=== PATIENT | male | born 1945 | race Caucasian/White ===

== ENCOUNTER 2017-10-19 23:03 | Emergency (ER) | payer OTHER ==
[2017-10-19] MEDS: HYDROmorphone 2 MG/ML VIAL IM (23:30)
[2017-10-20] MEDS: HYDROcodone/APAP 10/325 1 TAB TABLET PO (00:30)
== END 2017-10-20 01:48 | disposition home or self-care (01) ==
LOC: ER 10-20 01:48
DX: S83.92XA Sprain of unspecified site of left knee, initial encounter (principal); E78.00 Pure hypercholesterolemia, unspecified; E10.9 Type 1 diabetes mellitus without complications; I10 Essential (primary) hypertension; Z88.6 Allergy status to analgesic agent; X50.9XXA Other and unspecified overexertion or strenuous movements or postures, initial encounter; Y93.89 Activity, other specified; Y99.8 Other external cause status; Y92.89 Other specified places as the place of occurrence of the external cause
CPT/HCPCS: 29505; 73562; 96372; 99284-25; J1170

== ENCOUNTER 2018-07-24 23:28 | Inpatient (IN) | payer OTHER ==
[~2018-07-24] VITALS: Ht 188 cm; Wt 199.6 kg
[~2018-07-24 23:28] MED LIST: ASPI81TA59 PO; ATORVASTATIN CA80 MG PO; BENZ-8 PO; BUPR150T6 PO; CEPH250C PO; CHOL10003 PO; DIPH25CA58 PO; DULO60CA6 PO; ENOX60DI3 SQ; FINA5TAB4 PO; FURO20TA3 PO; HYDR410O TP; INSU100I17 SQ; INSU100V8 SQ; IPRA3AMP29 NEB; LOSA50TA7 PO; MAGN400T3 PO; MELA3TAB2 PO; METO25TA4 PO; MICO130A9 TP; MULT1TAB52 PO; NALT50TA PO; NYST15PO9 TP; OMEG1CAP6 PO; PREG50CA PO; TAMS0.4C2 PO; TRAZ-85 PO
[2018-07-25] MEDS ORDERED: oxyCODONE/APAP 5/325 1 TAB TABLET ONE (00:41)
[2018-07-25] MEDS ORDERED: oxyCODONE/APAP 5/325 1 TAB TABLET PO ONE (00:45)
[2018-07-25 00:53] LABS: BASO # 0.1 x10^3/uL (0.0-0.2); BASO % 0 % (0-3); EOS # 0.2 x10^3/uL (0.0-0.7); EOS % 1 % (0-3); HEMATOCRIT 39.3 % (39.0-53.0); HEMOGLOBIN 13.3 g/dL (13.0-17.5); LYMPH # 1.4 x10^3/uL (1.0-4.8); LYMPH % 8 % (24-48); MEAN CORPUSCULAR HEMOGLOBIN 29 pg (25-35); MEAN CORPUSCULAR HGB CONC 34 g/dL (31-37); MEAN CORPUSCULAR VOLUME 85 fL (79-100); MONO % 6 % (0-9); NEUT # 15.1 x10^3uL (1.8-7.7); NEUT % 85 % (31-73); PLATELET COUNT 229 x10^3/uL (140-400); RED BLOOD COUNT 4.62 x10^6/uL (4.30-5.70); RED CELL DISTRIBUTION WIDTH 14.7 % (11.5-14.5); WHITE BLOOD COUNT 17.9 x10^3/uL (4.0-11.0)
[2018-07-25 01:01] LABS: CALCIUM 9.1 mg/dL (8.5-10.1); CREATININE 1.2 mg/dL (0.7-1.3); GFR 59.7; POTASSIUM 4.7 mmol/L (3.5-5.1)
[2018-07-25 01:18] LABS: % BANDS 1 % (0-9); % EOS 1 % (0-5); % LYMPHS 13 % (24-48); % MONOS 1 % (0-10); % SEGS 84 % (35-66); PLT ESTIMATE ADEQUATE (ADEQUATE); TOXIC GRANULATION SLIGHT
[2018-07-25] MEDS ORDERED: ACETAMINOPHEN 325 MG TABLET. PO PRN (01:45)
[2018-07-25] MEDS ORDERED: ONDANSETRON PF 4 MG/2 ML VIAL. IV PRN ×2 (01:45→09:00)
--- NOTE | 2018-07-25 02:15 | PHYS DOC ---
Past Medical History Past Medical History: COPD, Diabetes-Type I, High Cholesterol, Hypertension, Other Additional Past Medical Histor: born with one kidney, EMPHYSEMA, MORBIDLY OBESE Past Surgical History: No Surgical History, Other Additional Past Surgical Histo: hernia Alcohol Use: None Drug Use: None Adult General Chief Complaint Chief Complaint: GROIN PAIN [facility] HPI Patient is a 73 year old male who presents with left leg pain. Patient states he is having severe pain in the left leg. The pain is over the entire leg and thigh and radiates to the foot. The patient is currently in an acute rehabilitation facility. He was discharged from this hospital a couple days earlier when he was admitted for respiratory failure and bacteremia and cellulitis in the lower extremity. The patient was not sent home on antibiotics. He was treated in the hospital. Patient has multiple complaints. He states he normally takes medications to help him sleep at night but he is not receiving the appropriate dose of these medications at the [facility]. He also states feeling medication he has for pain is Tylenol. Review of electronic medical record does reveal he is on gabapentin as well. He denies a fever. The patient is at times difficult to obtain a history and mildly belligerent with staff and does not always answer questions appropriately. He is unable to say if the leg pain is new or he has been having it chronically. Review of Systems Review of Systems Constitutional: Denies fever or chills Eyes: Denies change in visual acuity HENT: Denies Respiratory: Denies cough or shortness of breath Cardiovascular: No additional information not addressed in HPI GI: Denies abdominal pain : had dysuria after recent ybarra catheter but no resolved Musculoskeletal: Denies back pain Integument: Denies rash or skin lesions Neurologic: Denies headache All other systems were reviewed and found to be within normal limits, except as documented in this note. Current Medications Current Medications Current Medications Medications (Trade) Dose Ordered Sig/Merry Start Time Stop Time Status Last Admin Dose Admin Acetaminophen (Tylenol) 650 mg PRN Q4HRS PRN 07/25/18 01:45 07/26/18 01:44 Morphine Sulfate (Morphine Sulfate) 4 mg PRN Q2HR PRN 07/25/18 01:45 07/26/18 01:44 Ondansetron HCl (Zofran) 4 mg PRN Q8HRS PRN 07/25/18 01:45 07/26/18 01:44 Oxycodone/ Acetaminophen (Percocet 5/325) 1 tab STK-MED ONCE 07/25/18 00:41 07/25/18 00:42 DC Allergies Allergies Allergies Coded Allergies Type Severity Reaction Last Updated Verified ibuprofen Allergy Severe RespDistress, Swelling 07/13/18 Yes I S O L A T I O N *CONTACT* Allergy Unknown 07/15/18 Yes Physical Exam Physical Exam Constitutional: morbidly obese, no acute distress HENT: Normocephalic, atraumatic Eyes: PERRLA, EOMI Neck: Normal range of motion Cardiovascular:Heart rate regular rhythm, no murmur Lungs & Thorax: Bilateral breath sounds clear to auscultation Abdomen: Bowel sounds normal, soft Extremities: erythema over left leg Neurologic: Alert and oriented X 3 Psych: anxious at times Current Patient Data Vital Signs Vital Signs Date Time Temp Pulse Resp B/P (MAP) Pulse Ox O2 Delivery O2 Flow Rate FiO2 07/24/18 23:46 98.4 62 24 198/129 (152) 96 Nasal Cannula 2.0 98.4 Lab Values Laboratory Tests Test 07/25/18 00:45 White Blood Count 17.9 x10^3/uL (4.0-11.0) H Red Blood Count 4.62 x10^6/uL (4.30-5.70) Hemoglobin 13.3 g/dL (13.0-17.5) Hematocrit 39.3 % (39.0-53.0) Mean Corpuscular Volume 85 fL (79-100) Mean Corpuscular Hemoglobin 29 pg (25-35) Mean Corpuscular Hemoglobin Concent 34 g/dL (31-37) Red Cell Distribution Width 14.7 % (11.5-14.5) H Platelet Count 229 x10^3/uL (140-400) Neutrophils (%) (Auto) 85 % (31-73) H Lymphocytes (%) (Auto) 8 % (24-48) L Monocytes (%) (Auto) 6 % (0-9) Eosinophils (%) (Auto) 1 % (0-3) Basophils (%) (Auto) 0 % (0-3) Neutrophils # (Auto) 15.1 x10^3uL (1.8-7.7) H Lymphocytes # (Auto) 1.4 x10^3/uL (1.0-4.8) Monocytes # (Auto) 1.0 x10^3/uL (0.0-1.1) Eosinophils # (Auto) 0.2 x10^3/uL (0.0-0.7) Basophils # (Auto) 0.1 x10^3/uL (0.0-0.2) Segmented Neutrophils % 84 % (35-66) H Band Neutrophils % 1 % (0-9) Lymphocytes % 13 % (24-48) L Monocytes % 1 % (0-10) Eosinophils % 1 % (0-5) Toxic Granulation Slight Platelet Estimate Adequate (ADEQUATE) Sodium Level 131 mmol/L (136-145) L Potassium Level 4.7 mmol/L (3.5-5.1) Chloride Level 95 mmol/L (98-107) L Carbon Dioxide Level 29 mmol/L (21-32) Anion Gap 7 (6-14) Blood Urea Nitrogen 24 mg/dL (8-26) Creatinine 1.2 mg/dL (0.7-1.3) Estimated GFR (Cockcroft-Gault) 59.7 Glucose Level 243 mg/dL (70-99) H Calcium Level 9.1 mg/dL (8.5-10.1) Laboratory Tests 07/25/18 00:45 Laboratory Tests 07/25/18 00:45 EKG EKG [] Radiology/Procedures Radiology/Procedures [] Course & Med Decision Making Course & Med Decision Making Pertinent Labs and Imaging studies reviewed. (See chart for details) Patient is seen and examined in the emergency department. He was recently admitted for cellulitis on the left lower extremity. He does not currently appear to be on antibiotics after reviewing medication administration record from the [facility]. He did have a ultrasound of that a bilateral lower extremities within the last week so no repeat ultrasound was completed in the ER. According to discharge summary, he was discharged. His white blood cell count been trending downward. Tonight, his CBC was elevated again to 17,000. He does not have a fever. It is unclear if this represents waxing and waning leukocytosis or a spike. The exact cause for the pain is likely is unclear but he does appear to have ongoing cellulitis in that extremity. Given the patient' s comorbid conditions and the fact that he is difficult to manage due to his weight, he is readmitted this evening to the hospital. He is given a dose of clindamycin this evening. He was given a dose of Percocet for pain. Dragon Disclaimer Dragon Disclaimer This electronic medical record was generated, in whole or in part, using a voice recognition dictation system. Departure Departure Referrals: UNKNOWN PCP NAME (PCP) EFE RAM DO Jul 25, 2018 02:15
[2018-07-25] MEDS ORDERED: CLINDAMYCIN 600MG PREMIX 50 ML IV ONE (02:30)
[2018-07-25] MEDS ORDERED: MORPHINE SULFATE 10 MG/ML VIAL. IV ONE (02:30)
[2018-07-25] MEDS ORDERED: INSU100I17 SQ (03:55)
[2018-07-25] MEDS ORDERED: NYST15PO9 TP (03:55)
[2018-07-25] MEDS ORDERED: CHOL10003 PO (03:55)
[2018-07-25] MEDS ORDERED: CEPH500T PO (03:55)
[2018-07-25] MEDS ORDERED: BENZ-8 PO (03:55)
[2018-07-25] MEDS: MORPHINE SULFATE 4 MG/ML VIAL. IV PRN ×2 (06:33→11:27)
[2018-07-25] MEDS ORDERED: DEXTROSE 50% 25 GM / 50ML DISP.SYRIN. IV PRN (07:45)
[2018-07-25 08:00] VITALS: BP 139/92
[2018-07-25] MEDS: IPRATRPIUM/ALBUTEROL 0.5/2.5MG 3 ML NEBU. NEB SCH ×4 (08:04→19:19)
[2018-07-25] MEDS: MULTIVITAMIN with MINERAL TABLET. PO SCH (08:35)
[2018-07-25] MEDS: FINASTERIDE 5 MG TABLET. PO SCH (08:35)
[2018-07-25] MEDS: CHOLECALCIFEROL (VITAMIN D3) 1,000 UNIT TABLET PO SCH (08:35)
[2018-07-25] MEDS: TAMSULOSIN 0.4 MG CAP.ER.24H. PO SCH (08:35)
[2018-07-25] MEDS: METOPROLOL TART IMMED RELEASE 25 MG TABLET. PO SCH ×2 (08:36→21:17)
[2018-07-25] MEDS: MAGNESIUM OXIDE 400 MG TABLET PO SCH (08:36)
[2018-07-25] MEDS: ASPIRIN CHEWABLE 81 MG TABLET. PO SCH (08:37)
[2018-07-25] MEDS: DULoxetine HCL 30 MG CAPSULE.DR PO SCH (08:37)
[2018-07-25] MEDS: LOSARTAN POTASSIUM 50 MG TABLET. PO SCH ×2 (08:37→21:17)
[2018-07-25] MEDS: buPROPion XL 150 MG TAB.ER.24H. PO SCH (08:37)
[2018-07-25] MEDS: PREGABALIN 50 MG CAPSULE PO SCH ×3 (08:39→21:17)
[2018-07-25] MEDS: INSULIN LISPRO 300 UNITS/3 ML INSULN.PEN. SQ SCH ×6 (08:53→18:00)
[2018-07-25] MEDS: NYSTATIN TOPICAL POWDER 15GM BOTTLE. TP SCH ×2 (08:59→21:18)
[2018-07-25] MEDS: cefTRIAXone IV Push 1 GM VIAL. IVP SCH (08:59)
[2018-07-25] MEDS ORDERED: NYSTATIN TOPICAL POWDER 15GM BOTTLE. TP SCH (09:00)
[2018-07-25] MEDS ORDERED: NON FORMULARY ITEM (Naltrexone Hcl 1 TAB) PO SCH (09:00)
[2018-07-25] MEDS ORDERED: ACETAMINOPHEN 500 MG TABLET PO PRN (09:00)
[2018-07-25] MEDS ORDERED: HYDROcodone/APAP 5/325MG 1 TAB TABLET PO PRN (09:00)
[2018-07-25] MEDS ORDERED: ONDANSETRON ODT 4 MG TAB.RAPDIS. PO PRN (09:00)
[2018-07-25] MEDS ORDERED: MICONAZOLE NITRATE TP SCH (09:00)
--- NOTE | 2018-07-25 09:09 | PDOC1 ---
History and Physical Date of Admission Date of Admission DATE: 07/25/18 TIME: 09:02 Identification/Chief Complaint Chief Complaint Left greater than right leg pain Source Source: Caregiver, Chart review, Patient History of Present Illness History of Present Illness Patient known to me 73-year-old obese male who was just just recently discharged here 4 days ago, he was admitted July 13 for the following diagnosis Acute hypoxic/hypercapnic respiratory failure Super morbidly obese, BMI 57 Bilateral leg wounds Strep bacteremia Sepsis POA, WBC 18, positive blood cultures Elevated lactate POA-now normal on hospital day #1 Hypomagnesemia-magnesium 1.7 COPD flare Generalized weakness-being screened for [facility] patient SOLITARY KIDNEY Dcd to [facility]. Then claims he is noncompliant with his BiPAP or CPAP because it causes his mouth to be dry and he cannot breathe, after heavy education counseling today he still refuses to wear the BiPAP, unknown settings. Complains mostly of left leg pain greater than right. Last ultrasound done was negative for DVT which was last admission. He claims he cannot feel my fingers touching his toes, there is some decreased bursitis pedis palpable. But then patient again is morbidly obese on a bariatric bed. We'll check for arterial studies. Some pain medicines. Reconcile home meds. Diabetic, hemoglobin A1c 7.6 recently. No real overt gross wounds, but multiple wounds on bilateral legs which have reviewed on chart the pictures. He has dressing. Wound care consulted. ESR is pending. WBC 17 with no fevers Past Medical History Cardiovascular: HTN, Hyperlipidemia, Other Renal/: Chronic renal insuff, Benign prostatic enlarg. Endocrine: Diabetes Past Surgical History Past Surgical History: Other (pls refer to previous chart) Family History Family History: Diabetes, Hypertension Social History Smoke: No ALCOHOL: none Drugs: None Current Problem List Problem List Problems Medical Problems: (1) Cellulitis of leg Status: Acute (2) Morbid obesity Status: Acute Current Medications Current Medications Current Medications Oxycodone/ Acetaminophen (Percocet 5/325) 2 tab 1X ONCE PO Last administered on 07/25/18at 00:45; Start 07/25/18 at 00:45; Stop 07/25/18 at 00:46; Status DC Oxycodone/ Acetaminophen (Percocet 5/325) 1 tab STK-MED ONCE .ROUTE ; Start at 00:41; Stop 07/25/18 at 00:42; Status DC Ondansetron HCl (Zofran) 4 mg PRN Q8HRS PRN IV NAUSEA/VOMITING; Start at 01:45; Stop 07/26/18 at 01:44 Morphine Sulfate (Morphine Sulfate) 4 mg PRN Q2HR PRN IV PAIN Last administered on 07/25/18at 06:33; Start 07/25/18 at 01:45; Stop 07/26/18 at 01 :44 Acetaminophen (Tylenol) 650 mg PRN Q4HRS PRN PO FEVER; Start 07/25/18 at 01:45 ; Stop 07/26/18 at 01:44 Clindamycin Phosphate 50 ml @ 100 mls/hr 1X ONCE IV Last administered on at 03:29; Start 07/25/18 at 02:30; Stop 07/25/18 at 02:59; Status DC Morphine Sulfate (Morphine Sulfate) 6 mg 1X ONCE IV Last administered on 07/25at 03:29; Start 07/25/18 at 02:30; Stop 07/25/18 at 02:31; Status DC Aspirin (Children'S Aspirin) 81 mg DAILY PO ; Start 07/25/18 at 09:00 Bupropion HCl (Wellbutrin Xl) 150 mg DAILYWBKFT PO ; Start 07/25/18 at 08:00 Vitamin D (Vitamin D3) 1,000 unit DAILY PO ; Start 07/25/18 at 09:00 Diphenhydramine HCl (Benadryl) 50 mg PRN QHS PRN PO INSOMNIA; Start 07/25/18 at 07:45 Enoxaparin Sodium (Lovenox 60mg Syringe) 60 mg Q12HR SQ ; Start 07/25/18 at 09: 00 Finasteride (Proscar) 5 mg DAILY PO ; Start 07/25/18 at 09:00 Albuterol/ Ipratropium (Duoneb) 3 ml RTQID NEB Last administered on 07/25/18at 08:04; Start 07/25/18 at 08:30 Losartan Potassium (Cozaar) 50 mg BID PO ; Start 07/25/18 at 09:00 Metoprolol Tartrate (Lopressor) 25 mg BID PO ; Start 07/25/18 at 09:00 Nystatin (Nystop) 1 narendra BID TP ; Start 07/25/18 at 09:00 Nystatin (Nystop) 1 narendra BID TP ; Start 07/25/18 at 09:00; Stop 07/25/18 at 09: 00; Status DC Fish Oil (Fish Oil) 1,000 mg HS PO ; Start 07/25/18 at 21:00 Pregabalin (Lyrica) 50 mg TID PO ; Start 07/25/18 at 09:00 Tamsulosin HCl (Flomax) 0.4 mg DAILY PO ; Start 07/25/18 at 09:00 Trazodone HCl (Desyrel) 50 mg QHS PO ; Start 07/25/18 at 21:00 Atorvastatin Calcium (Lipitor) 80 mg QHS PO ; Start 07/25/18 at 21:00 Benzonatate (Tessalon Perle) 100 mg PRN Q8HRS PRN PO COUGH; Start 07/25/18 at 09:00 Duloxetine HCl (Cymbalta) 60 mg DAILY PO ; Start 07/25/18 at 09:00 Insulin Human Lispro (HumaLOG) 20 units TIDWMEALS SQ ; Start 07/25/18 at 08:30 Insulin Glargine (Lantus) 55 units QHS SQ ; Start 07/25/18 at 21:00 Magnesium Oxide (Magnesium Oxide) 400 mg DAILY PO ; Start 07/25/18 at 09:00 Non-Formulary Medication (Melatonin ) 3 mg HS PO ; Start 07/25/18 at 21:00; Status UNV Non-Formulary Medication (Miconazole Nitrate ) 130 gm TID TP ; Start 07/25/18 at 09:00; Status UNV Multivitamins (Thera M Plus) 1 tab DAILY PO ; Start 07/25/18 at 09:00 Non-Formulary Medication (Naltrexone Hcl ) 1 tab DAILY PO ; Start 07/25/18 at 09:00; Status UNV Insulin Human Lispro (HumaLOG) 0-9 UNITS TIDWMEALS SQ ; Start 07/25/18 at 08:00 Dextrose (Dextrose 50%-Water Syringe) 12.5 gm PRN Q15MIN PRN IV SEE COMMENTS; Start 07/25/18 at 07:45 Furosemide (Lasix) 40 mg DAILY IVP ; Start 07/25/18 at 09:00 Ceftriaxone Sodium 1 gm/ Dextrose 50 ml @ 100 mls/hr Q24H IV ; Start 07/25/18 at 07:45; Status UNV Ceftriaxone Sodium (Rocephin) 1 gm Q24H IVP ; Start 07/25/18 at 09:00 Active Scripts Active Enoxaparin Sodium 60 Mg/0.6 Ml Disp.syrin 60 Mg SQ Q12HR 30 Days Furosemide 20 Mg Tablet 20 Mg PO DAILY 30 Days Benadryl (Diphenhydramine Hcl) 25 Mg Capsule 50 Mg PO PRN QHS PRN 30 Days Duoneb 0.5-3(2.5) Mg/3 Ml (Albuterol/Ipratropium) 3 Ml Ampul.neb 3 Ml NEB RTQID 30 Days Lantus (Insulin Glargine,Hum.rec.anlog) 100 Unit/1 Ml Vial 55 Unit SQ HS 30 Days Reported Vitamin D3 (Cholecalciferol (Vitamin D3)) 1,000 Unit Tablet 1 Tab PO DAILY Nystatin 15 Gm Powder 1 Narendra TP BID Novolog Flexpen (Insulin Aspart) 100 Unit/1 Ml Insuln.pen 20 Unit SQ TIDAC Cephalexin 500 Mg Tablet 1 Tab PO QID Benzonatate 100 Mg Capsule 1 Cap PO Q8HRS PRN Multivitamins (Multivitamin) 1 Each Tablet 1 Tab PO DAILY Fish Oil 1,000 Mg Capsule ([place]-3 Fatty Acids/Fish Oil) 1 Each Capsule 3 Each PO HS Children's Aspirin (Aspirin) 81 Mg Tab.chew 81 Mg PO DAILY Finasteride 5 Mg Tablet 1 Tab PO DAILY Trazodone Hcl 50 Mg Tablet 1 Tab PO QHS Tamsulosin Hcl 0.4 Mg Cap.er.24h 1 Cap PO DAILY Lyrica (Pregabalin) 50 Mg Capsule 1 Cap PO TID Nystatin 15 Gm Powder 1 Narendra TP BID Naltrexone Hcl 50 Mg Tablet 1 Tab PO DAILY Miconazole Nitrate 130 Gm Aero.powd 130 Gm TP TID Metoprolol Tartrate 25 Mg Tablet 1 Tab PO BID Melatonin 3 Mg Tablet 3 Mg PO HS Magnesium Oxide 400 Mg Tablet 1 Tab PO DAILY Losartan Potassium 50 Mg Tablet 50 Mg PO BID Hydrophilic Ointment 410 Gm Oint...g. 410 Gm TP PRN Cymbalta (Duloxetine Hcl) 60 Mg Capsule.dr 1 Cap PO DAILY Bupropion Xl (Bupropion Hcl) 150 Mg Tab.er.24h 1 Tab PO DAILYWBKFT Atorvastatin Calcium 80 Mg Tablet 80 Mg PO HS Allergies Allergies: Coded Allergies: ibuprofen (Verified Allergy, Severe, RespDistress, Swelling, 07/13/18) TAKES A BABY ASA AT HOME I S O L A T I O N *CONTACT* (Verified Allergy, Unknown, 07/15/18) +MRSA nares 07/13/18 ROS Review of System pos for So A, weak, no chest pain, no down pain, leg pains Physical Exam General: Alert, Oriented X3, Cooperative, No acute distress, Other (in pain, disappointed because of left leg pain greater than the right) HEENT: Atraumatic, PERRLA Lungs: Clear to auscultation, Normal air movement Heart: S1S2, RRR, no thrills, no rubs, no gallops, no murmurs Cardiovascular: S1, S2 Abdomen: Normal bowel sounds, Soft, No tenderness, No hepatosplenomegaly, No masses Male Genitals Exam: normal genitalia, normal prostate Rectal Exam: not examined PELVIC: Nml ext genitalia Extremities: Other (acute on chronic lower extremity edema) Skin: Other (multiple superficial skin tears wounds but nothing open or discharge or gross smelling wound) Neuro: Normal gait, Normal speech, Strength at 5/5 X4 ext, Normal tone, Sensation intact, Cranial nerves 3-12 NL, Reflexes 2+ Psych/Mental Status: Mental status NL, Mood NL Vitals Vitals Vital Signs Date Time Temp Pulse Resp B/P (MAP) Pulse Ox O2 Delivery O2 Flow Rate FiO2 07/25/18 08:05 96 Nasal Cannula 2.0 07/25/18 08:00 98.1 78 17 139/92 (108) 98.1 Labs Labs Laboratory Tests Test 07/25/18 00:45 07/25/18 07:59 White Blood Count 17.9 x10^3/uL (4.0-11.0) Red Blood Count 4.62 x10^6/uL (4.30-5.70) Hemoglobin 13.3 g/dL (13.0-17.5) Hematocrit 39.3 % (39.0-53.0) Mean Corpuscular Volume 85 fL (79-100) Mean Corpuscular Hemoglobin 29 pg (25-35) Mean Corpuscular Hemoglobin Concent 34 g/dL (31-37) Red Cell Distribution Width 14.7 % (11.5-14.5) Platelet Count 229 x10^3/uL (140-400) Neutrophils (%) (Auto) 85 % (31-73) Lymphocytes (%) (Auto) 8 % (24-48) Monocytes (%) (Auto) 6 % (0-9) Eosinophils (%) (Auto) 1 % (0-3) Basophils (%) (Auto) 0 % (0-3) Neutrophils # (Auto) 15.1 x10^3uL (1.8-7.7) Lymphocytes # (Auto) 1.4 x10^3/uL (1.0-4.8) Monocytes # (Auto) 1.0 x10^3/uL (0.0-1.1) Eosinophils # (Auto) 0.2 x10^3/uL (0.0-0.7) Basophils # (Auto) 0.1 x10^3/uL (0.0-0.2) Segmented Neutrophils % 84 % (35-66) Band Neutrophils % 1 % (0-9) Lymphocytes % 13 % (24-48) Monocytes % 1 % (0-10) Eosinophils % 1 % (0-5) Toxic Granulation Slight Platelet Estimate Adequate (ADEQUATE) Sodium Level 131 mmol/L (136-145) Potassium Level 4.7 mmol/L (3.5-5.1) Chloride Level 95 mmol/L (98-107) Carbon Dioxide Level 29 mmol/L (21-32) Anion Gap 7 (6-14) Blood Urea Nitrogen 24 mg/dL (8-26) Creatinine 1.2 mg/dL (0.7-1.3) Estimated GFR (Cockcroft-Gault) 59.7 Glucose Level 243 mg/dL (70-99) Calcium Level 9.1 mg/dL (8.5-10.1) Glucose (Fingerstick) 214 mg/dL (70-99) Laboratory Tests Test 07/25/18 00:45 07/25/18 07:59 White Blood Count 17.9 x10^3/uL (4.0-11.0) Red Blood Count 4.62 x10^6/uL (4.30-5.70) Hemoglobin 13.3 g/dL (13.0-17.5) Hematocrit 39.3 % (39.0-53.0) Mean Corpuscular Volume 85 fL (79-100) Mean Corpuscular Hemoglobin 29 pg (25-35) Mean Corpuscular Hemoglobin Concent 34 g/dL (31-37) Red Cell Distribution Width 14.7 % (11.5-14.5) Platelet Count 229 x10^3/uL (140-400) Neutrophils (%) (Auto) 85 % (31-73) Lymphocytes (%) (Auto) 8 % (24-48) Monocytes (%) (Auto) 6 % (0-9) Eosinophils (%) (Auto) 1 % (0-3) Basophils (%) (Auto) 0 % (0-3) Neutrophils # (Auto) 15.1 x10^3uL (1.8-7.7) Lymphocytes # (Auto) 1.4 x10^3/uL (1.0-4.8) Monocytes # (Auto) 1.0 x10^3/uL (0.0-1.1) Eosinophils # (Auto) 0.2 x10^3/uL (0.0-0.7) Basophils # (Auto) 0.1 x10^3/uL (0.0-0.2) Segmented Neutrophils % 84 % (35-66) Band Neutrophils % 1 % (0-9) Lymphocytes % 13 % (24-48) Monocytes % 1 % (0-10) Eosinophils % 1 % (0-5) Toxic Granulation Slight Platelet Estimate Adequate (ADEQUATE) Sodium Level 131 mmol/L (136-145) Potassium Level 4.7 mmol/L (3.5-5.1) Chloride Level 95 mmol/L (98-107) Carbon Dioxide Level 29 mmol/L (21-32) Anion Gap 7 (6-14) Blood Urea Nitrogen 24 mg/dL (8-26) Creatinine 1.2 mg/dL (0.7-1.3) Estimated GFR (Cockcroft-Gault) 59.7 Glucose Level 243 mg/dL (70-99) Calcium Level 9.1 mg/dL (8.5-10.1) Glucose (Fingerstick) 214 mg/dL (70-99) VTE Prophylaxis Ordered VTE Prophylaxis Devices: Yes VTE Pharmacological Prophylaxi: Yes Assessment/Plan Assessment/Plan Acute hypoxic/hypercapnic respiratory failure, refusig bIPAP/CPAP Super morbidly obese, BMI 57 Bilateral leg wounds, superficial Strep bacteremia, hx - dcd on PCN last recent dc Sepsis POA, WBC 17, on re admission Generalized weakness-recently dcd [facility] prev PLAN: IV diurese cautiously given solitary kidney Lites during diuresis I did restart Rocephin given leukocytosis and recent strep bacteremia-he was discharged on by mouth Keflex to [facility] Back [place] [facility] hopefully at discharge Emphasis on BiPAP or CPAP compliance today but he refuses PT OT Add OT for lymphedema ADA diet and sliding scale insulin Monitor the leukocytosis and mild hyponatremia of 131 Check for arterial studies on that leg pain left greater than the right PO pain meds ESTER Acevedo RN, MD Jul 25, 2018 09:08
[2018-07-25] MEDS: FUROSEMIDE 40 MG/4 ML VIAL. IVP SCH (09:42)
[2018-07-25] MEDS: HYDROcodone/APAP 10/325 1 TAB TABLET PO PRN ×3 (09:42→21:59)
[2018-07-25 11:00] VITALS: BP 131/66
[2018-07-25] MEDS: ALPRAZolam 0.5 MG TABLET PO PRN (14:16)
[2018-07-25] MEDS: fentaNYL PF VIAL 100 MCG/2 ML VIAL IV PRN ×2 (14:18→21:18)
[2018-07-25 15:00] VITALS: BP 111/52
[2018-07-25 19:00] VITALS: BP 145/78
[2018-07-25] MEDS ORDERED: NON FORMULARY ITEM (Melatonin 3 MG) PO SCH (21:00)
[2018-07-25] MEDS: OMEGA-3 FATTY ACIDS/FISH OIL 1,000 MG CAPSULE. PO SCH (21:16)
[2018-07-25] MEDS: traZODone 50 MG TABLET. PO SCH (21:17)
[2018-07-25] MEDS: ATORVASTATIN CALCIUM 40 MG TABLET. PO SCH (21:18)
[2018-07-25] MEDS: INSULIN GLARGINE 300 UNITS/3 ML INSULN.PEN. SQ SCH (21:19)
[2018-07-25 23:00] VITALS: BP 115/62
[2018-07-26 03:10] VITALS: BP 105/62
[2018-07-26 04:40] LABS: BASO # 0.1 x10^3/uL (0.0-0.2); BASO % 1 % (0-3); EOS # 0.2 x10^3/uL (0.0-0.7); EOS % 1 % (0-3); HEMATOCRIT 33.3 % (39.0-53.0); HEMOGLOBIN 11.4 g/dL (13.0-17.5); LYMPH # 2.3 x10^3/uL (1.0-4.8); LYMPH % 12 % (24-48); MEAN CORPUSCULAR HEMOGLOBIN 29 pg (25-35); MEAN CORPUSCULAR HGB CONC 34 g/dL (31-37); MEAN CORPUSCULAR VOLUME 85 fL (79-100); MONO # 1.3 x10^3/uL (0.0-1.1); MONO % 7 % (0-9); NEUT # 15.2 x10^3uL (1.8-7.7); NEUT % 80 % (31-73); PLATELET COUNT 232 x10^3/uL (140-400); RED BLOOD COUNT 3.92 x10^6/uL (4.30-5.70); RED CELL DISTRIBUTION WIDTH 15.3 % (11.5-14.5); WHITE BLOOD COUNT 19.1 x10^3/uL (4.0-11.0)
[2018-07-26] MEDS: fentaNYL PF VIAL 100 MCG/2 ML VIAL IV PRN ×5 (05:09→20:06)
[2018-07-26] MEDS: HYDROcodone/APAP 10/325 1 TAB TABLET PO PRN ×2 (05:09→13:05)
[2018-07-26 05:10] LABS: ALBUMIN/GLOBULIN RATIO 0.8 (1.0-1.7); CREATININE 1.5 mg/dL (0.7-1.3); GFR 46.1; POTASSIUM 4.7 mmol/L (3.5-5.1); TOTAL BILIRUBIN 1.2 mg/dL (0.2-1.0); TOTAL PROTEIN 6.7 g/dL (6.4-8.2)
[2018-07-26 07:00] VITALS: BP 106/59
[2018-07-26] MEDS: IPRATRPIUM/ALBUTEROL 0.5/2.5MG 3 ML NEBU. NEB SCH ×4 (07:45→20:52)
[2018-07-26] MEDS: PREGABALIN 50 MG CAPSULE PO SCH ×3 (08:32→20:16)
[2018-07-26] MEDS: DULoxetine HCL 30 MG CAPSULE.DR PO SCH (08:32)
[2018-07-26] MEDS: ALPRAZolam 0.5 MG TABLET PO PRN ×2 (08:32→17:30)
[2018-07-26] MEDS: MAGNESIUM OXIDE 400 MG TABLET PO SCH (08:33)
[2018-07-26] MEDS: MULTIVITAMIN with MINERAL TABLET. PO SCH (08:33)
[2018-07-26] MEDS: buPROPion XL 150 MG TAB.ER.24H. PO SCH (08:33)
[2018-07-26] MEDS: TAMSULOSIN 0.4 MG CAP.ER.24H. PO SCH (08:33)
[2018-07-26] MEDS: METOPROLOL TART IMMED RELEASE 25 MG TABLET. PO SCH ×3 (08:34→20:16)
[2018-07-26] MEDS: ASPIRIN CHEWABLE 81 MG TABLET. PO SCH (08:34)
[2018-07-26] MEDS: LOSARTAN POTASSIUM 50 MG TABLET. PO SCH ×3 (08:35→20:15)
[2018-07-26] MEDS: FINASTERIDE 5 MG TABLET. PO SCH (08:35)
[2018-07-26] MEDS: CHOLECALCIFEROL (VITAMIN D3) 1,000 UNIT TABLET PO SCH (08:35)
[2018-07-26] MEDS: FUROSEMIDE 40 MG/4 ML VIAL. IVP SCH (08:36)
[2018-07-26] MEDS: cefTRIAXone IV Push 1 GM VIAL. IVP SCH (08:38)
[2018-07-26] MEDS: INSULIN LISPRO 300 UNITS/3 ML INSULN.PEN. SQ SCH ×6 (08:59→17:38)
[2018-07-26] MEDS: NYSTATIN TOPICAL POWDER 15GM BOTTLE. TP SCH ×2 (09:10→20:16)
[2018-07-26 11:00] VITALS: BP 96/55
--- NOTE | 2018-07-26 12:04 | PDOC ---
PROGRESS NOTES Vitals Vitals Vital Signs Date Time Temp Pulse Resp B/P (MAP) Pulse Ox O2 Delivery O2 Flow Rate FiO2 07/26/18 11:28 99 Nasal Cannula 1.5 07/26/18 07:00 97.7 70 20 106/59 (75) 97.7 Physical Exam General: Alert, Oriented X3, Cooperative, No acute distress, Other Lungs: Clear Abdomen: Normal bowel sounds, Soft, No tenderness, No hepatosplenomegaly, No masses Extremities: Other Skin: Other Labs LABS Laboratory Tests Test 07/25/18 16:20 07/25/18 20:34 07/26/18 03:40 07/26/18 07:43 Glucose (Fingerstick) 167 mg/dL (70-99) 257 mg/dL (70-99) 178 mg/dL (70-99) White Blood Count 19.1 x10^3/uL (4.0-11.0) Red Blood Count 3.92 x10^6/uL (4.30-5.70) Hemoglobin 11.4 g/dL (13.0-17.5) Hematocrit 33.3 % (39.0-53.0) Mean Corpuscular Volume 85 fL (79-100) Mean Corpuscular Hemoglobin 29 pg (25-35) Mean Corpuscular Hemoglobin Concent 34 g/dL (31-37) Red Cell Distribution Width 15.3 % (11.5-14.5) Platelet Count 232 x10^3/uL (140-400) Neutrophils (%) (Auto) 80 % (31-73) Lymphocytes (%) (Auto) 12 % (24-48) Monocytes (%) (Auto) 7 % (0-9) Eosinophils (%) (Auto) 1 % (0-3) Basophils (%) (Auto) 1 % (0-3) Neutrophils # (Auto) 15.2 x10^3uL (1.8-7.7) Lymphocytes # (Auto) 2.3 x10^3/uL (1.0-4.8) Monocytes # (Auto) 1.3 x10^3/uL (0.0-1.1) Eosinophils # (Auto) 0.2 x10^3/uL (0.0-0.7) Basophils # (Auto) 0.1 x10^3/uL (0.0-0.2) Sodium Level 130 mmol/L (136-145) Potassium Level 4.7 mmol/L (3.5-5.1) Chloride Level 94 mmol/L (98-107) Carbon Dioxide Level 28 mmol/L (21-32) Anion Gap 8 (6-14) Blood Urea Nitrogen 29 mg/dL (8-26) Creatinine 1.5 mg/dL (0.7-1.3) Estimated GFR (Cockcroft-Gault) 46.1 BUN/Creatinine Ratio 19 (6-20) Glucose Level 201 mg/dL (70-99) Calcium Level 9.0 mg/dL (8.5-10.1) Total Bilirubin 1.2 mg/dL (0.2-1.0) Aspartate Amino Transf (AST/SGOT) 44 U/L (15-37) Alanine Aminotransferase (ALT/SGPT) 55 U/L (16-63) Alkaline Phosphatase 60 U/L (46-116) Total Protein 6.7 g/dL (6.4-8.2) Albumin 3.0 g/dL (3.4-5.0) Albumin/Globulin Ratio 0.8 (1.0-1.7) Test 07/26/18 11:45 Glucose (Fingerstick) 233 mg/dL (70-99) Assessment and Plan Assessmemt and Plan Problems Medical Problems: (1) Cellulitis of leg Status: Acute (2) Morbid obesity Status: Acute Comment Review of Relevant I have reviewed the following items verena (where applicable) has been applied. Labs Laboratory Tests Test 07/25/18 00:45 07/25/18 06:00 07/25/18 07:59 07/25/18 08:30 White Blood Count 17.9 x10^3/uL (4.0-11.0) Red Blood Count 4.62 x10^6/uL (4.30-5.70) Hemoglobin 13.3 g/dL (13.0-17.5) Hematocrit 39.3 % (39.0-53.0) Mean Corpuscular Volume 85 fL (79-100) Mean Corpuscular Hemoglobin 29 pg (25-35) Mean Corpuscular Hemoglobin Concent 34 g/dL (31-37) Red Cell Distribution Width 14.7 % (11.5-14.5) Platelet Count 229 x10^3/uL (140-400) Neutrophils (%) (Auto) 85 % (31-73) Lymphocytes (%) (Auto) 8 % (24-48) Monocytes (%) (Auto) 6 % (0-9) Eosinophils (%) (Auto) 1 % (0-3) Basophils (%) (Auto) 0 % (0-3) Neutrophils # (Auto) 15.1 x10^3uL (1.8-7.7) Lymphocytes # (Auto) 1.4 x10^3/uL (1.0-4.8) Monocytes # (Auto) 1.0 x10^3/uL (0.0-1.1) Eosinophils # (Auto) 0.2 x10^3/uL (0.0-0.7) Basophils # (Auto) 0.1 x10^3/uL (0.0-0.2) Segmented Neutrophils % 84 % (35-66) Band Neutrophils % 1 % (0-9) Lymphocytes % 13 % (24-48) Monocytes % 1 % (0-10) Eosinophils % 1 % (0-5) Toxic Granulation Slight Platelet Estimate Adequate (ADEQUATE) Sodium Level 131 mmol/L (136-145) Potassium Level 4.7 mmol/L (3.5-5.1) Chloride Level 95 mmol/L (98-107) Carbon Dioxide Level 29 mmol/L (21-32) Anion Gap 7 (6-14) Blood Urea Nitrogen 24 mg/dL (8-26) Creatinine 1.2 mg/dL (0.7-1.3) Estimated GFR (Cockcroft-Gault) 59.7 Glucose Level 243 mg/dL (70-99) Calcium Level 9.1 mg/dL (8.5-10.1) Nasal Screen MRSA (PCR) Negative (Negative) Glucose (Fingerstick) 214 mg/dL (70-99) Erythrocyte Sedimentation Rate 28 (0-15) Test 07/25/18 11:44 07/25/18 16:20 07/25/18 20:34 07/26/18 03:40 Glucose (Fingerstick) 185 mg/dL (70-99) 167 mg/dL (70-99) 257 mg/dL (70-99) White Blood Count 19.1 x10^3/uL (4.0-11.0) Red Blood Count 3.92 x10^6/uL (4.30-5.70) Hemoglobin 11.4 g/dL (13.0-17.5) Hematocrit 33.3 % (39.0-53.0) Mean Corpuscular Volume 85 fL (79-100) Mean Corpuscular Hemoglobin 29 pg (25-35) Mean Corpuscular Hemoglobin Concent 34 g/dL (31-37) Red Cell Distribution Width 15.3 % (11.5-14.5) Platelet Count 232 x10^3/uL (140-400) Neutrophils (%) (Auto) 80 % (31-73) Lymphocytes (%) (Auto) 12 % (24-48) Monocytes (%) (Auto) 7 % (0-9) Eosinophils (%) (Auto) 1 % (0-3) Basophils (%) (Auto) 1 % (0-3) Neutrophils # (Auto) 15.2 x10^3uL (1.8-7.7) Lymphocytes # (Auto) 2.3 x10^3/uL (1.0-4.8) Monocytes # (Auto) 1.3 x10^3/uL (0.0-1.1) Eosinophils # (Auto) 0.2 x10^3/uL (0.0-0.7) Basophils # (Auto) 0.1 x10^3/uL (0.0-0.2) Sodium Level 130 mmol/L (136-145) Potassium Level 4.7 mmol/L (3.5-5.1) Chloride Level 94 mmol/L (98-107) Carbon Dioxide Level 28 mmol/L (21-32) Anion Gap 8 (6-14) Blood Urea Nitrogen 29 mg/dL (8-26) Creatinine 1.5 mg/dL (0.7-1.3) Estimated GFR (Cockcroft-Gault) 46.1 BUN/Creatinine Ratio 19 (6-20) Glucose Level 201 mg/dL (70-99) Calcium Level 9.0 mg/dL (8.5-10.1) Total Bilirubin 1.2 mg/dL (0.2-1.0) Aspartate Amino Transf (AST/SGOT) 44 U/L (15-37) Alanine Aminotransferase (ALT/SGPT) 55 U/L (16-63) Alkaline Phosphatase 60 U/L (46-116) Total Protein 6.7 g/dL (6.4-8.2) Albumin 3.0 g/dL (3.4-5.0) Albumin/Globulin Ratio 0.8 (1.0-1.7) Test 07/26/18 07:43 07/26/18 11:45 Glucose (Fingerstick) 178 mg/dL (70-99) 233 mg/dL (70-99) Laboratory Tests Test 07/25/18 16:20 07/25/18 20:34 07/26/18 03:40 07/26/18 07:43 Glucose (Fingerstick) 167 mg/dL (70-99) 257 mg/dL (70-99) 178 mg/dL (70-99) White Blood Count 19.1 x10^3/uL (4.0-11.0) Red Blood Count 3.92 x10^6/uL (4.30-5.70) Hemoglobin 11.4 g/dL (13.0-17.5) Hematocrit 33.3 % (39.0-53.0) Mean Corpuscular Volume 85 fL (79-100) Mean Corpuscular Hemoglobin 29 pg (25-35) Mean Corpuscular Hemoglobin Concent 34 g/dL (31-37) Red Cell Distribution Width 15.3 % (11.5-14.5) Platelet Count 232 x10^3/uL (140-400) Neutrophils (%) (Auto) 80 % (31-73) Lymphocytes (%) (Auto) 12 % (24-48) Monocytes (%) (Auto) 7 % (0-9) Eosinophils (%) (Auto) 1 % (0-3) Basophils (%) (Auto) 1 % (0-3) Neutrophils # (Auto) 15.2 x10^3uL (1.8-7.7) Lymphocytes # (Auto) 2.3 x10^3/uL (1.0-4.8) Monocytes # (Auto) 1.3 x10^3/uL (0.0-1.1) Eosinophils # (Auto) 0.2 x10^3/uL (0.0-0.7) Basophils # (Auto) 0.1 x10^3/uL (0.0-0.2) Sodium Level 130 mmol/L (136-145) Potassium Level 4.7 mmol/L (3.5-5.1) Chloride Level 94 mmol/L (98-107) Carbon Dioxide Level 28 mmol/L (21-32) Anion Gap 8 (6-14) Blood Urea Nitrogen 29 mg/dL (8-26) Creatinine 1.5 mg/dL (0.7-1.3) Estimated GFR (Cockcroft-Gault) 46.1 BUN/Creatinine Ratio 19 (6-20) Glucose Level 201 mg/dL (70-99) Calcium Level 9.0 mg/dL (8.5-10.1) Total Bilirubin 1.2 mg/dL (0.2-1.0) Aspartate Amino Transf (AST/SGOT) 44 U/L (15-37) Alanine Aminotransferase (ALT/SGPT) 55 U/L (16-63) Alkaline Phosphatase 60 U/L (46-116) Total Protein 6.7 g/dL (6.4-8.2) Albumin 3.0 g/dL (3.4-5.0) Albumin/Globulin Ratio 0.8 (1.0-1.7) Test 07/26/18 11:45 Glucose (Fingerstick) 233 mg/dL (70-99) Medications Current Medications Oxycodone/ Acetaminophen (Percocet 5/325) 2 tab 1X ONCE PO Last administered on 07/25/18at 00:45; Start 07/25/18 at 00:45; Stop 07/25/18 at 00:46; Status DC Oxycodone/ Acetaminophen (Percocet 5/325) 1 tab STK-MED ONCE .ROUTE ; Start at 00:41; Stop 07/25/18 at 00:42; Status DC Ondansetron HCl (Zofran) 4 mg PRN Q8HRS PRN IV NAUSEA/VOMITING; Start at 01:45; Stop 07/26/18 at 01:44; Status DC Morphine Sulfate (Morphine Sulfate) 4 mg PRN Q2HR PRN IV PAIN Last administered on 07/25/18at 11:27; Start 07/25/18 at 01:45; Stop 07/26/18 at 01 :44; Status DC Acetaminophen (Tylenol) 650 mg PRN Q4HRS PRN PO FEVER Last administered on 08:38; Start 07/25/18 at 01:45; Stop 07/25/18 at 15:48; Status DC Clindamycin Phosphate 50 ml @ 100 mls/hr 1X ONCE IV Last administered on at 03:29; Start 07/25/18 at 02:30; Stop 07/25/18 at 02:59; Status DC Morphine Sulfate (Morphine Sulfate) 6 mg 1X ONCE IV Last administered on 07/25at 03:29; Start 07/25/18 at 02:30; Stop 07/25/18 at 02:31; Status DC Aspirin (Children'S Aspirin) 81 mg DAILY PO Last administered on 07/26/18 08: 34; Start 07/25/18 at 09:00 Bupropion HCl (Wellbutrin Xl) 150 mg DAILYWBKFT PO Last administered on 08:33; Start 07/25/18 at 08:00 Vitamin D (Vitamin D3) 1,000 unit DAILY PO Last administered on 07/26/18 08: 35; Start 07/25/18 at 09:00 Diphenhydramine HCl (Benadryl) 50 mg PRN QHS PRN PO INSOMNIA; Start 07/25/18 at 07:45 Enoxaparin Sodium (Lovenox 60mg Syringe) 60 mg Q12HR SQ Last administered on at 08:37; Start 07/25/18 at 09:00 Finasteride (Proscar) 5 mg DAILY PO Last administered on 07/26/18at 08:35; Start 07/25/18 at 09:00 Albuterol/ Ipratropium (Duoneb) 3 ml RTQID NEB Last administered on 07/26/18 11:28; Start 07/25/18 at 08:30 Losartan Potassium (Cozaar) 50 mg BID PO Last administered on 07/25/18 21:17 ; Start 07/25/18 at 09:00 Metoprolol Tartrate (Lopressor) 25 mg BID PO Last administered on 07/25/18at 21 :17; Start 07/25/18 at 09:00 Nystatin (Nystop) 1 naerndra BID TP Last administered on 07/26/18at 09:10; Start at 09:00 Nystatin (Nystop) 1 narendra BID TP ; Start 07/25/18 at 09:00; Stop 07/25/18 at 09: 00; Status DC Fish Oil (Fish Oil) 1,000 mg HS PO Last administered on 07/25/18 21:16; Start 07/25/18 at 21:00 Pregabalin (Lyrica) 50 mg TID PO Last administered on 07/26/18 08:32; Start 07/25/18 at 09:00 Tamsulosin HCl (Flomax) 0.4 mg DAILY PO Last administered on 07/26/18 08:33; Start 07/25/18 at 09:00 Trazodone HCl (Desyrel) 50 mg QHS PO Last administered on 07/25/18 21:17; Start 07/25/18 at 21:00 Atorvastatin Calcium (Lipitor) 80 mg QHS PO Last administered on 07/25/18 21: 18; Start 07/25/18 at 21:00 Benzonatate (Tessalon Perle) 100 mg PRN Q8HRS PRN PO COUGH; Start 07/25/18 at 09:00 Duloxetine HCl (Cymbalta) 60 mg DAILY PO Last administered on 07/26/18 08:32 ; Start 07/25/18 at 09:00 Insulin Human Lispro (HumaLOG) 20 units TIDWMEALS SQ Last administered on 07/26 09:00; Start 07/25/18 at 08:30 Insulin Glargine (Lantus) 55 units QHS SQ Last administered on 07/25/18 21:19 ; Start 07/25/18 at 21:00 Magnesium Oxide (Magnesium Oxide) 400 mg DAILY PO Last administered on 08:33; Start 07/25/18 at 09:00 Non-Formulary Medication (Melatonin ) 3 mg HS PO ; Start 07/25/18 at 21:00; Status UNV Non-Formulary Medication (Miconazole Nitrate ) 130 gm TID TP ; Start 07/25/18 at 09:00; Status UNV Multivitamins (Thera M Plus) 1 tab DAILY PO Last administered on 07/26/18 08: 33; Start 07/25/18 at 09:00 Non-Formulary Medication (Naltrexone Hcl ) 1 tab DAILY PO ; Start 07/25/18 at 09:00; Status UNV Insulin Human Lispro (HumaLOG) 0-9 UNITS TIDWMEALS SQ Last administered on at 08:59; Start 07/25/18 at 08:00 Dextrose (Dextrose 50%-Water Syringe) 12.5 gm PRN Q15MIN PRN IV SEE COMMENTS; Start 07/25/18 at 07:45 Furosemide (Lasix) 40 mg DAILY IVP Last administered on 07/26/18at 08:36; Start 07/25/18 at 09:00 Ceftriaxone Sodium 1 gm/ Dextrose 50 ml @ 100 mls/hr Q24H IV ; Start 07/25/18 at 07:45; Status UNV Ceftriaxone Sodium (Rocephin) 1 gm Q24H IVP Last administered on 07/26/18at 08: 38; Start 07/25/18 at 09:00 Acetaminophen/ Hydrocodone Bitart (Lortab 5/325) 1 tab PRN Q4HRS PRN PO MODERATE PAIN; Start 07/25/18 at 09:00 Acetaminophen/ Hydrocodone Bitart (Lortab 10/325) 1 tab PRN Q6HRS PRN PO SEVERE PAIN Last administered on 07/26/18at 05:09; Start 07/25/18 at 09:00 Acetaminophen (Tylenol) 500 mg PRN Q6HRS PRN PO MILD PAIN / TEMP; Start at 09:00 Ondansetron HCl (Zofran) 4 mg PRN Q6HRS PRN IV NAUSEA/VOMITING; Start at 09:00 Ondansetron HCl (Zofran Odt) 4 mg PRN Q6HRS PRN PO NAUSEA/VOMITING; Start at 09:00 Fentanyl Citrate (Fentanyl 2ml Vial) 50 mcg PRN Q2HR PRN IV MODERATE-SEVERE PAIN Last administered on 07/26/18at 08:37; Start 07/25/18 at 12:15 Alprazolam (Xanax) 0.5 mg PRN Q8HRS PRN PO ANXIETY / AGITATION Last administered on 07/26/18at 08:32; Start 07/25/18 at 12:15 Ascorbic Acid (Vitamin C) 500 mg DAILY PO ; Start 10/23/18 at 13:00 Active Scripts Active Enoxaparin Sodium 60 Mg/0.6 Ml Disp.syrin 60 Mg SQ Q12HR 30 Days Furosemide 20 Mg Tablet 20 Mg PO DAILY 30 Days Benadryl (Diphenhydramine Hcl) 25 Mg Capsule 50 Mg PO PRN QHS PRN 30 Days Duoneb 0.5-3(2.5) Mg/3 Ml (Albuterol/Ipratropium) 3 Ml Ampul.neb 3 Ml NEB RTQID 30 Days Lantus (Insulin Glargine,Hum.rec.anlog) 100 Unit/1 Ml Vial 55 Unit SQ HS 30 Days Reported Vitamin D3 (Cholecalciferol (Vitamin D3)) 1,000 Unit Tablet 1 Tab PO DAILY Nystatin 15 Gm Powder 1 Narendra TP BID Novolog Flexpen (Insulin Aspart) 100 Unit/1 Ml Insuln.pen 20 Unit SQ TIDAC Cephalexin 500 Mg Tablet 1 Tab PO QID Benzonatate 100 Mg Capsule 1 Cap PO Q8HRS PRN Multivitamins (Multivitamin) 1 Each Tablet 1 Tab PO DAILY Fish Oil 1,000 Mg Capsule ([place]-3 Fatty Acids/Fish Oil) 1 Each Capsule 3 Each PO HS Children's Aspirin (Aspirin) 81 Mg Tab.chew 81 Mg PO DAILY Finasteride 5 Mg Tablet 1 Tab PO DAILY Trazodone Hcl 50 Mg Tablet 1 Tab PO QHS Tamsulosin Hcl 0.4 Mg Cap.er.24h 1 Cap PO DAILY Lyrica (Pregabalin) 50 Mg Capsule 1 Cap PO TID Nystatin 15 Gm Powder 1 Narendra TP BID Naltrexone Hcl 50 Mg Tablet 1 Tab PO DAILY Miconazole Nitrate 130 Gm Aero.powd 130 Gm TP TID Metoprolol Tartrate 25 Mg Tablet 1 Tab PO BID Melatonin 3 Mg Tablet 3 Mg PO HS Magnesium Oxide 400 Mg Tablet 1 Tab PO DAILY Losartan Potassium 50 Mg Tablet 50 Mg PO BID Hydrophilic Ointment 410 Gm Oint...g. 410 Gm TP PRN Cymbalta (Duloxetine Hcl) 60 Mg Capsule.dr 1 Cap PO DAILY Bupropion Xl (Bupropion Hcl) 150 Mg Tab.er.24h 1 Tab PO DAILYWBKFT Atorvastatin Calcium 80 Mg Tablet 80 Mg PO HS Vitals/I & O Vital Sign - Last 24 Hours 07/25/18 07/25/18 07/25/18 07/25/18 14:18 15:00 15:42 15:55 Temp 96.6 96.6 Pulse 72 Resp 20 B/P (MAP) 111/52 (71) Pulse Ox 98 98 O2 Delivery Nasal Cannula Nasal Cannula Nasal Cannula O2 Flow Rate 1.5 2.0 2.0 07/25/18 07/25/18 07/25/18 07/25/18 19:00 19:19 20:00 20:11 Temp 98.0 98.0 Pulse 83 Resp 20 B/P (MAP) 145/78 (100) Pulse Ox 95 96 O2 Delivery Nasal Cannula Nasal Cannula Nasal Cannula O2 Flow Rate 1.0 1.5 07/25/18 07/25/18 07/25/18 07/25/18 21:17 21:17 21:18 21:59 Pulse 83 83 B/P (MAP) 145/78 145/78 O2 Delivery Nasal Cannula Room Air 07/25/18 07/26/18 07/26/18 07/26/18 23:00 03:10 05:09 05:09 Temp 99.1 99.1 Pulse 67 63 Resp 20 20 B/P (MAP) 115/62 (79) 105/62 (76) Pulse Ox 95 96 O2 Delivery Nasal Cannula Nasal Cannula Nasal Cannula Nasal Cannula O2 Flow Rate 2.0 2.0 07/26/18 07/26/18 07/26/18 07/26/18 05:39 06:09 07:00 07:45 Temp 97.7 97.7 Pulse 70 Resp 20 B/P (MAP) 106/59 (75) Pulse Ox 96 96 97 97 O2 Delivery Nasal Cannula Nasal Cannula Nasal Cannula O2 Flow Rate 2.0 1.0 07/26/18 07/26/18 07/26/18 07/26/18 08:30 08:37 09:05 11:28 Pulse Ox 99 O2 Delivery Nasal Cannula Nasal Cannula Nasal Cannula Nasal Cannula O2 Flow Rate 1.0 1.0 1.0 1.5 Intake and Output 07/25/18 07/25/18 07/26/18 15:00 23:00 07:00 Intake Total 2200 ml 240 ml Balance 2200 ml 240 ml CHRISTIN CURRAN MD Jul 26, 2018 12:04
[2018-07-26] MEDS: ASCORBIC ACID 500 MG TABLET PO SCH (13:04)
[2018-07-26 15:00] VITALS: BP 105/54
[2018-07-26 19:00] VITALS: BP 163/55
[2018-07-26] MEDS: LACTOBACILLUS RHAMNOSUS GG 1 CAPSULE. PO SCH (20:15)
[2018-07-26] MEDS: ATORVASTATIN CALCIUM 40 MG TABLET. PO SCH (20:15)
[2018-07-26] MEDS: traZODone 50 MG TABLET. PO SCH (20:16)
[2018-07-26] MEDS: OMEGA-3 FATTY ACIDS/FISH OIL 1,000 MG CAPSULE. PO SCH (20:16)
[2018-07-26] MEDS: INSULIN GLARGINE 300 UNITS/3 ML INSULN.PEN. SQ SCH (20:32)
[2018-07-26 23:00] VITALS: BP 113/68
[2018-07-26] MEDS: diphenhydrAMINE HCL 25 MG CAPSULE PO PRN (23:39)
[2018-07-27] MEDS: ALPRAZolam 0.5 MG TABLET PO PRN ×2 (02:20→11:20)
[2018-07-27] MEDS: HYDROcodone/APAP 10/325 1 TAB TABLET PO PRN ×3 (02:20→20:41)
[2018-07-27 03:00] VITALS: BP 121/70
[2018-07-27] MEDS: fentaNYL PF VIAL 100 MCG/2 ML VIAL IV PRN ×2 (06:44→09:43)
[2018-07-27 07:00] VITALS: BP 125/57
[2018-07-27] MEDS: IPRATRPIUM/ALBUTEROL 0.5/2.5MG 3 ML NEBU. NEB SCH ×4 (07:43→19:20)
[2018-07-27] MEDS: INSULIN LISPRO 300 UNITS/3 ML INSULN.PEN. SQ SCH ×6 (09:01→17:31)
[2018-07-27] MEDS: CHOLECALCIFEROL (VITAMIN D3) 1,000 UNIT TABLET PO SCH (09:09)
[2018-07-27] MEDS: TAMSULOSIN 0.4 MG CAP.ER.24H. PO SCH (09:09)
[2018-07-27] MEDS: MULTIVITAMIN with MINERAL TABLET. PO SCH (09:09)
[2018-07-27] MEDS: ASCORBIC ACID 500 MG TABLET PO SCH (09:09)
[2018-07-27] MEDS: METOPROLOL TART IMMED RELEASE 25 MG TABLET. PO SCH ×2 (09:10→20:42)
[2018-07-27] MEDS: PREGABALIN 50 MG CAPSULE PO SCH ×3 (09:10→20:41)
[2018-07-27] MEDS: buPROPion XL 150 MG TAB.ER.24H. PO SCH (09:10)
[2018-07-27] MEDS: DULoxetine HCL 30 MG CAPSULE.DR PO SCH (09:10)
[2018-07-27] MEDS: LACTOBACILLUS RHAMNOSUS GG 1 CAPSULE. PO SCH ×2 (09:11→20:41)
[2018-07-27] MEDS: FINASTERIDE 5 MG TABLET. PO SCH (09:11)
[2018-07-27] MEDS: ASPIRIN CHEWABLE 81 MG TABLET. PO SCH (09:11)
[2018-07-27] MEDS: MAGNESIUM OXIDE 400 MG TABLET PO SCH (09:11)
[2018-07-27] MEDS: FUROSEMIDE 40 MG/4 ML VIAL. IVP SCH (09:11)
[2018-07-27] MEDS: cefTRIAXone IV Push 1 GM VIAL. IVP SCH (09:12)
[2018-07-27] MEDS: NYSTATIN TOPICAL POWDER 15GM BOTTLE. TP SCH ×2 (09:12→21:00)
[2018-07-27] MEDS: LOSARTAN POTASSIUM 50 MG TABLET. PO SCH ×2 (09:42→21:00)
[2018-07-27] MEDS ORDERED: fentaNYL PF VIAL 100 MCG/2 ML VIAL IV ONE (10:00)
--- NOTE | 2018-07-27 10:32 | PDOC ---
PROGRESS NOTES History of Present Illness History of Present Illness Assessment/Plan Assessment/Plan Acute hypoxic/hypercapnic respiratory failure, refusig bIPAP/CPAP EXTREME morbid obese, BMI 57 Bilateral leg wounds, superficial Strep bacteremia, hx - dcd on PCN last recent dc Sepsis POA, WBC 17, on re admission Generalized weakness- SOLITARY KIDNEY VA pt prev PLAN: IV diurese cautiously given solitary kidney LYTES during diuresis Rocephin given leukocytosis and recent strep bacteremia Emphasis on BiPAP or CPAP compliance today but he refuses PT OT Add OT for lymphedema ADA diet and sliding scale insulin Monitor the leukocytosis and mild hyponatremia of 131 Check for arterial studies on that leg pain left greater than the right PO pain meds dw RN XRAY TIB/ FIBULA Vitals Vitals Vital Signs Date Time Temp Pulse Resp B/P (MAP) Pulse Ox O2 Delivery O2 Flow Rate FiO2 07/27/18 09:43 Nasal Cannula 1.5 07/27/18 09:42 77 125/57 07/27/18 07:43 98 07/27/18 07:00 97.9 20 97.9 Physical Exam General: Alert, Oriented X3, Cooperative, No acute distress, Other Heart: Regular rate Lungs: Clear Abdomen: Normal bowel sounds, Soft, No tenderness, No hepatosplenomegaly, No masses Extremities: No cyanosis, Other (DRESSINGS DRY) Skin: Other Labs LABS Laboratory Tests Test 07/26/18 11:45 07/26/18 16:24 07/26/18 20:29 07/27/18 07:44 Glucose (Fingerstick) 233 mg/dL (70-99) 186 mg/dL (70-99) 272 mg/dL (70-99) 179 mg/dL (70-99) Assessment and Plan Assessmemt and Plan Problems Medical Problems: (1) Cellulitis of leg Status: Acute (2) Morbid obesity Status: Acute Comment Review of Relevant I have reviewed the following items verena (where applicable) has been applied. Labs Laboratory Tests Test 07/25/18 11:44 07/25/18 16:20 07/25/18 20:34 07/26/18 03:40 Glucose (Fingerstick) 185 mg/dL (70-99) 167 mg/dL (70-99) 257 mg/dL (70-99) White Blood Count 19.1 x10^3/uL (4.0-11.0) Red Blood Count 3.92 x10^6/uL (4.30-5.70) Hemoglobin 11.4 g/dL (13.0-17.5) Hematocrit 33.3 % (39.0-53.0) Mean Corpuscular Volume 85 fL (79-100) Mean Corpuscular Hemoglobin 29 pg (25-35) Mean Corpuscular Hemoglobin Concent 34 g/dL (31-37) Red Cell Distribution Width 15.3 % (11.5-14.5) Platelet Count 232 x10^3/uL (140-400) Neutrophils (%) (Auto) 80 % (31-73) Lymphocytes (%) (Auto) 12 % (24-48) Monocytes (%) (Auto) 7 % (0-9) Eosinophils (%) (Auto) 1 % (0-3) Basophils (%) (Auto) 1 % (0-3) Neutrophils # (Auto) 15.2 x10^3uL (1.8-7.7) Lymphocytes # (Auto) 2.3 x10^3/uL (1.0-4.8) Monocytes # (Auto) 1.3 x10^3/uL (0.0-1.1) Eosinophils # (Auto) 0.2 x10^3/uL (0.0-0.7) Basophils # (Auto) 0.1 x10^3/uL (0.0-0.2) Sodium Level 130 mmol/L (136-145) Potassium Level 4.7 mmol/L (3.5-5.1) Chloride Level 94 mmol/L (98-107) Carbon Dioxide Level 28 mmol/L (21-32) Anion Gap 8 (6-14) Blood Urea Nitrogen 29 mg/dL (8-26) Creatinine 1.5 mg/dL (0.7-1.3) Estimated GFR (Cockcroft-Gault) 46.1 BUN/Creatinine Ratio 19 (6-20) Glucose Level 201 mg/dL (70-99) Calcium Level 9.0 mg/dL (8.5-10.1) Total Bilirubin 1.2 mg/dL (0.2-1.0) Aspartate Amino Transf (AST/SGOT) 44 U/L (15-37) Alanine Aminotransferase (ALT/SGPT) 55 U/L (16-63) Alkaline Phosphatase 60 U/L (46-116) Total Protein 6.7 g/dL (6.4-8.2) Albumin 3.0 g/dL (3.4-5.0) Albumin/Globulin Ratio 0.8 (1.0-1.7) Test 07/26/18 07:43 07/26/18 11:45 07/26/18 16:24 07/26/18 20:29 Glucose (Fingerstick) 178 mg/dL (70-99) 233 mg/dL (70-99) 186 mg/dL (70-99) 272 mg/dL (70-99) Test 07/27/18 07:44 Glucose (Fingerstick) 179 mg/dL (70-99) Laboratory Tests Test 07/26/18 11:45 07/26/18 16:24 07/26/18 20:29 07/27/18 07:44 Glucose (Fingerstick) 233 mg/dL (70-99) 186 mg/dL (70-99) 272 mg/dL (70-99) 179 mg/dL (70-99) Medications Current Medications Oxycodone/ Acetaminophen (Percocet 5/325) 2 tab 1X ONCE PO Last administered on 07/25/18at 00:45; Start 07/25/18 at 00:45; Stop 07/25/18 at 00:46; Status DC Oxycodone/ Acetaminophen (Percocet 5/325) 1 tab STK-MED ONCE .ROUTE ; Start at 00:41; Stop 07/25/18 at 00:42; Status DC Ondansetron HCl (Zofran) 4 mg PRN Q8HRS PRN IV NAUSEA/VOMITING; Start at 01:45; Stop 07/26/18 at 01:44; Status DC Morphine Sulfate (Morphine Sulfate) 4 mg PRN Q2HR PRN IV PAIN Last administered on 07/25/18at 11:27; Start 07/25/18 at 01:45; Stop 07/26/18 at 01 :44; Status DC Acetaminophen (Tylenol) 650 mg PRN Q4HRS PRN PO FEVER Last administered on at 08:38; Start 07/25/18 at 01:45; Stop 07/25/18 at 15:48; Status DC Clindamycin Phosphate 50 ml @ 100 mls/hr 1X ONCE IV Last administered on 03:29; Start 07/25/18 at 02:30; Stop 07/25/18 at 02:59; Status DC Morphine Sulfate (Morphine Sulfate) 6 mg 1X ONCE IV Last administered on 07/25at 03:29; Start 07/25/18 at 02:30; Stop 07/25/18 at 02:31; Status DC Aspirin (Children'S Aspirin) 81 mg DAILY PO Last administered on 07/27/18 09: 11; Start 07/25/18 at 09:00 Bupropion HCl (Wellbutrin Xl) 150 mg DAILYWBKFT PO Last administered on 09:10; Start 07/25/18 at 08:00 Vitamin D (Vitamin D3) 1,000 unit DAILY PO Last administered on 07/27/18 09: 09; Start 07/25/18 at 09:00 Diphenhydramine HCl (Benadryl) 50 mg PRN QHS PRN PO INSOMNIA Last administered on 07/26/18at 23:39; Start 07/25/18 at 07:45 Enoxaparin Sodium (Lovenox 60mg Syringe) 60 mg Q12HR SQ Last administered on 09:11; Start 07/25/18 at 09:00 Finasteride (Proscar) 5 mg DAILY PO Last administered on 07/27/18 09:11; Start 07/25/18 at 09:00 Albuterol/ Ipratropium (Duoneb) 3 ml RTQID NEB Last administered on 07/27/18 07:43; Start 07/25/18 at 08:30 Losartan Potassium (Cozaar) 50 mg BID PO Last administered on 07/27/18 09:42 ; Start 07/25/18 at 09:00 Metoprolol Tartrate (Lopressor) 25 mg BID PO Last administered on 07/27/18 09 :10; Start 07/25/18 at 09:00 Nystatin (Nystop) 1 narendra BID TP Last administered on 07/27/18 09:12; Start at 09:00 Nystatin (Nystop) 1 narendra BID TP ; Start 07/25/18 at 09:00; Stop 07/25/18 at 09: 00; Status DC Fish Oil (Fish Oil) 1,000 mg HS PO Last administered on 07/26/18 20:16; Start 07/25/18 at 21:00 Pregabalin (Lyrica) 50 mg TID PO Last administered on 07/27/18 09:10; Start 07/25/18 at 09:00 Tamsulosin HCl (Flomax) 0.4 mg DAILY PO Last administered on 07/27/18at 09:09; Start 07/25/18 at 09:00 Trazodone HCl (Desyrel) 50 mg QHS PO Last administered on 07/26/18 20:16; Start 07/25/18 at 21:00 Atorvastatin Calcium (Lipitor) 80 mg QHS PO Last administered on 07/26/18 20: 15; Start 07/25/18 at 21:00 Benzonatate (Tessalon Perle) 100 mg PRN Q8HRS PRN PO COUGH; Start 07/25/18 at 09:00 Duloxetine HCl (Cymbalta) 60 mg DAILY PO Last administered on 07/27/18 09:10 ; Start 07/25/18 at 09:00 Insulin Human Lispro (HumaLOG) 20 units TIDWMEALS SQ Last administered on 07/27 09:02; Start 07/25/18 at 08:30 Insulin Glargine (Lantus) 55 units QHS SQ Last administered on 07/26/18at 20:32 ; Start 07/25/18 at 21:00 Magnesium Oxide (Magnesium Oxide) 400 mg DAILY PO Last administered on at 09:11; Start 07/25/18 at 09:00 Non-Formulary Medication (Melatonin ) 3 mg HS PO ; Start 07/25/18 at 21:00; Status UNV Non-Formulary Medication (Miconazole Nitrate ) 130 gm TID TP ; Start 07/25/18 at 09:00; Status UNV Multivitamins (Thera M Plus) 1 tab DAILY PO Last administered on 07/27/18 09: 09; Start 07/25/18 at 09:00 Non-Formulary Medication (Naltrexone Hcl ) 1 tab DAILY PO ; Start 07/25/18 at 09:00; Status UNV Insulin Human Lispro (HumaLOG) 0-9 UNITS TIDWMEALS SQ Last administered on at 09:01; Start 07/25/18 at 08:00 Dextrose (Dextrose 50%-Water Syringe) 12.5 gm PRN Q15MIN PRN IV SEE COMMENTS; Start 07/25/18 at 07:45 Furosemide (Lasix) 40 mg DAILY IVP Last administered on 07/27/18at 09:11; Start 07/25/18 at 09:00 Ceftriaxone Sodium 1 gm/ Dextrose 50 ml @ 100 mls/hr Q24H IV ; Start 07/25/18 at 07:45; Status UNV Ceftriaxone Sodium (Rocephin) 1 gm Q24H IVP Last administered on 07/27/18at 09: 12; Start 07/25/18 at 09:00 Acetaminophen/ Hydrocodone Bitart (Lortab 5/325) 1 tab PRN Q4HRS PRN PO MODERATE PAIN; Start 07/25/18 at 09:00 Acetaminophen/ Hydrocodone Bitart (Lortab 10/325) 1 tab PRN Q6HRS PRN PO SEVERE PAIN Last administered on 07/27/18at 09:42; Start 07/25/18 at 09:00 Acetaminophen (Tylenol) 500 mg PRN Q6HRS PRN PO MILD PAIN / TEMP; Start at 09:00 Ondansetron HCl (Zofran) 4 mg PRN Q6HRS PRN IV NAUSEA/VOMITING; Start at 09:00 Ondansetron HCl (Zofran Odt) 4 mg PRN Q6HRS PRN PO NAUSEA/VOMITING; Start at 09:00 Fentanyl Citrate (Fentanyl 2ml Vial) 50 mcg PRN Q2HR PRN IV MODERATE-SEVERE PAIN Last administered on 07/27/18at 09:43; Start 07/25/18 at 12:15 Alprazolam (Xanax) 0.5 mg PRN Q8HRS PRN PO ANXIETY / AGITATION Last administered on 07/27/18at 02:20; Start 07/25/18 at 12:15 Ascorbic Acid (Vitamin C) 500 mg DAILY PO Last administered on 07/27/18at 09:09 ; Start 07/26/18 at 13:00 Lactobacillus Rhamnosus (Culturelle) 1 cap BID PO Last administered on at 09:11; Start 07/26/18 at 21:00 Fentanyl Citrate (Fentanyl 2ml Vial) 100 mcg 1X ONCE IV ; Start 07/27/18 at 10 :00; Stop 07/27/18 at 10:01; Status DC Active Scripts Active Enoxaparin Sodium 60 Mg/0.6 Ml Disp.syrin 60 Mg SQ Q12HR 30 Days Furosemide 20 Mg Tablet 20 Mg PO DAILY 30 Days Benadryl (Diphenhydramine Hcl) 25 Mg Capsule 50 Mg PO PRN QHS PRN 30 Days Duoneb 0.5-3(2.5) Mg/3 Ml (Albuterol/Ipratropium) 3 Ml Ampul.neb 3 Ml NEB RTQID 30 Days Lantus (Insulin Glargine,Hum.rec.anlog) 100 Unit/1 Ml Vial 55 Unit SQ HS 30 Days Reported Vitamin D3 (Cholecalciferol (Vitamin D3)) 1,000 Unit Tablet 1 Tab PO DAILY Nystatin 15 Gm Powder 1 Narendra TP BID Novolog Flexpen (Insulin Aspart) 100 Unit/1 Ml Insuln.pen 20 Unit SQ TIDAC Cephalexin 500 Mg Tablet 1 Tab PO QID Benzonatate 100 Mg Capsule 1 Cap PO Q8HRS PRN Multivitamins (Multivitamin) 1 Each Tablet 1 Tab PO DAILY Fish Oil 1,000 Mg Capsule ([place]-3 Fatty Acids/Fish Oil) 1 Each Capsule 3 Each PO HS Children's Aspirin (Aspirin) 81 Mg Tab.chew 81 Mg PO DAILY Finasteride 5 Mg Tablet 1 Tab PO DAILY Trazodone Hcl 50 Mg Tablet 1 Tab PO QHS Tamsulosin Hcl 0.4 Mg Cap.er.24h 1 Cap PO DAILY Lyrica (Pregabalin) 50 Mg Capsule 1 Cap PO TID Nystatin 15 Gm Powder 1 Narendra TP BID Naltrexone Hcl 50 Mg Tablet 1 Tab PO DAILY Miconazole Nitrate 130 Gm Aero.powd 130 Gm TP TID Metoprolol Tartrate 25 Mg Tablet 1 Tab PO BID Melatonin 3 Mg Tablet 3 Mg PO HS Magnesium Oxide 400 Mg Tablet 1 Tab PO DAILY Losartan Potassium 50 Mg Tablet 50 Mg PO BID Hydrophilic Ointment 410 Gm Oint...g. 410 Gm TP PRN Cymbalta (Duloxetine Hcl) 60 Mg Capsule.dr 1 Cap PO DAILY Bupropion Xl (Bupropion Hcl) 150 Mg Tab.er.24h 1 Tab PO DAILYWBKFT Atorvastatin Calcium 80 Mg Tablet 80 Mg PO HS Vitals/I & O Vital Sign - Last 24 Hours 07/26/18 07/26/18 07/26/18 07/26/18 11:00 11:28 13:05 15:00 Temp 97.5 98.1 97.5 98.1 Pulse 79 89 Resp 22 20 B/P (MAP) 96/55 (69) 105/54 (71) Pulse Ox 96 99 96 O2 Delivery Nasal Cannula Nasal Cannula Nasal Cannula Nasal Cannula O2 Flow Rate 1.5 1.5 07/26/18 07/26/18 07/26/18 07/26/18 15:23 15:31 17:30 19:00 Temp 97.9 97.9 Pulse 104 Resp 22 B/P (MAP) 163/55 (91) Pulse Ox 96 94 O2 Delivery Nasal Cannula Nasal Cannula Nasal Cannula Nasal Cannula O2 Flow Rate 1.5 1.5 1.5 07/26/18 07/26/18 07/26/18 07/26/18 20:00 20:06 20:15 20:16 Pulse 103 103 B/P (MAP) 163/55 163/55 Pulse Ox 96 O2 Delivery Nasal Cannula Nasal Cannula O2 Flow Rate 1.5 1.5 07/26/18 07/26/18 07/26/18 07/26/18 20:42 20:54 20:59 23:00 Temp 97.9 97.9 Pulse 62 Resp 22 B/P (MAP) 113/68 (83) Pulse Ox 96 91 93 96 O2 Delivery Nasal Cannula Nasal Cannula Nasal Cannula Nasal Cannula O2 Flow Rate 1.5 1.5 2.0 07/27/18 07/27/18 07/27/18 07/27/18 02:20 03:00 03:20 06:44 Temp 98.4 98.4 Pulse 82 Resp 20 B/P (MAP) 121/70 (87) Pulse Ox 96 95 95 95 O2 Delivery Nasal Cannula Nasal Cannula Nasal Cannula Nasal Cannula O2 Flow Rate 1.5 1.5 1.5 07/27/18 07/27/18 07/27/18 07/27/18 07:00 07:43 09:10 09:42 Temp 97.9 97.9 Pulse 77 77 77 Resp 20 B/P (MAP) 125/57 (79) 125/57 125/57 Pulse Ox 95 98 O2 Delivery Nasal Cannula Nasal Cannula O2 Flow Rate 1.5 2.0 07/27/18 07/27/18 09:42 09:43 O2 Delivery Nasal Cannula Nasal Cannula O2 Flow Rate 2.5 1.5 Intake and Output 07/26/18 07/26/18 07/27/18 15:00 23:00 07:00 Intake Total 900 ml 1360 ml Balance 900 ml 1360 ml CHRISTIN CURRAN MD Jul 27, 2018 10:32
[2018-07-27 11:00] VITALS: BP 115/63
[2018-07-27 15:00] VITALS: BP 120/61
--- NOTE | 2018-07-27 15:29 | RAD ---
Bilateral knees, 4 views, 07/27/2018: HISTORY: Knee pain There is moderate narrowing of the medial compartment of the left knee joint with moderate marginal spurring. There is moderate spurring at the left patellofemoral articulation. No fracture or dislocation is identified. There is mild narrowing of the medial compartment of the right knee joint with mild marginal spurring. Moderate to severe spurring is present at the right patellofemoral articulation. No fracture or dislocation is evident. There is moderate subcutaneous edema bilaterally, most prominent laterally. IMPRESSION: 1. 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 2. No acute bony abnormality is detected. Left tibia and fibula, 2 views, 07/27/2018: No fracture or destructive bony lesion is seen. There is moderate diffuse subcutaneous edema in the calf. IMPRESSION: No acute bony abnormality is detected. Electronically signed by: Nick Brown MD (07/27/2018 3:26 PM) [facility]
--- NOTE | 2018-07-27 15:32 | PDOC ---
Infectious Disease Note Subjective Subjective pt was recently d/shantanu , Group B strep bacteremia, leg cellulitis, minor multiple wounds, returned with ?? reason. Evidently he had argument with [facility] and they send him back with no return. ROS ROS no n/v/d/sob/fever Vital Sign Vital Signs Vital Signs Date Time Temp Pulse Resp B/P (MAP) Pulse Ox O2 Delivery O2 Flow Rate FiO2 07/27/18 11:29 Nasal Cannula 2.0 07/27/18 11:00 97.9 77 20 115/63 (80) 96 97.9 Physical Exam PHYSICAL EXAM GENERAL: Sitting in the chair, alert, NAD, eating HEENT: Oral mucosa dry. No thrush. Dentures NECK: Supple. No JVD. LUNGS: Decreased breath sounds with scattered rhonchi in the bases. CARDIOVASCULAR: S1, S2. ABDOMEN: Soft, obese. Bowel sounds present, nontender. : Indwelling Colby in place EXTREMITIES: Chronic venous stasis multiple superficial wounds with less edema , wrapped - less tender SKIN: warm without rash SAFETY AND SECURITY MANAGER: Alert and oriented x 3. Grossly nonfocal. Peripheral IV ok Labs Lab Laboratory Tests Test 07/26/18 16:24 07/26/18 20:29 07/27/18 07:44 07/27/18 12:07 Glucose (Fingerstick) 186 mg/dL (70-99) 272 mg/dL (70-99) 179 mg/dL (70-99) 228 mg/dL (70-99) Objective Assessment Group B strep sepsis (POA) 07/13, source unclear, could be wounds or genitourinary, though urinalysis is negative. Repeat BC 07/15 NGTD Acute respiratory failure, multifactorial, improving, Acute exacerbation of chronic obstructive pulmonary disease. Rhabdomyolysis. CPK >2000 Mild acute kidney injury on CKD. 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 Chronic wounds, bilateral lower extremity, do not appear infected at this time. Leukocytosis with bandemia, on steroids. Trending down Morbid obesity. 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
[2018-07-27 19:00] VITALS: BP 90/52
[2018-07-27] MEDS: traZODone 50 MG TABLET. PO SCH (20:41)
[2018-07-27] MEDS: ATORVASTATIN CALCIUM 40 MG TABLET. PO SCH (20:41)
[2018-07-27] MEDS: OMEGA-3 FATTY ACIDS/FISH OIL 1,000 MG CAPSULE. PO SCH (20:41)
[2018-07-27] MEDS: INSULIN GLARGINE 300 UNITS/3 ML INSULN.PEN. SQ SCH (20:48)
[2018-07-27 23:00] VITALS: BP 110/68
[2018-07-28 03:00] VITALS: BP 140/37
[2018-07-28 07:00] VITALS: BP 155/59
[2018-07-28] MEDS: IPRATRPIUM/ALBUTEROL 0.5/2.5MG 3 ML NEBU. NEB SCH ×4 (07:29→20:48)
[2018-07-28] MEDS: TAMSULOSIN 0.4 MG CAP.ER.24H. PO SCH (08:22)
[2018-07-28] MEDS: FUROSEMIDE 40 MG/4 ML VIAL. IVP SCH (08:22)
[2018-07-28] MEDS: METOPROLOL TART IMMED RELEASE 25 MG TABLET. PO SCH ×2 (08:23→21:00)
[2018-07-28] MEDS: DULoxetine HCL 30 MG CAPSULE.DR PO SCH (08:24)
[2018-07-28] MEDS: PREGABALIN 50 MG CAPSULE PO SCH ×3 (08:24→21:06)
[2018-07-28] MEDS: MULTIVITAMIN with MINERAL TABLET. PO SCH (08:24)
[2018-07-28] MEDS: ASCORBIC ACID 500 MG TABLET PO SCH (08:24)
[2018-07-28] MEDS: FINASTERIDE 5 MG TABLET. PO SCH (08:24)
[2018-07-28] MEDS: MAGNESIUM OXIDE 400 MG TABLET PO SCH (08:24)
[2018-07-28] MEDS: buPROPion XL 150 MG TAB.ER.24H. PO SCH (08:25)
[2018-07-28] MEDS: LACTOBACILLUS RHAMNOSUS GG 1 CAPSULE. PO SCH ×2 (08:25→21:06)
[2018-07-28] MEDS: LOSARTAN POTASSIUM 50 MG TABLET. PO SCH ×2 (08:29→21:00)
[2018-07-28] MEDS: CHOLECALCIFEROL (VITAMIN D3) 1,000 UNIT TABLET PO SCH (08:29)
[2018-07-28] MEDS: NYSTATIN TOPICAL POWDER 15GM BOTTLE. TP SCH ×2 (08:29→21:06)
[2018-07-28] MEDS: ASPIRIN CHEWABLE 81 MG TABLET. PO SCH (08:29)
[2018-07-28] MEDS: cefTRIAXone IV Push 1 GM VIAL. IVP SCH (08:30)
[2018-07-28] MEDS: INSULIN LISPRO 300 UNITS/3 ML INSULN.PEN. SQ SCH ×6 (08:42→18:18)
[2018-07-28] MEDS: HYDROcodone/APAP 10/325 1 TAB TABLET PO PRN ×2 (10:06→18:16)
--- NOTE | 2018-07-28 10:23 | PDOC ---
Infectious Disease Note Subjective Subjective feeling ok ROS ROS no n/v/d/fever/ had leg and hip pain Vital Sign Vital Signs Vital Signs Date Time Temp Pulse Resp B/P (MAP) Pulse Ox O2 Delivery O2 Flow Rate FiO2 07/28/18 10:06 Nasal Cannula 2.0 07/28/18 08:29 91 155/59 07/28/18 07:29 98 07/28/18 07:00 97.5 18 97.5 Physical Exam PHYSICAL EXAM GENERAL: Sitting in the chair, alert, NAD, eating HEENT: Oral mucosa dry. No thrush. Dentures NECK: Supple. No JVD. LUNGS: Decreased breath sounds with scattered rhonchi in the bases. CARDIOVASCULAR: S1, S2. ABDOMEN: Soft, obese. Bowel sounds present, nontender. : Indwelling Colby in place EXTREMITIES: Chronic venous stasis multiple superficial wounds with less edema , wrapped - less tender SKIN: warm without rash RETAIL CUSTOMER SERVICE REPRESENTATIVE: Alert and oriented x 3. Grossly nonfocal. Peripheral IV ok Labs Lab Laboratory Tests Test 07/27/18 12:07 07/27/18 17:06 07/27/18 20:42 07/28/18 08:18 Glucose (Fingerstick) 228 mg/dL (70-99) 230 mg/dL (70-99) 190 mg/dL (70-99) 201 mg/dL (70-99) Objective Assessment Group B strep sepsis (POA) 07/13, source unclear, could be wounds or genitourinary, though urinalysis is negative. Repeat BC 07/15 NGTD Acute respiratory failure, multifactorial, improving, Acute exacerbation of chronic obstructive pulmonary disease. Rhabdomyolysis. CPK >2000 Mild acute kidney injury on CKD. 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 Chronic wounds, bilateral lower extremity, do not appear infected at this time. Leukocytosis with bandemia, on steroids. Trending down Morbid obesity. Urinary hesitancy and hematuria s/p Colby DJD Plan Plan of Care cont rocephine leg elevation local wound care wt loss pt/ot NEVIN MURO MD Jul 28, 2018 10:23
--- NOTE | 2018-07-28 10:58 | PDOC ---
PROGRESS NOTES History of Present Illness History of Present Illness Assessment/Plan Assessment/Plan Acute hypoxic/hypercapnic respiratory failure, refusig bIPAP/CPAP EXTREME morbid obese, BMI 57 Bilateral leg wounds, superficial Strep bacteremia, hx - dcd on PCN last recent dc Sepsis POA, WBC 17, on re admission Generalized weakness- [facility] pt prev djd both knees PLAN: OK TO GO TO [facility] IF OK WITH ID LYTES during diuresis Rocephin given leukocytosis and recent strep bacteremia Emphasis on BiPAP or CPAP compliance today but he refuses PT OT Add OT for lymphedema ADA diet and sliding scale insulin Monitor the leukocytosis and mild hyponatremia of 131 Check for arterial studies on that leg pain left greater than the right PO pain meds dw RN cont iv rocephin XRAY TIB/ FIBULA Vitals Vitals Vital Signs Date Time Temp Pulse Resp B/P (MAP) Pulse Ox O2 Delivery O2 Flow Rate FiO2 07/28/18 10:06 Nasal Cannula 2.0 07/28/18 08:29 91 155/59 07/28/18 07:29 98 07/28/18 07:00 97.5 18 97.5 Physical Exam Physical Exam GENERAL: Sitting in bed, alert, NAD, states he does not feel well today HEENT: Oral mucosa dry. No thrush. Dentures NECK: Supple. No JVD. LUNGS: Decreased breath sounds with scattered rhonchi in the bases. CARDIOVASCULAR: S1, S2. ABDOMEN: Soft, obese. Bowel sounds present, nontender. 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 Grossly nonfocal. Peripheral IV ok General: Alert, Oriented X3, Cooperative, No acute distress, Other Heart: Regular rate, Normal S1, Normal S2 Lungs: Clear Abdomen: Normal bowel sounds, Soft, No tenderness, No hepatosplenomegaly, No masses Extremities: No cyanosis, Other (DRESSINGS DRY) Skin: Other Labs LABS Laboratory Tests Test 07/27/18 12:07 07/27/18 17:06 07/27/18 20:42 07/28/18 08:18 Glucose (Fingerstick) 228 mg/dL (70-99) 230 mg/dL (70-99) 190 mg/dL (70-99) 201 mg/dL (70-99) Assessment and Plan Assessmemt and Plan Problems Medical Problems: (1) Cellulitis of leg Status: Acute (2) Morbid obesity Status: Acute Comment Review of Relevant I have reviewed the following items verena (where applicable) has been applied. Labs Laboratory Tests Test 07/26/18 11:45 07/26/18 16:24 07/26/18 20:29 07/27/18 07:44 Glucose (Fingerstick) 233 mg/dL (70-99) 186 mg/dL (70-99) 272 mg/dL (70-99) 179 mg/dL (70-99) Test 07/27/18 12:07 07/27/18 17:06 07/27/18 20:42 07/28/18 08:18 Glucose (Fingerstick) 228 mg/dL (70-99) 230 mg/dL (70-99) 190 mg/dL (70-99) 201 mg/dL (70-99) Laboratory Tests Test 07/27/18 12:07 07/27/18 17:06 07/27/18 20:42 07/28/18 08:18 Glucose (Fingerstick) 228 mg/dL (70-99) 230 mg/dL (70-99) 190 mg/dL (70-99) 201 mg/dL (70-99) Medications Current Medications Oxycodone/ Acetaminophen (Percocet 5/325) 2 tab 1X ONCE PO Last administered on 07/25/18at 00:45; Start 07/25/18 at 00:45; Stop 07/25/18 at 00:46; Status DC Oxycodone/ Acetaminophen (Percocet 5/325) 1 tab STK-MED ONCE .ROUTE ; Start at 00:41; Stop 07/25/18 at 00:42; Status DC Ondansetron HCl (Zofran) 4 mg PRN Q8HRS PRN IV NAUSEA/VOMITING; Start at 01:45; Stop 07/26/18 at 01:44; Status DC Morphine Sulfate (Morphine Sulfate) 4 mg PRN Q2HR PRN IV PAIN Last administered on 07/25/18at 11:27; Start 07/25/18 at 01:45; Stop 07/26/18 at 01 :44; Status DC Acetaminophen (Tylenol) 650 mg PRN Q4HRS PRN PO FEVER Last administered on 08:38; Start 07/25/18 at 01:45; Stop 07/25/18 at 15:48; Status DC Clindamycin Phosphate 50 ml @ 100 mls/hr 1X ONCE IV Last administered on 03:29; Start 07/25/18 at 02:30; Stop 07/25/18 at 02:59; Status DC Morphine Sulfate (Morphine Sulfate) 6 mg 1X ONCE IV Last administered on 07/25 03:29; Start 07/25/18 at 02:30; Stop 07/25/18 at 02:31; Status DC Aspirin (Children'S Aspirin) 81 mg DAILY PO Last administered on 07/28/18 08: 29; Start 07/25/18 at 09:00 Bupropion HCl (Wellbutrin Xl) 150 mg DAILYWBKFT PO Last administered on 08:25; Start 07/25/18 at 08:00 Vitamin D (Vitamin D3) 1,000 unit DAILY PO Last administered on 07/28/18 08: 29; Start 07/25/18 at 09:00 Diphenhydramine HCl (Benadryl) 50 mg PRN QHS PRN PO INSOMNIA Last administered on 07/26/18 23:39; Start 07/25/18 at 07:45 Enoxaparin Sodium (Lovenox 60mg Syringe) 60 mg Q12HR SQ Last administered on 08:29; Start 07/25/18 at 09:00 Finasteride (Proscar) 5 mg DAILY PO Last administered on 07/28/18 08:24; Start 07/25/18 at 09:00 Albuterol/ Ipratropium (Duoneb) 3 ml RTQID NEB Last administered on 07/28/18 07:29; Start 07/25/18 at 08:30 Losartan Potassium (Cozaar) 50 mg BID PO Last administered on 07/28/18 08:29 ; Start 07/25/18 at 09:00 Metoprolol Tartrate (Lopressor) 25 mg BID PO Last administered on 07/28/18 08 :23; Start 07/25/18 at 09:00 Nystatin (Nystop) 1 narendra BID TP Last administered on 07/28/18 08:29; Start at 09:00 Nystatin (Nystop) 1 narendra BID TP ; Start 07/25/18 at 09:00; Stop 07/25/18 at 09: 00; Status DC Fish Oil (Fish Oil) 1,000 mg HS PO Last administered on 07/27/18 20:41; Start 07/25/18 at 21:00 Pregabalin (Lyrica) 50 mg TID PO Last administered on 07/28/18 08:24; Start 07/25/18 at 09:00 Tamsulosin HCl (Flomax) 0.4 mg DAILY PO Last administered on 07/28/18 08:22; Start 07/25/18 at 09:00 Trazodone HCl (Desyrel) 50 mg QHS PO Last administered on 07/27/18 20:41; Start 07/25/18 at 21:00 Atorvastatin Calcium (Lipitor) 80 mg QHS PO Last administered on 07/27/18 20: 41; Start 07/25/18 at 21:00 Benzonatate (Tessalon Perle) 100 mg PRN Q8HRS PRN PO COUGH; Start 07/25/18 at 09:00 Duloxetine HCl (Cymbalta) 60 mg DAILY PO Last administered on 07/28/18 08:24 ; Start 07/25/18 at 09:00 Insulin Human Lispro (HumaLOG) 20 units TIDWMEALS SQ Last administered on 07/28 08:43; Start 07/25/18 at 08:30 Insulin Glargine (Lantus) 55 units QHS SQ Last administered on 07/27/18 20:48 ; Start 07/25/18 at 21:00 Magnesium Oxide (Magnesium Oxide) 400 mg DAILY PO Last administered on 08:24; Start 07/25/18 at 09:00 Non-Formulary Medication (Melatonin ) 3 mg HS PO ; Start 07/25/18 at 21:00; Status UNV Non-Formulary Medication (Miconazole Nitrate ) 130 gm TID TP ; Start 07/25/18 at 09:00; Status UNV Multivitamins (Thera M Plus) 1 tab DAILY PO Last administered on 07/28/18 08: 24; Start 07/25/18 at 09:00 Non-Formulary Medication (Naltrexone Hcl ) 1 tab DAILY PO ; Start 07/25/18 at 09:00; Status UNV Insulin Human Lispro (HumaLOG) 0-9 UNITS TIDWMEALS SQ Last administered on at 08:42; Start 07/25/18 at 08:00 Dextrose (Dextrose 50%-Water Syringe) 12.5 gm PRN Q15MIN PRN IV SEE COMMENTS; Start 07/25/18 at 07:45 Furosemide (Lasix) 40 mg DAILY IVP Last administered on 07/28/18at 08:22; Start 07/25/18 at 09:00 Ceftriaxone Sodium 1 gm/ Dextrose 50 ml @ 100 mls/hr Q24H IV ; Start 07/25/18 at 07:45; Status UNV Ceftriaxone Sodium (Rocephin) 1 gm Q24H IVP Last administered on 07/28/18at 08: 30; Start 07/25/18 at 09:00 Acetaminophen/ Hydrocodone Bitart (Lortab 5/325) 1 tab PRN Q4HRS PRN PO MODERATE PAIN; Start 07/25/18 at 09:00 Acetaminophen/ Hydrocodone Bitart (Lortab 10/325) 1 tab PRN Q6HRS PRN PO SEVERE PAIN Last administered on 07/28/18at 10:06; Start 07/25/18 at 09:00 Acetaminophen (Tylenol) 500 mg PRN Q6HRS PRN PO MILD PAIN / TEMP; Start at 09:00 Ondansetron HCl (Zofran) 4 mg PRN Q6HRS PRN IV NAUSEA/VOMITING; Start at 09:00 Ondansetron HCl (Zofran Odt) 4 mg PRN Q6HRS PRN PO NAUSEA/VOMITING; Start at 09:00 Fentanyl Citrate (Fentanyl 2ml Vial) 50 mcg PRN Q2HR PRN IV MODERATE-SEVERE PAIN Last administered on 07/27/18at 09:43; Start 07/25/18 at 12:15 Alprazolam (Xanax) 0.5 mg PRN Q8HRS PRN PO ANXIETY / AGITATION Last administered on 07/27/18at 11:20; Start 07/25/18 at 12:15 Ascorbic Acid (Vitamin C) 500 mg DAILY PO Last administered on 07/28/18at 08:24 ; Start 07/26/18 at 13:00 Lactobacillus Rhamnosus (Culturelle) 1 cap BID PO Last administered on at 08:25; Start 07/26/18 at 21:00 Fentanyl Citrate (Fentanyl 2ml Vial) 100 mcg 1X ONCE IV Last administered on 07/27/18at 11:20; Start 07/27/18 at 10:00; Stop 07/27/18 at 10:01; Status DC Active Scripts Active Enoxaparin Sodium 60 Mg/0.6 Ml Disp.syrin 60 Mg SQ Q12HR 30 Days Furosemide 20 Mg Tablet 20 Mg PO DAILY 30 Days Benadryl (Diphenhydramine Hcl) 25 Mg Capsule 50 Mg PO PRN QHS PRN 30 Days Duoneb 0.5-3(2.5) Mg/3 Ml (Albuterol/Ipratropium) 3 Ml Ampul.neb 3 Ml NEB RTQID 30 Days Lantus (Insulin Glargine,Hum.rec.anlog) 100 Unit/1 Ml Vial 55 Unit SQ HS 30 Days Reported Vitamin D3 (Cholecalciferol (Vitamin D3)) 1,000 Unit Tablet 1 Tab PO DAILY Nystatin 15 Gm Powder 1 Narendra TP BID Novolog Flexpen (Insulin Aspart) 100 Unit/1 Ml Insuln.pen 20 Unit SQ TIDAC Cephalexin 500 Mg Tablet 1 Tab PO QID Benzonatate 100 Mg Capsule 1 Cap PO Q8HRS PRN Multivitamins (Multivitamin) 1 Each Tablet 1 Tab PO DAILY Fish Oil 1,000 Mg Capsule ([place]-3 Fatty Acids/Fish Oil) 1 Each Capsule 3 Each PO HS Children's Aspirin (Aspirin) 81 Mg Tab.chew 81 Mg PO DAILY Finasteride 5 Mg Tablet 1 Tab PO DAILY Trazodone Hcl 50 Mg Tablet 1 Tab PO QHS Tamsulosin Hcl 0.4 Mg Cap.er.24h 1 Cap PO DAILY Lyrica (Pregabalin) 50 Mg Capsule 1 Cap PO TID Nystatin 15 Gm Powder 1 Narendra TP BID Naltrexone Hcl 50 Mg Tablet 1 Tab PO DAILY Miconazole Nitrate 130 Gm Aero.powd 130 Gm TP TID Metoprolol Tartrate 25 Mg Tablet 1 Tab PO BID Melatonin 3 Mg Tablet 3 Mg PO HS Magnesium Oxide 400 Mg Tablet 1 Tab PO DAILY Losartan Potassium 50 Mg Tablet 50 Mg PO BID Hydrophilic Ointment 410 Gm Oint...g. 410 Gm TP PRN Cymbalta (Duloxetine Hcl) 60 Mg Capsule.dr 1 Cap PO DAILY Bupropion Xl (Bupropion Hcl) 150 Mg Tab.er.24h 1 Tab PO DAILYWBKFT Atorvastatin Calcium 80 Mg Tablet 80 Mg PO HS Vitals/I & O Vital Sign - Last 24 Hours 07/27/18 07/27/18 07/27/18 07/27/18 11:00 11:20 11:29 15:00 Temp 97.9 97.9 97.9 97.9 Pulse 77 76 Resp 20 20 B/P (MAP) 115/63 (80) 120/61 (80) Pulse Ox 96 96 O2 Delivery Nasal Cannula Nasal Cannula Nasal Cannula Nasal Cannula O2 Flow Rate 1.5 1.5 2.0 1.5 07/27/18 07/27/18 07/27/18 07/27/18 15:45 19:00 19:20 19:33 Temp 97.9 97.9 Pulse 101 Resp 22 B/P (MAP) 90/52 (65) Pulse Ox 96 96 96 O2 Delivery Nasal Cannula Nasal Cannula Nasal Cannula Nasal Cannula O2 Flow Rate 2.0 1.5 2.0 2.0 07/27/18 07/27/18 07/27/18 07/27/18 20:41 20:42 21:00 21:41 Pulse 102 102 B/P (MAP) 90/52 90/52 Pulse Ox 96 O2 Delivery Nasal Cannula Nasal Cannula O2 Flow Rate 2.0 2.0 07/27/18 07/28/18 07/28/18 07/28/18 23:00 03:00 07:00 07:29 Temp 97.1 97.7 97.5 97.1 97.7 97.5 Pulse 96 79 90 Resp 20 18 18 B/P (MAP) 110/68 (82) 140/37 (71) 155/59 (91) Pulse Ox 94 94 95 98 O2 Delivery Nasal Cannula Nasal Cannula Nasal Cannula Room Air O2 Flow Rate 1.5 1.5 07/28/18 07/28/18 07/28/18 07/28/18 08:23 08:29 08:30 10:06 Pulse 91 91 B/P (MAP) 155/59 155/59 O2 Delivery Nasal Cannula Nasal Cannula O2 Flow Rate 1.5 2.0 Intake and Output 07/27/18 07/27/18 07/28/18 15:00 23:00 07:00 Intake Total 540 ml 180 ml 1200 ml Balance 540 ml 180 ml 1200 ml CHRISTIN CURRAN MD Jul 28, 2018 10:58
[2018-07-28 11:00] VITALS: BP 109/36
--- NOTE | 2018-07-28 11:10 | RAD ---
Bilateral femurs, 6 views, 07/28/2018: HISTORY: Leg pain The femoral heads were not adequately delineated due to difficulties in positioning of this large patient. No fracture or destructive bony lesion is seen on these limited views. Moderate degenerative change is present at both knee joints. Electronically signed by: Nick Brown MD (07/28/2018 11:08 AM) [facility]
[2018-07-28] MEDS: fentaNYL PF VIAL 100 MCG/2 ML VIAL IV PRN (11:49)
[2018-07-28 15:00] VITALS: BP 122/37
[2018-07-28] MEDS ORDERED: ANTI-COAG MONITOR BY PHARMACY. MC PRN (15:00)
[2018-07-28 19:00] VITALS: BP 128/44
[2018-07-28] MEDS: OMEGA-3 FATTY ACIDS/FISH OIL 1,000 MG CAPSULE. PO SCH (21:05)
[2018-07-28] MEDS: ATORVASTATIN CALCIUM 40 MG TABLET. PO SCH (21:05)
[2018-07-28] MEDS: traZODone 50 MG TABLET. PO SCH (21:06)
[2018-07-28] MEDS: INSULIN GLARGINE 300 UNITS/3 ML INSULN.PEN. SQ SCH (21:07)
[2018-07-28 23:00] VITALS: BP 120/43
[2018-07-29] MEDS: HYDROcodone/APAP 10/325 1 TAB TABLET PO PRN ×4 (01:33→20:45)
[2018-07-29 02:50] VITALS: BP 120/39
[2018-07-29 07:00] VITALS: BP 106/41
[2018-07-29] MEDS: IPRATRPIUM/ALBUTEROL 0.5/2.5MG 3 ML NEBU. NEB SCH ×4 (07:56→19:18)
[2018-07-29] MEDS: buPROPion XL 150 MG TAB.ER.24H. PO SCH (08:25)
[2018-07-29] MEDS: INSULIN LISPRO 300 UNITS/3 ML INSULN.PEN. SQ SCH ×6 (08:28→17:15)
[2018-07-29] MEDS: NYSTATIN TOPICAL POWDER 15GM BOTTLE. TP SCH ×2 (09:00→20:53)
[2018-07-29] MEDS: LOSARTAN POTASSIUM 50 MG TABLET. PO SCH ×2 (09:00→20:46)
[2018-07-29] MEDS: FINASTERIDE 5 MG TABLET. PO SCH (09:45)
[2018-07-29] MEDS: TAMSULOSIN 0.4 MG CAP.ER.24H. PO SCH (09:46)
[2018-07-29] MEDS: PREGABALIN 50 MG CAPSULE PO SCH ×3 (09:46→20:44)
[2018-07-29] MEDS: CHOLECALCIFEROL (VITAMIN D3) 1,000 UNIT TABLET PO SCH (09:46)
[2018-07-29] MEDS: MAGNESIUM OXIDE 400 MG TABLET PO SCH (09:46)
[2018-07-29] MEDS: ASCORBIC ACID 500 MG TABLET PO SCH (09:46)
[2018-07-29] MEDS: MULTIVITAMIN with MINERAL TABLET. PO SCH (09:46)
[2018-07-29] MEDS: DULoxetine HCL 30 MG CAPSULE.DR PO SCH (09:46)
[2018-07-29] MEDS: FUROSEMIDE 40 MG/4 ML VIAL. IVP SCH (09:47)
[2018-07-29] MEDS: cefTRIAXone IV Push 1 GM VIAL. IVP SCH (09:47)
[2018-07-29] MEDS: ASPIRIN CHEWABLE 81 MG TABLET. PO SCH (09:47)
[2018-07-29] MEDS: LACTOBACILLUS RHAMNOSUS GG 1 CAPSULE. PO SCH ×2 (09:47→20:45)
--- NOTE | 2018-07-29 09:48 | PDOC ---
Infectious Disease Note Subjective Subjective feeling ok, cont to have back pain, which is old and left hip pain which is new ROS ROS no n/v/d/fever Vital Sign Vital Signs Vital Signs Date Time Temp Pulse Resp B/P (MAP) Pulse Ox O2 Delivery O2 Flow Rate FiO2 07/29/18 08:30 Nasal Cannula 2.0 07/29/18 07:57 96 07/29/18 07:00 98.1 91 22 106/41 (62) 98.1 Physical Exam PHYSICAL EXAM GENERAL: Sitting in bed, alert, NAD, states he does not feel well today HEENT: Oral mucosa dry. No thrush. Dentures NECK: Supple. No JVD. LUNGS: Decreased breath sounds with scattered rhonchi in the bases. CARDIOVASCULAR: S1, S2. ABDOMEN: Soft, obese. Bowel sounds present, nontender. 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 Peripheral IV ok Labs Lab Laboratory Tests Test 07/28/18 12:11 07/28/18 15:00 07/28/18 15:50 07/28/18 17:17 Glucose (Fingerstick) 256 mg/dL (70-99) 189 mg/dL (70-99) 157 mg/dL (70-99) Creatine Kinase 6890 U/L (39-308) Test 07/28/18 17:31 07/28/18 21:04 07/29/18 07:50 Glucose (Fingerstick) 136 mg/dL (70-99) 224 mg/dL (70-99) 215 mg/dL (70-99) Objective Assessment Group B strep sepsis (POA) 07/13, source unclear, could be wounds or genitourinary, though urinalysis is negative. Repeat BC 07/15 NGTD Acute respiratory failure, multifactorial, improving, Acute exacerbation of chronic obstructive pulmonary disease. Rhabdomyolysis. CPK >2000 Mild acute kidney injury on CKD. 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 Chronic wounds, bilateral lower extremity, do not appear infected at this time. Leukocytosis with bandemia, on steroids. Trending down Morbid obesity. Urinary hesitancy and hematuria s/p Colby DJD Plan Plan of Care cont rocephine leg elevation local wound care wt loss pt/ot left hip MRI NEVIN MURO MD Jul 29, 2018 09:48
[2018-07-29] MEDS: fentaNYL PF VIAL 100 MCG/2 ML VIAL IV PRN (10:07)
[2018-07-29 11:00] VITALS: BP 118/34
[2018-07-29 11:12] LABS: BASO % 0 % (0-3); EOS # 0.1 x10^3/uL (0.0-0.7); EOS % 1 % (0-3); HEMATOCRIT 23.3 % (39.0-53.0); HEMOGLOBIN 7.9 g/dL (13.0-17.5); LYMPH # 0.9 x10^3/uL (1.0-4.8); LYMPH % 8 % (24-48); MEAN CORPUSCULAR HEMOGLOBIN 29 pg (25-35); MEAN CORPUSCULAR HGB CONC 34 g/dL (31-37); MEAN CORPUSCULAR VOLUME 86 fL (79-100); MONO # 1.1 x10^3/uL (0.0-1.1); MONO % 10 % (0-9); NEUT # 9.2 x10^3uL (1.8-7.7); NEUT % 81 % (31-73); PLATELET COUNT 265 x10^3/uL (140-400); RED BLOOD COUNT 2.72 x10^6/uL (4.30-5.70); RED CELL DISTRIBUTION WIDTH 15.6 % (11.5-14.5); WHITE BLOOD COUNT 11.4 x10^3/uL (4.0-11.0)
[2018-07-29] MEDS ORDERED: MAGNESIUM CITRATE 296 ML SOLUTION. PO ONE (12:15)
[2018-07-29] MEDS ORDERED: LIDOCAINE 5% TOPICAL OINTMENT 35GM TUBE. TP ONE (12:15)
--- NOTE | 2018-07-29 12:15 | PDOC ---
PROGRESS NOTES History of Present Illness History of Present Illness Assessment/Plan Assessment/Plan Acute hypoxic/hypercapnic respiratory failure, refusig bIPAP/CPAP EXTREME morbid obese, BMI 57 Bilateral leg wounds, superficial Strep bacteremia, hx - dcd on PCN last recent dc Sepsis POA, WBC 17, on re admission Generalized weakness- SOLITARY KIDNEY [facility] pt prev djd both knees PLAN: mag citrate pain mgmt non opiate ct scan of hip Rocephin given leukocytosis and recent strep bacteremia Emphasis on BiPAP or CPAP compliance today but he refuses PT OT Add OT for lymphedema ADA diet and sliding scale insulin Monitor the leukocytosis and mild hyponatremia of 131 Check for arterial studies on that leg pain left greater than the right PO pain meds dw RN cont iv rocephin XRAY TIB/ FIBULA Vitals Vitals Vital Signs Date Time Temp Pulse Resp B/P (MAP) Pulse Ox O2 Delivery O2 Flow Rate FiO2 07/29/18 12:09 Nasal Cannula 2.0 07/29/18 07:57 96 07/29/18 07:00 98.1 91 22 106/41 (62) 98.1 Physical Exam Physical Exam GENERAL: Sitting in bed, alert, NAD, states he does not feel well today HEENT: Oral mucosa dry. No thrush. Dentures NECK: Supple. No JVD. LUNGS: Decreased breath sounds with scattered rhonchi in the bases. CARDIOVASCULAR: S1, S2. ABDOMEN: Soft, obese. Bowel sounds present, nontender. : Indwelling [place] in place EXTREMITIES: Chronic venous stasis multiple superficial wounds with less edema , wrapped - less tender SKIN: warm without rash OLIVE GROWER: Alert and oriented x 3. Grossly nonfocal. Peripheral IV ok General: Alert, Oriented X3, Cooperative, No acute distress, Other Heart: Regular rate, Normal S1, Normal S2 Lungs: Clear Abdomen: Normal bowel sounds, Soft, No tenderness, No hepatosplenomegaly, No masses Extremities: No cyanosis, Other (DRESSINGS DRY) Skin: Other Labs LABS Laboratory Tests Test 07/28/18 15:00 07/28/18 15:50 07/28/18 17:17 07/28/18 17:31 Creatine Kinase 6890 U/L (39-308) Glucose (Fingerstick) 189 mg/dL (70-99) 157 mg/dL (70-99) 136 mg/dL (70-99) Test 07/28/18 21:04 07/29/18 07:50 07/29/18 10:55 Glucose (Fingerstick) 224 mg/dL (70-99) 215 mg/dL (70-99) White Blood Count 11.4 x10^3/uL (4.0-11.0) Red Blood Count 2.72 x10^6/uL (4.30-5.70) Hemoglobin 7.9 g/dL (13.0-17.5) Hematocrit 23.3 % (39.0-53.0) Mean Corpuscular Volume 86 fL (79-100) Mean Corpuscular Hemoglobin 29 pg (25-35) Mean Corpuscular Hemoglobin Concent 34 g/dL (31-37) Red Cell Distribution Width 15.6 % (11.5-14.5) Platelet Count 265 x10^3/uL (140-400) Neutrophils (%) (Auto) 81 % (31-73) Lymphocytes (%) (Auto) 8 % (24-48) Monocytes (%) (Auto) 10 % (0-9) Eosinophils (%) (Auto) 1 % (0-3) Basophils (%) (Auto) 0 % (0-3) Neutrophils # (Auto) 9.2 x10^3uL (1.8-7.7) Lymphocytes # (Auto) 0.9 x10^3/uL (1.0-4.8) Monocytes # (Auto) 1.1 x10^3/uL (0.0-1.1) Eosinophils # (Auto) 0.1 x10^3/uL (0.0-0.7) Basophils # (Auto) 0.0 x10^3/uL (0.0-0.2) Erythrocyte Sedimentation Rate 73 (0-15) Assessment and Plan Assessmemt and Plan Problems Medical Problems: (1) Cellulitis of leg Status: Acute (2) Morbid obesity Status: Acute Comment Review of Relevant I have reviewed the following items verena (where applicable) has been applied. Labs Laboratory Tests Test 07/27/18 17:06 07/27/18 20:42 07/28/18 08:18 07/28/18 12:11 Glucose (Fingerstick) 230 mg/dL (70-99) 190 mg/dL (70-99) 201 mg/dL (70-99) 256 mg/dL (70-99) Test 07/28/18 15:00 07/28/18 15:50 07/28/18 17:17 07/28/18 17:31 Creatine Kinase 6890 U/L (39-308) Glucose (Fingerstick) 189 mg/dL (70-99) 157 mg/dL (70-99) 136 mg/dL (70-99) Test 07/28/18 21:04 07/29/18 07:50 07/29/18 10:55 Glucose (Fingerstick) 224 mg/dL (70-99) 215 mg/dL (70-99) White Blood Count 11.4 x10^3/uL (4.0-11.0) Red Blood Count 2.72 x10^6/uL (4.30-5.70) Hemoglobin 7.9 g/dL (13.0-17.5) Hematocrit 23.3 % (39.0-53.0) Mean Corpuscular Volume 86 fL (79-100) Mean Corpuscular Hemoglobin 29 pg (25-35) Mean Corpuscular Hemoglobin Concent 34 g/dL (31-37) Red Cell Distribution Width 15.6 % (11.5-14.5) Platelet Count 265 x10^3/uL (140-400) Neutrophils (%) (Auto) 81 % (31-73) Lymphocytes (%) (Auto) 8 % (24-48) Monocytes (%) (Auto) 10 % (0-9) Eosinophils (%) (Auto) 1 % (0-3) Basophils (%) (Auto) 0 % (0-3) Neutrophils # (Auto) 9.2 x10^3uL (1.8-7.7) Lymphocytes # (Auto) 0.9 x10^3/uL (1.0-4.8) Monocytes # (Auto) 1.1 x10^3/uL (0.0-1.1) Eosinophils # (Auto) 0.1 x10^3/uL (0.0-0.7) Basophils # (Auto) 0.0 x10^3/uL (0.0-0.2) Erythrocyte Sedimentation Rate 73 (0-15) Laboratory Tests Test 07/28/18 15:00 07/28/18 15:50 07/28/18 17:17 07/28/18 17:31 Creatine Kinase 6890 U/L (39-308) Glucose (Fingerstick) 189 mg/dL (70-99) 157 mg/dL (70-99) 136 mg/dL (70-99) Test 07/28/18 21:04 07/29/18 07:50 07/29/18 10:55 Glucose (Fingerstick) 224 mg/dL (70-99) 215 mg/dL (70-99) White Blood Count 11.4 x10^3/uL (4.0-11.0) Red Blood Count 2.72 x10^6/uL (4.30-5.70) Hemoglobin 7.9 g/dL (13.0-17.5) Hematocrit 23.3 % (39.0-53.0) Mean Corpuscular Volume 86 fL (79-100) Mean Corpuscular Hemoglobin 29 pg (25-35) Mean Corpuscular Hemoglobin Concent 34 g/dL (31-37) Red Cell Distribution Width 15.6 % (11.5-14.5) Platelet Count 265 x10^3/uL (140-400) Neutrophils (%) (Auto) 81 % (31-73) Lymphocytes (%) (Auto) 8 % (24-48) Monocytes (%) (Auto) 10 % (0-9) Eosinophils (%) (Auto) 1 % (0-3) Basophils (%) (Auto) 0 % (0-3) Neutrophils # (Auto) 9.2 x10^3uL (1.8-7.7) Lymphocytes # (Auto) 0.9 x10^3/uL (1.0-4.8) Monocytes # (Auto) 1.1 x10^3/uL (0.0-1.1) Eosinophils # (Auto) 0.1 x10^3/uL (0.0-0.7) Basophils # (Auto) 0.0 x10^3/uL (0.0-0.2) Erythrocyte Sedimentation Rate 73 (0-15) Medications Current Medications Oxycodone/ Acetaminophen (Percocet 5/325) 2 tab 1X ONCE PO Last administered on 07/25/18at 00:45; Start 07/25/18 at 00:45; Stop 07/25/18 at 00:46; Status DC Oxycodone/ Acetaminophen (Percocet 5/325) 1 tab STK-MED ONCE .ROUTE ; Start at 00:41; Stop 07/25/18 at 00:42; Status DC Ondansetron HCl (Zofran) 4 mg PRN Q8HRS PRN IV NAUSEA/VOMITING; Start at 01:45; Stop 07/26/18 at 01:44; Status DC Morphine Sulfate (Morphine Sulfate) 4 mg PRN Q2HR PRN IV PAIN Last administered on 07/25/18at 11:27; Start 07/25/18 at 01:45; Stop 07/26/18 at 01 :44; Status DC Acetaminophen (Tylenol) 650 mg PRN Q4HRS PRN PO FEVER Last administered on at 08:38; Start 07/25/18 at 01:45; Stop 07/25/18 at 15:48; Status DC Clindamycin Phosphate 50 ml @ 100 mls/hr 1X ONCE IV Last administered on at 03:29; Start 07/25/18 at 02:30; Stop 07/25/18 at 02:59; Status DC Morphine Sulfate (Morphine Sulfate) 6 mg 1X ONCE IV Last administered on 07/25at 03:29; Start 07/25/18 at 02:30; Stop 07/25/18 at 02:31; Status DC Aspirin (Children'S Aspirin) 81 mg DAILY PO Last administered on 07/29/18at 09: 47; Start 07/25/18 at 09:00 Bupropion HCl (Wellbutrin Xl) 150 mg DAILYWBKFT PO Last administered on at 08:25; Start 07/25/18 at 08:00 Vitamin D (Vitamin D3) 1,000 unit DAILY PO Last administered on 07/29/18at 09: 46; Start 07/25/18 at 09:00 Diphenhydramine HCl (Benadryl) 50 mg PRN QHS PRN PO INSOMNIA Last administered on 07/26/18at 23:39; Start 07/25/18 at 07:45 Enoxaparin Sodium (Lovenox 60mg Syringe) 60 mg Q12HR SQ Last administered on at 09:50; Start 07/25/18 at 09:00 Finasteride (Proscar) 5 mg DAILY PO Last administered on 07/29/18 09:45; Start 07/25/18 at 09:00 Albuterol/ Ipratropium (Duoneb) 3 ml RTQID NEB Last administered on 07/29/18 12:09; Start 07/25/18 at 08:30 Losartan Potassium (Cozaar) 50 mg BID PO Last administered on 07/28/18 08:29 ; Start 07/25/18 at 09:00 Metoprolol Tartrate (Lopressor) 25 mg BID PO Last administered on 07/28/18 08 :23; Start 07/25/18 at 09:00 Nystatin (Nystop) 1 narendra BID TP Last administered on 07/28/18 21:06; Start at 09:00 Nystatin (Nystop) 1 narendra BID TP ; Start 07/25/18 at 09:00; Stop 07/25/18 at 09: 00; Status DC Fish Oil (Fish Oil) 1,000 mg HS PO Last administered on 07/28/18 21:05; Start 07/25/18 at 21:00 Pregabalin (Lyrica) 50 mg TID PO Last administered on 07/29/18 09:46; Start 07/25/18 at 09:00 Tamsulosin HCl (Flomax) 0.4 mg DAILY PO Last administered on 07/29/18 09:46; Start 07/25/18 at 09:00 Trazodone HCl (Desyrel) 50 mg QHS PO Last administered on 07/28/18 21:06; Start 07/25/18 at 21:00 Atorvastatin Calcium (Lipitor) 80 mg QHS PO Last administered on 07/28/18 21: 05; Start 07/25/18 at 21:00 Benzonatate (Tessalon Perle) 100 mg PRN Q8HRS PRN PO COUGH; Start 07/25/18 at 09:00 Duloxetine HCl (Cymbalta) 60 mg DAILY PO Last administered on 07/29/18 09:46 ; Start 07/25/18 at 09:00 Insulin Human Lispro (HumaLOG) 20 units TIDWMEALS SQ Last administered on 07/29at 08:29; Start 07/25/18 at 08:30 Insulin Glargine (Lantus) 55 units QHS SQ Last administered on 07/28/18at 21:07 ; Start 07/25/18 at 21:00 Magnesium Oxide (Magnesium Oxide) 400 mg DAILY PO Last administered on at 09:46; Start 07/25/18 at 09:00 Non-Formulary Medication (Melatonin ) 3 mg HS PO ; Start 07/25/18 at 21:00; Status UNV Non-Formulary Medication (Miconazole Nitrate ) 130 gm TID TP ; Start 07/25/18 at 09:00; Status UNV Multivitamins (Thera M Plus) 1 tab DAILY PO Last administered on 07/29/18at 09: 46; Start 07/25/18 at 09:00 Non-Formulary Medication (Naltrexone Hcl ) 1 tab DAILY PO ; Start 07/25/18 at 09:00; Status UNV Insulin Human Lispro (HumaLOG) 0-9 UNITS TIDWMEALS SQ Last administered on at 08:28; Start 07/25/18 at 08:00 Dextrose (Dextrose 50%-Water Syringe) 12.5 gm PRN Q15MIN PRN IV SEE COMMENTS; Start 07/25/18 at 07:45 Furosemide (Lasix) 40 mg DAILY IVP Last administered on 07/29/18at 09:47; Start 07/25/18 at 09:00 Ceftriaxone Sodium 1 gm/ Dextrose 50 ml @ 100 mls/hr Q24H IV ; Start 07/25/18 at 07:45; Status UNV Ceftriaxone Sodium (Rocephin) 1 gm Q24H IVP Last administered on 07/29/18at 09: 47; Start 07/25/18 at 09:00 Acetaminophen/ Hydrocodone Bitart (Lortab 5/325) 1 tab PRN Q4HRS PRN PO MODERATE PAIN; Start 07/25/18 at 09:00 Acetaminophen/ Hydrocodone Bitart (Lortab 10/325) 1 tab PRN Q6HRS PRN PO SEVERE PAIN Last administered on 07/29/18at 08:25; Start 07/25/18 at 09:00 Acetaminophen (Tylenol) 500 mg PRN Q6HRS PRN PO MILD PAIN / TEMP; Start at 09:00 Ondansetron HCl (Zofran) 4 mg PRN Q6HRS PRN IV NAUSEA/VOMITING; Start at 09:00 Ondansetron HCl (Zofran Odt) 4 mg PRN Q6HRS PRN PO NAUSEA/VOMITING; Start at 09:00 Fentanyl Citrate (Fentanyl 2ml Vial) 50 mcg PRN Q2HR PRN IV MODERATE-SEVERE PAIN Last administered on 07/29/18at 10:07; Start 07/25/18 at 12:15 Alprazolam (Xanax) 0.5 mg PRN Q8HRS PRN PO ANXIETY / AGITATION Last administered on 07/27/18at 11:20; Start 07/25/18 at 12:15 Ascorbic Acid (Vitamin C) 500 mg DAILY PO Last administered on 07/29/18at 09:46 ; Start 07/26/18 at 13:00 Lactobacillus Rhamnosus (Culturelle) 1 cap BID PO Last administered on at 09:47; Start 07/26/18 at 21:00 Fentanyl Citrate (Fentanyl 2ml Vial) 100 mcg 1X ONCE IV Last administered on 07/27/18at 11:20; Start 07/27/18 at 10:00; Stop 07/27/18 at 10:01; Status DC Info (Anti-Coagulation Monitoring By Pharmacy) 1 each PRN DAILY PRN MC SEE COMMENTS; Start 07/28/18 at 15:00; Stop 07/28/18 at 15:00; Status DC Active Scripts Active Enoxaparin Sodium 60 Mg/0.6 Ml Disp.syrin 60 Mg SQ Q12HR 30 Days Furosemide 20 Mg Tablet 20 Mg PO DAILY 30 Days Benadryl (Diphenhydramine Hcl) 25 Mg Capsule 50 Mg PO PRN QHS PRN 30 Days Duoneb 0.5-3(2.5) Mg/3 Ml (Albuterol/Ipratropium) 3 Ml Ampul.neb 3 Ml NEB RTQID 30 Days Lantus (Insulin Glargine,Hum.rec.anlog) 100 Unit/1 Ml Vial 55 Unit SQ HS 30 Days Reported Vitamin D3 (Cholecalciferol (Vitamin D3)) 1,000 Unit Tablet 1 Tab PO DAILY Nystatin 15 Gm Powder 1 Narendra TP BID Novolog Flexpen (Insulin Aspart) 100 Unit/1 Ml Insuln.pen 20 Unit SQ TIDAC Cephalexin 500 Mg Tablet 1 Tab PO QID Benzonatate 100 Mg Capsule 1 Cap PO Q8HRS PRN Multivitamins (Multivitamin) 1 Each Tablet 1 Tab PO DAILY Fish Oil 1,000 Mg Capsule ([place]-3 Fatty Acids/Fish Oil) 1 Each Capsule 3 Each PO HS Children's Aspirin (Aspirin) 81 Mg Tab.chew 81 Mg PO DAILY Finasteride 5 Mg Tablet 1 Tab PO DAILY Trazodone Hcl 50 Mg Tablet 1 Tab PO QHS Tamsulosin Hcl 0.4 Mg Cap.er.24h 1 Cap PO DAILY Lyrica (Pregabalin) 50 Mg Capsule 1 Cap PO TID Nystatin 15 Gm Powder 1 Narendra TP BID Naltrexone Hcl 50 Mg Tablet 1 Tab PO DAILY Miconazole Nitrate 130 Gm Aero.powd 130 Gm TP TID Metoprolol Tartrate 25 Mg Tablet 1 Tab PO BID Melatonin 3 Mg Tablet 3 Mg PO HS Magnesium Oxide 400 Mg Tablet 1 Tab PO DAILY Losartan Potassium 50 Mg Tablet 50 Mg PO BID Hydrophilic Ointment 410 Gm Oint...g. 410 Gm TP PRN Cymbalta (Duloxetine Hcl) 60 Mg Capsule.dr 1 Cap PO DAILY Bupropion Xl (Bupropion Hcl) 150 Mg Tab.er.24h 1 Tab PO DAILYWBKFT Atorvastatin Calcium 80 Mg Tablet 80 Mg PO HS Vitals/I & O Vital Sign - Last 24 Hours 07/28/18 07/28/18 07/28/18 07/28/18 12:17 15:00 18:16 19:00 Temp 96.5 97.7 96.5 97.7 Pulse 69 69 Resp 18 B/P (MAP) 122/37 (65) 128/44 (72) Pulse Ox 91 97 O2 Delivery Nasal Cannula Nasal Cannula Room Air Nasal Cannula O2 Flow Rate 2.0 2.0 07/28/18 07/28/18 07/28/18 07/28/18 19:50 20:52 21:00 21:00 Pulse 69 69 B/P (MAP) 128/44 128/44 Pulse Ox 95 O2 Delivery Nasal Cannula Nasal Cannula O2 Flow Rate 2.0 2.0 07/28/18 07/29/18 07/29/18 07/29/18 23:00 01:33 02:33 02:50 Temp 98.2 97.9 98.2 97.9 Pulse 77 69 Resp 18 18 B/P (MAP) 120/43 (68) 120/39 (66) Pulse Ox 92 92 92 91 O2 Delivery Nasal Cannula Nasal Cannula Nasal Cannula O2 Flow Rate 2.0 2.0 2.0 07/29/18 07/29/18 07/29/18 07/29/18 07:00 07:57 08:25 08:30 Temp 98.1 98.1 Pulse 91 Resp 22 B/P (MAP) 106/41 (62) Pulse Ox 93 96 O2 Delivery Nasal Cannula Nasal Cannula Nasal Cannula Nasal Cannula O2 Flow Rate 2.0 2.0 2.0 2.0 07/29/18 07/29/18 07/29/18 09:44 10:07 12:09 O2 Delivery Nasal Cannula Nasal Cannula Nasal Cannula O2 Flow Rate 2.0 2.0 2.0 Intake and Output 07/28/18 07/28/18 07/29/18 15:00 23:00 07:00 Intake Total 180 ml 200 ml Balance 180 ml 200 ml MADIE MANCIA MD Jul 29, 2018 12:15
[2018-07-29] MEDS: METOPROLOL TART IMMED RELEASE 25 MG TABLET. PO SCH ×2 (12:21→20:45)
[2018-07-29] MEDS: ALPRAZolam 0.5 MG TABLET PO PRN (15:47)
--- NOTE | 2018-07-29 17:15 | RAD ---
CT PELVIS WO CONTRAST Indication: L HIP AND PELVIC PAIN NO PREV . Chronic left leg pain. Exposure: One or more of the following individualized dose reduction techniques were utilized for this examination: 1. Automated exposure control 2. Adjustment of the mA and/or kV according to patient size 3. Use of iterative reconstruction technique. Comparison: None are available. Contrast: None There is severe swelling of the left iliopsoas musculature, particularly at the level of the iliac crest. This demonstrates heterogeneous density including hyperdense content compatible with hemorrhagic component. Stranding within the surrounding fat, and extending into the posterior lower abdomen. Urinary bladder is distended, measuring 23 cm long axis. The unopacified bladder demonstrates no obvious wall thickening. No significant lymph node enlargement. No evidence of free pelvic fluid. There is retained stool in the partially seen right colon. No evidence of aggressive bone destruction or acute fracture. Degenerative changes of the partially seen lower spine, with stenosis. IMPRESSION: 1. Severe swelling and hyperdensity within the left iliopsoas musculature, most likely a large hematoma. Uncertain etiology, but possible etiologies include coagulopathy, neoplasm or infection/abscess. 2. Urinary bladder distention. . FOR INTERNAL CODING PURPOSES Critical result: Findings discussed with nurse Marcia at 07/29/2018 5:00 PM. RESULT CODE: (C) Electronically signed by: Raciel Vieira MD (07/29/2018 5:11 PM) [id number]
[2018-07-29 17:26] LABS: PROTHROMBIN TIME PATIENT 14.1 SEC (11.7-14.0)
[2018-07-29] MEDS: BENZONATATE 100 MG CAPSULE. PO PRN (17:26)
[2018-07-29 19:00] VITALS: BP 124/49
[2018-07-29] MEDS: OMEGA-3 FATTY ACIDS/FISH OIL 1,000 MG CAPSULE. PO SCH (20:44)
[2018-07-29] MEDS: traZODone 50 MG TABLET. PO SCH (20:44)
[2018-07-29] MEDS: ATORVASTATIN CALCIUM 40 MG TABLET. PO SCH (20:45)
[2018-07-29] MEDS: INSULIN GLARGINE 300 UNITS/3 ML INSULN.PEN. SQ SCH (20:52)
--- NOTE | 2018-07-29 21:51 | PDOC2 ---
CONSULT Date of Consult Date of Consult DATE: 07/29/18 TIME: 21:39 Reason for Consult Reason for Consult: Retroperitoneal hematoma Referring Physician Referring Physician: Josep Identification/Chief Complaint Chief Complaint Leg pain Source Source: Chart review, Patient History of Present Illness Reason for Visit: 73 yo M with multiple medical problems and super obesity. Noted to be anemic. CT c/w retroperitoneal hematoma. Pt seen in his hospital room sitting up in bed. Somewhat poor historian. Past Medical History Cardiovascular: HTN, Hyperlipidemia, Other Renal/: Chronic renal insuff, Benign prostatic enlarg. Endocrine: Diabetes Past Surgical History Past Surgical History: Other Family History Family History: Diabetes, Hypertension Social History No ALCOHOL: none Drugs: None Lives: with Family Current Problem List Problem List Problems Medical Problems: (1) Cellulitis of leg Status: Acute (2) Morbid obesity Status: Acute Current Medications Current Medications Current Medications Oxycodone/ Acetaminophen (Percocet 5/325) 2 tab 1X ONCE PO Last administered on 07/25/18at 00:45; Start 07/25/18 at 00:45; Stop 07/25/18 at 00:46; Status DC Oxycodone/ Acetaminophen (Percocet 5/325) 1 tab STK-MED ONCE .ROUTE ; Start at 00:41; Stop 07/25/18 at 00:42; Status DC Ondansetron HCl (Zofran) 4 mg PRN Q8HRS PRN IV NAUSEA/VOMITING; Start at 01:45; Stop 07/26/18 at 01:44; Status DC Morphine Sulfate (Morphine Sulfate) 4 mg PRN Q2HR PRN IV PAIN Last administered on 07/25/18at 11:27; Start 07/25/18 at 01:45; Stop 07/26/18 at 01 :44; Status DC Acetaminophen (Tylenol) 650 mg PRN Q4HRS PRN PO FEVER Last administered on at 08:38; Start 07/25/18 at 01:45; Stop 07/25/18 at 15:48; Status DC Clindamycin Phosphate 50 ml @ 100 mls/hr 1X ONCE IV Last administered on at 03:29; Start 07/25/18 at 02:30; Stop 07/25/18 at 02:59; Status DC Morphine Sulfate (Morphine Sulfate) 6 mg 1X ONCE IV Last administered on 07/25 03:29; Start 07/25/18 at 02:30; Stop 07/25/18 at 02:31; Status DC Aspirin (Children'S Aspirin) 81 mg DAILY PO Last administered on 07/29/18 09: 47; Start 07/25/18 at 09:00; Stop 07/29/18 at 17:13; Status DC Bupropion HCl (Wellbutrin Xl) 150 mg DAILYWBKFT PO Last administered on 08:25; Start 07/25/18 at 08:00 Vitamin D (Vitamin D3) 1,000 unit DAILY PO Last administered on 07/29/18 09: 46; Start 07/25/18 at 09:00 Diphenhydramine HCl (Benadryl) 50 mg PRN QHS PRN PO INSOMNIA Last administered on 07/26/18at 23:39; Start 07/25/18 at 07:45 Enoxaparin Sodium (Lovenox 60mg Syringe) 60 mg Q12HR SQ Last administered on 09:50; Start 07/25/18 at 09:00; Stop 07/29/18 at 17:13; Status DC Finasteride (Proscar) 5 mg DAILY PO Last administered on 07/29/18 09:45; Start 07/25/18 at 09:00 Albuterol/ Ipratropium (Duoneb) 3 ml RTQID NEB Last administered on 07/29/18 19:18; Start 07/25/18 at 08:30 Losartan Potassium (Cozaar) 50 mg BID PO Last administered on 07/28/18at 08:29 ; Start 07/25/18 at 09:00 Metoprolol Tartrate (Lopressor) 25 mg BID PO Last administered on 07/29/18at 12 :21; Start 07/25/18 at 09:00 Nystatin (Nystop) 1 narendra BID TP Last administered on 07/29/18at 20:53; Start at 09:00 Nystatin (Nystop) 1 narendra BID TP ; Start 07/25/18 at 09:00; Stop 07/25/18 at 09: 00; Status DC Fish Oil (Fish Oil) 1,000 mg HS PO Last administered on 07/29/18at 20:44; Start 07/25/18 at 21:00 Pregabalin (Lyrica) 50 mg TID PO Last administered on 07/29/18 20:44; Start 07/25/18 at 09:00 Tamsulosin HCl (Flomax) 0.4 mg DAILY PO Last administered on 07/29/18 09:46; Start 07/25/18 at 09:00 Trazodone HCl (Desyrel) 50 mg QHS PO Last administered on 07/29/18 20:44; Start 07/25/18 at 21:00 Atorvastatin Calcium (Lipitor) 80 mg QHS PO Last administered on 07/29/18 20: 45; Start 07/25/18 at 21:00 Benzonatate (Tessalon Perle) 100 mg PRN Q8HRS PRN PO COUGH Last administered on 07/29/18 17:26; Start 07/25/18 at 09:00 Duloxetine HCl (Cymbalta) 60 mg DAILY PO Last administered on 07/29/18 09:46 ; Start 07/25/18 at 09:00 Insulin Human Lispro (HumaLOG) 20 units TIDWMEALS SQ Last administered on 07/29 17:14; Start 07/25/18 at 08:30 Insulin Glargine (Lantus) 55 units QHS SQ Last administered on 07/29/18 20:52 ; Start 07/25/18 at 21:00 Magnesium Oxide (Magnesium Oxide) 400 mg DAILY PO Last administered on 09:46; Start 07/25/18 at 09:00 Non-Formulary Medication (Melatonin ) 3 mg HS PO ; Start 07/25/18 at 21:00; Status UNV Non-Formulary Medication (Miconazole Nitrate ) 130 gm TID TP ; Start 07/25/18 at 09:00; Status UNV Multivitamins (Thera M Plus) 1 tab DAILY PO Last administered on 07/29/18 09: 46; Start 07/25/18 at 09:00 Non-Formulary Medication (Naltrexone Hcl ) 1 tab DAILY PO ; Start 07/25/18 at 09:00; Status UNV Insulin Human Lispro (HumaLOG) 0-9 UNITS TIDWMEALS SQ Last administered on 10/ 26/18at 17:15; Start 07/25/18 at 08:00 Dextrose (Dextrose 50%-Water Syringe) 12.5 gm PRN Q15MIN PRN IV SEE COMMENTS; Start 07/25/18 at 07:45 Furosemide (Lasix) 40 mg DAILY IVP Last administered on 07/29/18at 09:47; Start 07/25/18 at 09:00 Ceftriaxone Sodium 1 gm/ Dextrose 50 ml @ 100 mls/hr Q24H IV ; Start 07/25/18 at 07:45; Status UNV Ceftriaxone Sodium (Rocephin) 1 gm Q24H IVP Last administered on 07/29/18 09: 47; Start 07/25/18 at 09:00 Acetaminophen/ Hydrocodone Bitart (Lortab 5/325) 1 tab PRN Q4HRS PRN PO MODERATE PAIN; Start 07/25/18 at 09:00 Acetaminophen/ Hydrocodone Bitart (Lortab 10/325) 1 tab PRN Q6HRS PRN PO SEVERE PAIN Last administered on 07/29/18at 20:45; Start 07/25/18 at 09:00 Acetaminophen (Tylenol) 500 mg PRN Q6HRS PRN PO MILD PAIN / TEMP; Start at 09:00 Ondansetron HCl (Zofran) 4 mg PRN Q6HRS PRN IV NAUSEA/VOMITING; Start at 09:00 Ondansetron HCl (Zofran Odt) 4 mg PRN Q6HRS PRN PO NAUSEA/VOMITING; Start at 09:00 Fentanyl Citrate (Fentanyl 2ml Vial) 50 mcg PRN Q2HR PRN IV MODERATE-SEVERE PAIN Last administered on 07/29/18at 10:07; Start 07/25/18 at 12:15 Alprazolam (Xanax) 0.5 mg PRN Q8HRS PRN PO ANXIETY / AGITATION Last administered on 07/29/18at 15:47; Start 07/25/18 at 12:15 Ascorbic Acid (Vitamin C) 500 mg DAILY PO Last administered on 07/29/18at 09:46 ; Start 07/26/18 at 13:00 Lactobacillus Rhamnosus (Culturelle) 1 cap BID PO Last administered on at 20:45; Start 07/26/18 at 21:00 Fentanyl Citrate (Fentanyl 2ml Vial) 100 mcg 1X ONCE IV Last administered on 07/27/18at 11:20; Start 07/27/18 at 10:00; Stop 07/27/18 at 10:01; Status DC Info (Anti-Coagulation Monitoring By Pharmacy) 1 each PRN DAILY PRN MC SEE COMMENTS; Start 07/28/18 at 15:00; Stop 07/28/18 at 15:00; Status DC Magnesium Citrate (Citroma) 296 ml 1X ONCE PO Last administered on 07/29/18at 14:40; Start 07/29/18 at 12:15; Stop 07/29/18 at 12:19; Status DC Lidocaine (Xylocaine) 1 narendra 1X ONCE TP Last administered on 07/29/18at 14:40; Start 07/29/18 at 12:15; Stop 07/29/18 at 12:19; Status DC Active Scripts Active Enoxaparin Sodium 60 Mg/0.6 Ml Disp.syrin 60 Mg SQ Q12HR 30 Days Furosemide 20 Mg Tablet 20 Mg PO DAILY 30 Days Benadryl (Diphenhydramine Hcl) 25 Mg Capsule 50 Mg PO PRN QHS PRN 30 Days Duoneb 0.5-3(2.5) Mg/3 Ml (Albuterol/Ipratropium) 3 Ml Ampul.neb 3 Ml NEB RTQID 30 Days Lantus (Insulin Glargine,Hum.rec.anlog) 100 Unit/1 Ml Vial 55 Unit SQ HS 30 Days Reported Vitamin D3 (Cholecalciferol (Vitamin D3)) 1,000 Unit Tablet 1 Tab PO DAILY Nystatin 15 Gm Powder 1 Narendra TP BID Novolog Flexpen (Insulin Aspart) 100 Unit/1 Ml Insuln.pen 20 Unit SQ TIDAC Cephalexin 500 Mg Tablet 1 Tab PO QID Benzonatate 100 Mg Capsule 1 Cap PO Q8HRS PRN Multivitamins (Multivitamin) 1 Each Tablet 1 Tab PO DAILY Fish Oil 1,000 Mg Capsule (Bruce-3 Fatty Acids/Fish Oil) 1 Each Capsule 3 Each PO HS Children's Aspirin (Aspirin) 81 Mg Tab.chew 81 Mg PO DAILY Finasteride 5 Mg Tablet 1 Tab PO DAILY Trazodone Hcl 50 Mg Tablet 1 Tab PO QHS Tamsulosin Hcl 0.4 Mg Cap.er.24h 1 Cap PO DAILY Lyrica (Pregabalin) 50 Mg Capsule 1 Cap PO TID Nystatin 15 Gm Powder 1 Narendra TP BID Naltrexone Hcl 50 Mg Tablet 1 Tab PO DAILY Miconazole Nitrate 130 Gm Aero.powd 130 Gm TP TID Metoprolol Tartrate 25 Mg Tablet 1 Tab PO BID Melatonin 3 Mg Tablet 3 Mg PO HS Magnesium Oxide 400 Mg Tablet 1 Tab PO DAILY Losartan Potassium 50 Mg Tablet 50 Mg PO BID Hydrophilic Ointment 410 Gm Oint...g. 410 Gm TP PRN Cymbalta (Duloxetine Hcl) 60 Mg Capsule.dr 1 Cap PO DAILY Bupropion Xl (Bupropion Hcl) 150 Mg Tab.er.24h 1 Tab PO DAILYWBKFT Atorvastatin Calcium 80 Mg Tablet 80 Mg PO HS Allergies Allergies: Coded Allergies: ibuprofen (Verified Allergy, Severe, RespDistress, Swelling, 07/13/18) TAKES A BABY ASA AT HOME I S O L A T I O N *CONTACT* (Verified Allergy, Unknown, 07/15/18) +MRSA nares 07/13/18 ROS Musculoskeletal: Yes Muscle Pain Skin: Yes Rash Physical Exam General: Alert, Cooperative, No acute distress HEENT: Atraumatic Lungs: Normal air movement Abdomen: Soft, No tenderness Extremities: Other (edema and BLE dressings) Skin: No rashes, No breakdown Psych/Mental Status: Mental status NL, Mood NL Vitals VITALS Vital Signs Date Time Temp Pulse Resp B/P (MAP) Pulse Ox O2 Delivery O2 Flow Rate FiO2 07/29/18 20:46 66 129/49 07/29/18 20:45 94 Nasal Cannula 2.0 07/29/18 19:00 98.0 20 98.0 Labs Labs Laboratory Tests Test 07/28/18 08:18 07/28/18 12:11 07/28/18 15:00 07/28/18 15:50 Glucose (Fingerstick) 201 mg/dL (70-99) 256 mg/dL (70-99) 189 mg/dL (70-99) Creatine Kinase 6890 U/L (39-308) Test 07/28/18 17:17 07/28/18 17:31 07/28/18 21:04 07/29/18 07:50 Glucose (Fingerstick) 157 mg/dL (70-99) 136 mg/dL (70-99) 224 mg/dL (70-99) 215 mg/dL (70-99) Test 07/29/18 10:55 07/29/18 12:16 07/29/18 16:52 07/29/18 20:22 White Blood Count 11.4 x10^3/uL (4.0-11.0) Red Blood Count 2.72 x10^6/uL (4.30-5.70) Hemoglobin 7.9 g/dL (13.0-17.5) Hematocrit 23.3 % (39.0-53.0) Mean Corpuscular Volume 86 fL (79-100) Mean Corpuscular Hemoglobin 29 pg (25-35) Mean Corpuscular Hemoglobin Concent 34 g/dL (31-37) Red Cell Distribution Width 15.6 % (11.5-14.5) Platelet Count 265 x10^3/uL (140-400) Neutrophils (%) (Auto) 81 % (31-73) Lymphocytes (%) (Auto) 8 % (24-48) Monocytes (%) (Auto) 10 % (0-9) Eosinophils (%) (Auto) 1 % (0-3) Basophils (%) (Auto) 0 % (0-3) Neutrophils # (Auto) 9.2 x10^3uL (1.8-7.7) Lymphocytes # (Auto) 0.9 x10^3/uL (1.0-4.8) Monocytes # (Auto) 1.1 x10^3/uL (0.0-1.1) Eosinophils # (Auto) 0.1 x10^3/uL (0.0-0.7) Basophils # (Auto) 0.0 x10^3/uL (0.0-0.2) Erythrocyte Sedimentation Rate 73 (0-15) Prothrombin Time 14.1 SEC (11.7-14.0) Prothromb Time International Ratio 1.1 (0.8-1.1) Glucose (Fingerstick) 277 mg/dL (70-99) 301 mg/dL (70-99) 291 mg/dL (70-99) Test 07/29/18 20:48 Glucose (Fingerstick) 304 mg/dL (70-99) Laboratory Tests Test 07/29/18 07:50 07/29/18 10:55 07/29/18 12:16 07/29/18 16:52 Glucose (Fingerstick) 215 mg/dL (70-99) 277 mg/dL (70-99) 301 mg/dL (70-99) White Blood Count 11.4 x10^3/uL (4.0-11.0) Red Blood Count 2.72 x10^6/uL (4.30-5.70) Hemoglobin 7.9 g/dL (13.0-17.5) Hematocrit 23.3 % (39.0-53.0) Mean Corpuscular Volume 86 fL (79-100) Mean Corpuscular Hemoglobin 29 pg (25-35) Mean Corpuscular Hemoglobin Concent 34 g/dL (31-37) Red Cell Distribution Width 15.6 % (11.5-14.5) Platelet Count 265 x10^3/uL (140-400) Neutrophils (%) (Auto) 81 % (31-73) Lymphocytes (%) (Auto) 8 % (24-48) Monocytes (%) (Auto) 10 % (0-9) Eosinophils (%) (Auto) 1 % (0-3) Basophils (%) (Auto) 0 % (0-3) Neutrophils # (Auto) 9.2 x10^3uL (1.8-7.7) Lymphocytes # (Auto) 0.9 x10^3/uL (1.0-4.8) Monocytes # (Auto) 1.1 x10^3/uL (0.0-1.1) Eosinophils # (Auto) 0.1 x10^3/uL (0.0-0.7) Basophils # (Auto) 0.0 x10^3/uL (0.0-0.2) Erythrocyte Sedimentation Rate 73 (0-15) Prothrombin Time 14.1 SEC (11.7-14.0) Prothromb Time International Ratio 1.1 (0.8-1.1) Test 07/29/18 20:22 07/29/18 20:48 Glucose (Fingerstick) 291 mg/dL (70-99) 304 mg/dL (70-99) Images Images CT c/w retroperitoneal hematoma Assessment/Plan Assessment/Plan Retroperitoneal hematoma agree with holding anticoagulation and supportive care. No surgical plans Thanks for consult! HERNÁN FRAZIER MD Jul 29, 2018 21:51
[2018-07-29 23:00] VITALS: BP 125/69
[2018-07-30 03:00] VITALS: BP 134/60
[2018-07-30] MEDS: HYDROcodone/APAP 10/325 1 TAB TABLET PO PRN ×2 (03:31→09:34)
[2018-07-30 05:41] LABS: HEMOGLOBIN 7.9 g/dL (13.0-17.5)
[2018-07-30 05:52] LABS: CALCIUM 8.5 mg/dL (8.5-10.1); CREATININE 1.9 mg/dL (0.7-1.3); GFR 35.1; POTASSIUM 4.9 mmol/L (3.5-5.1)
[2018-07-30 07:00] VITALS: BP 108/57
--- NOTE | 2018-07-30 08:59 | PDOC ---
BRANDIN FIELDS [employer] 07/30/18 0859: SURGICAL PROGRESS NOTE Subjective tolerating diet some right sided abdominal pain Vital Signs Vital Signs Date Time Temp Pulse Resp B/P (MAP) Pulse Ox O2 Delivery O2 Flow Rate FiO2 07/30/18 07:00 97.7 68 18 108/57 (74) Nasal Cannula 2.0 97.7 07/30/18 04:31 95 I&O Intake and Output 07/30/18 07:00 Intake Total 1420 ml Balance 1420 ml Intake Oral 1420 ml # Voids 8 General: Alert, Oriented X3, Cooperative, No acute distress Abdomen: Soft, Other (ecchymosis to RLQ, mild TTP) Labs Laboratory Tests Test 07/28/18 12:11 07/28/18 15:00 07/28/18 15:50 07/28/18 17:17 Glucose (Fingerstick) 256 mg/dL (70-99) 189 mg/dL (70-99) 157 mg/dL (70-99) Creatine Kinase 6890 U/L (39-308) Test 07/28/18 17:31 07/28/18 21:04 07/29/18 07:50 07/29/18 10:55 Glucose (Fingerstick) 136 mg/dL (70-99) 224 mg/dL (70-99) 215 mg/dL (70-99) White Blood Count 11.4 x10^3/uL (4.0-11.0) Red Blood Count 2.72 x10^6/uL (4.30-5.70) Hemoglobin 7.9 g/dL (13.0-17.5) Hematocrit 23.3 % (39.0-53.0) Mean Corpuscular Volume 86 fL (79-100) Mean Corpuscular Hemoglobin 29 pg (25-35) Mean Corpuscular Hemoglobin Concent 34 g/dL (31-37) Red Cell Distribution Width 15.6 % (11.5-14.5) Platelet Count 265 x10^3/uL (140-400) Neutrophils (%) (Auto) 81 % (31-73) Lymphocytes (%) (Auto) 8 % (24-48) Monocytes (%) (Auto) 10 % (0-9) Eosinophils (%) (Auto) 1 % (0-3) Basophils (%) (Auto) 0 % (0-3) Neutrophils # (Auto) 9.2 x10^3uL (1.8-7.7) Lymphocytes # (Auto) 0.9 x10^3/uL (1.0-4.8) Monocytes # (Auto) 1.1 x10^3/uL (0.0-1.1) Eosinophils # (Auto) 0.1 x10^3/uL (0.0-0.7) Basophils # (Auto) 0.0 x10^3/uL (0.0-0.2) Erythrocyte Sedimentation Rate 73 (0-15) Prothrombin Time 14.1 SEC (11.7-14.0) Prothromb Time International Ratio 1.1 (0.8-1.1) Test 07/29/18 12:16 07/29/18 16:52 07/29/18 20:22 07/29/18 20:48 Glucose (Fingerstick) 277 mg/dL (70-99) 301 mg/dL (70-99) 291 mg/dL (70-99) 304 mg/dL (70-99) Test 07/30/18 03:40 07/30/18 07:58 Hemoglobin 7.9 g/dL (13.0-17.5) Hematocrit 23.0 % (39.0-53.0) Mean Corpuscular Hemoglobin Concent 34 g/dL (31-37) Sodium Level 125 mmol/L (136-145) Potassium Level 4.9 mmol/L (3.5-5.1) Chloride Level 90 mmol/L (98-107) Carbon Dioxide Level 29 mmol/L (21-32) Anion Gap 6 (6-14) Blood Urea Nitrogen 81 mg/dL (8-26) Creatinine 1.9 mg/dL (0.7-1.3) Estimated GFR (Cockcroft-Gault) 35.1 Glucose Level 277 mg/dL (70-99) Calcium Level 8.5 mg/dL (8.5-10.1) Glucose (Fingerstick) 245 mg/dL (70-99) Laboratory Tests Test 07/29/18 10:55 07/29/18 12:16 07/29/18 16:52 07/29/18 20:22 White Blood Count 11.4 x10^3/uL (4.0-11.0) Red Blood Count 2.72 x10^6/uL (4.30-5.70) Hemoglobin 7.9 g/dL (13.0-17.5) Hematocrit 23.3 % (39.0-53.0) Mean Corpuscular Volume 86 fL (79-100) Mean Corpuscular Hemoglobin 29 pg (25-35) Mean Corpuscular Hemoglobin Concent 34 g/dL (31-37) Red Cell Distribution Width 15.6 % (11.5-14.5) Platelet Count 265 x10^3/uL (140-400) Neutrophils (%) (Auto) 81 % (31-73) Lymphocytes (%) (Auto) 8 % (24-48) Monocytes (%) (Auto) 10 % (0-9) Eosinophils (%) (Auto) 1 % (0-3) Basophils (%) (Auto) 0 % (0-3) Neutrophils # (Auto) 9.2 x10^3uL (1.8-7.7) Lymphocytes # (Auto) 0.9 x10^3/uL (1.0-4.8) Monocytes # (Auto) 1.1 x10^3/uL (0.0-1.1) Eosinophils # (Auto) 0.1 x10^3/uL (0.0-0.7) Basophils # (Auto) 0.0 x10^3/uL (0.0-0.2) Erythrocyte Sedimentation Rate 73 (0-15) Prothrombin Time 14.1 SEC (11.7-14.0) Prothromb Time International Ratio 1.1 (0.8-1.1) Glucose (Fingerstick) 277 mg/dL (70-99) 301 mg/dL (70-99) 291 mg/dL (70-99) Test 07/29/18 20:48 07/30/18 03:40 07/30/18 07:58 Glucose (Fingerstick) 304 mg/dL (70-99) 245 mg/dL (70-99) Hemoglobin 7.9 g/dL (13.0-17.5) Hematocrit 23.0 % (39.0-53.0) Mean Corpuscular Hemoglobin Concent 34 g/dL (31-37) Sodium Level 125 mmol/L (136-145) Potassium Level 4.9 mmol/L (3.5-5.1) Chloride Level 90 mmol/L (98-107) Carbon Dioxide Level 29 mmol/L (21-32) Anion Gap 6 (6-14) Blood Urea Nitrogen 81 mg/dL (8-26) Creatinine 1.9 mg/dL (0.7-1.3) Estimated GFR (Cockcroft-Gault) 35.1 Glucose Level 277 mg/dL (70-99) Calcium Level 8.5 mg/dL (8.5-10.1) Problem List Problems Medical Problems: (1) Cellulitis of leg Status: Acute (2) Morbid obesity Status: Acute Assessment/Plan retroperitoneal hematoma supportive care, should resolve with time, no surgical plans hold anticoagulants HERNÁN FRAZIER MD 07/30/18 1530: SURGICAL PROGRESS NOTE Assessment/Plan Pt seen and examined. Agree with Ms. Fields's note Pt reports he feels he needs to stool abd soft cont supportive care. BRANDIN FIELDS APRN Jul 30, 2018 08:59 HERNÁN FRAZIER MD Jul 30, 2018 15:30
[2018-07-30] MEDS: IPRATRPIUM/ALBUTEROL 0.5/2.5MG 3 ML NEBU. NEB SCH ×4 (09:27→19:36)
[2018-07-30] MEDS: MAGNESIUM OXIDE 400 MG TABLET PO SCH (09:31)
[2018-07-30] MEDS: cefTRIAXone IV Push 1 GM VIAL. IVP SCH (09:31)
[2018-07-30] MEDS: ALPRAZolam 0.5 MG TABLET PO PRN (09:31)
[2018-07-30] MEDS: FINASTERIDE 5 MG TABLET. PO SCH (09:31)
[2018-07-30] MEDS: TAMSULOSIN 0.4 MG CAP.ER.24H. PO SCH (09:31)
[2018-07-30] MEDS: DULoxetine HCL 30 MG CAPSULE.DR PO SCH (09:31)
[2018-07-30] MEDS: CHOLECALCIFEROL (VITAMIN D3) 1,000 UNIT TABLET PO SCH (09:32)
[2018-07-30] MEDS: buPROPion XL 150 MG TAB.ER.24H. PO SCH (09:32)
[2018-07-30] MEDS: PREGABALIN 50 MG CAPSULE PO SCH ×3 (09:32→21:19)
[2018-07-30] MEDS: ASCORBIC ACID 500 MG TABLET PO SCH (09:32)
[2018-07-30] MEDS: LACTOBACILLUS RHAMNOSUS GG 1 CAPSULE. PO SCH ×2 (09:32→21:18)
[2018-07-30] MEDS: MULTIVITAMIN with MINERAL TABLET. PO SCH (09:32)
[2018-07-30] MEDS: METOPROLOL TART IMMED RELEASE 25 MG TABLET. PO SCH ×2 (09:33→21:18)
[2018-07-30] MEDS: LOSARTAN POTASSIUM 50 MG TABLET. PO SCH ×2 (09:33→21:18)
[2018-07-30] MEDS: INSULIN LISPRO 300 UNITS/3 ML INSULN.PEN. SQ SCH ×6 (09:35→17:21)
--- NOTE | 2018-07-30 09:37 | PDOC ---
PROGRESS NOTES Chief Complaint Chief Complaint Acute hypoxic/hypercapnic respiratory failure, refusig bIPAP/CPAP Super morbidly obese, BMI 57 Bilateral leg wounds, superficial Strep bacteremia, hx - dcd on PCN last recent dc Sepsis POA, WBC 17, on re admission Generalized weakness-recently dcd to [facility] pt RETROPERIT HEMATOMA< LARGE - conservative tx 07/29/18 History of Present Illness History of Present Illness CAlled by RN yesterday because of CT scan positive for large retroperitoneal bleed Patient was on aspirin and Lovenox twice a day Patient did complain of back pain Hemodynamically stable, hemoglobin stable at 7.9, vital signs are good. Back pain is Controlled I did stop aspirin and Lovenox Did consult general surgery-reviewed, note- poor surgical candidate, conservative treatment Creatinine jump to 1.9, getting Lasix 40 IV daily for CHF and leg edema-patient has solitary kidney Plan: Consult renal regarding solitary kidney and creatinine jumped to 1.9 Stop Lasix 40 IV daily for now Continue leg elevation OT lymphedema Continue to monitor H&H, so far 7.9 I did educate patient about telling us if worsening back pain and dropping of hemoglobin then we might need to rescan ? So far poor surgical candidate Will Go to rehabilitation on discharge-he does not want to go back to either [facility] or [facility] where he came from, looking at some other rehabilitation facility Vitals Vitals Vital Signs Date Time Temp Pulse Resp B/P (MAP) Pulse Ox O2 Delivery O2 Flow Rate FiO2 07/30/18 09:27 94 Nasal Cannula 2.0 07/30/18 07:00 97.7 68 18 108/57 (74) 97.7 Physical Exam Physical Exam GENERAL: Sitting in bed, alert, NAD, states he does not feel well today HEENT: Oral mucosa dry. No thrush. Dentures NECK: Supple. No JVD. LUNGS: Decreased breath sounds with scattered rhonchi in the bases. CARDIOVASCULAR: S1, S2. ABDOMEN: Soft, obese. Bowel sounds present, nontender. 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 Grossly nonfocal. Peripheral IV ok General: Alert, Oriented X3, Cooperative, No acute distress Heart: Regular rate, Normal S1, Normal S2 Lungs: Clear Abdomen: Soft, Other (ecchymosis to RLQ, mild TTP) Extremities: Other (edema and BLE dressings) Skin: No rashes, No breakdown Labs LABS Laboratory Tests Test 07/29/18 10:55 07/29/18 12:16 07/29/18 16:52 07/29/18 20:22 White Blood Count 11.4 x10^3/uL (4.0-11.0) Red Blood Count 2.72 x10^6/uL (4.30-5.70) Hemoglobin 7.9 g/dL (13.0-17.5) Hematocrit 23.3 % (39.0-53.0) Mean Corpuscular Volume 86 fL (79-100) Mean Corpuscular Hemoglobin 29 pg (25-35) Mean Corpuscular Hemoglobin Concent 34 g/dL (31-37) Red Cell Distribution Width 15.6 % (11.5-14.5) Platelet Count 265 x10^3/uL (140-400) Neutrophils (%) (Auto) 81 % (31-73) Lymphocytes (%) (Auto) 8 % (24-48) Monocytes (%) (Auto) 10 % (0-9) Eosinophils (%) (Auto) 1 % (0-3) Basophils (%) (Auto) 0 % (0-3) Neutrophils # (Auto) 9.2 x10^3uL (1.8-7.7) Lymphocytes # (Auto) 0.9 x10^3/uL (1.0-4.8) Monocytes # (Auto) 1.1 x10^3/uL (0.0-1.1) Eosinophils # (Auto) 0.1 x10^3/uL (0.0-0.7) Basophils # (Auto) 0.0 x10^3/uL (0.0-0.2) Erythrocyte Sedimentation Rate 73 (0-15) Prothrombin Time 14.1 SEC (11.7-14.0) Prothromb Time International Ratio 1.1 (0.8-1.1) Glucose (Fingerstick) 277 mg/dL (70-99) 301 mg/dL (70-99) 291 mg/dL (70-99) Test 07/29/18 20:48 07/30/18 03:40 07/30/18 07:58 Glucose (Fingerstick) 304 mg/dL (70-99) 245 mg/dL (70-99) Hemoglobin 7.9 g/dL (13.0-17.5) Hematocrit 23.0 % (39.0-53.0) Mean Corpuscular Hemoglobin Concent 34 g/dL (31-37) Sodium Level 125 mmol/L (136-145) Potassium Level 4.9 mmol/L (3.5-5.1) Chloride Level 90 mmol/L (98-107) Carbon Dioxide Level 29 mmol/L (21-32) Anion Gap 6 (6-14) Blood Urea Nitrogen 81 mg/dL (8-26) Creatinine 1.9 mg/dL (0.7-1.3) Estimated GFR (Cockcroft-Gault) 35.1 Glucose Level 277 mg/dL (70-99) Calcium Level 8.5 mg/dL (8.5-10.1) Review of Systems Review of Systems pos for back pain, weak, S OA-chronic, otherwise rest of ROS 14 point negative Assessment and Plan Assessmemt and Plan Problems Medical Problems: (1) Cellulitis of leg Status: Acute (2) Morbid obesity Status: Acute Comment Review of Relevant I have reviewed the following items verena (where applicable) has been applied. Labs Laboratory Tests Test 07/28/18 12:11 07/28/18 15:00 07/28/18 15:50 07/28/18 17:17 Glucose (Fingerstick) 256 mg/dL (70-99) 189 mg/dL (70-99) 157 mg/dL (70-99) Creatine Kinase 6890 U/L (39-308) Test 07/28/18 17:31 07/28/18 21:04 07/29/18 07:50 07/29/18 10:55 Glucose (Fingerstick) 136 mg/dL (70-99) 224 mg/dL (70-99) 215 mg/dL (70-99) White Blood Count 11.4 x10^3/uL (4.0-11.0) Red Blood Count 2.72 x10^6/uL (4.30-5.70) Hemoglobin 7.9 g/dL (13.0-17.5) Hematocrit 23.3 % (39.0-53.0) Mean Corpuscular Volume 86 fL (79-100) Mean Corpuscular Hemoglobin 29 pg (25-35) Mean Corpuscular Hemoglobin Concent 34 g/dL (31-37) Red Cell Distribution Width 15.6 % (11.5-14.5) Platelet Count 265 x10^3/uL (140-400) Neutrophils (%) (Auto) 81 % (31-73) Lymphocytes (%) (Auto) 8 % (24-48) Monocytes (%) (Auto) 10 % (0-9) Eosinophils (%) (Auto) 1 % (0-3) Basophils (%) (Auto) 0 % (0-3) Neutrophils # (Auto) 9.2 x10^3uL (1.8-7.7) Lymphocytes # (Auto) 0.9 x10^3/uL (1.0-4.8) Monocytes # (Auto) 1.1 x10^3/uL (0.0-1.1) Eosinophils # (Auto) 0.1 x10^3/uL (0.0-0.7) Basophils # (Auto) 0.0 x10^3/uL (0.0-0.2) Erythrocyte Sedimentation Rate 73 (0-15) Prothrombin Time 14.1 SEC (11.7-14.0) Prothromb Time International Ratio 1.1 (0.8-1.1) Test 07/29/18 12:16 07/29/18 16:52 07/29/18 20:22 07/29/18 20:48 Glucose (Fingerstick) 277 mg/dL (70-99) 301 mg/dL (70-99) 291 mg/dL (70-99) 304 mg/dL (70-99) Test 07/30/18 03:40 07/30/18 07:58 Hemoglobin 7.9 g/dL (13.0-17.5) Hematocrit 23.0 % (39.0-53.0) Mean Corpuscular Hemoglobin Concent 34 g/dL (31-37) Sodium Level 125 mmol/L (136-145) Potassium Level 4.9 mmol/L (3.5-5.1) Chloride Level 90 mmol/L (98-107) Carbon Dioxide Level 29 mmol/L (21-32) Anion Gap 6 (6-14) Blood Urea Nitrogen 81 mg/dL (8-26) Creatinine 1.9 mg/dL (0.7-1.3) Estimated GFR (Cockcroft-Gault) 35.1 Glucose Level 277 mg/dL (70-99) Calcium Level 8.5 mg/dL (8.5-10.1) Glucose (Fingerstick) 245 mg/dL (70-99) Laboratory Tests Test 07/29/18 10:55 07/29/18 12:16 07/29/18 16:52 07/29/18 20:22 White Blood Count 11.4 x10^3/uL (4.0-11.0) Red Blood Count 2.72 x10^6/uL (4.30-5.70) Hemoglobin 7.9 g/dL (13.0-17.5) Hematocrit 23.3 % (39.0-53.0) Mean Corpuscular Volume 86 fL (79-100) Mean Corpuscular Hemoglobin 29 pg (25-35) Mean Corpuscular Hemoglobin Concent 34 g/dL (31-37) Red Cell Distribution Width 15.6 % (11.5-14.5) Platelet Count 265 x10^3/uL (140-400) Neutrophils (%) (Auto) 81 % (31-73) Lymphocytes (%) (Auto) 8 % (24-48) Monocytes (%) (Auto) 10 % (0-9) Eosinophils (%) (Auto) 1 % (0-3) Basophils (%) (Auto) 0 % (0-3) Neutrophils # (Auto) 9.2 x10^3uL (1.8-7.7) Lymphocytes # (Auto) 0.9 x10^3/uL (1.0-4.8) Monocytes # (Auto) 1.1 x10^3/uL (0.0-1.1) Eosinophils # (Auto) 0.1 x10^3/uL (0.0-0.7) Basophils # (Auto) 0.0 x10^3/uL (0.0-0.2) Erythrocyte Sedimentation Rate 73 (0-15) Prothrombin Time 14.1 SEC (11.7-14.0) Prothromb Time International Ratio 1.1 (0.8-1.1) Glucose (Fingerstick) 277 mg/dL (70-99) 301 mg/dL (70-99) 291 mg/dL (70-99) Test 07/29/18 20:48 07/30/18 03:40 07/30/18 07:58 Glucose (Fingerstick) 304 mg/dL (70-99) 245 mg/dL (70-99) Hemoglobin 7.9 g/dL (13.0-17.5) Hematocrit 23.0 % (39.0-53.0) Mean Corpuscular Hemoglobin Concent 34 g/dL (31-37) Sodium Level 125 mmol/L (136-145) Potassium Level 4.9 mmol/L (3.5-5.1) Chloride Level 90 mmol/L (98-107) Carbon Dioxide Level 29 mmol/L (21-32) Anion Gap 6 (6-14) Blood Urea Nitrogen 81 mg/dL (8-26) Creatinine 1.9 mg/dL (0.7-1.3) Estimated GFR (Cockcroft-Gault) 35.1 Glucose Level 277 mg/dL (70-99) Calcium Level 8.5 mg/dL (8.5-10.1) Medications Current Medications Oxycodone/ Acetaminophen (Percocet 5/325) 2 tab 1X ONCE PO Last administered on 07/25/18at 00:45; Start 07/25/18 at 00:45; Stop 07/25/18 at 00:46; Status DC Oxycodone/ Acetaminophen (Percocet 5/325) 1 tab STK-MED ONCE .ROUTE ; Start at 00:41; Stop 07/25/18 at 00:42; Status DC Ondansetron HCl (Zofran) 4 mg PRN Q8HRS PRN IV NAUSEA/VOMITING; Start at 01:45; Stop 07/26/18 at 01:44; Status DC Morphine Sulfate (Morphine Sulfate) 4 mg PRN Q2HR PRN IV PAIN Last administered on 07/25/18at 11:27; Start 07/25/18 at 01:45; Stop 07/26/18 at 01 :44; Status DC Acetaminophen (Tylenol) 650 mg PRN Q4HRS PRN PO FEVER Last administered on at 08:38; Start 07/25/18 at 01:45; Stop 07/25/18 at 15:48; Status DC Clindamycin Phosphate 50 ml @ 100 mls/hr 1X ONCE IV Last administered on at 03:29; Start 07/25/18 at 02:30; Stop 07/25/18 at 02:59; Status DC Morphine Sulfate (Morphine Sulfate) 6 mg 1X ONCE IV Last administered on 07/25at 03:29; Start 07/25/18 at 02:30; Stop 07/25/18 at 02:31; Status DC Aspirin (Children'S Aspirin) 81 mg DAILY PO Last administered on 07/29/18at 09: 47; Start 07/25/18 at 09:00; Stop 07/29/18 at 17:13; Status DC Bupropion HCl (Wellbutrin Xl) 150 mg DAILYWBKFT PO Last administered on at 08:25; Start 07/25/18 at 08:00 Vitamin D (Vitamin D3) 1,000 unit DAILY PO Last administered on 07/29/18at 09: 46; Start 07/25/18 at 09:00 Diphenhydramine HCl (Benadryl) 50 mg PRN QHS PRN PO INSOMNIA Last administered on 07/26/18at 23:39; Start 07/25/18 at 07:45 Enoxaparin Sodium (Lovenox 60mg Syringe) 60 mg Q12HR SQ Last administered on at 09:50; Start 07/25/18 at 09:00; Stop 07/29/18 at 17:13; Status DC Finasteride (Proscar) 5 mg DAILY PO Last administered on 07/29/18at 09:45; Start 07/25/18 at 09:00 Albuterol/ Ipratropium (Duoneb) 3 ml RTQID NEB Last administered on 07/30/18at 09:27; Start 07/25/18 at 08:30 Losartan Potassium (Cozaar) 50 mg BID PO Last administered on 07/28/18at 08:29 ; Start 07/25/18 at 09:00 Metoprolol Tartrate (Lopressor) 25 mg BID PO Last administered on 07/29/18at 12 :21; Start 07/25/18 at 09:00 Nystatin (Nystop) 1 narendra BID TP Last administered on 07/29/18at 20:53; Start at 09:00 Nystatin (Nystop) 1 narendra BID TP ; Start 07/25/18 at 09:00; Stop 07/25/18 at 09: 00; Status DC Fish Oil (Fish Oil) 1,000 mg HS PO Last administered on 07/29/18 20:44; Start 07/25/18 at 21:00 Pregabalin (Lyrica) 50 mg TID PO Last administered on 07/29/18 20:44; Start 07/25/18 at 09:00 Tamsulosin HCl (Flomax) 0.4 mg DAILY PO Last administered on 07/29/18 09:46; Start 07/25/18 at 09:00 Trazodone HCl (Desyrel) 50 mg QHS PO Last administered on 07/29/18 20:44; Start 07/25/18 at 21:00 Atorvastatin Calcium (Lipitor) 80 mg QHS PO Last administered on 07/29/18at 20: 45; Start 07/25/18 at 21:00 Benzonatate (Tessalon Perle) 100 mg PRN Q8HRS PRN PO COUGH Last administered on 07/29/18 17:26; Start 07/25/18 at 09:00 Duloxetine HCl (Cymbalta) 60 mg DAILY PO Last administered on 07/29/18 09:46 ; Start 07/25/18 at 09:00 Insulin Human Lispro (HumaLOG) 20 units TIDWMEALS SQ Last administered on 07/29 17:14; Start 07/25/18 at 08:30 Insulin Glargine (Lantus) 55 units QHS SQ Last administered on 07/29/18 20:52 ; Start 07/25/18 at 21:00 Magnesium Oxide (Magnesium Oxide) 400 mg DAILY PO Last administered on 09:46; Start 07/25/18 at 09:00 Non-Formulary Medication (Melatonin ) 3 mg HS PO ; Start 07/25/18 at 21:00; Status UNV Non-Formulary Medication (Miconazole Nitrate ) 130 gm TID TP ; Start 07/25/18 at 09:00; Status UNV Multivitamins (Thera M Plus) 1 tab DAILY PO Last administered on 07/29/18 09: 46; Start 07/25/18 at 09:00 Non-Formulary Medication (Naltrexone Hcl ) 1 tab DAILY PO ; Start 07/25/18 at 09:00; Status UNV Insulin Human Lispro (HumaLOG) 0-9 UNITS TIDWMEALS SQ Last administered on at 17:15; Start 07/25/18 at 08:00 Dextrose (Dextrose 50%-Water Syringe) 12.5 gm PRN Q15MIN PRN IV SEE COMMENTS; Start 07/25/18 at 07:45 Furosemide (Lasix) 40 mg DAILY IVP Last administered on 07/29/18at 09:47; Start 07/25/18 at 09:00; Stop 07/30/18 at 08:09; Status DC Ceftriaxone Sodium 1 gm/ Dextrose 50 ml @ 100 mls/hr Q24H IV ; Start 07/25/18 at 07:45; Status UNV Ceftriaxone Sodium (Rocephin) 1 gm Q24H IVP Last administered on 07/29/18at 09: 47; Start 07/25/18 at 09:00 Acetaminophen/ Hydrocodone Bitart (Lortab 5/325) 1 tab PRN Q4HRS PRN PO MODERATE PAIN; Start 07/25/18 at 09:00 Acetaminophen/ Hydrocodone Bitart (Lortab 10/325) 1 tab PRN Q6HRS PRN PO SEVERE PAIN Last administered on 07/30/18at 03:31; Start 07/25/18 at 09:00 Acetaminophen (Tylenol) 500 mg PRN Q6HRS PRN PO MILD PAIN / TEMP; Start at 09:00 Ondansetron HCl (Zofran) 4 mg PRN Q6HRS PRN IV NAUSEA/VOMITING; Start at 09:00 Ondansetron HCl (Zofran Odt) 4 mg PRN Q6HRS PRN PO NAUSEA/VOMITING; Start at 09:00 Fentanyl Citrate (Fentanyl 2ml Vial) 50 mcg PRN Q2HR PRN IV MODERATE-SEVERE PAIN Last administered on 07/29/18at 10:07; Start 07/25/18 at 12:15 Alprazolam (Xanax) 0.5 mg PRN Q8HRS PRN PO ANXIETY / AGITATION Last administered on 07/29/18at 15:47; Start 07/25/18 at 12:15 Ascorbic Acid (Vitamin C) 500 mg DAILY PO Last administered on 07/29/18at 09:46 ; Start 07/26/18 at 13:00 Lactobacillus Rhamnosus (Culturelle) 1 cap BID PO Last administered on at 20:45; Start 07/26/18 at 21:00 Fentanyl Citrate (Fentanyl 2ml Vial) 100 mcg 1X ONCE IV Last administered on 07/27/18at 11:20; Start 07/27/18 at 10:00; Stop 07/27/18 at 10:01; Status DC Info (Anti-Coagulation Monitoring By Pharmacy) 1 each PRN DAILY PRN MC SEE COMMENTS; Start 07/28/18 at 15:00; Stop 07/28/18 at 15:00; Status DC Magnesium Citrate (Citroma) 296 ml 1X ONCE PO Last administered on 07/29/18at 14:40; Start 07/29/18 at 12:15; Stop 07/29/18 at 12:19; Status DC Lidocaine (Xylocaine) 1 narendra 1X ONCE TP Last administered on 07/29/18at 14:40; Start 07/29/18 at 12:15; Stop 07/29/18 at 12:19; Status DC Active Scripts Active Enoxaparin Sodium 60 Mg/0.6 Ml Disp.syrin 60 Mg SQ Q12HR 30 Days Furosemide 20 Mg Tablet 20 Mg PO DAILY 30 Days Benadryl (Diphenhydramine Hcl) 25 Mg Capsule 50 Mg PO PRN QHS PRN 30 Days Duoneb 0.5-3(2.5) Mg/3 Ml (Albuterol/Ipratropium) 3 Ml Ampul.neb 3 Ml NEB RTQID 30 Days Lantus (Insulin Glargine,Hum.rec.anlog) 100 Unit/1 Ml Vial 55 Unit SQ HS 30 Days Reported Vitamin D3 (Cholecalciferol (Vitamin D3)) 1,000 Unit Tablet 1 Tab PO DAILY Nystatin 15 Gm Powder 1 Narendra TP BID Novolog Flexpen (Insulin Aspart) 100 Unit/1 Ml Insuln.pen 20 Unit SQ TIDAC Cephalexin 500 Mg Tablet 1 Tab PO QID Benzonatate 100 Mg Capsule 1 Cap PO Q8HRS PRN Multivitamins (Multivitamin) 1 Each Tablet 1 Tab PO DAILY Fish Oil 1,000 Mg Capsule (Slater-3 Fatty Acids/Fish Oil) 1 Each Capsule 3 Each PO HS Children's Aspirin (Aspirin) 81 Mg Tab.chew 81 Mg PO DAILY Finasteride 5 Mg Tablet 1 Tab PO DAILY Trazodone Hcl 50 Mg Tablet 1 Tab PO QHS Tamsulosin Hcl 0.4 Mg Cap.er.24h 1 Cap PO DAILY Lyrica (Pregabalin) 50 Mg Capsule 1 Cap PO TID Nystatin 15 Gm Powder 1 Narendra TP BID Naltrexone Hcl 50 Mg Tablet 1 Tab PO DAILY Miconazole Nitrate 130 Gm Aero.powd 130 Gm TP TID Metoprolol Tartrate 25 Mg Tablet 1 Tab PO BID Melatonin 3 Mg Tablet 3 Mg PO HS Magnesium Oxide 400 Mg Tablet 1 Tab PO DAILY Losartan Potassium 50 Mg Tablet 50 Mg PO BID Hydrophilic Ointment 410 Gm Oint...g. 410 Gm TP PRN Cymbalta (Duloxetine Hcl) 60 Mg Capsule.dr 1 Cap PO DAILY Bupropion Xl (Bupropion Hcl) 150 Mg Tab.er.24h 1 Tab PO DAILYWBKFT Atorvastatin Calcium 80 Mg Tablet 80 Mg PO HS Vitals/I & O Vital Sign - Last 24 Hours 07/29/18 07/29/18 07/29/18 07/29/18 10:07 11:00 12:09 12:21 Temp 98.1 98.1 Pulse 96 96 Resp 20 B/P (MAP) 118/34 (62) 118/34 Pulse Ox 94 O2 Delivery Nasal Cannula Nasal Cannula Nasal Cannula O2 Flow Rate 2.0 2.0 2.0 07/29/18 07/29/18 07/29/18 07/29/18 14:40 14:41 16:53 19:00 Temp 98.0 98.0 Pulse 82 Resp 20 B/P (MAP) 124/49 (74) Pulse Ox 96 O2 Delivery Nasal Cannula Nasal Cannula Nasal Cannula Nasal Cannula O2 Flow Rate 2.0 3.0 2.0 2.0 07/29/18 07/29/18 07/29/18 07/29/18 19:19 19:59 20:45 20:45 Pulse 62 B/P (MAP) 129/49 Pulse Ox 94 O2 Delivery Nasal Cannula Nasal Cannula Nasal Cannula O2 Flow Rate 2.0 2.0 2.0 07/29/18 07/29/18 07/30/18 07/30/18 20:46 23:00 03:00 03:31 Temp 97.7 98.1 97.7 98.1 Pulse 66 81 80 Resp 20 20 B/P (MAP) 129/49 125/69 (87) 134/60 (84) Pulse Ox 95 93 95 O2 Delivery Nasal Cannula Nasal Cannula Nasal Cannula O2 Flow Rate 2.0 2.0 2.0 07/30/18 07/30/18 07/30/18 04:31 07:00 09:27 Temp 97.7 97.7 Pulse 68 Resp 18 B/P (MAP) 108/57 (74) Pulse Ox 95 94 O2 Delivery Nasal Cannula Nasal Cannula Nasal Cannula O2 Flow Rate 2.0 2.0 2.0 Intake and Output 07/29/18 07/29/18 07/30/18 15:00 23:00 07:00 Intake Total 720 ml 360 ml 340 ml Balance 720 ml 360 ml 340 ml ESTER SESAY MD Jul 30, 2018 09:37
[2018-07-30] MEDS: NYSTATIN TOPICAL POWDER 15GM BOTTLE. TP SCH ×2 (09:40→22:31)
[2018-07-30 11:00] VITALS: BP 115/64
[2018-07-30] MEDS ORDERED: POLYETHYLENE GLYCOL 3350 17 GM PACKET. PO ONE (11:30)
[2018-07-30] MEDS ORDERED: MAGNESIUM HYDROXIDE 2,400 MG/30 ML ORAL.SUSP. PO ONE (11:30)
[2018-07-30] MEDS ORDERED: MAGNESIUM HYDROXIDE 2,400 MG/30 ML ORAL.SUSP. PO PRN (11:30)
[2018-07-30] MEDS ORDERED: POLYETHYLENE GLYCOL 3350 17 GM PACKET. PO PRN (11:30)
[2018-07-30] MEDS: DOCUSATE SODIUM 100 MG CAPSULE. PO SCH (12:06)
[2018-07-30] MEDS: BENZONATATE 100 MG CAPSULE. PO PRN (12:06)
--- NOTE | 2018-07-30 12:41 | PDOC ---
Infectious Disease Note Subjective Subjective Not feeling well + constipated Denies N/V/cramps Denies F/C/S/aches Denies SOA/cough ROS ROS per HPI otherwise neg Vital Sign Vital Signs Vital Signs Date Time Temp Pulse Resp B/P (MAP) Pulse Ox O2 Delivery O2 Flow Rate FiO2 07/30/18 11:00 97.4 68 18 115/64 (81) Nasal Cannula 2.0 97.4 07/30/18 09:27 94 Physical Exam PHYSICAL EXAM GENERAL: Propped up in bed, alert, eating, NAD HENT: Dentures in place LUNGS: Decreased breath sounds CV: S1, S2. ABDOMEN: Obese, BS present, soft, nontender. EXTREMITIES: Chronic venous stasis multiple superficial wounds. + edema. SKIN: warm without rash. 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 Grossly nonfocal. Peripheral IV ok Labs Lab Laboratory Tests Test 07/29/18 16:52 07/29/18 20:22 07/29/18 20:48 07/30/18 03:40 Glucose (Fingerstick) 301 mg/dL (70-99) 291 mg/dL (70-99) 304 mg/dL (70-99) Hemoglobin 7.9 g/dL (13.0-17.5) Hematocrit 23.0 % (39.0-53.0) Mean Corpuscular Hemoglobin Concent 34 g/dL (31-37) Sodium Level 125 mmol/L (136-145) Potassium Level 4.9 mmol/L (3.5-5.1) Chloride Level 90 mmol/L (98-107) Carbon Dioxide Level 29 mmol/L (21-32) Anion Gap 6 (6-14) Blood Urea Nitrogen 81 mg/dL (8-26) Creatinine 1.9 mg/dL (0.7-1.3) Estimated GFR (Cockcroft-Gault) 35.1 Glucose Level 277 mg/dL (70-99) Calcium Level 8.5 mg/dL (8.5-10.1) Test 07/30/18 07:58 07/30/18 12:00 Glucose (Fingerstick) 245 mg/dL (70-99) 329 mg/dL (70-99) The femoral heads were not adequately delineated due to difficulties in positioning of this large patient. No fracture or destructive bony lesion is seen on these limited views. Moderate degenerative change is present at both knee joints. IMPRESSION: 1. Severe swelling and hyperdensity within the left iliopsoas musculature, most likely a large hematoma. Uncertain etiology, but possible etiologies include coagulopathy, neoplasm or infection/abscess. 2. Urinary bladder distention. Objective Assessment h/o group B strep sepsis from 07/13, source unclear. Repeat BC 07/15 NGTD Retroperitoneal hematoma COPD Acute kidney injury on CKD. 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 Chronic wounds, bilateral lower extremity Morbid obesity. Constipation Plan Plan of Care cont Rocephin leg elevation local wound care Bowel regimen wt loss PT/OT Labs in am Patient seen and examined. Chart reviewed in detail. 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 EVA LALA APRN Jul 30, 2018 12:41 EDUARDO KING MD Jul 30, 2018 22:57
[2018-07-30 15:00] VITALS: BP 123/55
[2018-07-30 19:00] VITALS: BP 113/39
[2018-07-30] MEDS: OMEGA-3 FATTY ACIDS/FISH OIL 1,000 MG CAPSULE. PO SCH (21:17)
[2018-07-30] MEDS: diphenhydrAMINE HCL 25 MG CAPSULE PO PRN (21:18)
[2018-07-30] MEDS: ATORVASTATIN CALCIUM 40 MG TABLET. PO SCH (21:18)
[2018-07-30] MEDS: traZODone 50 MG TABLET. PO SCH (21:18)
[2018-07-30] MEDS: INSULIN GLARGINE 300 UNITS/3 ML INSULN.PEN. SQ SCH (22:34)
[2018-07-30 23:00] VITALS: BP 112/54
[2018-07-31] MEDS: HYDROcodone/APAP 10/325 1 TAB TABLET PO PRN ×2 (02:32→15:13)
[2018-07-31 03:00] VITALS: BP 119/69
[2018-07-31 07:00] VITALS: BP 105/48
[2018-07-31] MEDS: IPRATRPIUM/ALBUTEROL 0.5/2.5MG 3 ML NEBU. NEB SCH ×4 (07:29→19:42)
[2018-07-31] MEDS: LOSARTAN POTASSIUM 50 MG TABLET. PO SCH (09:00)
[2018-07-31] MEDS: NYSTATIN TOPICAL POWDER 15GM BOTTLE. TP SCH ×2 (09:00→20:40)
[2018-07-31] MEDS: METOPROLOL TART IMMED RELEASE 25 MG TABLET. PO SCH ×2 (09:00→20:39)
[2018-07-31] MEDS: FINASTERIDE 5 MG TABLET. PO SCH (09:04)
[2018-07-31] MEDS: LACTOBACILLUS RHAMNOSUS GG 1 CAPSULE. PO SCH ×2 (09:05→20:38)
[2018-07-31] MEDS: buPROPion XL 150 MG TAB.ER.24H. PO SCH (09:05)
[2018-07-31] MEDS: MAGNESIUM OXIDE 400 MG TABLET PO SCH (09:05)
[2018-07-31] MEDS: PREGABALIN 50 MG CAPSULE PO SCH ×3 (09:06→20:39)
[2018-07-31] MEDS: DOCUSATE SODIUM 100 MG CAPSULE. PO SCH (09:06)
[2018-07-31] MEDS: TAMSULOSIN 0.4 MG CAP.ER.24H. PO SCH (09:06)
[2018-07-31] MEDS: DULoxetine HCL 30 MG CAPSULE.DR PO SCH (09:06)
[2018-07-31] MEDS: ASCORBIC ACID 500 MG TABLET PO SCH (09:06)
[2018-07-31] MEDS: CHOLECALCIFEROL (VITAMIN D3) 1,000 UNIT TABLET PO SCH (09:06)
[2018-07-31] MEDS: MULTIVITAMIN with MINERAL TABLET. PO SCH (09:06)
[2018-07-31] MEDS: cefTRIAXone IV Push 1 GM VIAL. IVP SCH (09:07)
--- NOTE | 2018-07-31 09:08 | PDOC ---
BRANDIN FIELDS NANOTECHNICIAN 07/31/18 0908: SURGICAL PROGRESS NOTE Subjective left sided pain eating well Vital Signs Vital Signs Date Time Temp Pulse Resp B/P (MAP) Pulse Ox O2 Delivery O2 Flow Rate FiO2 07/31/18 07:36 Nasal Cannula 1.5 07/31/18 07:29 92 07/31/18 07:00 97.9 66 20 105/48 (67) 97.9 I&O Intake and Output 07/31/18 07:00 Intake Total 850 ml Balance 850 ml Intake Oral 850 ml # Voids 9 General: Alert, Cooperative Abdomen: Soft, Other (hematoma to RLQ) Labs Laboratory Tests Test 07/29/18 10:55 07/29/18 12:16 07/29/18 16:52 07/29/18 20:22 White Blood Count 11.4 x10^3/uL (4.0-11.0) Red Blood Count 2.72 x10^6/uL (4.30-5.70) Hemoglobin 7.9 g/dL (13.0-17.5) Hematocrit 23.3 % (39.0-53.0) Mean Corpuscular Volume 86 fL (79-100) Mean Corpuscular Hemoglobin 29 pg (25-35) Mean Corpuscular Hemoglobin Concent 34 g/dL (31-37) Red Cell Distribution Width 15.6 % (11.5-14.5) Platelet Count 265 x10^3/uL (140-400) Neutrophils (%) (Auto) 81 % (31-73) Lymphocytes (%) (Auto) 8 % (24-48) Monocytes (%) (Auto) 10 % (0-9) Eosinophils (%) (Auto) 1 % (0-3) Basophils (%) (Auto) 0 % (0-3) Neutrophils # (Auto) 9.2 x10^3uL (1.8-7.7) Lymphocytes # (Auto) 0.9 x10^3/uL (1.0-4.8) Monocytes # (Auto) 1.1 x10^3/uL (0.0-1.1) Eosinophils # (Auto) 0.1 x10^3/uL (0.0-0.7) Basophils # (Auto) 0.0 x10^3/uL (0.0-0.2) Erythrocyte Sedimentation Rate 73 (0-15) Prothrombin Time 14.1 SEC (11.7-14.0) Prothromb Time International Ratio 1.1 (0.8-1.1) Glucose (Fingerstick) 277 mg/dL (70-99) 301 mg/dL (70-99) 291 mg/dL (70-99) Test 07/29/18 20:48 07/30/18 03:40 07/30/18 07:58 07/30/18 12:00 Glucose (Fingerstick) 304 mg/dL (70-99) 245 mg/dL (70-99) 329 mg/dL (70-99) Hemoglobin 7.9 g/dL (13.0-17.5) Hematocrit 23.0 % (39.0-53.0) Mean Corpuscular Hemoglobin Concent 34 g/dL (31-37) Sodium Level 125 mmol/L (136-145) Potassium Level 4.9 mmol/L (3.5-5.1) Chloride Level 90 mmol/L (98-107) Carbon Dioxide Level 29 mmol/L (21-32) Anion Gap 6 (6-14) Blood Urea Nitrogen 81 mg/dL (8-26) Creatinine 1.9 mg/dL (0.7-1.3) Estimated GFR (Cockcroft-Gault) 35.1 Glucose Level 277 mg/dL (70-99) Calcium Level 8.5 mg/dL (8.5-10.1) Test 07/30/18 17:10 07/30/18 20:58 07/31/18 08:54 Glucose (Fingerstick) 282 mg/dL (70-99) 268 mg/dL (70-99) 222 mg/dL (70-99) Laboratory Tests Test 07/30/18 12:00 07/30/18 17:10 07/30/18 20:58 07/31/18 08:54 Glucose (Fingerstick) 329 mg/dL (70-99) 282 mg/dL (70-99) 268 mg/dL (70-99) 222 mg/dL (70-99) Problem List Problems Medical Problems: (1) Cellulitis of leg Status: Acute (2) Morbid obesity Status: Acute Assessment/Plan retroperitoneal hematoma supportive measures HERNÁN FRAZIER MD 07/31/18 1133: SURGICAL PROGRESS NOTE Assessment/Plan Pt seen and examined. Agree with Ms. Fields's note Pt without new c/o abd soft, obese cont supportive care BRANDIN FIELDS APRN Jul 31, 2018 09:08 HERNÁN FRAZIER MD Jul 31, 2018 11:33
[2018-07-31 09:10] LABS: BASO # 0.1 x10^3/uL (0.0-0.2); BASO % 1 % (0-3); EOS # 0.2 x10^3/uL (0.0-0.7); EOS % 2 % (0-3); HEMATOCRIT 25.2 % (39.0-53.0); HEMOGLOBIN 8.4 g/dL (13.0-17.5); LYMPH # 1.7 x10^3/uL (1.0-4.8); LYMPH % 13 % (24-48); MEAN CORPUSCULAR HEMOGLOBIN 29 pg (25-35); MEAN CORPUSCULAR HGB CONC 33 g/dL (31-37); MEAN CORPUSCULAR VOLUME 87 fL (79-100); MONO % 8 % (0-9); NEUT # 9.6 x10^3uL (1.8-7.7); NEUT % 76 % (31-73); PLATELET COUNT 334 x10^3/uL (140-400); RED CELL DISTRIBUTION WIDTH 15.7 % (11.5-14.5); WHITE BLOOD COUNT 12.5 x10^3/uL (4.0-11.0)
[2018-07-31] MEDS: INSULIN GLARGINE 300 UNITS/3 ML INSULN.PEN. SQ SCH ×2 (09:17→20:51)
[2018-07-31] MEDS: INSULIN LISPRO 300 UNITS/3 ML INSULN.PEN. SQ SCH ×6 (09:18→16:22)
--- NOTE | 2018-07-31 09:41 | PDOC ---
PROGRESS NOTES Chief Complaint Chief Complaint Acute hypoxic/hypercapnic respiratory failure, refusig bIPAP/CPAP Super morbidly obese, BMI 57 - bariatric bed Bilateral leg wounds, superficial Strep bacteremia, hx - dcd on PCN last recent dc Sepsis POA, WBC 17, on re admission Generalized weakness-recently dcd to [facility] SOLITARY KIDNEY RAZ[facility] on CKD [facility] pt RETROPERIT HEMATOMA, LARGE - conservative tx 07/29/18 History of Present Illness History of Present Illness Being arranged for SNU but then developed a large retroperitoneal hematoma on Was getting aspirin 81 and Lovenox twice a day-I have held that of course Blood sugars running high on hefty doses of insulin even at home Hemoglobin stable at 8 Back pain/flank pain is stable with IV pain medicines He can be noncompliant with BiPAP, claims he can't breathe Plan: Start Lantus or Levemir 20 daily because of high blood sugars throughout the day BiPAP when necessary Social work/case management on the case-looking at different SNU-does not want to go back to [facility] Awaiting renal consult-patient has a SOLITARY KIDNEY, creatinine jumped to 1.9, after being on Lasix 40 IV daily-which I have held Swelling seems to be not getting worse BMP again tomorrow BMP today is pending Vitals Vitals Vital Signs Date Time Temp Pulse Resp B/P (MAP) Pulse Ox O2 Delivery O2 Flow Rate FiO2 07/31/18 09:09 Nasal Cannula 1.5 07/31/18 07:29 92 07/31/18 07:00 97.9 66 20 105/48 (67) 97.9 Physical Exam Physical Exam GENERAL: Propped up in bed, alert, eating, NAD HENT: Dentures in place LUNGS: Decreased breath sounds CV: S1, S2. ABDOMEN: Obese, BS present, soft, nontender. EXTREMITIES: Chronic venous stasis multiple superficial wounds. + edema. SKIN: warm without rash. 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 Grossly nonfocal. Peripheral IV ok General: Alert, Cooperative Heart: Regular rate, Normal S1, Normal S2 Lungs: Clear Abdomen: Soft, Other (hematoma to RLQ) Extremities: Other (edema and BLE dressings) Skin: No rashes, No breakdown Labs LABS Laboratory Tests Test 07/30/18 12:00 07/30/18 17:10 07/30/18 20:58 07/31/18 08:54 Glucose (Fingerstick) 329 mg/dL (70-99) 282 mg/dL (70-99) 268 mg/dL (70-99) 222 mg/dL (70-99) Test 07/31/18 09:01 White Blood Count 12.5 x10^3/uL (4.0-11.0) Red Blood Count 2.90 x10^6/uL (4.30-5.70) Hemoglobin 8.4 g/dL (13.0-17.5) Hematocrit 25.2 % (39.0-53.0) Mean Corpuscular Volume 87 fL (79-100) Mean Corpuscular Hemoglobin 29 pg (25-35) Mean Corpuscular Hemoglobin Concent 33 g/dL (31-37) Red Cell Distribution Width 15.7 % (11.5-14.5) Platelet Count 334 x10^3/uL (140-400) Neutrophils (%) (Auto) 76 % (31-73) Lymphocytes (%) (Auto) 13 % (24-48) Monocytes (%) (Auto) 8 % (0-9) Eosinophils (%) (Auto) 2 % (0-3) Basophils (%) (Auto) 1 % (0-3) Neutrophils # (Auto) 9.6 x10^3uL (1.8-7.7) Lymphocytes # (Auto) 1.7 x10^3/uL (1.0-4.8) Monocytes # (Auto) 1.0 x10^3/uL (0.0-1.1) Eosinophils # (Auto) 0.2 x10^3/uL (0.0-0.7) Basophils # (Auto) 0.1 x10^3/uL (0.0-0.2) Review of Systems Review of Systems A 14 point ROS was completed with the following noted as positive: Other systems reviewed and negative. \CONSTITUTIONAL: No fever or chills EYES: No recent changes SKIN: No rash or itching CARDIOVASCULAR: No chest pain, syncope, palpitations, or edema RESPIRATORY: No SOB or cough GASTROINTESTINAL: No nausea, vomiting or abdominal pain NEUROLOGICAL: No headaches or weakness ENDOCRINE: No cold or heat intolerance GENITOURINARY: No urgency or frequency of urination MUSCULOSKELETAL: No back pain or joint pain LYMPHATICS: No enlarged lymph nodes PSYCHIATRIC: No anxiety or depression Assessment and Plan Assessmemt and Plan Problems Medical Problems: (1) Cellulitis of leg Status: Acute (2) Morbid obesity Status: Acute Comment Review of Relevant I have reviewed the following items verena (where applicable) has been applied. Labs Laboratory Tests Test 07/29/18 10:55 07/29/18 12:16 07/29/18 16:52 07/29/18 20:22 White Blood Count 11.4 x10^3/uL (4.0-11.0) Red Blood Count 2.72 x10^6/uL (4.30-5.70) Hemoglobin 7.9 g/dL (13.0-17.5) Hematocrit 23.3 % (39.0-53.0) Mean Corpuscular Volume 86 fL (79-100) Mean Corpuscular Hemoglobin 29 pg (25-35) Mean Corpuscular Hemoglobin Concent 34 g/dL (31-37) Red Cell Distribution Width 15.6 % (11.5-14.5) Platelet Count 265 x10^3/uL (140-400) Neutrophils (%) (Auto) 81 % (31-73) Lymphocytes (%) (Auto) 8 % (24-48) Monocytes (%) (Auto) 10 % (0-9) Eosinophils (%) (Auto) 1 % (0-3) Basophils (%) (Auto) 0 % (0-3) Neutrophils # (Auto) 9.2 x10^3uL (1.8-7.7) Lymphocytes # (Auto) 0.9 x10^3/uL (1.0-4.8) Monocytes # (Auto) 1.1 x10^3/uL (0.0-1.1) Eosinophils # (Auto) 0.1 x10^3/uL (0.0-0.7) Basophils # (Auto) 0.0 x10^3/uL (0.0-0.2) Erythrocyte Sedimentation Rate 73 (0-15) Prothrombin Time 14.1 SEC (11.7-14.0) Prothromb Time International Ratio 1.1 (0.8-1.1) Glucose (Fingerstick) 277 mg/dL (70-99) 301 mg/dL (70-99) 291 mg/dL (70-99) Test 07/29/18 20:48 07/30/18 03:40 07/30/18 07:58 07/30/18 12:00 Glucose (Fingerstick) 304 mg/dL (70-99) 245 mg/dL (70-99) 329 mg/dL (70-99) Hemoglobin 7.9 g/dL (13.0-17.5) Hematocrit 23.0 % (39.0-53.0) Mean Corpuscular Hemoglobin Concent 34 g/dL (31-37) Sodium Level 125 mmol/L (136-145) Potassium Level 4.9 mmol/L (3.5-5.1) Chloride Level 90 mmol/L (98-107) Carbon Dioxide Level 29 mmol/L (21-32) Anion Gap 6 (6-14) Blood Urea Nitrogen 81 mg/dL (8-26) Creatinine 1.9 mg/dL (0.7-1.3) Estimated GFR (Cockcroft-Gault) 35.1 Glucose Level 277 mg/dL (70-99) Calcium Level 8.5 mg/dL (8.5-10.1) Test 07/30/18 17:10 07/30/18 20:58 07/31/18 08:54 07/31/18 09:01 Glucose (Fingerstick) 282 mg/dL (70-99) 268 mg/dL (70-99) 222 mg/dL (70-99) White Blood Count 12.5 x10^3/uL (4.0-11.0) Red Blood Count 2.90 x10^6/uL (4.30-5.70) Hemoglobin 8.4 g/dL (13.0-17.5) Hematocrit 25.2 % (39.0-53.0) Mean Corpuscular Volume 87 fL (79-100) Mean Corpuscular Hemoglobin 29 pg (25-35) Mean Corpuscular Hemoglobin Concent 33 g/dL (31-37) Red Cell Distribution Width 15.7 % (11.5-14.5) Platelet Count 334 x10^3/uL (140-400) Neutrophils (%) (Auto) 76 % (31-73) Lymphocytes (%) (Auto) 13 % (24-48) Monocytes (%) (Auto) 8 % (0-9) Eosinophils (%) (Auto) 2 % (0-3) Basophils (%) (Auto) 1 % (0-3) Neutrophils # (Auto) 9.6 x10^3uL (1.8-7.7) Lymphocytes # (Auto) 1.7 x10^3/uL (1.0-4.8) Monocytes # (Auto) 1.0 x10^3/uL (0.0-1.1) Eosinophils # (Auto) 0.2 x10^3/uL (0.0-0.7) Basophils # (Auto) 0.1 x10^3/uL (0.0-0.2) Laboratory Tests Test 07/30/18 12:00 07/30/18 17:10 07/30/18 20:58 07/31/18 08:54 Glucose (Fingerstick) 329 mg/dL (70-99) 282 mg/dL (70-99) 268 mg/dL (70-99) 222 mg/dL (70-99) Test 07/31/18 09:01 White Blood Count 12.5 x10^3/uL (4.0-11.0) Red Blood Count 2.90 x10^6/uL (4.30-5.70) Hemoglobin 8.4 g/dL (13.0-17.5) Hematocrit 25.2 % (39.0-53.0) Mean Corpuscular Volume 87 fL (79-100) Mean Corpuscular Hemoglobin 29 pg (25-35) Mean Corpuscular Hemoglobin Concent 33 g/dL (31-37) Red Cell Distribution Width 15.7 % (11.5-14.5) Platelet Count 334 x10^3/uL (140-400) Neutrophils (%) (Auto) 76 % (31-73) Lymphocytes (%) (Auto) 13 % (24-48) Monocytes (%) (Auto) 8 % (0-9) Eosinophils (%) (Auto) 2 % (0-3) Basophils (%) (Auto) 1 % (0-3) Neutrophils # (Auto) 9.6 x10^3uL (1.8-7.7) Lymphocytes # (Auto) 1.7 x10^3/uL (1.0-4.8) Monocytes # (Auto) 1.0 x10^3/uL (0.0-1.1) Eosinophils # (Auto) 0.2 x10^3/uL (0.0-0.7) Basophils # (Auto) 0.1 x10^3/uL (0.0-0.2) Medications Current Medications Oxycodone/ Acetaminophen (Percocet 5/325) 2 tab 1X ONCE PO Last administered on 07/25/18at 00:45; Start 07/25/18 at 00:45; Stop 07/25/18 at 00:46; Status DC Oxycodone/ Acetaminophen (Percocet 5/325) 1 tab STK-MED ONCE .ROUTE ; Start at 00:41; Stop 07/25/18 at 00:42; Status DC Ondansetron HCl (Zofran) 4 mg PRN Q8HRS PRN IV NAUSEA/VOMITING; Start at 01:45; Stop 07/26/18 at 01:44; Status DC Morphine Sulfate (Morphine Sulfate) 4 mg PRN Q2HR PRN IV PAIN Last administered on 07/25/18at 11:27; Start 07/25/18 at 01:45; Stop 07/26/18 at 01 :44; Status DC Acetaminophen (Tylenol) 650 mg PRN Q4HRS PRN PO FEVER Last administered on at 08:38; Start 07/25/18 at 01:45; Stop 07/25/18 at 15:48; Status DC Clindamycin Phosphate 50 ml @ 100 mls/hr 1X ONCE IV Last administered on at 03:29; Start 07/25/18 at 02:30; Stop 07/25/18 at 02:59; Status DC Morphine Sulfate (Morphine Sulfate) 6 mg 1X ONCE IV Last administered on 07/25at 03:29; Start 07/25/18 at 02:30; Stop 07/25/18 at 02:31; Status DC Aspirin (Children'S Aspirin) 81 mg DAILY PO Last administered on 07/29/18at 09: 47; Start 07/25/18 at 09:00; Stop 07/29/18 at 17:13; Status DC Bupropion HCl (Wellbutrin Xl) 150 mg DAILYWBKFT PO Last administered on 09:05; Start 07/25/18 at 08:00 Vitamin D (Vitamin D3) 1,000 unit DAILY PO Last administered on 07/31/18 09: 06; Start 07/25/18 at 09:00 Diphenhydramine HCl (Benadryl) 50 mg PRN QHS PRN PO INSOMNIA Last administered on 07/30/18 21:18; Start 07/25/18 at 07:45 Enoxaparin Sodium (Lovenox 60mg Syringe) 60 mg Q12HR SQ Last administered on 09:50; Start 07/25/18 at 09:00; Stop 07/29/18 at 17:13; Status DC Finasteride (Proscar) 5 mg DAILY PO Last administered on 07/31/18 09:04; Start 07/25/18 at 09:00 Albuterol/ Ipratropium (Duoneb) 3 ml RTQID NEB Last administered on 07/31/18 07:29; Start 07/25/18 at 08:30 Losartan Potassium (Cozaar) 50 mg BID PO Last administered on 07/30/18 21:18 ; Start 07/25/18 at 09:00 Metoprolol Tartrate (Lopressor) 25 mg BID PO Last administered on 07/30/18 21 :18; Start 07/25/18 at 09:00 Nystatin (Nystop) 1 narendra BID TP Last administered on 07/31/18at 09:00; Start at 09:00 Nystatin (Nystop) 1 narendra BID TP ; Start 07/25/18 at 09:00; Stop 07/25/18 at 09: 00; Status DC Fish Oil (Fish Oil) 1,000 mg HS PO Last administered on 07/30/18 21:17; Start 07/25/18 at 21:00 Pregabalin (Lyrica) 50 mg TID PO Last administered on 07/31/18 09:06; Start 07/25/18 at 09:00 Tamsulosin HCl (Flomax) 0.4 mg DAILY PO Last administered on 07/31/18 09:06; Start 07/25/18 at 09:00 Trazodone HCl (Desyrel) 50 mg QHS PO Last administered on 10/27/18at 21:18; Start 07/25/18 at 21:00 Atorvastatin Calcium (Lipitor) 80 mg QHS PO Last administered on 07/30/18 21: 18; Start 07/25/18 at 21:00 Benzonatate (Tessalon Perle) 100 mg PRN Q8HRS PRN PO COUGH Last administered on 07/30/18 12:06; Start 07/25/18 at 09:00 Duloxetine HCl (Cymbalta) 60 mg DAILY PO Last administered on 07/31/18 09:06 ; Start 07/25/18 at 09:00 Insulin Human Lispro (HumaLOG) 20 units TIDWMEALS SQ Last administered on 07/31 09:18; Start 07/25/18 at 08:30 Insulin Glargine (Lantus) 55 units QHS SQ Last administered on 07/30/18at 22:34 ; Start 07/25/18 at 21:00 Magnesium Oxide (Magnesium Oxide) 400 mg DAILY PO Last administered on at 09:05; Start 07/25/18 at 09:00 Non-Formulary Medication (Melatonin ) 3 mg HS PO ; Start 07/25/18 at 21:00; Status UNV Non-Formulary Medication (Miconazole Nitrate ) 130 gm TID TP ; Start 07/25/18 at 09:00; Status UNV Multivitamins (Thera M Plus) 1 tab DAILY PO Last administered on 07/31/18at 09: 06; Start 07/25/18 at 09:00 Non-Formulary Medication (Naltrexone Hcl ) 1 tab DAILY PO ; Start 07/25/18 at 09:00; Status UNV Insulin Human Lispro (HumaLOG) 0-9 UNITS TIDWMEALS SQ Last administered on at 09:19; Start 07/25/18 at 08:00 Dextrose (Dextrose 50%-Water Syringe) 12.5 gm PRN Q15MIN PRN IV SEE COMMENTS; Start 07/25/18 at 07:45 Furosemide (Lasix) 40 mg DAILY IVP Last administered on 07/29/18at 09:47; Start 07/25/18 at 09:00; Stop 07/30/18 at 08:09; Status DC Ceftriaxone Sodium 1 gm/ Dextrose 50 ml @ 100 mls/hr Q24H IV ; Start 07/25/18 at 07:45; Status UNV Ceftriaxone Sodium (Rocephin) 1 gm Q24H IVP Last administered on 07/31/18at 09: 07; Start 07/25/18 at 09:00 Acetaminophen/ Hydrocodone Bitart (Lortab 5/325) 1 tab PRN Q4HRS PRN PO MODERATE PAIN Last administered on 07/31/18at 09:09; Start 07/25/18 at 09:00 Acetaminophen/ Hydrocodone Bitart (Lortab 10/325) 1 tab PRN Q6HRS PRN PO SEVERE PAIN Last administered on 07/31/18at 02:32; Start 07/25/18 at 09:00 Acetaminophen (Tylenol) 500 mg PRN Q6HRS PRN PO MILD PAIN / TEMP; Start at 09:00 Ondansetron HCl (Zofran) 4 mg PRN Q6HRS PRN IV NAUSEA/VOMITING; Start at 09:00 Ondansetron HCl (Zofran Odt) 4 mg PRN Q6HRS PRN PO NAUSEA/VOMITING; Start at 09:00 Fentanyl Citrate (Fentanyl 2ml Vial) 50 mcg PRN Q2HR PRN IV MODERATE-SEVERE PAIN Last administered on 07/29/18at 10:07; Start 07/25/18 at 12:15 Alprazolam (Xanax) 0.5 mg PRN Q8HRS PRN PO ANXIETY / AGITATION Last administered on 07/30/18at 09:31; Start 07/25/18 at 12:15 Ascorbic Acid (Vitamin C) 500 mg DAILY PO Last administered on 07/31/18at 09:06 ; Start 07/26/18 at 13:00 Lactobacillus Rhamnosus (Culturelle) 1 cap BID PO Last administered on at 09:05; Start 07/26/18 at 21:00 Fentanyl Citrate (Fentanyl 2ml Vial) 100 mcg 1X ONCE IV Last administered on 07/27/18at 11:20; Start 07/27/18 at 10:00; Stop 07/27/18 at 10:01; Status DC Info (Anti-Coagulation Monitoring By Pharmacy) 1 each PRN DAILY PRN MC SEE COMMENTS; Start 07/28/18 at 15:00; Stop 07/28/18 at 15:00; Status DC Magnesium Citrate (Citroma) 296 ml 1X ONCE PO Last administered on 07/29/18at 14:40; Start 07/29/18 at 12:15; Stop 07/29/18 at 12:19; Status DC Lidocaine (Xylocaine) 1 narendra 1X ONCE TP Last administered on 07/29/18at 14:40; Start 07/29/18 at 12:15; Stop 07/29/18 at 12:19; Status DC Magnesium Hydroxide (Milk Of Magnesia) 2,400 mg 1X ONCE PO Last administered on 07/30/18at 12:05; Start 07/30/18 at 11:30; Stop 07/30/18 at 11:35; Status DC Magnesium Hydroxide (Milk Of Magnesia) 2,400 mg PRN DAILY PRN PO CONSTIPATION 2ND CHOICE; Start 07/30/18 at 11:30 Polyethylene Glycol (miraLAX PACKET) 17 gm 1X ONCE PO Last administered on at 12:05; Start 07/30/18 at 11:30; Stop 07/30/18 at 11:36; Status DC Polyethylene Glycol (miraLAX PACKET) 17 gm PRN DAILY PRN PO CONSTIPATION 1ST CHOICE; Start 07/30/18 at 11:30 Docusate Sodium (Colace) 100 mg DAILY PO Last administered on 07/31/18at 09:06 ; Start 07/30/18 at 12:00 Insulin Glargine (Lantus) 20 units DAILY SQ Last administered on 07/31/18at 09: 17; Start 07/31/18 at 08:15 Active Scripts Active Enoxaparin Sodium 60 Mg/0.6 Ml Disp.syrin 60 Mg SQ Q12HR 30 Days Furosemide 20 Mg Tablet 20 Mg PO DAILY 30 Days Benadryl (Diphenhydramine Hcl) 25 Mg Capsule 50 Mg PO PRN QHS PRN 30 Days Duoneb 0.5-3(2.5) Mg/3 Ml (Albuterol/Ipratropium) 3 Ml Ampul.neb 3 Ml NEB RTQID 30 Days Lantus (Insulin Glargine,Hum.rec.anlog) 100 Unit/1 Ml Vial 55 Unit SQ HS 30 Days Reported Vitamin D3 (Cholecalciferol (Vitamin D3)) 1,000 Unit Tablet 1 Tab PO DAILY Nystatin 15 Gm Powder 1 Narendra TP BID Novolog Flexpen (Insulin Aspart) 100 Unit/1 Ml Insuln.pen 20 Unit SQ TIDAC Cephalexin 500 Mg Tablet 1 Tab PO QID Benzonatate 100 Mg Capsule 1 Cap PO Q8HRS PRN Multivitamins (Multivitamin) 1 Each Tablet 1 Tab PO DAILY Fish Oil 1,000 Mg Capsule ([place]-3 Fatty Acids/Fish Oil) 1 Each Capsule 3 Each PO HS Children's Aspirin (Aspirin) 81 Mg Tab.chew 81 Mg PO DAILY Finasteride 5 Mg Tablet 1 Tab PO DAILY Trazodone Hcl 50 Mg Tablet 1 Tab PO QHS Tamsulosin Hcl 0.4 Mg Cap.er.24h 1 Cap PO DAILY Lyrica (Pregabalin) 50 Mg Capsule 1 Cap PO TID Nystatin 15 Gm Powder 1 Narendra TP BID Naltrexone Hcl 50 Mg Tablet 1 Tab PO DAILY Miconazole Nitrate 130 Gm Aero.powd 130 Gm TP TID Metoprolol Tartrate 25 Mg Tablet 1 Tab PO BID Melatonin 3 Mg Tablet 3 Mg PO HS Magnesium Oxide 400 Mg Tablet 1 Tab PO DAILY Losartan Potassium 50 Mg Tablet 50 Mg PO BID Hydrophilic Ointment 410 Gm Oint...g. 410 Gm TP PRN Cymbalta (Duloxetine Hcl) 60 Mg Capsule.dr 1 Cap PO DAILY Bupropion Xl (Bupropion Hcl) 150 Mg Tab.er.24h 1 Tab PO DAILYWBKFT Atorvastatin Calcium 80 Mg Tablet 80 Mg PO HS Vitals/I & O Vital Sign - Last 24 Hours 07/30/18 07/30/18 07/30/18 07/30/18 10:40 11:00 13:24 15:00 Temp 97.4 97.5 97.4 97.5 Pulse 68 69 Resp 18 18 B/P (MAP) 115/64 (81) 123/55 (77) Pulse Ox 94 94 O2 Delivery Nasal Cannula Nasal Cannula Nasal Cannula O2 Flow Rate 2.0 2.0 2.0 2.0 07/30/18 07/30/18 07/30/18 07/30/18 16:15 19:00 19:37 21:15 Temp 97.3 97.3 Pulse 69 Resp 18 B/P (MAP) 113/39 (63) Pulse Ox 95 95 94 O2 Delivery Nasal Cannula Nasal Cannula Nasal Cannula Nasal Cannula O2 Flow Rate 2.0 2.0 2.0 2.0 07/30/18 07/30/18 07/30/18 07/31/18 21:18 21:18 23:00 02:32 Temp 97.3 97.3 Pulse 69 69 71 Resp 18 20 B/P (MAP) 113/39 113/39 112/54 (73) Pulse Ox 95 O2 Delivery Nasal Cannula Room Air O2 Flow Rate 2.0 07/31/18 07/31/18 07/31/18 07/31/18 03:00 03:30 07:00 07:29 Temp 97.9 97.9 97.9 97.9 Pulse 64 66 Resp 18 20 20 B/P (MAP) 119/69 (86) 105/48 (67) Pulse Ox 96 95 92 O2 Delivery Nasal Cannula Room Air Nasal Cannula Nasal Cannula O2 Flow Rate 2.0 2.0 2.0 07/31/18 07/31/18 07:36 09:09 O2 Delivery Nasal Cannula Nasal Cannula O2 Flow Rate 1.5 1.5 Intake and Output 07/30/18 07/30/18 07/31/18 15:00 23:00 07:00 Intake Total 400 ml 450 ml Balance 400 ml 450 ml ESTER SESAY MD Jul 31, 2018 09:41
--- NOTE | 2018-07-31 09:52 | PDOC ---
Infectious Disease Note Subjective Subjective Feeling better after having a BM this morning Denies N/V/cramps Denies F/C/S/aches Denies SOA/cough ROS ROS per HPI otherwise neg Vital Sign Vital Signs Vital Signs Date Time Temp Pulse Resp B/P (MAP) Pulse Ox O2 Delivery O2 Flow Rate FiO2 07/31/18 09:09 Nasal Cannula 1.5 07/31/18 07:29 92 07/31/18 07:00 97.9 66 20 105/48 (67) 97.9 Physical Exam PHYSICAL EXAM GENERAL: Propped up in bed, alert, NAD HENT: Dentures in place LUNGS: Decreased breath sounds CV: S1, S2. ABDOMEN: Obese, soft, nontender. EXTREMITIES: Chronic venous stasis multiple superficial wounds. + edema. SKIN: warm without rash. 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 Grossly nonfocal. Peripheral IV Labs Lab Laboratory Tests Test 07/30/18 12:00 07/30/18 17:10 07/30/18 20:58 07/31/18 08:54 Glucose (Fingerstick) 329 mg/dL (70-99) 282 mg/dL (70-99) 268 mg/dL (70-99) 222 mg/dL (70-99) Test 07/31/18 09:01 White Blood Count 12.5 x10^3/uL (4.0-11.0) Red Blood Count 2.90 x10^6/uL (4.30-5.70) Hemoglobin 8.4 g/dL (13.0-17.5) Hematocrit 25.2 % (39.0-53.0) Mean Corpuscular Volume 87 fL (79-100) Mean Corpuscular Hemoglobin 29 pg (25-35) Mean Corpuscular Hemoglobin Concent 33 g/dL (31-37) Red Cell Distribution Width 15.7 % (11.5-14.5) Platelet Count 334 x10^3/uL (140-400) Neutrophils (%) (Auto) 76 % (31-73) Lymphocytes (%) (Auto) 13 % (24-48) Monocytes (%) (Auto) 8 % (0-9) Eosinophils (%) (Auto) 2 % (0-3) Basophils (%) (Auto) 1 % (0-3) Neutrophils # (Auto) 9.6 x10^3uL (1.8-7.7) Lymphocytes # (Auto) 1.7 x10^3/uL (1.0-4.8) Monocytes # (Auto) 1.0 x10^3/uL (0.0-1.1) Eosinophils # (Auto) 0.2 x10^3/uL (0.0-0.7) Basophils # (Auto) 0.1 x10^3/uL (0.0-0.2) Objective Assessment h/o group B strep sepsis from 07/13, source unclear. Repeat BC 07/15 NGTD Retroperitoneal hematoma Leukocytosis COPD Acute kidney injury on CKD. 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 Chronic wounds, bilateral lower extremity Morbid obesity. Constipation Plan Plan of Care cont Rocephin leg elevation local wound care Bowel regimen wt loss PT/OT Patient seen and examined. Chart reviewed in detail. Case discussed with [employer]. Agree with above Plan. EVA LALA APRN Jul 31, 2018 09:52 EDUARDO KING MD Jul 31, 2018 19:22
[2018-07-31 11:00] VITALS: BP_SYST 102; BP_SYST 105; BP_SYST 92; BP_SYST 93; BP_DIAS 12; BP_DIAS 21; BP_DIAS 32; BP_DIAS 39
--- NOTE | 2018-07-31 13:33 | PDOC2 ---
CONSULT Date of Consult Date of Consult DATE: 07/31/18 TIME: 13:05 Reason for Consult Reason for Consult: Renal failure Source Source: Caregiver, Chart review, Patient History of Present Illness Reason for Visit: Pt is 73-year-old obese CM hospitalized on 07/25 , who was just just recently discharged here 4 days ago, he was admitted July 13 for the following diagnosis Acute hypoxic/hypercapnic respiratory failure Super morbidly obese, BMI 57,Bilateral leg wounds,Strep bacteremia. [facility] . He has Solitary Kidney Re-admitted left leg pain greater than right. Non-compliant with his BiPAP or CPAP because it causes his mouth to be dry and he cannot breathe . Multiple wounds on bilateral legs which have reviewed . He has dressing. No Urinary complaints. No Ybarra, good UOP as per RN. Renal consulted for RAZIA Past Medical History Cardiovascular: HTN, Hyperlipidemia, Other Renal/: Chronic renal insuff, Benign prostatic enlarg. Endocrine: Diabetes Past Surgical History Past Surgical History: Other Family History Family History: Diabetes, Hypertension Social History No ALCOHOL: none Drugs: None Lives: with Family Current Problem List Problem List Problems Medical Problems: (1) Cellulitis of leg Status: Acute (2) Morbid obesity Status: Acute Current Medications Current Medications Current Medications Oxycodone/ Acetaminophen (Percocet 5/325) 2 tab 1X ONCE PO Last administered on 07/25/18at 00:45; Start 07/25/18 at 00:45; Stop 07/25/18 at 00:46; Status DC Oxycodone/ Acetaminophen (Percocet 5/325) 1 tab STK-MED ONCE .ROUTE ; Start at 00:41; Stop 07/25/18 at 00:42; Status DC Ondansetron HCl (Zofran) 4 mg PRN Q8HRS PRN IV NAUSEA/VOMITING; Start at 01:45; Stop 07/26/18 at 01:44; Status DC Morphine Sulfate (Morphine Sulfate) 4 mg PRN Q2HR PRN IV PAIN Last administered on 07/25/18at 11:27; Start 07/25/18 at 01:45; Stop 07/26/18 at 01 :44; Status DC Acetaminophen (Tylenol) 650 mg PRN Q4HRS PRN PO FEVER Last administered on at 08:38; Start 07/25/18 at 01:45; Stop 07/25/18 at 15:48; Status DC Clindamycin Phosphate 50 ml @ 100 mls/hr 1X ONCE IV Last administered on at 03:29; Start 07/25/18 at 02:30; Stop 07/25/18 at 02:59; Status DC Morphine Sulfate (Morphine Sulfate) 6 mg 1X ONCE IV Last administered on 07/25at 03:29; Start 07/25/18 at 02:30; Stop 07/25/18 at 02:31; Status DC Aspirin (Children'S Aspirin) 81 mg DAILY PO Last administered on 07/29/18at 09: 47; Start 07/25/18 at 09:00; Stop 07/29/18 at 17:13; Status DC Bupropion HCl (Wellbutrin Xl) 150 mg DAILYWBKFT PO Last administered on at 09:05; Start 07/25/18 at 08:00 Vitamin D (Vitamin D3) 1,000 unit DAILY PO Last administered on 07/31/18at 09: 06; Start 07/25/18 at 09:00 Diphenhydramine HCl (Benadryl) 50 mg PRN QHS PRN PO INSOMNIA Last administered on 07/30/18at 21:18; Start 07/25/18 at 07:45 Enoxaparin Sodium (Lovenox 60mg Syringe) 60 mg Q12HR SQ Last administered on at 09:50; Start 07/25/18 at 09:00; Stop 07/29/18 at 17:13; Status DC Finasteride (Proscar) 5 mg DAILY PO Last administered on 07/31/18at 09:04; Start 07/25/18 at 09:00 Albuterol/ Ipratropium (Duoneb) 3 ml RTQID NEB Last administered on 07/31/18at 11:14; Start 07/25/18 at 08:30 Losartan Potassium (Cozaar) 50 mg BID PO Last administered on 07/30/18at 21:18 ; Start 07/25/18 at 09:00 Metoprolol Tartrate (Lopressor) 25 mg BID PO Last administered on 07/30/18at 21 :18; Start 07/25/18 at 09:00 Nystatin (Nystop) 1 narendra BID TP Last administered on 07/31/18 09:00; Start at 09:00 Nystatin (Nystop) 1 narendra BID TP ; Start 07/25/18 at 09:00; Stop 07/25/18 at 09: 00; Status DC Fish Oil (Fish Oil) 1,000 mg HS PO Last administered on 07/30/18 21:17; Start 07/25/18 at 21:00 Pregabalin (Lyrica) 50 mg TID PO Last administered on 07/31/18 12:52; Start 07/25/18 at 09:00 Tamsulosin HCl (Flomax) 0.4 mg DAILY PO Last administered on 07/31/18 09:06; Start 07/25/18 at 09:00 Trazodone HCl (Desyrel) 50 mg QHS PO Last administered on 07/30/18 21:18; Start 07/25/18 at 21:00 Atorvastatin Calcium (Lipitor) 80 mg QHS PO Last administered on 07/30/18 21: 18; Start 07/25/18 at 21:00 Benzonatate (Tessalon Perle) 100 mg PRN Q8HRS PRN PO COUGH Last administered on 07/30/18 12:06; Start 07/25/18 at 09:00 Duloxetine HCl (Cymbalta) 60 mg DAILY PO Last administered on 07/31/18 09:06 ; Start 07/25/18 at 09:00 Insulin Human Lispro (HumaLOG) 20 units TIDWMEALS SQ Last administered on 07/31 12:15; Start 07/25/18 at 08:30 Insulin Glargine (Lantus) 55 units QHS SQ Last administered on 07/30/18 22:34 ; Start 07/25/18 at 21:00 Magnesium Oxide (Magnesium Oxide) 400 mg DAILY PO Last administered on at 09:05; Start 07/25/18 at 09:00 Non-Formulary Medication (Melatonin ) 3 mg HS PO ; Start 07/25/18 at 21:00; Status UNV Non-Formulary Medication (Miconazole Nitrate ) 130 gm TID TP ; Start 07/25/18 at 09:00; Status UNV Multivitamins (Thera M Plus) 1 tab DAILY PO Last administered on 07/31/18 09: 06; Start 07/25/18 at 09:00 Non-Formulary Medication (Naltrexone Hcl ) 1 tab DAILY PO ; Start 07/25/18 at 09:00; Status UNV Insulin Human Lispro (HumaLOG) 0-9 UNITS TIDWMEALS SQ Last administered on at 12:15; Start 07/25/18 at 08:00 Dextrose (Dextrose 50%-Water Syringe) 12.5 gm PRN Q15MIN PRN IV SEE COMMENTS; Start 07/25/18 at 07:45 Furosemide (Lasix) 40 mg DAILY IVP Last administered on 07/29/18at 09:47; Start 07/25/18 at 09:00; Stop 07/30/18 at 08:09; Status DC Ceftriaxone Sodium 1 gm/ Dextrose 50 ml @ 100 mls/hr Q24H IV ; Start 07/25/18 at 07:45; Status UNV Ceftriaxone Sodium (Rocephin) 1 gm Q24H IVP Last administered on 07/31/18at 09: 07; Start 07/25/18 at 09:00 Acetaminophen/ Hydrocodone Bitart (Lortab 5/325) 1 tab PRN Q4HRS PRN PO MODERATE PAIN Last administered on 07/31/18at 09:09; Start 07/25/18 at 09:00 Acetaminophen/ Hydrocodone Bitart (Lortab 10/325) 1 tab PRN Q6HRS PRN PO SEVERE PAIN Last administered on 07/31/18at 02:32; Start 07/25/18 at 09:00 Acetaminophen (Tylenol) 500 mg PRN Q6HRS PRN PO MILD PAIN / TEMP; Start at 09:00 Ondansetron HCl (Zofran) 4 mg PRN Q6HRS PRN IV NAUSEA/VOMITING; Start at 09:00 Ondansetron HCl (Zofran Odt) 4 mg PRN Q6HRS PRN PO NAUSEA/VOMITING; Start at 09:00 Fentanyl Citrate (Fentanyl 2ml Vial) 50 mcg PRN Q2HR PRN IV MODERATE-SEVERE PAIN Last administered on 07/29/18at 10:07; Start 07/25/18 at 12:15 Alprazolam (Xanax) 0.5 mg PRN Q8HRS PRN PO ANXIETY / AGITATION Last administered on 07/30/18at 09:31; Start 07/25/18 at 12:15 Ascorbic Acid (Vitamin C) 500 mg DAILY PO Last administered on 07/31/18at 09:06 ; Start 07/26/18 at 13:00 Lactobacillus Rhamnosus (Culturelle) 1 cap BID PO Last administered on at 09:05; Start 07/26/18 at 21:00 Fentanyl Citrate (Fentanyl 2ml Vial) 100 mcg 1X ONCE IV Last administered on 07/27/18at 11:20; Start 07/27/18 at 10:00; Stop 07/27/18 at 10:01; Status DC Info (Anti-Coagulation Monitoring By Pharmacy) 1 each PRN DAILY PRN MC SEE COMMENTS; Start 07/28/18 at 15:00; Stop 07/28/18 at 15:00; Status DC Magnesium Citrate (Citroma) 296 ml 1X ONCE PO Last administered on 07/29/18at 14:40; Start 07/29/18 at 12:15; Stop 07/29/18 at 12:19; Status DC Lidocaine (Xylocaine) 1 narendra 1X ONCE TP Last administered on 07/29/18at 14:40; Start 07/29/18 at 12:15; Stop 07/29/18 at 12:19; Status DC Magnesium Hydroxide (Milk Of Magnesia) 2,400 mg 1X ONCE PO Last administered on 07/30/18at 12:05; Start 07/30/18 at 11:30; Stop 07/30/18 at 11:35; Status DC Magnesium Hydroxide (Milk Of Magnesia) 2,400 mg PRN DAILY PRN PO CONSTIPATION 2ND CHOICE; Start 07/30/18 at 11:30 Polyethylene Glycol (miraLAX PACKET) 17 gm 1X ONCE PO Last administered on at 12:05; Start 07/30/18 at 11:30; Stop 07/30/18 at 11:36; Status DC Polyethylene Glycol (miraLAX PACKET) 17 gm PRN DAILY PRN PO CONSTIPATION 1ST CHOICE; Start 07/30/18 at 11:30 Docusate Sodium (Colace) 100 mg DAILY PO Last administered on 07/31/18at 09:06 ; Start 07/30/18 at 12:00 Insulin Glargine (Lantus) 20 units DAILY SQ Last administered on 07/31/18at 09: 17; Start 07/31/18 at 08:15 Active Scripts Active Enoxaparin Sodium 60 Mg/0.6 Ml Disp.syrin 60 Mg SQ Q12HR 30 Days Furosemide 20 Mg Tablet 20 Mg PO DAILY 30 Days Benadryl (Diphenhydramine Hcl) 25 Mg Capsule 50 Mg PO PRN QHS PRN 30 Days Duoneb 0.5-3(2.5) Mg/3 Ml (Albuterol/Ipratropium) 3 Ml Ampul.neb 3 Ml NEB RTQID 30 Days Lantus (Insulin Glargine,Hum.rec.anlog) 100 Unit/1 Ml Vial 55 Unit SQ HS 30 Days Reported Vitamin D3 (Cholecalciferol (Vitamin D3)) 1,000 Unit Tablet 1 Tab PO DAILY Nystatin 15 Gm Powder 1 Narendra TP BID Novolog Flexpen (Insulin Aspart) 100 Unit/1 Ml Insuln.pen 20 Unit SQ TIDAC Cephalexin 500 Mg Tablet 1 Tab PO QID Benzonatate 100 Mg Capsule 1 Cap PO Q8HRS PRN Multivitamins (Multivitamin) 1 Each Tablet 1 Tab PO DAILY Fish Oil 1,000 Mg Capsule (Reader-3 Fatty Acids/Fish Oil) 1 Each Capsule 3 Each PO HS Children's Aspirin (Aspirin) 81 Mg Tab.chew 81 Mg PO DAILY Finasteride 5 Mg Tablet 1 Tab PO DAILY Trazodone Hcl 50 Mg Tablet 1 Tab PO QHS Tamsulosin Hcl 0.4 Mg Cap.er.24h 1 Cap PO DAILY Lyrica (Pregabalin) 50 Mg Capsule 1 Cap PO TID Nystatin 15 Gm Powder 1 Narendra TP BID Naltrexone Hcl 50 Mg Tablet 1 Tab PO DAILY Miconazole Nitrate 130 Gm Aero.powd 130 Gm TP TID Metoprolol Tartrate 25 Mg Tablet 1 Tab PO BID Melatonin 3 Mg Tablet 3 Mg PO HS Magnesium Oxide 400 Mg Tablet 1 Tab PO DAILY Losartan Potassium 50 Mg Tablet 50 Mg PO BID Hydrophilic Ointment 410 Gm Oint...g. 410 Gm TP PRN Cymbalta (Duloxetine Hcl) 60 Mg Capsule.dr 1 Cap PO DAILY Bupropion Xl (Bupropion Hcl) 150 Mg Tab.er.24h 1 Tab PO DAILYWBKFT Atorvastatin Calcium 80 Mg Tablet 80 Mg PO HS Allergies Allergies: Coded Allergies: ibuprofen (Verified Allergy, Severe, RespDistress, Swelling, 07/13/18) TAKES A BABY ASA AT HOME I S O L A T I O N *CONTACT* (Verified Allergy, Unknown, 07/15/18) +MRSA nares 07/13/18 ROS Review of System As Per HPI Physical Exam Physical Exam GENERAL: Propped up in bed,sleeping, Morbidly obese,NAD HENT: O2 by NC LUNGS: Decreased breath sounds , Non labored CV: S1, S2. ABDOMEN: Obese, nontender. EXTREMITIES: Chronic venous stasis multiple superficial wounds. + edema. SKIN: Multiple areas of ecchymosis DATA CENTER CONSULTANT: Alert and oriented x 3. Grossly nonfocal. No ybarra Vital Signs Vital Signs Date Time Temp Pulse Resp B/P (MAP) Pulse Ox O2 Delivery O2 Flow Rate FiO2 07/31/18 11:14 96 Nasal Cannula 2.0 07/31/18 11:00 64 93/39 (57) 07/31/18 11:00 97.7 20 97.7 Assessment & Plan Razia on CKD - Likely sec to Hypotension - BP Lower than his baseline Did get IV Lasix .Hold Losartan and other BP meds - dw RN No renal labs available today ,Monitor CKD stage 3- Baseline 1.3 Agenesis of Rt kidney , follows at [place] Hyponatremia- Corrected Na 128 Restrict Free water Intake , Hold BP meds If BP stays Low may need IVF Boluses - dw RN Morbid obesity SERA- CPAP Labs Labs Laboratory Tests Test 07/29/18 16:52 07/29/18 20:22 07/29/18 20:48 07/30/18 03:40 Glucose (Fingerstick) 301 mg/dL (70-99) 291 mg/dL (70-99) 304 mg/dL (70-99) Hemoglobin 7.9 g/dL (13.0-17.5) Hematocrit 23.0 % (39.0-53.0) Mean Corpuscular Hemoglobin Concent 34 g/dL (31-37) Sodium Level 125 mmol/L (136-145) Potassium Level 4.9 mmol/L (3.5-5.1) Chloride Level 90 mmol/L (98-107) Carbon Dioxide Level 29 mmol/L (21-32) Anion Gap 6 (6-14) Blood Urea Nitrogen 81 mg/dL (8-26) Creatinine 1.9 mg/dL (0.7-1.3) Estimated GFR (Cockcroft-Gault) 35.1 Glucose Level 277 mg/dL (70-99) Calcium Level 8.5 mg/dL (8.5-10.1) Test 07/30/18 07:58 07/30/18 12:00 07/30/18 17:10 07/30/18 20:58 Glucose (Fingerstick) 245 mg/dL (70-99) 329 mg/dL (70-99) 282 mg/dL (70-99) 268 mg/dL (70-99) Test 07/31/18 08:54 07/31/18 09:01 07/31/18 12:00 Glucose (Fingerstick) 222 mg/dL (70-99) 243 mg/dL (70-99) White Blood Count 12.5 x10^3/uL (4.0-11.0) Red Blood Count 2.90 x10^6/uL (4.30-5.70) Hemoglobin 8.4 g/dL (13.0-17.5) Hematocrit 25.2 % (39.0-53.0) Mean Corpuscular Volume 87 fL (79-100) Mean Corpuscular Hemoglobin 29 pg (25-35) Mean Corpuscular Hemoglobin Concent 33 g/dL (31-37) Red Cell Distribution Width 15.7 % (11.5-14.5) Platelet Count 334 x10^3/uL (140-400) Neutrophils (%) (Auto) 76 % (31-73) Lymphocytes (%) (Auto) 13 % (24-48) Monocytes (%) (Auto) 8 % (0-9) Eosinophils (%) (Auto) 2 % (0-3) Basophils (%) (Auto) 1 % (0-3) Neutrophils # (Auto) 9.6 x10^3uL (1.8-7.7) Lymphocytes # (Auto) 1.7 x10^3/uL (1.0-4.8) Monocytes # (Auto) 1.0 x10^3/uL (0.0-1.1) Eosinophils # (Auto) 0.2 x10^3/uL (0.0-0.7) Basophils # (Auto) 0.1 x10^3/uL (0.0-0.2) Laboratory Tests Test 07/30/18 17:10 07/30/18 20:58 07/31/18 08:54 07/31/18 09:01 Glucose (Fingerstick) 282 mg/dL (70-99) 268 mg/dL (70-99) 222 mg/dL (70-99) White Blood Count 12.5 x10^3/uL (4.0-11.0) Red Blood Count 2.90 x10^6/uL (4.30-5.70) Hemoglobin 8.4 g/dL (13.0-17.5) Hematocrit 25.2 % (39.0-53.0) Mean Corpuscular Volume 87 fL (79-100) Mean Corpuscular Hemoglobin 29 pg (25-35) Mean Corpuscular Hemoglobin Concent 33 g/dL (31-37) Red Cell Distribution Width 15.7 % (11.5-14.5) Platelet Count 334 x10^3/uL (140-400) Neutrophils (%) (Auto) 76 % (31-73) Lymphocytes (%) (Auto) 13 % (24-48) Monocytes (%) (Auto) 8 % (0-9) Eosinophils (%) (Auto) 2 % (0-3) Basophils (%) (Auto) 1 % (0-3) Neutrophils # (Auto) 9.6 x10^3uL (1.8-7.7) Lymphocytes # (Auto) 1.7 x10^3/uL (1.0-4.8) Monocytes # (Auto) 1.0 x10^3/uL (0.0-1.1) Eosinophils # (Auto) 0.2 x10^3/uL (0.0-0.7) Basophils # (Auto) 0.1 x10^3/uL (0.0-0.2) Test 07/31/18 12:00 Glucose (Fingerstick) 243 mg/dL (70-99) Review All relevant outside records, renal labs, imaging studies, telemetry/EKG's were reviewed. Images Images Pelvis CT-- 1. Severe swelling and hyperdensity within the left iliopsoas musculature, most likely a large hematoma. Uncertain etiology, but possible etiologies include coagulopathy, neoplasm or infection/abscess. 2. Urinary bladder distention. DILLON STOCK MD Jul 31, 2018 13:33
[2018-07-31 15:00] VITALS: BP 107/47
[2018-07-31 19:00] VITALS: BP 132/52
[2018-07-31] MEDS: ATORVASTATIN CALCIUM 40 MG TABLET. PO SCH (20:38)
[2018-07-31] MEDS: OMEGA-3 FATTY ACIDS/FISH OIL 1,000 MG CAPSULE. PO SCH (20:38)
[2018-07-31] MEDS: traZODone 50 MG TABLET. PO SCH (20:38)
[2018-07-31 23:00] VITALS: BP 97/33
[2018-08-01] MEDS: HYDROcodone/APAP 10/325 1 TAB TABLET PO PRN ×2 (01:40→18:05)
[2018-08-01 03:25] VITALS: BP 113/43
[2018-08-01 04:06] LABS: HEMATOCRIT 22.3 % (39.0-53.0); HEMOGLOBIN 7.8 g/dL (13.0-17.5)
[2018-08-01 04:20] LABS: ALBUMIN 2.3 g/dL (3.4-5.0); CALCIUM 8.6 mg/dL (8.5-10.1); GFR 33.1; PHOSPHORUS 4.8 mg/dL (2.6-4.7); POTASSIUM 4.9 mmol/L (3.5-5.1)
[2018-08-01 07:00] VITALS: BP 130/42
[2018-08-01] MEDS: IPRATRPIUM/ALBUTEROL 0.5/2.5MG 3 ML NEBU. NEB SCH ×4 (07:44→19:12)
[2018-08-01] MEDS: ASCORBIC ACID 500 MG TABLET PO SCH (09:07)
[2018-08-01] MEDS: FINASTERIDE 5 MG TABLET. PO SCH (09:07)
[2018-08-01] MEDS: TAMSULOSIN 0.4 MG CAP.ER.24H. PO SCH (09:07)
[2018-08-01] MEDS: LACTOBACILLUS RHAMNOSUS GG 1 CAPSULE. PO SCH ×2 (09:07→22:23)
[2018-08-01] MEDS: buPROPion XL 150 MG TAB.ER.24H. PO SCH (09:07)
[2018-08-01] MEDS: CHOLECALCIFEROL (VITAMIN D3) 1,000 UNIT TABLET PO SCH (09:08)
[2018-08-01] MEDS: MAGNESIUM OXIDE 400 MG TABLET PO SCH (09:08)
[2018-08-01] MEDS: PREGABALIN 50 MG CAPSULE PO SCH ×3 (09:08→22:24)
[2018-08-01] MEDS: METOPROLOL TART IMMED RELEASE 25 MG TABLET. PO SCH ×2 (09:09→22:25)
[2018-08-01] MEDS: DOCUSATE SODIUM 100 MG CAPSULE. PO SCH (09:09)
[2018-08-01] MEDS: MULTIVITAMIN with MINERAL TABLET. PO SCH (09:09)
[2018-08-01] MEDS: cefTRIAXone IV Push 1 GM VIAL. IVP SCH (09:11)
[2018-08-01] MEDS: INSULIN LISPRO 300 UNITS/3 ML INSULN.PEN. SQ SCH ×6 (09:15→18:08)
[2018-08-01] MEDS: INSULIN GLARGINE 300 UNITS/3 ML INSULN.PEN. SQ SCH ×2 (09:17→22:31)
[2018-08-01] MEDS: DULoxetine HCL 30 MG CAPSULE.DR PO SCH (10:36)
[2018-08-01] MEDS: NYSTATIN TOPICAL POWDER 15GM BOTTLE. TP SCH ×2 (10:37→23:40)
[2018-08-01 11:00] VITALS: BP_SYST 89; BP_SYST 94; BP_DIAS 30; BP_DIAS 33
--- NOTE | 2018-08-01 12:56 | PDOC ---
Infectious Disease Note Subjective: Subjective Feeling better after having a BM this morning Denies N/V/cramps Denies F/C/S/aches Denies SOA/cough ROS: ROS Negative except for above. Vital Signs: Vital Signs Vital Signs Date Time Temp Pulse Resp B/P (MAP) Pulse Ox O2 Delivery O2 Flow Rate FiO2 08/01/18 11:15 Nasal Cannula 2.0 08/01/18 11:00 65 89/33 (51) 08/01/18 11:00 97.5 20 98 97.5 Physical Exam: PHYSICAL EXAM GENERAL: Propped up in bed, alert, NAD HENT: Dentures in place LUNGS: Decreased breath sounds CV: S1, S2. ABDOMEN: Obese, soft, nontender. EXTREMITIES: Chronic venous stasis multiple superficial wounds. + edema. SKIN: warm without rash. Multiple areas of ecchymosis RIB CUTTER: Alert and oriented x 3. Grossly nonfocal. Peripheral IV Medications: Inpatient Meds: Current Medications Medications (Trade) Dose Ordered Sig/Merry Start Time Stop Time Status Last Admin Dose Admin Acetaminophen (Tylenol) 500 mg PRN Q6HRS PRN 07/25/18 09:00 Acetaminophen/ Hydrocodone Bitart (Lortab 10/325) 1 tab PRN Q6HRS PRN 07/25/18 09:00 08/01/18 01:40 1 TAB Acetaminophen/ Hydrocodone Bitart (Lortab 5/325) 1 tab PRN Q4HRS PRN 07/25/18 09:00 07/31/18 09:09 1 TAB Albuterol/ Ipratropium (Duoneb) 3 ml RTQID 07/25/18 08:30 08/01/18 11:15 3 ML Alprazolam (Xanax) 0.5 mg PRN Q8HRS PRN 07/25/18 12:15 07/30/18 09:31 0.5 MG Ascorbic Acid (Vitamin C) 500 mg DAILY 07/26/18 13:00 08/01/18 09:07 500 MG Aspirin (Children'S Aspirin) 81 mg DAILY 07/25/18 09:00 07/29/18 17:13 DC 07/29/18 09:47 81 MG Atorvastatin Calcium (Lipitor) 80 mg QHS 07/25/18 21:00 07/31/18 20:38 80 MG Benzonatate (Tessalon Perle) 100 mg PRN Q8HRS PRN 07/25/18 09:00 07/30/18 12:06 100 MG Bupropion HCl (Wellbutrin Xl) 150 mg DAILYWBKFT 07/25/18 08:00 08/01/18 09:07 150 MG Ceftriaxone Sodium 1 gm/ Dextrose 50 ml @ 100 mls/hr Q24H 07/25/18 07:45 UNV Ceftriaxone Sodium (Rocephin) 1 gm Q24H 07/25/18 09:00 08/01/18 09:11 1 GM Clindamycin Phosphate 50 ml @ 100 mls/hr 1X ONCE 07/25/18 02:30 07/25/18 02:59 DC 07/25/18 03:29 100 MLS/HR Dextrose (Dextrose 50%-Water Syringe) 12.5 gm PRN Q15MIN PRN 07/25/18 07:45 Diphenhydramine HCl (Benadryl) 50 mg PRN QHS PRN 07/25/18 07:45 07/30/18 21:18 50 MG Docusate Sodium (Colace) 100 mg DAILY 07/30/18 12:00 08/01/18 09:09 100 MG Duloxetine HCl (Cymbalta) 60 mg DAILY 07/25/18 09:00 08/01/18 10:36 60 MG Enoxaparin Sodium (Lovenox 60mg Syringe) 60 mg Q12HR 07/25/18 09:00 07/29/18 17:13 DC 07/29/18 09:50 60 MG Fentanyl Citrate (Fentanyl 2ml Vial) 100 mcg 1X ONCE 07/27/18 10:00 07/27/18 10:01 DC 07/27/18 11:20 100 MCG Finasteride (Proscar) 5 mg DAILY 07/25/18 09:00 08/01/18 09:07 5 MG Fish Oil (Fish Oil) 1,000 mg HS 07/25/18 21:00 07/31/18 20:38 1,000 MG Furosemide (Lasix) 40 mg DAILY 07/25/18 09:00 07/30/18 08:09 DC 07/29/18 09:47 40 MG Info (Anti-Coagulation Monitoring By Pharmacy) 1 each PRN DAILY PRN 07/28/18 15:00 07/28/18 15:00 DC Insulin Glargine (Lantus) 20 units DAILY 07/31/18 08:15 08/01/18 09:17 20 UNITS Insulin Human Lispro (HumaLOG) 0-9 UNITS TIDWMEALS 07/25/18 08:00 08/01/18 12:41 7 UNITS Lactobacillus Rhamnosus (Culturelle) 1 cap BID 07/26/18 21:00 08/01/18 09:07 1 CAP Lidocaine (Xylocaine) 1 jaelyn 1X ONCE 07/29/18 12:15 07/29/18 12:19 DC 07/29/18 14:40 1 JAELYN Losartan Potassium (Cozaar) 50 mg BID 07/25/18 09:00 07/31/18 14:10 DC 07/30/18 21:18 50 MG Magnesium Hydroxide (Milk Of Magnesia) 2,400 mg PRN DAILY PRN 07/30/18 11:30 Magnesium Citrate (Citroma) 296 ml 1X ONCE 07/29/18 12:15 07/29/18 12:19 DC 07/29/18 14:40 296 ML Magnesium Oxide (Magnesium Oxide) 400 mg DAILY 07/25/18 09:00 08/01/18 09:08 400 MG Metoprolol Tartrate (Lopressor) 25 mg BID 07/25/18 09:00 08/01/18 09:09 25 MG Morphine Sulfate (Morphine Sulfate) 6 mg 1X ONCE 07/25/18 02:30 07/25/18 02:31 DC 07/25/18 03:29 6 MG Multivitamins (Thera M Plus) 1 tab DAILY 07/25/18 09:00 08/01/18 09:09 1 TAB Non-Formulary Medication (Melatonin ) 3 mg HS 07/25/18 21:00 UNV Non-Formulary Medication (Miconazole Nitrate ) 130 gm TID 07/25/18 09:00 UNV Non-Formulary Medication (Naltrexone Hcl ) 1 tab DAILY 07/25/18 09:00 UNV Nystatin (Nystop) 1 jaelyn BID 07/25/18 09:00 07/25/18 09:00 DC Ondansetron HCl (Zofran Odt) 4 mg PRN Q6HRS PRN 07/25/18 09:00 Ondansetron HCl (Zofran) 4 mg PRN Q6HRS PRN 07/25/18 09:00 Oxycodone/ Acetaminophen (Percocet 5/325) 1 tab STK-MED ONCE 07/25/18 00:41 07/25/18 00:42 DC Polyethylene Glycol (miraLAX PACKET) 17 gm PRN DAILY PRN 07/30/18 11:30 Pregabalin (Lyrica) 50 mg TID 07/25/18 09:00 08/01/18 09:08 50 MG Sodium Chloride 1,000 ml @ 100 mls/hr Q10H 08/01/18 12:00 Tamsulosin HCl (Flomax) 0.4 mg DAILY 07/25/18 09:00 08/01/18 09:07 0.4 MG Trazodone HCl (Desyrel) 50 mg QHS 07/25/18 21:00 07/31/18 20:38 50 MG Vitamin D (Vitamin D3) 1,000 unit DAILY 07/25/18 09:00 08/01/18 09:08 1,000 UNIT Labs: Lab Laboratory Tests Test 07/31/18 16:09 07/31/18 20:44 08/01/18 02:45 08/01/18 03:00 Glucose (Fingerstick) 271 mg/dL (70-99) 248 mg/dL (70-99) Hemoglobin 7.8 g/dL (13.0-17.5) Hematocrit 22.3 % (39.0-53.0) Mean Corpuscular Hemoglobin Concent 35 g/dL (31-37) Sodium Level 128 mmol/L (136-145) Potassium Level 4.9 mmol/L (3.5-5.1) Chloride Level 92 mmol/L (98-107) Carbon Dioxide Level 31 mmol/L (21-32) Anion Gap 5 (6-14) Blood Urea Nitrogen 91 mg/dL (8-26) Creatinine 2.0 mg/dL (0.7-1.3) Estimated GFR (Cockcroft-Gault) 33.1 Glucose Level 223 mg/dL (70-99) Calcium Level 8.6 mg/dL (8.5-10.1) Phosphorus Level 4.8 mg/dL (2.6-4.7) Albumin 2.3 g/dL (3.4-5.0) Test 08/01/18 07:36 10/29/18 10:46 Glucose (Fingerstick) 202 mg/dL (70-99) 268 mg/dL (70-99) Objective: Assessment: h/o group B strep sepsis from 07/13, source unclear. Repeat BC 07/15 NGTD Retroperitoneal hematoma anemia acute blood loss Leukocytosis COPD Acute kidney injury on CKD. 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 Chronic wounds, bilateral lower extremity Morbid obesity. Constipation Plan: Plan of Care cont Rocephin leg elevation local wound care Bowel regimen wt loss PT/OT YORDY MURO MD Aug 01, 2018 12:56
[2018-08-01] MEDS: IV NORMAL SALINE 1000ML BAG 1,000 ML IV SCH ×2 (14:10→23:38)
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
[2018-08-01 15:00] VITALS: BP 130/36
--- NOTE | 2018-08-01 15:38 | PDOC ---
SUBJECTIVE ROS Sitting in recliner, No new concerns. No Ybarra,Incontinent OBJECTIVE Vital Signs Vital Signs Date Time Temp Pulse Resp B/P (MAP) Pulse Ox O2 Delivery O2 Flow Rate FiO2 08/01/18 15:08 Nasal Cannula 2.0 08/01/18 11:00 65 89/33 (51) 08/01/18 11:00 97.5 20 98 97.5 I & 0 Intake and Output 08/01/18 07:00 Intake Total 1040 ml Balance 1040 ml Intake Oral 1040 ml # Voids 11 PHYSICAL EXAM Physical Exam GENERAL: Morbidly obese,NAD HENT: O2 by NC LUNGS: Decreased breath sounds , Non labored CV: S1, S2. ABDOMEN: super Obese, nontender. EXTREMITIES: Chronic venous stasis multiple superficial wounds. + edema. 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 Grossly nonfocal. No ybarra DIAGNOSIS/ASSESSMENT Assessment & Plan Cosmo on CKD - Likely sec to Hypotension - BP Lower than his baseline Recd IV Lasix , Volume related Held Losartan and other BP meds(he is on metoprolol currently) Monitor , Strict I/O and if possible daily standing weight CKD stage 3- Baseline 1.3 Agenesis of Rt kidney , follows at [place] Hyponatremia- Improving Restrict Free water Intake Super morbidly obese, BMI 57 SERA- CPAP Bilateral leg wounds, superficial Strep bacteremia, hx - dcd on PCN last recent dc Sepsis POA, WBC 17, on re admission Retroperitoneal Hematoma Large - 07/29/18 COMMENT/RELEVANT DATA Meds Current Medications Medications (Trade) Dose Ordered Sig/Merry Start Time Stop Time Status Last Admin Dose Admin Acetaminophen (Tylenol) 500 mg PRN Q6HRS PRN 07/25/18 09:00 Acetaminophen/ Hydrocodone Bitart (Lortab 10/325) 1 tab PRN Q6HRS PRN 07/25/18 09:00 08/01/18 01:40 1 TAB Acetaminophen/ Hydrocodone Bitart (Lortab 5/325) 1 tab PRN Q4HRS PRN 07/25/18 09:00 07/31/18 09:09 1 TAB Albuterol/ Ipratropium (Duoneb) 3 ml RTQID 07/25/18 08:30 08/01/18 15:08 3 ML Alprazolam (Xanax) 0.5 mg PRN Q8HRS PRN 07/25/18 12:15 07/30/18 09:31 0.5 MG Ascorbic Acid (Vitamin C) 500 mg DAILY 07/26/18 13:00 08/01/18 09:07 500 MG Aspirin (Children'S Aspirin) 81 mg DAILY 07/25/18 09:00 07/29/18 17:13 DC 07/29/18 09:47 81 MG Atorvastatin Calcium (Lipitor) 80 mg QHS 07/25/18 21:00 07/31/18 20:38 80 MG Benzonatate (Tessalon Perle) 100 mg PRN Q8HRS PRN 07/25/18 09:00 07/30/18 12:06 100 MG Bupropion HCl (Wellbutrin Xl) 150 mg DAILYWBKFT 07/25/18 08:00 08/01/18 09:07 150 MG Ceftriaxone Sodium 1 gm/ Dextrose 50 ml @ 100 mls/hr Q24H 07/25/18 07:45 UNV Ceftriaxone Sodium (Rocephin) 1 gm Q24H 07/25/18 09:00 08/01/18 09:11 1 GM Clindamycin Phosphate 50 ml @ 100 mls/hr 1X ONCE 07/25/18 02:30 07/25/18 02:59 DC 07/25/18 03:29 100 MLS/HR Dextrose (Dextrose 50%-Water Syringe) 12.5 gm PRN Q15MIN PRN 07/25/18 07:45 Diphenhydramine HCl (Benadryl) 50 mg PRN QHS PRN 07/25/18 07:45 07/30/18 21:18 50 MG Docusate Sodium (Colace) 100 mg DAILY 07/30/18 12:00 08/01/18 09:09 100 MG Duloxetine HCl (Cymbalta) 60 mg DAILY 07/25/18 09:00 08/01/18 10:36 60 MG Enoxaparin Sodium (Lovenox 60mg Syringe) 60 mg Q12HR 07/25/18 09:00 07/29/18 17:13 DC 07/29/18 09:50 60 MG Fentanyl Citrate (Fentanyl 2ml Vial) 100 mcg 1X ONCE 07/27/18 10:00 07/27/18 10:01 DC 07/27/18 11:20 100 MCG Finasteride (Proscar) 5 mg DAILY 07/25/18 09:00 08/01/18 09:07 5 MG Fish Oil (Fish Oil) 1,000 mg HS 07/25/18 21:00 07/31/18 20:38 1,000 MG Furosemide (Lasix) 40 mg DAILY 07/25/18 09:00 07/30/18 08:09 DC 07/29/18 09:47 40 MG Info (Anti-Coagulation Monitoring By Pharmacy) 1 each PRN DAILY PRN 07/28/18 15:00 07/28/18 15:00 DC Insulin Glargine (Lantus) 20 units DAILY 07/31/18 08:15 08/01/18 09:17 20 UNITS Insulin Human Lispro (HumaLOG) 0-9 UNITS TIDWMEALS 07/25/18 08:00 08/01/18 12:41 7 UNITS Lactobacillus Rhamnosus (Culturelle) 1 cap BID 07/26/18 21:00 08/01/18 09:07 1 CAP Lidocaine (Xylocaine) 1 jaelyn 1X ONCE 07/29/18 12:15 07/29/18 12:19 DC 07/29/18 14:40 1 JAELYN Losartan Potassium (Cozaar) 50 mg BID 07/25/18 09:00 07/31/18 14:10 DC 07/30/18 21:18 50 MG Magnesium Hydroxide (Milk Of Magnesia) 2,400 mg PRN DAILY PRN 07/30/18 11:30 Magnesium Citrate (Citroma) 296 ml 1X ONCE 07/29/18 12:15 07/29/18 12:19 DC 07/29/18 14:40 296 ML Magnesium Oxide (Magnesium Oxide) 400 mg DAILY 07/25/18 09:00 08/01/18 09:08 400 MG Metoprolol Tartrate (Lopressor) 25 mg BID 07/25/18 09:00 08/01/18 09:09 25 MG Morphine Sulfate (Morphine Sulfate) 6 mg 1X ONCE 07/25/18 02:30 07/25/18 02:31 DC 07/25/18 03:29 6 MG Multivitamins (Thera M Plus) 1 tab DAILY 07/25/18 09:00 08/01/18 09:09 1 TAB Non-Formulary Medication (Melatonin ) 3 mg HS 07/25/18 21:00 UNV Non-Formulary Medication (Miconazole Nitrate ) 130 gm TID 07/25/18 09:00 UNV Non-Formulary Medication (Naltrexone Hcl ) 1 tab DAILY 07/25/18 09:00 UNV Nystatin (Nystop) 1 jaelyn BID 07/25/18 09:00 07/25/18 09:00 DC Ondansetron HCl (Zofran Odt) 4 mg PRN Q6HRS PRN 07/25/18 09:00 Ondansetron HCl (Zofran) 4 mg PRN Q6HRS PRN 07/25/18 09:00 Oxycodone/ Acetaminophen (Percocet 5/325) 1 tab STK-MED ONCE 07/25/18 00:41 07/25/18 00:42 DC Polyethylene Glycol (miraLAX PACKET) 17 gm PRN DAILY PRN 07/30/18 11:30 Pregabalin (Lyrica) 50 mg TID 07/25/18 09:00 08/01/18 15:10 50 MG Sodium Chloride 1,000 ml @ 100 mls/hr Q10H 08/01/18 12:00 08/01/18 14:10 100 MLS/HR Tamsulosin HCl (Flomax) 0.4 mg DAILY 07/25/18 09:00 08/01/18 09:07 0.4 MG Trazodone HCl (Desyrel) 50 mg QHS 07/25/18 21:00 07/31/18 20:38 50 MG Vitamin D (Vitamin D3) 1,000 unit DAILY 07/25/18 09:00 08/01/18 09:08 1,000 UNIT Lab Laboratory Tests Test 07/31/18 16:09 07/31/18 20:44 08/01/18 02:45 08/01/18 03:00 Glucose (Fingerstick) 271 mg/dL (70-99) 248 mg/dL (70-99) Hemoglobin 7.8 g/dL (13.0-17.5) Hematocrit 22.3 % (39.0-53.0) Mean Corpuscular Hemoglobin Concent 35 g/dL (31-37) Sodium Level 128 mmol/L (136-145) Potassium Level 4.9 mmol/L (3.5-5.1) Chloride Level 92 mmol/L (98-107) Carbon Dioxide Level 31 mmol/L (21-32) Anion Gap 5 (6-14) Blood Urea Nitrogen 91 mg/dL (8-26) Creatinine 2.0 mg/dL (0.7-1.3) Estimated GFR (Cockcroft-Gault) 33.1 Glucose Level 223 mg/dL (70-99) Calcium Level 8.6 mg/dL (8.5-10.1) Phosphorus Level 4.8 mg/dL (2.6-4.7) Albumin 2.3 g/dL (3.4-5.0) Test 08/01/18 07:36 08/01/18 10:46 Glucose (Fingerstick) 202 mg/dL (70-99) 268 mg/dL (70-99) Results All relevant outside records, renal labs, imaging studies, telemetry/EKG's were reviewed. DILLON STOCK MD Aug 01, 2018 15:38
[2018-08-01 19:00] VITALS: BP 132/60
[2018-08-01] MEDS: traZODone 50 MG TABLET. PO SCH (22:24)
[2018-08-01] MEDS: OMEGA-3 FATTY ACIDS/FISH OIL 1,000 MG CAPSULE. PO SCH (22:24)
[2018-08-01] MEDS: ATORVASTATIN CALCIUM 40 MG TABLET. PO SCH (22:24)
[2018-08-01 23:00] VITALS: BP 140/69
[2018-08-01] MEDS: diphenhydrAMINE HCL 25 MG CAPSULE PO PRN (23:44)
[2018-08-02] MEDS: HYDROcodone/APAP 10/325 1 TAB TABLET PO PRN ×3 (01:59→21:05)
[2018-08-02 03:00] VITALS: BP 140/70
[2018-08-02] MEDS: ALPRAZolam 0.5 MG TABLET PO PRN ×2 (03:56→15:09)
[2018-08-02 04:44] LABS: BASO % 0 % (0-3); EOS # 0.3 x10^3/uL (0.0-0.7); EOS % 3 % (0-3); HEMATOCRIT 23.9 % (39.0-53.0); LYMPH # 1.9 x10^3/uL (1.0-4.8); LYMPH % 18 % (24-48); MEAN CORPUSCULAR HEMOGLOBIN 29 pg (25-35); MEAN CORPUSCULAR HGB CONC 34 g/dL (31-37); MEAN CORPUSCULAR VOLUME 87 fL (79-100); MONO # 0.9 x10^3/uL (0.0-1.1); MONO % 9 % (0-9); NEUT # 7.2 x10^3uL (1.8-7.7); NEUT % 70 % (31-73); PLATELET COUNT 323 x10^3/uL (140-400); RED BLOOD COUNT 2.76 x10^6/uL (4.30-5.70); RED CELL DISTRIBUTION WIDTH 16.4 % (11.5-14.5); WHITE BLOOD COUNT 10.3 x10^3/uL (4.0-11.0)
[2018-08-02 04:55] LABS: CALCIUM 8.7 mg/dL (8.5-10.1); CREATININE 1.4 mg/dL (0.7-1.3); POTASSIUM 4.5 mmol/L (3.5-5.1)
[2018-08-02 07:00] VITALS: BP 148/57
[2018-08-02] MEDS: IPRATRPIUM/ALBUTEROL 0.5/2.5MG 3 ML NEBU. NEB SCH ×4 (08:00→19:50)
[2018-08-02] MEDS: INSULIN LISPRO 300 UNITS/3 ML INSULN.PEN. SQ SCH ×6 (08:00→17:38)
[2018-08-02] MEDS: CHOLECALCIFEROL (VITAMIN D3) 1,000 UNIT TABLET PO SCH (08:45)
[2018-08-02] MEDS: TAMSULOSIN 0.4 MG CAP.ER.24H. PO SCH (08:45)
[2018-08-02] MEDS: FINASTERIDE 5 MG TABLET. PO SCH (08:45)
[2018-08-02] MEDS: METOPROLOL TART IMMED RELEASE 25 MG TABLET. PO SCH ×2 (08:45→21:10)
[2018-08-02] MEDS: MAGNESIUM OXIDE 400 MG TABLET PO SCH (08:46)
[2018-08-02] MEDS: LACTOBACILLUS RHAMNOSUS GG 1 CAPSULE. PO SCH ×2 (08:46→21:05)
[2018-08-02] MEDS: buPROPion XL 150 MG TAB.ER.24H. PO SCH (08:46)
[2018-08-02] MEDS: MULTIVITAMIN with MINERAL TABLET. PO SCH (08:46)
[2018-08-02] MEDS: DOCUSATE SODIUM 100 MG CAPSULE. PO SCH (08:46)
[2018-08-02] MEDS: ASCORBIC ACID 500 MG TABLET PO SCH (08:46)
[2018-08-02] MEDS: PREGABALIN 50 MG CAPSULE PO SCH ×3 (08:46→21:06)
[2018-08-02] MEDS: INSULIN GLARGINE 300 UNITS/3 ML INSULN.PEN. SQ SCH ×2 (08:58→21:17)
[2018-08-02] MEDS: cefTRIAXone IV Push 1 GM VIAL. IVP SCH (08:59)
[2018-08-02] MEDS: NYSTATIN TOPICAL POWDER 15GM BOTTLE. TP SCH ×2 (08:59→21:10)
[2018-08-02] MEDS: IV NORMAL SALINE 1000ML BAG 1,000 ML IV SCH ×2 (09:28→18:30)
[2018-08-02] MEDS: DULoxetine HCL 30 MG CAPSULE.DR PO SCH (10:13)
--- NOTE | 2018-08-02 10:55 | PDOC ---
Infectious Disease Note Subjective: Subjective Says feels the same Denies N/V/cramps Denies F/C/S Denies SOA/cough ROS: ROS Negative except for above. Vital Signs: Vital Signs Vital Signs Date Time Temp Pulse Resp B/P (MAP) Pulse Ox O2 Delivery O2 Flow Rate FiO2 08/02/18 08:45 67 148/57 08/02/18 08:30 Nasal Cannula 2.0 08/02/18 07:45 97 08/02/18 07:00 98.0 18 98.0 Physical Exam: PHYSICAL EXAM GENERAL: Propped up in bed, alert, NAD HENT: Dentures in place LUNGS: Decreased breath sounds CV: S1, S2. ABDOMEN: Obese, soft, nontender. EXTREMITIES: Chronic venous stasis multiple superficial wounds. + mild edema. SKIN: warm without rash. 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 Grossly nonfocal. Peripheral IV Medications: Inpatient Meds: Current Medications Medications (Trade) Dose Ordered Sig/Merry Start Time Stop Time Status Last Admin Dose Admin Acetaminophen (Tylenol) 500 mg PRN Q6HRS PRN 07/25/18 09:00 Acetaminophen/ Hydrocodone Bitart (Lortab 10/325) 1 tab PRN Q6HRS PRN 07/25/18 09:00 08/02/18 01:59 1 TAB Acetaminophen/ Hydrocodone Bitart (Lortab 5/325) 1 tab PRN Q4HRS PRN 07/25/18 09:00 07/31/18 09:09 1 TAB Albuterol/ Ipratropium (Duoneb) 3 ml RTQID 07/25/18 08:30 08/02/18 08:00 3 ML Alprazolam (Xanax) 0.5 mg PRN Q8HRS PRN 07/25/18 12:15 08/02/18 03:56 0.5 MG Ascorbic Acid (Vitamin C) 500 mg DAILY 07/26/18 13:00 08/02/18 08:46 500 MG Aspirin (Children'S Aspirin) 81 mg DAILY 07/25/18 09:00 07/29/18 17:13 DC 07/29/18 09:47 81 MG Atorvastatin Calcium (Lipitor) 80 mg QHS 07/25/18 21:00 08/01/18 22:24 80 MG Benzonatate (Tessalon Perle) 100 mg PRN Q8HRS PRN 07/25/18 09:00 07/30/18 12:06 100 MG Bupropion HCl (Wellbutrin Xl) 150 mg DAILYWBKFT 07/25/18 08:00 08/02/18 08:46 150 MG Ceftriaxone Sodium 1 gm/ Dextrose 50 ml @ 100 mls/hr Q24H 07/25/18 07:45 UNV Ceftriaxone Sodium (Rocephin) 1 gm Q24H 07/25/18 09:00 08/02/18 08:59 1 GM Clindamycin Phosphate 50 ml @ 100 mls/hr 1X ONCE 07/25/18 02:30 07/25/18 02:59 DC 07/25/18 03:29 100 MLS/HR Dextrose (Dextrose 50%-Water Syringe) 12.5 gm PRN Q15MIN PRN 07/25/18 07:45 Diphenhydramine HCl (Benadryl) 50 mg PRN QHS PRN 07/25/18 07:45 08/01/18 23:44 50 MG Docusate Sodium (Colace) 100 mg DAILY 07/30/18 12:00 08/02/18 08:46 100 MG Duloxetine HCl (Cymbalta) 60 mg DAILY 07/25/18 09:00 08/02/18 10:13 60 MG Enoxaparin Sodium (Lovenox 60mg Syringe) 60 mg Q12HR 07/25/18 09:00 07/29/18 17:13 DC 07/29/18 09:50 60 MG Fentanyl Citrate (Fentanyl 2ml Vial) 100 mcg 1X ONCE 07/27/18 10:00 07/27/18 10:01 DC 07/27/18 11:20 100 MCG Finasteride (Proscar) 5 mg DAILY 07/25/18 09:00 08/02/18 08:45 5 MG Fish Oil (Fish Oil) 1,000 mg HS 07/25/18 21:00 08/01/18 22:24 1,000 MG Furosemide (Lasix) 40 mg DAILY 07/25/18 09:00 07/30/18 08:09 DC 07/29/18 09:47 40 MG Info (Anti-Coagulation Monitoring By Pharmacy) 1 each PRN DAILY PRN 07/28/18 15:00 07/28/18 15:00 DC Insulin Glargine (Lantus) 20 units DAILY 07/31/18 08:15 08/02/18 08:58 20 UNITS Insulin Human Lispro (HumaLOG) 0-9 UNITS TIDWMEALS 07/25/18 08:00 08/01/18 18:07 7 UNITS Lactobacillus Rhamnosus (Culturelle) 1 cap BID 07/26/18 21:00 08/02/18 08:46 1 CAP Lidocaine (Xylocaine) 1 jaelyn 1X ONCE 07/29/18 12:15 07/29/18 12:19 DC 07/29/18 14:40 1 JAELYN Losartan Potassium (Cozaar) 50 mg BID 07/25/18 09:00 07/31/18 14:10 DC 07/30/18 21:18 50 MG Magnesium Hydroxide (Milk Of Magnesia) 2,400 mg PRN DAILY PRN 07/30/18 11:30 Magnesium Citrate (Citroma) 296 ml 1X ONCE 07/29/18 12:15 07/29/18 12:19 DC 07/29/18 14:40 296 ML Magnesium Oxide (Magnesium Oxide) 400 mg DAILY 07/25/18 09:00 08/02/18 08:46 400 MG Metoprolol Tartrate (Lopressor) 25 mg BID 07/25/18 09:00 08/02/18 08:45 25 MG Morphine Sulfate (Morphine Sulfate) 6 mg 1X ONCE 07/25/18 02:30 07/25/18 02:31 DC 07/25/18 03:29 6 MG Multivitamins (Thera M Plus) 1 tab DAILY 07/25/18 09:00 08/02/18 08:46 1 TAB Non-Formulary Medication (Melatonin ) 3 mg HS 07/25/18 21:00 UNV Non-Formulary Medication (Miconazole Nitrate ) 130 gm TID 07/25/18 09:00 UNV Non-Formulary Medication (Naltrexone Hcl ) 1 tab DAILY 07/25/18 09:00 UNV Nystatin (Nystop) 1 jaelyn BID 07/25/18 09:00 07/25/18 09:00 DC Ondansetron HCl (Zofran Odt) 4 mg PRN Q6HRS PRN 07/25/18 09:00 Ondansetron HCl (Zofran) 4 mg PRN Q6HRS PRN 07/25/18 09:00 Oxycodone/ Acetaminophen (Percocet 5/325) 1 tab STK-MED ONCE 07/25/18 00:41 07/25/18 00:42 DC Polyethylene Glycol (miraLAX PACKET) 17 gm PRN DAILY PRN 07/30/18 11:30 Pregabalin (Lyrica) 50 mg TID 07/25/18 09:00 08/02/18 08:46 50 MG Sodium Chloride 1,000 ml @ 100 mls/hr Q10H 08/01/18 12:00 08/02/18 09:28 100 MLS/HR Tamsulosin HCl (Flomax) 0.4 mg DAILY 07/25/18 09:00 08/02/18 08:45 0.4 MG Trazodone HCl (Desyrel) 50 mg QHS 07/25/18 21:00 08/01/18 22:24 50 MG Vitamin D (Vitamin D3) 1,000 unit DAILY 07/25/18 09:00 08/02/18 08:45 1,000 UNIT Labs: Lab Laboratory Tests Test 08/01/18 17:09 08/01/18 21:11 08/02/18 03:10 08/02/18 07:37 Glucose (Fingerstick) 256 mg/dL (70-99) 250 mg/dL (70-99) 116 mg/dL (70-99) White Blood Count 10.3 x10^3/uL (4.0-11.0) Red Blood Count 2.76 x10^6/uL (4.30-5.70) Hemoglobin 8.0 g/dL (13.0-17.5) Hematocrit 23.9 % (39.0-53.0) Mean Corpuscular Volume 87 fL (79-100) Mean Corpuscular Hemoglobin 29 pg (25-35) Mean Corpuscular Hemoglobin Concent 34 g/dL (31-37) Red Cell Distribution Width 16.4 % (11.5-14.5) Platelet Count 323 x10^3/uL (140-400) Neutrophils (%) (Auto) 70 % (31-73) Lymphocytes (%) (Auto) 18 % (24-48) Monocytes (%) (Auto) 9 % (0-9) Eosinophils (%) (Auto) 3 % (0-3) Basophils (%) (Auto) 0 % (0-3) Neutrophils # (Auto) 7.2 x10^3uL (1.8-7.7) Lymphocytes # (Auto) 1.9 x10^3/uL (1.0-4.8) Monocytes # (Auto) 0.9 x10^3/uL (0.0-1.1) Eosinophils # (Auto) 0.3 x10^3/uL (0.0-0.7) Basophils # (Auto) 0.0 x10^3/uL (0.0-0.2) Sodium Level 130 mmol/L (136-145) Potassium Level 4.5 mmol/L (3.5-5.1) Chloride Level 94 mmol/L (98-107) Carbon Dioxide Level 31 mmol/L (21-32) Anion Gap 5 (6-14) Blood Urea Nitrogen 78 mg/dL (8-26) Creatinine 1.4 mg/dL (0.7-1.3) Estimated GFR (Cockcroft-Gault) 50.0 Glucose Level 160 mg/dL (70-99) Calcium Level 8.7 mg/dL (8.5-10.1) Objective: Assessment: h/o group B strep sepsis from 07/13, source unclear. Repeat BC 07/15 NGTD Retroperitoneal hematoma anemia acute blood loss Leukocytosis COPD Acute kidney injury on CKD. 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 Chronic wounds, bilateral lower extremity Morbid obesity. Constipation Plan: Plan of Care cont Rocephin leg elevation local wound care Bowel regimen wt loss PT/OT YORDY MURO MD Aug 02, 2018 10:55
[2018-08-02 11:00] VITALS: BP 142/59
[2018-08-02 12:34] LABS: % EOS 2 % (0-5); % LYMPHS 18 % (24-48); % MONOS 10 % (0-10); % SEGS 70 % (35-66); PLT ESTIMATE ADEQUATE (ADEQUATE)
--- NOTE | 2018-08-02 13:21 | PDOC ---
SUBJECTIVE ROS Same , No new concerns OBJECTIVE Vital Signs Vital Signs Date Time Temp Pulse Resp B/P (MAP) Pulse Ox O2 Delivery O2 Flow Rate FiO2 08/02/18 11:08 97 Nasal Cannula 2.0 08/02/18 11:00 97.8 73 18 142/59 (86) 97.8 I & 0 Intake and Output 08/02/18 07:00 Intake Total 2000 ml Balance 2000 ml Intake Oral 2000 ml # Voids 7 PHYSICAL EXAM Physical Exam GENERAL: Morbidly obese,NAD HENT: O2 by NC LUNGS: Decreased breath sounds , Non labored CV: S1, S2. ABDOMEN: super Obese, nontender. EXTREMITIES: Chronic venous stasis multiple superficial wounds. + edema. 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 Grossly nonfocal. No ybarra DIAGNOSIS/ASSESSMENT Assessment & Plan Cosmo on CKD - Likely sec to Hypotension - BP Lower than his baseline Recd IV Lasix , Volume related Held Losartan and other BP meds BP better , Creat Improved CKD stage 3- Baseline 1.3 Agenesis of Rt kidney , follows at [place] Hyponatremia- Improving Restrict Free water Intake Super morbidly obese, BMI 57 SERA- CPAP Bilateral leg wounds, superficial Strep bacteremia, hx - dcd on PCN last recent dc Sepsis POA, WBC 17, on re admission Retroperitoneal Hematoma Large - 07/29/18 Hgb stable DW Patient COMMENT/RELEVANT DATA Meds Current Medications Medications (Trade) Dose Ordered Sig/Merry Start Time Stop Time Status Last Admin Dose Admin Acetaminophen (Tylenol) 500 mg PRN Q6HRS PRN 07/25/18 09:00 Acetaminophen/ Hydrocodone Bitart (Lortab 10/325) 1 tab PRN Q6HRS PRN 07/25/18 09:00 08/02/18 01:59 1 TAB Acetaminophen/ Hydrocodone Bitart (Lortab 5/325) 1 tab PRN Q4HRS PRN 07/25/18 09:00 07/31/18 09:09 1 TAB Albuterol/ Ipratropium (Duoneb) 3 ml RTQID 07/25/18 08:30 08/02/18 11:11 3 ML Alprazolam (Xanax) 0.5 mg PRN Q8HRS PRN 07/25/18 12:15 08/02/18 03:56 0.5 MG Ascorbic Acid (Vitamin C) 500 mg DAILY 07/26/18 13:00 08/02/18 08:46 500 MG Aspirin (Children'S Aspirin) 81 mg DAILY 07/25/18 09:00 07/29/18 17:13 DC 07/29/18 09:47 81 MG Atorvastatin Calcium (Lipitor) 80 mg QHS 07/25/18 21:00 08/01/18 22:24 80 MG Benzonatate (Tessalon Perle) 100 mg PRN Q8HRS PRN 07/25/18 09:00 07/30/18 12:06 100 MG Bupropion HCl (Wellbutrin Xl) 150 mg DAILYWBKFT 07/25/18 08:00 08/02/18 08:46 150 MG Ceftriaxone Sodium 1 gm/ Dextrose 50 ml @ 100 mls/hr Q24H 07/25/18 07:45 UNV Ceftriaxone Sodium (Rocephin) 1 gm Q24H 07/25/18 09:00 08/02/18 08:59 1 GM Clindamycin Phosphate 50 ml @ 100 mls/hr 1X ONCE 07/25/18 02:30 07/25/18 02:59 DC 07/25/18 03:29 100 MLS/HR Dextrose (Dextrose 50%-Water Syringe) 12.5 gm PRN Q15MIN PRN 07/25/18 07:45 Diphenhydramine HCl (Benadryl) 50 mg PRN QHS PRN 07/25/18 07:45 08/01/18 23:44 50 MG Docusate Sodium (Colace) 100 mg DAILY 07/30/18 12:00 08/02/18 08:46 100 MG Duloxetine HCl (Cymbalta) 60 mg DAILY 07/25/18 09:00 08/02/18 10:13 60 MG Enoxaparin Sodium (Lovenox 60mg Syringe) 60 mg Q12HR 07/25/18 09:00 07/29/18 17:13 DC 07/29/18 09:50 60 MG Fentanyl Citrate (Fentanyl 2ml Vial) 100 mcg 1X ONCE 07/27/18 10:00 07/27/18 10:01 DC 07/27/18 11:20 100 MCG Finasteride (Proscar) 5 mg DAILY 07/25/18 09:00 08/02/18 08:45 5 MG Fish Oil (Fish Oil) 1,000 mg HS 07/25/18 21:00 08/01/18 22:24 1,000 MG Furosemide (Lasix) 40 mg DAILY 07/25/18 09:00 07/30/18 08:09 DC 07/29/18 09:47 40 MG Info (Anti-Coagulation Monitoring By Pharmacy) 1 each PRN DAILY PRN 07/28/18 15:00 07/28/18 15:00 DC Insulin Glargine (Lantus) 20 units DAILY 07/31/18 08:15 08/02/18 08:58 20 UNITS Insulin Human Lispro (HumaLOG) 0-9 UNITS TIDWMEALS 07/25/18 08:00 08/02/18 12:27 4 UNITS Lactobacillus Rhamnosus (Culturelle) 1 cap BID 07/26/18 21:00 08/02/18 08:46 1 CAP Lidocaine (Xylocaine) 1 jaelyn 1X ONCE 07/29/18 12:15 07/29/18 12:19 DC 07/29/18 14:40 1 JAELYN Losartan Potassium (Cozaar) 50 mg BID 07/25/18 09:00 07/31/18 14:10 DC 07/30/18 21:18 50 MG Magnesium Hydroxide (Milk Of Magnesia) 2,400 mg PRN DAILY PRN 07/30/18 11:30 Magnesium Citrate (Citroma) 296 ml 1X ONCE 07/29/18 12:15 07/29/18 12:19 DC 07/29/18 14:40 296 ML Magnesium Oxide (Magnesium Oxide) 400 mg DAILY 07/25/18 09:00 08/02/18 08:46 400 MG Metoprolol Tartrate (Lopressor) 25 mg BID 07/25/18 09:00 08/02/18 08:45 25 MG Morphine Sulfate (Morphine Sulfate) 6 mg 1X ONCE 07/25/18 02:30 07/25/18 02:31 DC 07/25/18 03:29 6 MG Multivitamins (Thera M Plus) 1 tab DAILY 07/25/18 09:00 08/02/18 08:46 1 TAB Non-Formulary Medication (Melatonin ) 3 mg HS 07/25/18 21:00 UNV Non-Formulary Medication (Miconazole Nitrate ) 130 gm TID 10/22/18 09:00 UNV Non-Formulary Medication (Naltrexone Hcl ) 1 tab DAILY 07/25/18 09:00 UNV Nystatin (Nystop) 1 jaelyn BID 07/25/18 09:00 07/25/18 09:00 DC Ondansetron HCl (Zofran Odt) 4 mg PRN Q6HRS PRN 07/25/18 09:00 Ondansetron HCl (Zofran) 4 mg PRN Q6HRS PRN 07/25/18 09:00 Oxycodone/ Acetaminophen (Percocet 5/325) 1 tab STK-MED ONCE 07/25/18 00:41 07/25/18 00:42 DC Polyethylene Glycol (miraLAX PACKET) 17 gm PRN DAILY PRN 07/30/18 11:30 Pregabalin (Lyrica) 50 mg TID 07/25/18 09:00 08/02/18 08:46 50 MG Sodium Chloride 1,000 ml @ 100 mls/hr Q10H 08/01/18 12:00 08/02/18 09:28 100 MLS/HR Tamsulosin HCl (Flomax) 0.4 mg DAILY 07/25/18 09:00 08/02/18 08:45 0.4 MG Trazodone HCl (Desyrel) 50 mg QHS 07/25/18 21:00 08/01/18 22:24 50 MG Vitamin D (Vitamin D3) 1,000 unit DAILY 07/25/18 09:00 08/02/18 08:45 1,000 UNIT Lab Laboratory Tests Test 08/01/18 17:09 08/01/18 21:11 08/02/18 03:10 08/02/18 07:37 Glucose (Fingerstick) 256 mg/dL (70-99) 250 mg/dL (70-99) 116 mg/dL (70-99) White Blood Count 10.3 x10^3/uL (4.0-11.0) Red Blood Count 2.76 x10^6/uL (4.30-5.70) Hemoglobin 8.0 g/dL (13.0-17.5) Hematocrit 23.9 % (39.0-53.0) Mean Corpuscular Volume 87 fL (79-100) Mean Corpuscular Hemoglobin 29 pg (25-35) Mean Corpuscular Hemoglobin Concent 34 g/dL (31-37) Red Cell Distribution Width 16.4 % (11.5-14.5) Platelet Count 323 x10^3/uL (140-400) Neutrophils (%) (Auto) 70 % (31-73) Lymphocytes (%) (Auto) 18 % (24-48) Monocytes (%) (Auto) 9 % (0-9) Eosinophils (%) (Auto) 3 % (0-3) Basophils (%) (Auto) 0 % (0-3) Neutrophils # (Auto) 7.2 x10^3uL (1.8-7.7) Lymphocytes # (Auto) 1.9 x10^3/uL (1.0-4.8) Monocytes # (Auto) 0.9 x10^3/uL (0.0-1.1) Eosinophils # (Auto) 0.3 x10^3/uL (0.0-0.7) Basophils # (Auto) 0.0 x10^3/uL (0.0-0.2) Segmented Neutrophils % 70 % (35-66) Lymphocytes % 18 % (24-48) Monocytes % 10 % (0-10) Eosinophils % 2 % (0-5) Platelet Estimate Adequate (ADEQUATE) Sodium Level 130 mmol/L (136-145) Potassium Level 4.5 mmol/L (3.5-5.1) Chloride Level 94 mmol/L (98-107) Carbon Dioxide Level 31 mmol/L (21-32) Anion Gap 5 (6-14) Blood Urea Nitrogen 78 mg/dL (8-26) Creatinine 1.4 mg/dL (0.7-1.3) Estimated GFR (Cockcroft-Gault) 50.0 Glucose Level 160 mg/dL (70-99) Calcium Level 8.7 mg/dL (8.5-10.1) Test 08/02/18 12:04 Glucose (Fingerstick) 171 mg/dL (70-99) Results All relevant outside records, renal labs, imaging studies, telemetry/EKG's were reviewed. DILLON STOCK MD Aug 02, 2018 13:21
--- NOTE | 2018-08-02 13:32 | PDOC ---
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 PTOT losartan held add ivf, consider dc tmr labs tmr fu Hb dc soon hope can switch iv to po abx History of Present Illness History of Present Illness Being arranged for SNU but then developed a large retroperitoneal hematoma on Was getting aspirin 81 and Lovenox twice a day-I have held that of course Blood sugars running high on hefty doses of insulin even at home Hemoglobin stable at 8 Back pain/flank pain is stable with IV pain medicines He can be noncompliant with BiPAP, claims he can't breathe hyperglycemia better Cr higher to 2, better to 1.4 with high BUN Vitals Vitals Vital Signs Date Time Temp Pulse Resp B/P (MAP) Pulse Ox O2 Delivery O2 Flow Rate FiO2 08/02/18 11:08 97 Nasal Cannula 2.0 08/02/18 11:00 97.8 73 18 142/59 (86) 97.8 Physical Exam Physical Exam GENERAL: Propped up in bed, alert, NAD HENT: Dentures in place LUNGS: Decreased breath sounds CV: S1, S2. ABDOMEN: Obese, soft, nontender. EXTREMITIES: Chronic venous stasis multiple superficial wounds. + mild edema. SKIN: warm without rash. Multiple areas of ecchymosis PHYSICIAN REPRESENTATIVE: Alert and oriented x 3. Grossly nonfocal. Peripheral IV General: Alert, Cooperative Heart: Regular rate, Normal S1, Normal S2 Lungs: Clear Abdomen: Soft, Other (hematoma to RLQ) Extremities: Other (edema and BLE dressings) Skin: No rashes, No breakdown Labs LABS Laboratory Tests Test 08/01/18 17:09 08/01/18 21:11 08/02/18 03:10 08/02/18 07:37 Glucose (Fingerstick) 256 mg/dL (70-99) 250 mg/dL (70-99) 116 mg/dL (70-99) White Blood Count 10.3 x10^3/uL (4.0-11.0) Red Blood Count 2.76 x10^6/uL (4.30-5.70) Hemoglobin 8.0 g/dL (13.0-17.5) Hematocrit 23.9 % (39.0-53.0) Mean Corpuscular Volume 87 fL (79-100) Mean Corpuscular Hemoglobin 29 pg (25-35) Mean Corpuscular Hemoglobin Concent 34 g/dL (31-37) Red Cell Distribution Width 16.4 % (11.5-14.5) Platelet Count 323 x10^3/uL (140-400) Neutrophils (%) (Auto) 70 % (31-73) Lymphocytes (%) (Auto) 18 % (24-48) Monocytes (%) (Auto) 9 % (0-9) Eosinophils (%) (Auto) 3 % (0-3) Basophils (%) (Auto) 0 % (0-3) Neutrophils # (Auto) 7.2 x10^3uL (1.8-7.7) Lymphocytes # (Auto) 1.9 x10^3/uL (1.0-4.8) Monocytes # (Auto) 0.9 x10^3/uL (0.0-1.1) Eosinophils # (Auto) 0.3 x10^3/uL (0.0-0.7) Basophils # (Auto) 0.0 x10^3/uL (0.0-0.2) Segmented Neutrophils % 70 % (35-66) Lymphocytes % 18 % (24-48) Monocytes % 10 % (0-10) Eosinophils % 2 % (0-5) Platelet Estimate Adequate (ADEQUATE) Sodium Level 130 mmol/L (136-145) Potassium Level 4.5 mmol/L (3.5-5.1) Chloride Level 94 mmol/L (98-107) Carbon Dioxide Level 31 mmol/L (21-32) Anion Gap 5 (6-14) Blood Urea Nitrogen 78 mg/dL (8-26) Creatinine 1.4 mg/dL (0.7-1.3) Estimated GFR (Cockcroft-Gault) 50.0 Glucose Level 160 mg/dL (70-99) Calcium Level 8.7 mg/dL (8.5-10.1) Test 08/02/18 12:04 Glucose (Fingerstick) 171 mg/dL (70-99) Assessment and Plan Assessmemt and Plan Problems Medical Problems: (1) Cellulitis of leg Status: Acute (2) Morbid obesity Status: Acute Comment Review of Relevant I have reviewed the following items verena (where applicable) has been applied. Labs Laboratory Tests Test 07/31/18 16:09 07/31/18 20:44 08/01/18 02:45 08/01/18 03:00 Glucose (Fingerstick) 271 mg/dL (70-99) 248 mg/dL (70-99) Hemoglobin 7.8 g/dL (13.0-17.5) Hematocrit 22.3 % (39.0-53.0) Mean Corpuscular Hemoglobin Concent 35 g/dL (31-37) Sodium Level 128 mmol/L (136-145) Potassium Level 4.9 mmol/L (3.5-5.1) Chloride Level 92 mmol/L (98-107) Carbon Dioxide Level 31 mmol/L (21-32) Anion Gap 5 (6-14) Blood Urea Nitrogen 91 mg/dL (8-26) Creatinine 2.0 mg/dL (0.7-1.3) Estimated GFR (Cockcroft-Gault) 33.1 Glucose Level 223 mg/dL (70-99) Calcium Level 8.6 mg/dL (8.5-10.1) Phosphorus Level 4.8 mg/dL (2.6-4.7) Albumin 2.3 g/dL (3.4-5.0) Test 08/01/18 07:36 08/01/18 08:00 08/01/18 10:46 08/01/18 17:09 Glucose (Fingerstick) 202 mg/dL (70-99) 268 mg/dL (70-99) 256 mg/dL (70-99) Nasal Screen MRSA (PCR) Negative (Negative) Test 08/01/18 21:11 08/02/18 03:10 08/02/18 07:37 08/02/18 12:04 Glucose (Fingerstick) 250 mg/dL (70-99) 116 mg/dL (70-99) 171 mg/dL (70-99) White Blood Count 10.3 x10^3/uL (4.0-11.0) Red Blood Count 2.76 x10^6/uL (4.30-5.70) Hemoglobin 8.0 g/dL (13.0-17.5) Hematocrit 23.9 % (39.0-53.0) Mean Corpuscular Volume 87 fL (79-100) Mean Corpuscular Hemoglobin 29 pg (25-35) Mean Corpuscular Hemoglobin Concent 34 g/dL (31-37) Red Cell Distribution Width 16.4 % (11.5-14.5) Platelet Count 323 x10^3/uL (140-400) Neutrophils (%) (Auto) 70 % (31-73) Lymphocytes (%) (Auto) 18 % (24-48) Monocytes (%) (Auto) 9 % (0-9) Eosinophils (%) (Auto) 3 % (0-3) Basophils (%) (Auto) 0 % (0-3) Neutrophils # (Auto) 7.2 x10^3uL (1.8-7.7) Lymphocytes # (Auto) 1.9 x10^3/uL (1.0-4.8) Monocytes # (Auto) 0.9 x10^3/uL (0.0-1.1) Eosinophils # (Auto) 0.3 x10^3/uL (0.0-0.7) Basophils # (Auto) 0.0 x10^3/uL (0.0-0.2) Segmented Neutrophils % 70 % (35-66) Lymphocytes % 18 % (24-48) Monocytes % 10 % (0-10) Eosinophils % 2 % (0-5) Platelet Estimate Adequate (ADEQUATE) Sodium Level 130 mmol/L (136-145) Potassium Level 4.5 mmol/L (3.5-5.1) Chloride Level 94 mmol/L (98-107) Carbon Dioxide Level 31 mmol/L (21-32) Anion Gap 5 (6-14) Blood Urea Nitrogen 78 mg/dL (8-26) Creatinine 1.4 mg/dL (0.7-1.3) Estimated GFR (Cockcroft-Gault) 50.0 Glucose Level 160 mg/dL (70-99) Calcium Level 8.7 mg/dL (8.5-10.1) Laboratory Tests Test 08/01/18 17:09 08/01/18 21:11 08/02/18 03:10 08/02/18 07:37 Glucose (Fingerstick) 256 mg/dL (70-99) 250 mg/dL (70-99) 116 mg/dL (70-99) White Blood Count 10.3 x10^3/uL (4.0-11.0) Red Blood Count 2.76 x10^6/uL (4.30-5.70) Hemoglobin 8.0 g/dL (13.0-17.5) Hematocrit 23.9 % (39.0-53.0) Mean Corpuscular Volume 87 fL (79-100) Mean Corpuscular Hemoglobin 29 pg (25-35) Mean Corpuscular Hemoglobin Concent 34 g/dL (31-37) Red Cell Distribution Width 16.4 % (11.5-14.5) Platelet Count 323 x10^3/uL (140-400) Neutrophils (%) (Auto) 70 % (31-73) Lymphocytes (%) (Auto) 18 % (24-48) Monocytes (%) (Auto) 9 % (0-9) Eosinophils (%) (Auto) 3 % (0-3) Basophils (%) (Auto) 0 % (0-3) Neutrophils # (Auto) 7.2 x10^3uL (1.8-7.7) Lymphocytes # (Auto) 1.9 x10^3/uL (1.0-4.8) Monocytes # (Auto) 0.9 x10^3/uL (0.0-1.1) Eosinophils # (Auto) 0.3 x10^3/uL (0.0-0.7) Basophils # (Auto) 0.0 x10^3/uL (0.0-0.2) Segmented Neutrophils % 70 % (35-66) Lymphocytes % 18 % (24-48) Monocytes % 10 % (0-10) Eosinophils % 2 % (0-5) Platelet Estimate Adequate (ADEQUATE) Sodium Level 130 mmol/L (136-145) Potassium Level 4.5 mmol/L (3.5-5.1) Chloride Level 94 mmol/L (98-107) Carbon Dioxide Level 31 mmol/L (21-32) Anion Gap 5 (6-14) Blood Urea Nitrogen 78 mg/dL (8-26) Creatinine 1.4 mg/dL (0.7-1.3) Estimated GFR (Cockcroft-Gault) 50.0 Glucose Level 160 mg/dL (70-99) Calcium Level 8.7 mg/dL (8.5-10.1) Test 08/02/18 12:04 Glucose (Fingerstick) 171 mg/dL (70-99) Medications Current Medications Oxycodone/ Acetaminophen (Percocet 5/325) 2 tab 1X ONCE PO Last administered on 07/25/18at 00:45; Start 07/25/18 at 00:45; Stop 07/25/18 at 00:46; Status DC Oxycodone/ Acetaminophen (Percocet 5/325) 1 tab STK-MED ONCE .ROUTE ; Start at 00:41; Stop 07/25/18 at 00:42; Status DC Ondansetron HCl (Zofran) 4 mg PRN Q8HRS PRN IV NAUSEA/VOMITING; Start at 01:45; Stop 07/26/18 at 01:44; Status DC Morphine Sulfate (Morphine Sulfate) 4 mg PRN Q2HR PRN IV PAIN Last administered on 07/25/18at 11:27; Start 07/25/18 at 01:45; Stop 07/26/18 at 01 :44; Status DC Acetaminophen (Tylenol) 650 mg PRN Q4HRS PRN PO FEVER Last administered on at 08:38; Start 07/25/18 at 01:45; Stop 07/25/18 at 15:48; Status DC Clindamycin Phosphate 50 ml @ 100 mls/hr 1X ONCE IV Last administered on at 03:29; Start 07/25/18 at 02:30; Stop 07/25/18 at 02:59; Status DC Morphine Sulfate (Morphine Sulfate) 6 mg 1X ONCE IV Last administered on 07/25at 03:29; Start 07/25/18 at 02:30; Stop 07/25/18 at 02:31; Status DC Aspirin (Children'S Aspirin) 81 mg DAILY PO Last administered on 07/29/18 09: 47; Start 07/25/18 at 09:00; Stop 07/29/18 at 17:13; Status DC Bupropion HCl (Wellbutrin Xl) 150 mg DAILYWBKFT PO Last administered on 08:46; Start 07/25/18 at 08:00 Vitamin D (Vitamin D3) 1,000 unit DAILY PO Last administered on 08/02/18 08: 45; Start 07/25/18 at 09:00 Diphenhydramine HCl (Benadryl) 50 mg PRN QHS PRN PO INSOMNIA Last administered on 08/01/18 23:44; Start 07/25/18 at 07:45 Enoxaparin Sodium (Lovenox 60mg Syringe) 60 mg Q12HR SQ Last administered on 09:50; Start 07/25/18 at 09:00; Stop 07/29/18 at 17:13; Status DC Finasteride (Proscar) 5 mg DAILY PO Last administered on 08/02/18 08:45; Start 07/25/18 at 09:00 Albuterol/ Ipratropium (Duoneb) 3 ml RTQID NEB Last administered on 08/02/18 11:11; Start 07/25/18 at 08:30 Losartan Potassium (Cozaar) 50 mg BID PO Last administered on 07/30/18at 21:18 ; Start 07/25/18 at 09:00; Stop 07/31/18 at 14:10; Status DC Metoprolol Tartrate (Lopressor) 25 mg BID PO Last administered on 08/02/18 08 :45; Start 07/25/18 at 09:00 Nystatin (Nystop) 1 narendra BID TP Last administered on 08/02/18 08:59; Start at 09:00 Nystatin (Nystop) 1 narendra BID TP ; Start 07/25/18 at 09:00; Stop 07/25/18 at 09: 00; Status DC Fish Oil (Fish Oil) 1,000 mg HS PO Last administered on 08/01/18 22:24; Start 07/25/18 at 21:00 Pregabalin (Lyrica) 50 mg TID PO Last administered on 08/02/18 08:46; Start 07/25/18 at 09:00 Tamsulosin HCl (Flomax) 0.4 mg DAILY PO Last administered on 08/02/18 08:45; Start 07/25/18 at 09:00 Trazodone HCl (Desyrel) 50 mg QHS PO Last administered on 08/01/18 22:24; Start 07/25/18 at 21:00 Atorvastatin Calcium (Lipitor) 80 mg QHS PO Last administered on 08/01/18 22: 24; Start 07/25/18 at 21:00 Benzonatate (Tessalon Perle) 100 mg PRN Q8HRS PRN PO COUGH Last administered on 07/30/18 12:06; Start 07/25/18 at 09:00 Duloxetine HCl (Cymbalta) 60 mg DAILY PO Last administered on 08/02/18 10:13 ; Start 07/25/18 at 09:00 Insulin Human Lispro (HumaLOG) 20 units TIDWMEALS SQ Last administered on 08/02 12:29; Start 07/25/18 at 08:30 Insulin Glargine (Lantus) 55 units QHS SQ Last administered on 08/01/18 22:31 ; Start 07/25/18 at 21:00 Magnesium Oxide (Magnesium Oxide) 400 mg DAILY PO Last administered on 08:46; Start 07/25/18 at 09:00 Non-Formulary Medication (Melatonin ) 3 mg HS PO ; Start 07/25/18 at 21:00; Status UNV Non-Formulary Medication (Miconazole Nitrate ) 130 gm TID TP ; Start 07/25/18 at 09:00; Status UNV Multivitamins (Thera M Plus) 1 tab DAILY PO Last administered on 08/02/18 08: 46; Start 07/25/18 at 09:00 Non-Formulary Medication (Naltrexone Hcl ) 1 tab DAILY PO ; Start 07/25/18 at 09:00; Status UNV Insulin Human Lispro (HumaLOG) 0-9 UNITS TIDWMEALS SQ Last administered on 12:27; Start 07/25/18 at 08:00 Dextrose (Dextrose 50%-Water Syringe) 12.5 gm PRN Q15MIN PRN IV SEE COMMENTS; Start 07/25/18 at 07:45 Furosemide (Lasix) 40 mg DAILY IVP Last administered on 07/29/18at 09:47; Start 07/25/18 at 09:00; Stop 07/30/18 at 08:09; Status DC Ceftriaxone Sodium 1 gm/ Dextrose 50 ml @ 100 mls/hr Q24H IV ; Start 07/25/18 at 07:45; Status UNV Ceftriaxone Sodium (Rocephin) 1 gm Q24H IVP Last administered on 08/02/18at 08: 59; Start 07/25/18 at 09:00 Acetaminophen/ Hydrocodone Bitart (Lortab 5/325) 1 tab PRN Q4HRS PRN PO MODERATE PAIN Last administered on 07/31/18at 09:09; Start 07/25/18 at 09:00 Acetaminophen/ Hydrocodone Bitart (Lortab 10/325) 1 tab PRN Q6HRS PRN PO SEVERE PAIN Last administered on 08/02/18at 01:59; Start 07/25/18 at 09:00 Acetaminophen (Tylenol) 500 mg PRN Q6HRS PRN PO MILD PAIN / TEMP; Start at 09:00 Ondansetron HCl (Zofran) 4 mg PRN Q6HRS PRN IV NAUSEA/VOMITING; Start at 09:00 Ondansetron HCl (Zofran Odt) 4 mg PRN Q6HRS PRN PO NAUSEA/VOMITING; Start at 09:00 Fentanyl Citrate (Fentanyl 2ml Vial) 50 mcg PRN Q2HR PRN IV MODERATE-SEVERE PAIN Last administered on 07/29/18at 10:07; Start 07/25/18 at 12:15 Alprazolam (Xanax) 0.5 mg PRN Q8HRS PRN PO ANXIETY / AGITATION Last administered on 08/02/18at 03:56; Start 07/25/18 at 12:15 Ascorbic Acid (Vitamin C) 500 mg DAILY PO Last administered on 08/02/18at 08:46 ; Start 07/26/18 at 13:00 Lactobacillus Rhamnosus (Culturelle) 1 cap BID PO Last administered on at 08:46; Start 07/26/18 at 21:00 Fentanyl Citrate (Fentanyl 2ml Vial) 100 mcg 1X ONCE IV Last administered on 07/27/18at 11:20; Start 07/27/18 at 10:00; Stop 07/27/18 at 10:01; Status DC Info (Anti-Coagulation Monitoring By Pharmacy) 1 each PRN DAILY PRN MC SEE COMMENTS; Start 07/28/18 at 15:00; Stop 07/28/18 at 15:00; Status DC Magnesium Citrate (Citroma) 296 ml 1X ONCE PO Last administered on 07/29/18at 14:40; Start 07/29/18 at 12:15; Stop 07/29/18 at 12:19; Status DC Lidocaine (Xylocaine) 1 narendra 1X ONCE TP Last administered on 07/29/18at 14:40; Start 07/29/18 at 12:15; Stop 07/29/18 at 12:19; Status DC Magnesium Hydroxide (Milk Of Magnesia) 2,400 mg 1X ONCE PO Last administered on 07/30/18at 12:05; Start 07/30/18 at 11:30; Stop 07/30/18 at 11:35; Status DC Magnesium Hydroxide (Milk Of Magnesia) 2,400 mg PRN DAILY PRN PO CONSTIPATION 2ND CHOICE; Start 07/30/18 at 11:30 Polyethylene Glycol (miraLAX PACKET) 17 gm 1X ONCE PO Last administered on at 12:05; Start 07/30/18 at 11:30; Stop 07/30/18 at 11:36; Status DC Polyethylene Glycol (miraLAX PACKET) 17 gm PRN DAILY PRN PO CONSTIPATION 1ST CHOICE; Start 07/30/18 at 11:30 Docusate Sodium (Colace) 100 mg DAILY PO Last administered on 08/02/18at 08:46 ; Start 07/30/18 at 12:00 Insulin Glargine (Lantus) 20 units DAILY SQ Last administered on 08/02/18at 08: 58; Start 07/31/18 at 08:15 Sodium Chloride 1,000 ml @ 100 mls/hr Q10H IV Last administered on 08/02/18at 09:28; Start 08/01/18 at 12:00 Active Scripts Active Enoxaparin Sodium 60 Mg/0.6 Ml Disp.syrin 60 Mg SQ Q12HR 30 Days Furosemide 20 Mg Tablet 20 Mg PO DAILY 30 Days Benadryl (Diphenhydramine Hcl) 25 Mg Capsule 50 Mg PO PRN QHS PRN 30 Days Duoneb 0.5-3(2.5) Mg/3 Ml (Albuterol/Ipratropium) 3 Ml Ampul.neb 3 Ml NEB RTQID 30 Days Lantus (Insulin Glargine,Hum.rec.anlog) 100 Unit/1 Ml Vial 55 Unit SQ HS 30 Days Reported Vitamin D3 (Cholecalciferol (Vitamin D3)) 1,000 Unit Tablet 1 Tab PO DAILY Nystatin 15 Gm Powder 1 Narendra TP BID Novolog Flexpen (Insulin Aspart) 100 Unit/1 Ml Insuln.pen 20 Unit SQ TIDAC Cephalexin 500 Mg Tablet 1 Tab PO QID Benzonatate 100 Mg Capsule 1 Cap PO Q8HRS PRN Multivitamins (Multivitamin) 1 Each Tablet 1 Tab PO DAILY Fish Oil 1,000 Mg Capsule ([place]-3 Fatty Acids/Fish Oil) 1 Each Capsule 3 Each PO HS Children's Aspirin (Aspirin) 81 Mg Tab.chew 81 Mg PO DAILY Finasteride 5 Mg Tablet 1 Tab PO DAILY Trazodone Hcl 50 Mg Tablet 1 Tab PO QHS Tamsulosin Hcl 0.4 Mg Cap.er.24h 1 Cap PO DAILY Lyrica (Pregabalin) 50 Mg Capsule 1 Cap PO TID Nystatin 15 Gm Powder 1 Narendra TP BID Naltrexone Hcl 50 Mg Tablet 1 Tab PO DAILY Miconazole Nitrate 130 Gm Aero.powd 130 Gm TP TID Metoprolol Tartrate 25 Mg Tablet 1 Tab PO BID Melatonin 3 Mg Tablet 3 Mg PO HS Magnesium Oxide 400 Mg Tablet 1 Tab PO DAILY Losartan Potassium 50 Mg Tablet 50 Mg PO BID Hydrophilic Ointment 410 Gm Oint...g. 410 Gm TP PRN Cymbalta (Duloxetine Hcl) 60 Mg Capsule.dr 1 Cap PO DAILY Bupropion Xl (Bupropion Hcl) 150 Mg Tab.er.24h 1 Tab PO DAILYWBKFT Atorvastatin Calcium 80 Mg Tablet 80 Mg PO HS Vitals/I & O Vital Sign - Last 24 Hours 08/01/18 08/01/18 08/01/18 08/01/18 15:00 15:08 18:05 19:00 Temp 97.7 97.9 97.7 97.9 Pulse 68 80 Resp 20 18 B/P (MAP) 130/36 (67) 132/60 (84) Pulse Ox 95 92 O2 Delivery Nasal Cannula Nasal Cannula Nasal Cannula Nasal Cannula O2 Flow Rate 2.0 2.0 2.0 2.0 08/01/18 08/01/18 08/01/18 08/01/18 19:12 20:00 22:25 23:00 Temp 97.8 97.8 Pulse 75 79 Resp 18 B/P (MAP) 147/53 140/69 (92) Pulse Ox 90 O2 Delivery Nasal Cannula Nasal Cannula Nasal Cannula O2 Flow Rate 2.0 2.0 2.0 08/02/18 08/02/18 08/02/18 08/02/18 01:59 02:59 03:00 07:00 Temp 97.6 98.0 97.6 98.0 Pulse 69 67 Resp 20 18 18 18 B/P (MAP) 140/70 (93) 148/57 (87) Pulse Ox 90 92 92 90 O2 Delivery Nasal Cannula Nasal Cannula Nasal Cannula Nasal Cannula O2 Flow Rate 2.0 2.0 2.0 08/02/18 08/02/18 08/02/18 08/02/18 07:45 08:30 08:45 11:00 Temp 97.8 97.8 Pulse 67 73 Resp 18 B/P (MAP) 148/57 142/59 (86) Pulse Ox 97 95 O2 Delivery Nasal Cannula Nasal Cannula Nasal Cannula O2 Flow Rate 2.0 2.0 08/02/18 11:08 Pulse Ox 97 O2 Delivery Nasal Cannula O2 Flow Rate 2.0 Intake and Output 08/01/18 08/01/18 08/02/18 15:00 23:00 07:00 Intake Total 720 ml 360 ml 920 ml Balance 720 ml 360 ml 920 ml KG ADKINS MD Aug 02, 2018 13:32
[2018-08-02 15:00] VITALS: BP 101/79
[2018-08-02] MEDS: CEPHALEXIN 250 MG CAPSULE. PO SCH ×2 (17:28→21:06)
[2018-08-02 19:00] VITALS: BP 140/60
[2018-08-02] MEDS: traZODone 50 MG TABLET. PO SCH (21:05)
[2018-08-02] MEDS: OMEGA-3 FATTY ACIDS/FISH OIL 1,000 MG CAPSULE. PO SCH (21:05)
[2018-08-02] MEDS: ATORVASTATIN CALCIUM 40 MG TABLET. PO SCH (21:05)
[2018-08-02 23:03] VITALS: BP 151/61
[2018-08-03] MEDS: ALPRAZolam 0.5 MG TABLET PO PRN ×2 (00:38→09:25)
[2018-08-03 03:04] VITALS: BP 108/63
[2018-08-03] MEDS: IV NORMAL SALINE 1000ML BAG 1,000 ML IV SCH ×2 (04:38→13:21)
[2018-08-03] MEDS: HYDROcodone/APAP 10/325 1 TAB TABLET PO PRN ×2 (04:39→14:33)
[2018-08-03 07:00] VITALS: BP 114/63
[2018-08-03] MEDS: INSULIN LISPRO 300 UNITS/3 ML INSULN.PEN. SQ SCH ×6 (08:00→18:57)
[2018-08-03] MEDS: IPRATRPIUM/ALBUTEROL 0.5/2.5MG 3 ML NEBU. NEB SCH ×5 (08:05→19:26)
[2018-08-03] MEDS: TAMSULOSIN 0.4 MG CAP.ER.24H. PO SCH (09:24)
[2018-08-03] MEDS: LACTOBACILLUS RHAMNOSUS GG 1 CAPSULE. PO SCH ×2 (09:24→21:40)
[2018-08-03] MEDS: FINASTERIDE 5 MG TABLET. PO SCH (09:24)
[2018-08-03] MEDS: DOCUSATE SODIUM 100 MG CAPSULE. PO SCH (09:25)
[2018-08-03] MEDS: CHOLECALCIFEROL (VITAMIN D3) 1,000 UNIT TABLET PO SCH (09:25)
[2018-08-03] MEDS: buPROPion XL 150 MG TAB.ER.24H. PO SCH (09:33)
[2018-08-03] MEDS: MAGNESIUM OXIDE 400 MG TABLET PO SCH (09:33)
[2018-08-03] MEDS: DULoxetine HCL 30 MG CAPSULE.DR PO SCH (09:33)
[2018-08-03] MEDS: MULTIVITAMIN with MINERAL TABLET. PO SCH (09:34)
[2018-08-03] MEDS: METOPROLOL TART IMMED RELEASE 25 MG TABLET. PO SCH ×2 (09:35→21:41)
[2018-08-03] MEDS: ASCORBIC ACID 500 MG TABLET PO SCH (09:35)
[2018-08-03] MEDS: PREGABALIN 50 MG CAPSULE PO SCH ×3 (09:35→21:41)
[2018-08-03] MEDS: CEPHALEXIN 250 MG CAPSULE. PO SCH ×4 (09:39→21:40)
[2018-08-03] MEDS: INSULIN GLARGINE 300 UNITS/3 ML INSULN.PEN. SQ SCH ×2 (09:50→22:32)
[2018-08-03] MEDS: NYSTATIN TOPICAL POWDER 15GM BOTTLE. TP SCH ×2 (09:50→21:42)
--- NOTE | 2018-08-03 10:18 | PDOC ---
Infectious Disease Note Subjective: Subjective Says feels the same Denies N/V/cramps Denies F/C/S Denies SOA/cough ROS: ROS Negative except for above. Vital Signs: Vital Signs Vital Signs Date Time Temp Pulse Resp B/P (MAP) Pulse Ox O2 Delivery O2 Flow Rate FiO2 08/03/18 09:35 72 114/63 08/03/18 08:06 97 Nasal Cannula 2.0 08/03/18 07:00 97.5 22 97.5 Physical Exam: PHYSICAL EXAM GENERAL: Propped up in bed, alert, NAD HENT: Dentures in place LUNGS: Decreased breath sounds CV: S1, S2. ABDOMEN: Obese, soft, nontender. EXTREMITIES: Chronic venous stasis multiple superficial wounds. + mild edema. SKIN: warm without rash. 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 Grossly nonfocal. Peripheral IV Medications: Inpatient Meds: Current Medications Medications (Trade) Dose Ordered Sig/Merry Start Time Stop Time Status Last Admin Dose Admin Acetaminophen (Tylenol) 500 mg PRN Q6HRS PRN 07/25/18 09:00 Acetaminophen/ Hydrocodone Bitart (Lortab 10/325) 1 tab PRN Q6HRS PRN 07/25/18 09:00 08/03/18 04:39 1 TAB Acetaminophen/ Hydrocodone Bitart (Lortab 5/325) 1 tab PRN Q4HRS PRN 07/25/18 09:00 07/31/18 09:09 1 TAB Albuterol/ Ipratropium (Duoneb) 3 ml RTQID 07/25/18 08:30 08/03/18 08:05 3 ML Alprazolam (Xanax) 0.5 mg PRN Q8HRS PRN 07/25/18 12:15 08/03/18 09:25 0.5 MG Ascorbic Acid (Vitamin C) 500 mg DAILY 07/26/18 13:00 08/03/18 09:35 500 MG Aspirin (Children'S Aspirin) 81 mg DAILY 07/25/18 09:00 07/29/18 17:13 DC 07/29/18 09:47 81 MG Atorvastatin Calcium (Lipitor) 80 mg QHS 07/25/18 21:00 08/02/18 21:05 80 MG Benzonatate (Tessalon Perle) 100 mg PRN Q8HRS PRN 07/25/18 09:00 07/30/18 12:06 100 MG Bupropion HCl (Wellbutrin Xl) 150 mg DAILYWBKFT 07/25/18 08:00 08/03/18 09:33 150 MG Ceftriaxone Sodium 1 gm/ Dextrose 50 ml @ 100 mls/hr Q24H 07/25/18 07:45 UNV Ceftriaxone Sodium (Rocephin) 1 gm Q24H 07/25/18 09:00 08/02/18 15:05 DC 08/02/18 08:59 1 GM Cephalexin HCl (Keflex) 500 mg QID 08/02/18 17:00 08/05/18 16:59 08/03/18 09:39 500 MG Clindamycin Phosphate 50 ml @ 100 mls/hr 1X ONCE 07/25/18 02:30 07/25/18 02:59 DC 07/25/18 03:29 100 MLS/HR Dextrose (Dextrose 50%-Water Syringe) 12.5 gm PRN Q15MIN PRN 07/25/18 07:45 Diphenhydramine HCl (Benadryl) 50 mg PRN QHS PRN 07/25/18 07:45 08/01/18 23:44 50 MG Docusate Sodium (Colace) 100 mg DAILY 07/30/18 12:00 08/03/18 09:25 100 MG Duloxetine HCl (Cymbalta) 60 mg DAILY 07/25/18 09:00 08/03/18 09:33 60 MG Enoxaparin Sodium (Lovenox 60mg Syringe) 60 mg Q12HR 07/25/18 09:00 07/29/18 17:13 DC 07/29/18 09:50 60 MG Fentanyl Citrate (Fentanyl 2ml Vial) 100 mcg 1X ONCE 07/27/18 10:00 07/27/18 10:01 DC 07/27/18 11:20 100 MCG Finasteride (Proscar) 5 mg DAILY 07/25/18 09:00 08/03/18 09:24 5 MG Fish Oil (Fish Oil) 1,000 mg HS 07/25/18 21:00 08/02/18 21:05 1,000 MG Furosemide (Lasix) 40 mg DAILY 07/25/18 09:00 07/30/18 08:09 DC 07/29/18 09:47 40 MG Info (Anti-Coagulation Monitoring By Pharmacy) 1 each PRN DAILY PRN 07/28/18 15:00 07/28/18 15:00 DC Insulin Glargine (Lantus) 20 units DAILY 07/31/18 08:15 08/03/18 09:50 20 UNITS Insulin Human Lispro (HumaLOG) 0-9 UNITS TIDWMEALS 07/25/18 08:00 08/02/18 17:37 4 UNITS Lactobacillus Rhamnosus (Culturelle) 1 cap BID 07/26/18 21:00 08/03/18 09:24 1 CAP Lidocaine (Xylocaine) 1 jaelyn 1X ONCE 07/29/18 12:15 07/29/18 12:19 DC 07/29/18 14:40 1 JAELYN Losartan Potassium (Cozaar) 50 mg BID 07/25/18 09:00 07/31/18 14:10 DC 07/30/18 21:18 50 MG Magnesium Hydroxide (Milk Of Magnesia) 2,400 mg PRN DAILY PRN 07/30/18 11:30 Magnesium Citrate (Citroma) 296 ml 1X ONCE 07/29/18 12:15 07/29/18 12:19 DC 07/29/18 14:40 296 ML Magnesium Oxide (Magnesium Oxide) 400 mg DAILY 07/25/18 09:00 08/03/18 09:33 400 MG Metoprolol Tartrate (Lopressor) 25 mg BID 07/25/18 09:00 08/03/18 09:35 25 MG Morphine Sulfate (Morphine Sulfate) 6 mg 1X ONCE 07/25/18 02:30 07/25/18 02:31 DC 07/25/18 03:29 6 MG Multivitamins (Thera M Plus) 1 tab DAILY 07/25/18 09:00 08/03/18 09:34 1 TAB Non-Formulary Medication (Melatonin ) 3 mg HS 07/25/18 21:00 UNV Non-Formulary Medication (Miconazole Nitrate ) 130 gm TID 07/25/18 09:00 UNV Non-Formulary Medication (Naltrexone Hcl ) 1 tab DAILY 07/25/18 09:00 UNV Nystatin (Nystop) 1 jaelyn BID 07/25/18 09:00 07/25/18 09:00 DC Ondansetron HCl (Zofran Odt) 4 mg PRN Q6HRS PRN 07/25/18 09:00 Ondansetron HCl (Zofran) 4 mg PRN Q6HRS PRN 07/25/18 09:00 Oxycodone/ Acetaminophen (Percocet 5/325) 1 tab STK-MED ONCE 07/25/18 00:41 07/25/18 00:42 DC Polyethylene Glycol (miraLAX PACKET) 17 gm PRN DAILY PRN 07/30/18 11:30 Pregabalin (Lyrica) 50 mg TID 07/25/18 09:00 08/03/18 09:35 50 MG Sodium Chloride 1,000 ml @ 100 mls/hr Q10H 08/01/18 12:00 08/03/18 04:38 100 MLS/HR Tamsulosin HCl (Flomax) 0.4 mg DAILY 07/25/18 09:00 08/03/18 09:24 0.4 MG Trazodone HCl (Desyrel) 50 mg QHS 07/25/18 21:00 08/02/18 21:05 50 MG Vitamin D (Vitamin D3) 1,000 unit DAILY 07/25/18 09:00 08/03/18 09:25 1,000 UNIT Labs: Lab Laboratory Tests Test 08/02/18 12:04 08/02/18 16:43 08/02/18 20:35 08/03/18 08:07 Glucose (Fingerstick) 171 mg/dL (70-99) 164 mg/dL (70-99) 166 mg/dL (70-99) 102 mg/dL (70-99) Objective: Assessment: h/o group B strep sepsis from 07/13, source unclear. Repeat BC 07/15 NGTD Retroperitoneal hematoma anemia acute blood loss Leukocytosis COPD Acute kidney injury on CKD. 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 Chronic wounds, bilateral lower extremity Morbid obesity. Constipation Plan: Plan of Care cont Rocephin change to po keflex when ready for dc leg elevation local wound care PT/OT call if any questions d/w YORDY Garcia MD Aug 03, 2018 10:18
[2018-08-03 11:00] VITALS: BP 120/55
[2018-08-03 12:28] LABS: BASO % 1 % (0-3); EOS # 0.3 x10^3/uL (0.0-0.7); EOS % 4 % (0-3); HEMATOCRIT 25.7 % (39.0-53.0); HEMOGLOBIN 8.8 g/dL (13.0-17.5); LYMPH # 1.4 x10^3/uL (1.0-4.8); LYMPH % 17 % (24-48); MEAN CORPUSCULAR HEMOGLOBIN 30 pg (25-35); MEAN CORPUSCULAR HGB CONC 34 g/dL (31-37); MEAN CORPUSCULAR VOLUME 87 fL (79-100); MONO # 0.7 x10^3/uL (0.0-1.1); MONO % 9 % (0-9); NEUT # 5.7 x10^3uL (1.8-7.7); NEUT % 70 % (31-73); PLATELET COUNT 305 x10^3/uL (140-400); RED BLOOD COUNT 2.96 x10^6/uL (4.30-5.70); RED CELL DISTRIBUTION WIDTH 16.1 % (11.5-14.5); WHITE BLOOD COUNT 8.1 x10^3/uL (4.0-11.0)
[2018-08-03 12:45] LABS: CALCIUM 8.8 mg/dL (8.5-10.1); CREATININE 0.9 mg/dL (0.7-1.3); GFR 83.2
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
--- NOTE | 2018-08-03 15:03 | PDOC ---
SUBJECTIVE ROS No new concerns OBJECTIVE Vital Signs Vital Signs Date Time Temp Pulse Resp B/P (MAP) Pulse Ox O2 Delivery O2 Flow Rate FiO2 08/03/18 14:33 18 97 Nasal Cannula 2.0 08/03/18 11:00 97.6 64 120/55 (76) 97.6 I & 0 Intake and Output 08/03/18 07:00 Intake Total 1220 ml Output Total 1 ml Balance 1219 ml Intake Oral 1220 ml Output Urine Total 1 ml # Voids 2 PHYSICAL EXAM Physical Exam GENERAL: Morbidly obese,NAD HENT: O2 by NC LUNGS: Decreased breath sounds , Non labored CV: S1, S2. ABDOMEN: super Obese, nontender. EXTREMITIES: Chronic venous stasis multiple superficial wounds. + edema. SKIN: Multiple areas of ecchymosis EDGER FEEDER: Alert and oriented x 3. Grossly nonfocal. No ybarra DIAGNOSIS/ASSESSMENT Assessment & Plan Cosmo on CKD - Likely sec to Hypotension - BP Lower than his baseline Recd IV Lasix , Volume related Held Losartan and other BP meds BP better , Creat Normal today CKD stage 3- Baseline 1.3 Agenesis of Rt kidney , [facility] Hyponatremia- Normal today Super morbidly obese, BMI 57 SERA- CPAP Bilateral leg wounds, superficial Strep bacteremia, hx - dcd on PCN last recent dc Sepsis POA, WBC 17, on re admission Retroperitoneal Hematoma Large - 07/29/18 Hgb stable COMMENT/RELEVANT DATA Meds Current Medications Medications (Trade) Dose Ordered Sig/Merry Start Time Stop Time Status Last Admin Dose Admin Acetaminophen (Tylenol) 500 mg PRN Q6HRS PRN 07/25/18 09:00 Acetaminophen/ Hydrocodone Bitart (Lortab 10/325) 1 tab PRN Q6HRS PRN 07/25/18 09:00 08/03/18 14:33 1 TAB Acetaminophen/ Hydrocodone Bitart (Lortab 5/325) 1 tab PRN Q4HRS PRN 07/25/18 09:00 07/31/18 09:09 1 TAB Albuterol/ Ipratropium (Duoneb) 3 ml RTQID 07/25/18 08:30 08/03/18 11:41 3 ML Alprazolam (Xanax) 0.5 mg PRN Q8HRS PRN 07/25/18 12:15 08/03/18 09:25 0.5 MG Ascorbic Acid (Vitamin C) 500 mg DAILY 07/26/18 13:00 08/03/18 09:35 500 MG Aspirin (Children'S Aspirin) 81 mg DAILY 07/25/18 09:00 07/29/18 17:13 DC 07/29/18 09:47 81 MG Atorvastatin Calcium (Lipitor) 80 mg QHS 07/25/18 21:00 08/02/18 21:05 80 MG Benzonatate (Tessalon Perle) 100 mg PRN Q8HRS PRN 07/25/18 09:00 07/30/18 12:06 100 MG Bupropion HCl (Wellbutrin Xl) 150 mg [id number] 07/25/18 08:00 08/03/18 09:33 150 MG Ceftriaxone Sodium 1 gm/ Dextrose 50 ml @ 100 mls/hr Q24H 07/25/18 07:45 UNV Ceftriaxone Sodium (Rocephin) 1 gm Q24H 07/25/18 09:00 08/02/18 15:05 DC 08/02/18 08:59 1 GM Cephalexin HCl (Keflex) 500 mg QID 08/02/18 17:00 08/05/18 16:59 08/03/18 13:26 500 MG Clindamycin Phosphate 50 ml @ 100 mls/hr 1X ONCE 07/25/18 02:30 07/25/18 02:59 DC 07/25/18 03:29 100 MLS/HR Dextrose (Dextrose 50%-Water Syringe) 12.5 gm PRN Q15MIN PRN 07/25/18 07:45 Diphenhydramine HCl (Benadryl) 50 mg PRN QHS PRN 07/25/18 07:45 08/01/18 23:44 50 MG Docusate Sodium (Colace) 100 mg DAILY 07/30/18 12:00 08/03/18 09:25 100 MG Duloxetine HCl (Cymbalta) 60 mg DAILY 07/25/18 09:00 08/03/18 09:33 60 MG Enoxaparin Sodium (Lovenox 60mg Syringe) 60 mg Q12HR 07/25/18 09:00 07/29/18 17:13 DC 07/29/18 09:50 60 MG Fentanyl Citrate (Fentanyl 2ml Vial) 100 mcg 1X ONCE 07/27/18 10:00 07/27/18 10:01 DC 07/27/18 11:20 100 MCG Finasteride (Proscar) 5 mg DAILY 07/25/18 09:00 08/03/18 09:24 5 MG Fish Oil (Fish Oil) 1,000 mg HS 07/25/18 21:00 08/02/18 21:05 1,000 MG Furosemide (Lasix) 40 mg DAILY 07/25/18 09:00 07/30/18 08:09 DC 07/29/18 09:47 40 MG Info (Anti-Coagulation Monitoring By Pharmacy) 1 each PRN DAILY PRN 07/28/18 15:00 07/28/18 15:00 DC Insulin Glargine (Lantus) 20 units DAILY 07/31/18 08:15 08/03/18 09:50 20 UNITS Insulin Human Lispro (HumaLOG) 0-9 UNITS TIDWMEALS 07/25/18 08:00 08/02/18 17:37 4 UNITS Lactobacillus Rhamnosus (Culturelle) 1 cap BID 07/26/18 21:00 08/03/18 09:24 1 CAP Lidocaine (Xylocaine) 1 jaelyn 1X ONCE 07/29/18 12:15 07/29/18 12:19 DC 07/29/18 14:40 1 JAELYN Losartan Potassium (Cozaar) 50 mg BID 07/25/18 09:00 07/31/18 14:10 DC 07/30/18 21:18 50 MG Magnesium Hydroxide (Milk Of Magnesia) 2,400 mg PRN DAILY PRN 07/30/18 11:30 Magnesium Citrate (Citroma) 296 ml 1X ONCE 07/29/18 12:15 07/29/18 12:19 DC 07/29/18 14:40 296 ML Magnesium Oxide (Magnesium Oxide) 400 mg DAILY 07/25/18 09:00 08/03/18 09:33 400 MG Metoprolol Tartrate (Lopressor) 25 mg BID 07/25/18 09:00 08/03/18 09:35 25 MG Morphine Sulfate (Morphine Sulfate) 6 mg 1X ONCE 07/25/18 02:30 07/25/18 02:31 DC 07/25/18 03:29 6 MG Multivitamins (Thera M Plus) 1 tab DAILY 07/25/18 09:00 08/03/18 09:34 1 TAB Non-Formulary Medication (Melatonin ) 3 mg HS 07/25/18 21:00 UNV Non-Formulary Medication (Miconazole Nitrate ) 130 gm TID 07/25/18 09:00 UNV Non-Formulary Medication (Naltrexone Hcl ) 1 tab DAILY 07/25/18 09:00 UNV Nystatin (Nystop) 1 jaelyn BID 07/25/18 09:00 07/25/18 09:00 DC Ondansetron HCl (Zofran Odt) 4 mg PRN Q6HRS PRN 07/25/18 09:00 Ondansetron HCl (Zofran) 4 mg PRN Q6HRS PRN 07/25/18 09:00 Oxycodone/ Acetaminophen (Percocet 5/325) 1 tab STK-MED ONCE 07/25/18 00:41 07/25/18 00:42 DC Polyethylene Glycol (miraLAX PACKET) 17 gm PRN DAILY PRN 07/30/18 11:30 Pregabalin (Lyrica) 50 mg TID 07/25/18 09:00 08/03/18 14:30 50 MG Sodium Chloride 1,000 ml @ 100 mls/hr Q10H 08/01/18 12:00 08/03/18 13:27 DC 08/03/18 04:38 100 MLS/HR Tamsulosin HCl (Flomax) 0.4 mg DAILY 07/25/18 09:00 08/03/18 09:24 0.4 MG Trazodone HCl (Desyrel) 50 mg QHS 07/25/18 21:00 08/02/18 21:05 50 MG Vitamin D (Vitamin D3) 1,000 unit DAILY 07/25/18 09:00 08/03/18 09:25 1,000 UNIT Lab Laboratory Tests Test 08/02/18 16:43 08/02/18 20:35 08/03/18 08:07 08/03/18 11:47 Glucose (Fingerstick) 164 mg/dL (70-99) 166 mg/dL (70-99) 102 mg/dL (70-99) 82 mg/dL (70-99) Test 08/03/18 12:10 White Blood Count 8.1 x10^3/uL (4.0-11.0) Red Blood Count 2.96 x10^6/uL (4.30-5.70) Hemoglobin 8.8 g/dL (13.0-17.5) Hematocrit 25.7 % (39.0-53.0) Mean Corpuscular Volume 87 fL (79-100) Mean Corpuscular Hemoglobin 30 pg (25-35) Mean Corpuscular Hemoglobin Concent 34 g/dL (31-37) Red Cell Distribution Width 16.1 % (11.5-14.5) Platelet Count 305 x10^3/uL (140-400) Neutrophils (%) (Auto) 70 % (31-73) Lymphocytes (%) (Auto) 17 % (24-48) Monocytes (%) (Auto) 9 % (0-9) Eosinophils (%) (Auto) 4 % (0-3) Basophils (%) (Auto) 1 % (0-3) Neutrophils # (Auto) 5.7 x10^3uL (1.8-7.7) Lymphocytes # (Auto) 1.4 x10^3/uL (1.0-4.8) Monocytes # (Auto) 0.7 x10^3/uL (0.0-1.1) Eosinophils # (Auto) 0.3 x10^3/uL (0.0-0.7) Basophils # (Auto) 0.0 x10^3/uL (0.0-0.2) Sodium Level 137 mmol/L (136-145) Potassium Level 4.0 mmol/L (3.5-5.1) Chloride Level 100 mmol/L (98-107) Carbon Dioxide Level 29 mmol/L (21-32) Anion Gap 8 (6-14) Blood Urea Nitrogen 45 mg/dL (8-26) Creatinine 0.9 mg/dL (0.7-1.3) Estimated GFR (Cockcroft-Gault) 83.2 Glucose Level 85 mg/dL (70-99) Calcium Level 8.8 mg/dL (8.5-10.1) Results All relevant outside records, renal labs, imaging studies, telemetry/EKG's were reviewed. DILLON STOCK MD Aug 03, 2018 15:03
--- NOTE | 2018-08-03 16:23 | RAD ---
CT of the lumbar spine without contrast, 08/03/2018: HISTORY: Back pain Noncontrast scans were obtained with multiplanar reconstructions produced. The images are of suboptimal quality due to the patient's size. No fracture or dislocation is identified. The lumbar vertebral heights are well-maintained. There are moderate scattered marginal spurs. There are moderate degenerative changes involving multiple facet joints in the mid and lower lumbar spine. The posterior disc margins are not optimally defined. The combination of findings is causing mild to moderate central spinal stenosis at L2-3, L3-4 and L4-5. The spurring is causing moderate foraminal encroachment at multiple levels, worst on the left at L4-5. There is moderate streaky atelectasis and/or scarring in the lung bases. There is a 7 cm medium density mass arising from the posterior aspect of left kidney. This could complicated/hemorrhagic cyst or solid mass. The bladder is moderately distended. The stitcher set up operator automatic view demonstrates moderate distention of the colon down to the mid sigmoid level, likely due to an ileus. IMPRESSION: 1. Moderate multilevel degenerative change as described above. 2. No acute bony abnormality is detected. 3. Incidental note is made of a moderate sized medium density left renal mass. Ultrasound evaluation is suggested, but may be of limited value in this large patient. 4. Bladder distention. 5. Generalized gaseous distention of the colon suggesting an ileus/atonic colon. CT of the pelvis without contrast, 08/03/2018: HISTORY: Follow-up hematoma Comparison is made to a study from 07/29/2018. There is a moderate size mass involving the left iliac is muscle which is unchanged. There is mild extension into the psoas muscle.The appearance again suggests a hematoma. No new hemorrhage or mass is seen. The urinary bladder remains distended. There is also colonic distention down to the mid sigmoid level. No free air is evident in the pelvis. There is skin thickening and underlying subcutaneous edema involving the lower abdominal pannus. No acute bony abnormality is detected. IMPRESSION: Unchanged left iliopsoas mass most compatible with a stable hematoma Electronically signed by: Nick Brown MD (08/03/2018 4:20 PM) [facility]
[2018-08-03 19:00] VITALS: BP 147/67
[2018-08-03] MEDS: ATORVASTATIN CALCIUM 40 MG TABLET. PO SCH (21:40)
[2018-08-03] MEDS: OMEGA-3 FATTY ACIDS/FISH OIL 1,000 MG CAPSULE. PO SCH (21:40)
[2018-08-03] MEDS: traZODone 50 MG TABLET. PO SCH (21:40)
[2018-08-03 23:00] VITALS: BP 138/61
--- NOTE | 2018-08-04 00:29 | CONS ---
DATE OF CONSULTATION: 08/03/2018 I saw him at the request of Dr. Car for rehab evaluation. HISTORY OF PRESENT ILLNESS: This is a 73-year-old male who lives alone at home, has stairs to manage. He has not been getting up and walking that much since the last 6-7 months. He was admitted on 07/25/2018 with left greater than right lower extremity pain. He was discharged from this medical center about 4 days prior, from 07/13/2018. At that time, he was treated for acute hypoxic hypercapnic respiratory failure in a patient with known morbidly obese, BMI of 57, bilateral leg wounds, strep bacteremia, sepsis, WBC 18,000, positive blood cultures, elevated lactate, hypomagnesemia, magnesium 1.7, flareup of COPD, generalized weakness, solitary kidney. He is noncompliant with his use of BiPAP or CPAP at home because it causes his mouth to be dry and he could not breathe. Even after heavy education and counseling, he refused to wear it, unknown BiPAP settings. The patient had venous duplex Doppler studies during his last hospitalization, which was negative for deep venous thrombosis. The patient could not feel his fingers to touch or his toes. The patient was noted with a decreased dorsalis pedis arterial pulsation. The patient with known hypertension, hyperlipidemia, chronic renal insufficiency, benign prostatic enlargement, diabetes mellitus. FAMILY HISTORY: Diabetes mellitus and hypertension. ALLERGIES: HE IS KNOWN ALLERGIC TO IBUPROFEN. The patient since admission is being treated for cellulitis of his lower extremities. He had radiological studies which revealed degenerative joint disease of his knees and lumbar spine CT scan done today failed to reveal any acute problem like compression fracture. The patient had multilevel degenerative joint disease with bone spur at ages that might be causing some degree of central spinal stenosis, but not to a great degree as I can see in the CT scan films. The patient admits left groin area discomfort, especially while trying to move in the bed. He denies any numbness, tingling sensation in the extremities. The patient also being evaluated for retroperitoneal hematoma and he was held on anticoagulation. They felt he is not a surgical candidate. PHYSICAL EXAMINATION: The patient on physical examination today revealed a middle-aged male. He is alert, oriented to time, place, person and circumstance and follows commands appropriately. He moves all 4 extremities voluntarily where he had overall 4+/5 grade muscle strength with significant weakness of left knee extensors when compared to right side. Left knee extension is 2-/5. Deep tendon reflexes are absent at both knees and ankles. He had equal perception of touch and pinprick sensation bilaterally. He had dressing to his both feet and legs. He had no significant pain on range of motion of his hip joints. No tenderness to palpation over lumbar spine area or trochanteric bursa area or left groin itself and he had equal perception of touch and pinprick sensation bilaterally. He requires help with bed mobility. I have not tested his transfers or ambulation skills at this time. 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 The patient having some problems with hypotension and cellulitis of his lower extremities. RECOMMENDATIONS: Agree with the plan for transfer to residential care unit when medically stable, to continue physical therapy and occupational therapy followup as he can tolerate. We can consider electromyography study of left lower extremity muscles to confirm his diabetic amyopathy, but it is a clinical diagnosis. He does need to be in the hospital for that procedure. Dr. Car, I appreciate asking me to participate in the care of this interesting patient. I will be glad to follow him with you as needed for the rehabilitation. AHMET RAMIREZ MD DR: MONICO/espinoza JOB#: [id number] / [id number]
[2018-08-04 03:00] VITALS: BP 138/54
[2018-08-04 04:26] LABS: BASO % 0 % (0-3); EOS # 0.3 x10^3/uL (0.0-0.7); EOS % 4 % (0-3); HEMATOCRIT 25.4 % (39.0-53.0); HEMOGLOBIN 8.8 g/dL (13.0-17.5); LYMPH # 1.2 x10^3/uL (1.0-4.8); LYMPH % 14 % (24-48); MEAN CORPUSCULAR HEMOGLOBIN 30 pg (25-35); MEAN CORPUSCULAR HGB CONC 35 g/dL (31-37); MEAN CORPUSCULAR VOLUME 87 fL (79-100); MONO # 0.8 x10^3/uL (0.0-1.1); MONO % 9 % (0-9); NEUT # 6.3 x10^3uL (1.8-7.7); NEUT % 72 % (31-73); PLATELET COUNT 292 x10^3/uL (140-400); RED BLOOD COUNT 2.94 x10^6/uL (4.30-5.70); RED CELL DISTRIBUTION WIDTH 16.1 % (11.5-14.5); WHITE BLOOD COUNT 8.7 x10^3/uL (4.0-11.0)
[2018-08-04 04:49] LABS: CALCIUM 9.1 mg/dL (8.5-10.1); CREATININE 0.9 mg/dL (0.7-1.3); GFR 83.2; POTASSIUM 3.9 mmol/L (3.5-5.1)
[2018-08-04 07:00] VITALS: BP 159/60
[2018-08-04] MEDS: IPRATRPIUM/ALBUTEROL 0.5/2.5MG 3 ML NEBU. NEB SCH ×3 (07:55→19:21)
[2018-08-04] MEDS: INSULIN LISPRO 300 UNITS/3 ML INSULN.PEN. SQ SCH ×6 (08:00→17:00)
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
[2018-08-04] MEDS: DULoxetine HCL 30 MG CAPSULE.DR PO SCH (08:33)
[2018-08-04] MEDS: buPROPion XL 150 MG TAB.ER.24H. PO SCH (08:33)
[2018-08-04] MEDS: CHOLECALCIFEROL (VITAMIN D3) 1,000 UNIT TABLET PO SCH (08:33)
[2018-08-04] MEDS: LACTOBACILLUS RHAMNOSUS GG 1 CAPSULE. PO SCH ×2 (08:33→20:33)
[2018-08-04] MEDS: MULTIVITAMIN with MINERAL TABLET. PO SCH (08:33)
[2018-08-04] MEDS: HYDROcodone/APAP 10/325 1 TAB TABLET PO PRN ×3 (08:33→18:37)
[2018-08-04] MEDS: DOCUSATE SODIUM 100 MG CAPSULE. PO SCH (08:33)
[2018-08-04] MEDS: PREGABALIN 50 MG CAPSULE PO SCH ×3 (08:34→20:32)
[2018-08-04] MEDS: TAMSULOSIN 0.4 MG CAP.ER.24H. PO SCH (08:34)
[2018-08-04] MEDS: MAGNESIUM OXIDE 400 MG TABLET PO SCH (08:34)
[2018-08-04] MEDS: ASCORBIC ACID 500 MG TABLET PO SCH (08:34)
[2018-08-04] MEDS: FINASTERIDE 5 MG TABLET. PO SCH (08:34)
[2018-08-04] MEDS: NYSTATIN TOPICAL POWDER 15GM BOTTLE. TP SCH ×2 (08:55→20:33)
[2018-08-04] MEDS: INSULIN GLARGINE 300 UNITS/3 ML INSULN.PEN. SQ SCH ×2 (09:20→20:39)
[2018-08-04] MEDS: METOPROLOL TART IMMED RELEASE 25 MG TABLET. PO SCH ×2 (09:20→20:32)
--- NOTE | 2018-08-04 10:39 | PDOC ---
SUBJECTIVE ROS On suicide precautions, OBJECTIVE Vital Signs Vital Signs Date Time Temp Pulse Resp B/P (MAP) Pulse Ox O2 Delivery O2 Flow Rate FiO2 08/04/18 09:20 52 159/60 08/04/18 08:33 20 96 Nasal Cannula 2.0 08/04/18 07:00 97.6 97.6 I & 0 Intake and Output 08/04/18 07:00 Intake Total 900 ml Balance 900 ml Intake Oral 900 ml # Voids 10 PHYSICAL EXAM Physical Exam GENERAL: Morbidly obese,NAD HENT: O2 by NC LUNGS: Decreased breath sounds , Non labored CV: S1, S2. ABDOMEN: super Obese, nontender. EXTREMITIES: Chronic venous stasis multiple superficial wounds. + edema. 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 Grossly nonfocal. No ybarra DIAGNOSIS/ASSESSMENT Assessment & Plan Cosmo on CKD - Likely sec to Hypotension Recd IV Lasix Losartan was held and other BP meds BP improved , Creat Normal CKD stage 3- Baseline 1.3 Agenesis of Rt kidney , follows at [place] Hyponatremia- Normal today Super morbidly obese, BMI 57 SERA- CPAP Bilateral leg wounds, superficial Strep bacteremia, hx - dcd on PCN last recent dc Sepsis POA, WBC 17, on re admission Retroperitoneal Hematoma Large - 07/29/18 Hgb stable We will sign off, Please call if any questions or Concerns COMMENT/RELEVANT DATA Meds Current Medications Medications (Trade) Dose Ordered Sig/Merry Start Time Stop Time Status Last Admin Dose Admin Acetaminophen (Tylenol) 500 mg PRN Q6HRS PRN 07/25/18 09:00 Acetaminophen/ Hydrocodone Bitart (Lortab 10/325) 1 tab PRN Q6HRS PRN 07/25/18 09:00 08/04/18 08:33 1 TAB Acetaminophen/ Hydrocodone Bitart (Lortab 5/325) 1 tab PRN Q4HRS PRN 07/25/18 09:00 07/31/18 09:09 1 TAB Albuterol/ Ipratropium (Duoneb) 3 ml RTQID 07/25/18 08:30 08/04/18 07:55 3 ML Alprazolam (Xanax) 0.5 mg PRN Q8HRS PRN 07/25/18 12:15 08/03/18 09:25 0.5 MG Ascorbic Acid (Vitamin C) 500 mg DAILY 07/26/18 13:00 08/04/18 08:34 500 MG Aspirin (Children'S Aspirin) 81 mg DAILY 07/25/18 09:00 07/29/18 17:13 DC 07/29/18 09:47 81 MG Atorvastatin Calcium (Lipitor) 80 mg QHS 07/25/18 21:00 08/03/18 21:40 80 MG Benzonatate (Tessalon Perle) 100 mg PRN Q8HRS PRN 07/25/18 09:00 07/30/18 12:06 100 MG Bupropion HCl (Wellbutrin Xl) 150 mg DAILYWBKFT 07/25/18 08:00 08/04/18 08:33 150 MG Ceftriaxone Sodium 1 gm/ Dextrose 50 ml @ 100 mls/hr Q24H 07/25/18 07:45 UNV Ceftriaxone Sodium (Rocephin) 1 gm Q24H 07/25/18 09:00 08/02/18 15:05 DC 08/02/18 08:59 1 GM Cephalexin HCl (Keflex) 500 mg QID 08/02/18 17:00 08/05/18 16:59 08/03/18 21:40 500 MG Clindamycin Phosphate 50 ml @ 100 mls/hr 1X ONCE 07/25/18 02:30 07/25/18 02:59 DC 07/25/18 03:29 100 MLS/HR Dextrose (Dextrose 50%-Water Syringe) 12.5 gm PRN Q15MIN PRN 07/25/18 07:45 Diphenhydramine HCl (Benadryl) 50 mg PRN QHS PRN 07/25/18 07:45 08/01/18 23:44 50 MG Docusate Sodium (Colace) 100 mg DAILY 07/30/18 12:00 08/04/18 08:33 100 MG Duloxetine HCl (Cymbalta) 60 mg DAILY 07/25/18 09:00 08/04/18 08:33 60 MG Enoxaparin Sodium (Lovenox 60mg Syringe) 60 mg Q12HR 07/25/18 09:00 07/29/18 17:13 DC 07/29/18 09:50 60 MG Fentanyl Citrate (Fentanyl 2ml Vial) 100 mcg 1X ONCE 07/27/18 10:00 07/27/18 10:01 DC 07/27/18 11:20 100 MCG Finasteride (Proscar) 5 mg DAILY 07/25/18 09:00 08/04/18 08:34 5 MG Fish Oil (Fish Oil) 1,000 mg HS 07/25/18 21:00 08/03/18 21:40 1,000 MG Furosemide (Lasix) 40 mg DAILY 07/25/18 09:00 07/30/18 08:09 DC 07/29/18 09:47 40 MG Info (Anti-Coagulation Monitoring By Pharmacy) 1 each PRN DAILY PRN 07/28/18 15:00 07/28/18 15:00 DC Insulin Glargine (Lantus) 20 units DAILY 07/31/18 08:15 08/04/18 09:20 20 UNITS Insulin Human Lispro (HumaLOG) 0-9 UNITS TIDWMEALS 07/25/18 08:00 08/02/18 17:37 4 UNITS Lactobacillus Rhamnosus (Culturelle) 1 cap BID 07/26/18 21:00 08/04/18 08:33 1 CAP Lidocaine (Xylocaine) 1 jaelyn 1X ONCE 07/29/18 12:15 07/29/18 12:19 DC 07/29/18 14:40 1 JAELYN Losartan Potassium (Cozaar) 50 mg BID 07/25/18 09:00 07/31/18 14:10 DC 07/30/18 21:18 50 MG Magnesium Hydroxide (Milk Of Magnesia) 2,400 mg PRN DAILY PRN 07/30/18 11:30 Magnesium Citrate (Citroma) 296 ml 1X ONCE 07/29/18 12:15 07/29/18 12:19 DC 07/29/18 14:40 296 ML Magnesium Oxide (Magnesium Oxide) 400 mg DAILY 07/25/18 09:00 08/04/18 08:34 400 MG Metoprolol Tartrate (Lopressor) 25 mg BID 07/25/18 09:00 08/04/18 09:20 25 MG Morphine Sulfate (Morphine Sulfate) 6 mg 1X ONCE 07/25/18 02:30 07/25/18 02:31 DC 07/25/18 03:29 6 MG Multivitamins (Thera M Plus) 1 tab DAILY 07/25/18 09:00 08/04/18 08:33 1 TAB Non-Formulary Medication (Melatonin ) 3 mg HS 07/25/18 21:00 UNV Non-Formulary Medication (Miconazole Nitrate ) 130 gm TID 07/25/18 09:00 UNV Non-Formulary Medication (Naltrexone Hcl ) 1 tab DAILY 07/25/18 09:00 UNV Nystatin (Nystop) 1 jaelyn BID 07/25/18 09:00 07/25/18 09:00 DC Ondansetron HCl (Zofran Odt) 4 mg PRN Q6HRS PRN 07/25/18 09:00 Ondansetron HCl (Zofran) 4 mg PRN Q6HRS PRN 07/25/18 09:00 Oxycodone/ Acetaminophen (Percocet 5/325) 1 tab STK-MED ONCE 07/25/18 00:41 07/25/18 00:42 DC Polyethylene Glycol (miraLAX PACKET) 17 gm PRN DAILY PRN 07/30/18 11:30 Pregabalin (Lyrica) 50 mg TID 07/25/18 09:00 08/04/18 08:34 50 MG Sodium Chloride 1,000 ml @ 100 mls/hr Q10H 08/01/18 12:00 08/03/18 13:27 DC 08/03/18 04:38 100 MLS/HR Tamsulosin HCl (Flomax) 0.4 mg DAILY 07/25/18 09:00 08/04/18 08:34 0.4 MG Trazodone HCl (Desyrel) 50 mg QHS 07/25/18 21:00 08/03/18 21:40 50 MG Vitamin D (Vitamin D3) 1,000 unit DAILY 07/25/18 09:00 08/04/18 08:33 1,000 UNIT Lab Laboratory Tests Test 08/03/18 11:47 08/03/18 12:10 08/03/18 16:46 08/03/18 20:34 Glucose (Fingerstick) 82 mg/dL (70-99) 125 mg/dL (70-99) 187 mg/dL (70-99) White Blood Count 8.1 x10^3/uL (4.0-11.0) Red Blood Count 2.96 x10^6/uL (4.30-5.70) Hemoglobin 8.8 g/dL (13.0-17.5) Hematocrit 25.7 % (39.0-53.0) Mean Corpuscular Volume 87 fL (79-100) Mean Corpuscular Hemoglobin 30 pg (25-35) Mean Corpuscular Hemoglobin Concent 34 g/dL (31-37) Red Cell Distribution Width 16.1 % (11.5-14.5) Platelet Count 305 x10^3/uL (140-400) Neutrophils (%) (Auto) 70 % (31-73) Lymphocytes (%) (Auto) 17 % (24-48) Monocytes (%) (Auto) 9 % (0-9) Eosinophils (%) (Auto) 4 % (0-3) Basophils (%) (Auto) 1 % (0-3) Neutrophils # (Auto) 5.7 x10^3uL (1.8-7.7) Lymphocytes # (Auto) 1.4 x10^3/uL (1.0-4.8) Monocytes # (Auto) 0.7 x10^3/uL (0.0-1.1) Eosinophils # (Auto) 0.3 x10^3/uL (0.0-0.7) Basophils # (Auto) 0.0 x10^3/uL (0.0-0.2) Sodium Level 137 mmol/L (136-145) Potassium Level 4.0 mmol/L (3.5-5.1) Chloride Level 100 mmol/L (98-107) Carbon Dioxide Level 29 mmol/L (21-32) Anion Gap 8 (6-14) Blood Urea Nitrogen 45 mg/dL (8-26) Creatinine 0.9 mg/dL (0.7-1.3) Estimated GFR (Cockcroft-Gault) 83.2 Glucose Level 85 mg/dL (70-99) Calcium Level 8.8 mg/dL (8.5-10.1) Test 08/04/18 03:55 08/04/18 07:51 White Blood Count 8.7 x10^3/uL (4.0-11.0) Red Blood Count 2.94 x10^6/uL (4.30-5.70) Hemoglobin 8.8 g/dL (13.0-17.5) Hematocrit 25.4 % (39.0-53.0) Mean Corpuscular Volume 87 fL (79-100) Mean Corpuscular Hemoglobin 30 pg (25-35) Mean Corpuscular Hemoglobin Concent 35 g/dL (31-37) Red Cell Distribution Width 16.1 % (11.5-14.5) Platelet Count 292 x10^3/uL (140-400) Neutrophils (%) (Auto) 72 % (31-73) Lymphocytes (%) (Auto) 14 % (24-48) Monocytes (%) (Auto) 9 % (0-9) Eosinophils (%) (Auto) 4 % (0-3) Basophils (%) (Auto) 0 % (0-3) Neutrophils # (Auto) 6.3 x10^3uL (1.8-7.7) Lymphocytes # (Auto) 1.2 x10^3/uL (1.0-4.8) Monocytes # (Auto) 0.8 x10^3/uL (0.0-1.1) Eosinophils # (Auto) 0.3 x10^3/uL (0.0-0.7) Basophils # (Auto) 0.0 x10^3/uL (0.0-0.2) Sodium Level 136 mmol/L (136-145) Potassium Level 3.9 mmol/L (3.5-5.1) Chloride Level 100 mmol/L (98-107) Carbon Dioxide Level 31 mmol/L (21-32) Anion Gap 5 (6-14) Blood Urea Nitrogen 37 mg/dL (8-26) Creatinine 0.9 mg/dL (0.7-1.3) Estimated GFR (Cockcroft-Gault) 83.2 Glucose Level 140 mg/dL (70-99) Calcium Level 9.1 mg/dL (8.5-10.1) Glucose (Fingerstick) 101 mg/dL (70-99) Results All relevant outside records, renal labs, imaging studies, telemetry/EKG's were reviewed. DILLON STOCK MD Aug 04, 2018 10:39
--- NOTE | 2018-08-04 10:42 | PDOC ---
PROGRESS NOTES Subjective Subjective He still admits left groin area pain. Objective Objective Vital Signs Date Time Temp Pulse Resp B/P (MAP) Pulse Ox O2 Delivery O2 Flow Rate FiO2 08/04/18 09:20 52 159/60 08/04/18 08:33 20 96 Nasal Cannula 2.0 08/04/18 07:00 97.6 97.6 Intake and Output 08/04/18 07:00 Intake Total 900 ml Balance 900 ml Intake Oral 900 ml # Voids 10 Physical Exam Physical Exam He is sitting up in bed with head end propped up and he continues with weakness of his left knee extensors,probably from left lumbar plexus lesion from retroperitoneal hematoma or part of femoral neuropathy or amyopathy from his diabetes. It will take time for his muscle strength to get better if it is from amyopathy and if it is from lumbar plexus lesion or femoral neuropathy it might time long time if it is going to get any better. Assessment Assessment Problems Medical Problems: (1) Cellulitis of leg Status: Acute (2) Morbid obesity Status: Acute Plan Plan of Care Agree with plans for transfer to SNF for continued care,as he could not return home until he can walk. Comment Review of Relevant I have reviewed the following items verena (where applicable) has been applied. Labs Laboratory Tests Test 08/02/18 12:04 08/02/18 16:43 08/02/18 20:35 08/03/18 08:07 Glucose (Fingerstick) 171 mg/dL (70-99) 164 mg/dL (70-99) 166 mg/dL (70-99) 102 mg/dL (70-99) Test 08/03/18 11:47 08/03/18 12:10 08/03/18 16:46 08/03/18 20:34 Glucose (Fingerstick) 82 mg/dL (70-99) 125 mg/dL (70-99) 187 mg/dL (70-99) White Blood Count 8.1 x10^3/uL (4.0-11.0) Red Blood Count 2.96 x10^6/uL (4.30-5.70) Hemoglobin 8.8 g/dL (13.0-17.5) Hematocrit 25.7 % (39.0-53.0) Mean Corpuscular Volume 87 fL (79-100) Mean Corpuscular Hemoglobin 30 pg (25-35) Mean Corpuscular Hemoglobin Concent 34 g/dL (31-37) Red Cell Distribution Width 16.1 % (11.5-14.5) Platelet Count 305 x10^3/uL (140-400) Neutrophils (%) (Auto) 70 % (31-73) Lymphocytes (%) (Auto) 17 % (24-48) Monocytes (%) (Auto) 9 % (0-9) Eosinophils (%) (Auto) 4 % (0-3) Basophils (%) (Auto) 1 % (0-3) Neutrophils # (Auto) 5.7 x10^3uL (1.8-7.7) Lymphocytes # (Auto) 1.4 x10^3/uL (1.0-4.8) Monocytes # (Auto) 0.7 x10^3/uL (0.0-1.1) Eosinophils # (Auto) 0.3 x10^3/uL (0.0-0.7) Basophils # (Auto) 0.0 x10^3/uL (0.0-0.2) Sodium Level 137 mmol/L (136-145) Potassium Level 4.0 mmol/L (3.5-5.1) Chloride Level 100 mmol/L (98-107) Carbon Dioxide Level 29 mmol/L (21-32) Anion Gap 8 (6-14) Blood Urea Nitrogen 45 mg/dL (8-26) Creatinine 0.9 mg/dL (0.7-1.3) Estimated GFR (Cockcroft-Gault) 83.2 Glucose Level 85 mg/dL (70-99) Calcium Level 8.8 mg/dL (8.5-10.1) Test 08/04/18 03:55 08/04/18 07:51 White Blood Count 8.7 x10^3/uL (4.0-11.0) Red Blood Count 2.94 x10^6/uL (4.30-5.70) Hemoglobin 8.8 g/dL (13.0-17.5) Hematocrit 25.4 % (39.0-53.0) Mean Corpuscular Volume 87 fL (79-100) Mean Corpuscular Hemoglobin 30 pg (25-35) Mean Corpuscular Hemoglobin Concent 35 g/dL (31-37) Red Cell Distribution Width 16.1 % (11.5-14.5) Platelet Count 292 x10^3/uL (140-400) Neutrophils (%) (Auto) 72 % (31-73) Lymphocytes (%) (Auto) 14 % (24-48) Monocytes (%) (Auto) 9 % (0-9) Eosinophils (%) (Auto) 4 % (0-3) Basophils (%) (Auto) 0 % (0-3) Neutrophils # (Auto) 6.3 x10^3uL (1.8-7.7) Lymphocytes # (Auto) 1.2 x10^3/uL (1.0-4.8) Monocytes # (Auto) 0.8 x10^3/uL (0.0-1.1) Eosinophils # (Auto) 0.3 x10^3/uL (0.0-0.7) Basophils # (Auto) 0.0 x10^3/uL (0.0-0.2) Sodium Level 136 mmol/L (136-145) Potassium Level 3.9 mmol/L (3.5-5.1) Chloride Level 100 mmol/L (98-107) Carbon Dioxide Level 31 mmol/L (21-32) Anion Gap 5 (6-14) Blood Urea Nitrogen 37 mg/dL (8-26) Creatinine 0.9 mg/dL (0.7-1.3) Estimated GFR (Cockcroft-Gault) 83.2 Glucose Level 140 mg/dL (70-99) Calcium Level 9.1 mg/dL (8.5-10.1) Glucose (Fingerstick) 101 mg/dL (70-99) Laboratory Tests Test 08/03/18 11:47 08/03/18 12:10 08/03/18 16:46 08/03/18 20:34 Glucose (Fingerstick) 82 mg/dL (70-99) 125 mg/dL (70-99) 187 mg/dL (70-99) White Blood Count 8.1 x10^3/uL (4.0-11.0) Red Blood Count 2.96 x10^6/uL (4.30-5.70) Hemoglobin 8.8 g/dL (13.0-17.5) Hematocrit 25.7 % (39.0-53.0) Mean Corpuscular Volume 87 fL (79-100) Mean Corpuscular Hemoglobin 30 pg (25-35) Mean Corpuscular Hemoglobin Concent 34 g/dL (31-37) Red Cell Distribution Width 16.1 % (11.5-14.5) Platelet Count 305 x10^3/uL (140-400) Neutrophils (%) (Auto) 70 % (31-73) Lymphocytes (%) (Auto) 17 % (24-48) Monocytes (%) (Auto) 9 % (0-9) Eosinophils (%) (Auto) 4 % (0-3) Basophils (%) (Auto) 1 % (0-3) Neutrophils # (Auto) 5.7 x10^3uL (1.8-7.7) Lymphocytes # (Auto) 1.4 x10^3/uL (1.0-4.8) Monocytes # (Auto) 0.7 x10^3/uL (0.0-1.1) Eosinophils # (Auto) 0.3 x10^3/uL (0.0-0.7) Basophils # (Auto) 0.0 x10^3/uL (0.0-0.2) Sodium Level 137 mmol/L (136-145) Potassium Level 4.0 mmol/L (3.5-5.1) Chloride Level 100 mmol/L (98-107) Carbon Dioxide Level 29 mmol/L (21-32) Anion Gap 8 (6-14) Blood Urea Nitrogen 45 mg/dL (8-26) Creatinine 0.9 mg/dL (0.7-1.3) Estimated GFR (Cockcroft-Gault) 83.2 Glucose Level 85 mg/dL (70-99) Calcium Level 8.8 mg/dL (8.5-10.1) Test 08/04/18 03:55 08/04/18 07:51 White Blood Count 8.7 x10^3/uL (4.0-11.0) Red Blood Count 2.94 x10^6/uL (4.30-5.70) Hemoglobin 8.8 g/dL (13.0-17.5) Hematocrit 25.4 % (39.0-53.0) Mean Corpuscular Volume 87 fL (79-100) Mean Corpuscular Hemoglobin 30 pg (25-35) Mean Corpuscular Hemoglobin Concent 35 g/dL (31-37) Red Cell Distribution Width 16.1 % (11.5-14.5) Platelet Count 292 x10^3/uL (140-400) Neutrophils (%) (Auto) 72 % (31-73) Lymphocytes (%) (Auto) 14 % (24-48) Monocytes (%) (Auto) 9 % (0-9) Eosinophils (%) (Auto) 4 % (0-3) Basophils (%) (Auto) 0 % (0-3) Neutrophils # (Auto) 6.3 x10^3uL (1.8-7.7) Lymphocytes # (Auto) 1.2 x10^3/uL (1.0-4.8) Monocytes # (Auto) 0.8 x10^3/uL (0.0-1.1) Eosinophils # (Auto) 0.3 x10^3/uL (0.0-0.7) Basophils # (Auto) 0.0 x10^3/uL (0.0-0.2) Sodium Level 136 mmol/L (136-145) Potassium Level 3.9 mmol/L (3.5-5.1) Chloride Level 100 mmol/L (98-107) Carbon Dioxide Level 31 mmol/L (21-32) Anion Gap 5 (6-14) Blood Urea Nitrogen 37 mg/dL (8-26) Creatinine 0.9 mg/dL (0.7-1.3) Estimated GFR (Cockcroft-Gault) 83.2 Glucose Level 140 mg/dL (70-99) Calcium Level 9.1 mg/dL (8.5-10.1) Glucose (Fingerstick) 101 mg/dL (70-99) Medications Current Medications Oxycodone/ Acetaminophen (Percocet 5/325) 2 tab 1X ONCE PO Last administered on 07/25/18at 00:45; Start 07/25/18 at 00:45; Stop 07/25/18 at 00:46; Status DC Oxycodone/ Acetaminophen (Percocet 5/325) 1 tab STK-MED ONCE .ROUTE ; Start at 00:41; Stop 07/25/18 at 00:42; Status DC Ondansetron HCl (Zofran) 4 mg PRN Q8HRS PRN IV NAUSEA/VOMITING; Start at 01:45; Stop 07/26/18 at 01:44; Status DC Morphine Sulfate (Morphine Sulfate) 4 mg PRN Q2HR PRN IV PAIN Last administered on 07/25/18at 11:27; Start 07/25/18 at 01:45; Stop 07/26/18 at 01 :44; Status DC Acetaminophen (Tylenol) 650 mg PRN Q4HRS PRN PO FEVER Last administered on at 08:38; Start 07/25/18 at 01:45; Stop 07/25/18 at 15:48; Status DC Clindamycin Phosphate 50 ml @ 100 mls/hr 1X ONCE IV Last administered on at 03:29; Start 07/25/18 at 02:30; Stop 07/25/18 at 02:59; Status DC Morphine Sulfate (Morphine Sulfate) 6 mg 1X ONCE IV Last administered on 07/25at 03:29; Start 07/25/18 at 02:30; Stop 07/25/18 at 02:31; Status DC Aspirin (Children'S Aspirin) 81 mg DAILY PO Last administered on 07/29/18at 09: 47; Start 07/25/18 at 09:00; Stop 07/29/18 at 17:13; Status DC Bupropion HCl (Wellbutrin Xl) 150 mg DAILYWBKFT PO Last administered on at 08:33; Start 07/25/18 at 08:00 Vitamin D (Vitamin D3) 1,000 unit DAILY PO Last administered on 08/04/18at 08:33 ; Start 07/25/18 at 09:00 Diphenhydramine HCl (Benadryl) 50 mg PRN QHS PRN PO INSOMNIA Last administered on 08/01/18at 23:44; Start 07/25/18 at 07:45 Enoxaparin Sodium (Lovenox 60mg Syringe) 60 mg Q12HR SQ Last administered on at 09:50; Start 07/25/18 at 09:00; Stop 07/29/18 at 17:13; Status DC Finasteride (Proscar) 5 mg DAILY PO Last administered on 08/04/18at 08:34; Start 07/25/18 at 09:00 Albuterol/ Ipratropium (Duoneb) 3 ml RTQID NEB Last administered on 08/04/18 07:55; Start 07/25/18 at 08:30 Losartan Potassium (Cozaar) 50 mg BID PO Last administered on 07/30/18 21:18 ; Start 07/25/18 at 09:00; Stop 07/31/18 at 14:10; Status DC Metoprolol Tartrate (Lopressor) 25 mg BID PO Last administered on 08/04/18 09: 20; Start 07/25/18 at 09:00 Nystatin (Nystop) 1 narendra BID TP Last administered on 08/04/18 08:55; Start at 09:00 Nystatin (Nystop) 1 narendra BID TP ; Start 07/25/18 at 09:00; Stop 07/25/18 at 09: 00; Status DC Fish Oil (Fish Oil) 1,000 mg HS PO Last administered on 08/03/18 21:40; Start 07/25/18 at 21:00 Pregabalin (Lyrica) 50 mg TID PO Last administered on 08/04/18 08:34; Start 07/25/18 at 09:00 Tamsulosin HCl (Flomax) 0.4 mg DAILY PO Last administered on 08/04/18 08:34; Start 07/25/18 at 09:00 Trazodone HCl (Desyrel) 50 mg QHS PO Last administered on 08/03/18 21:40; Start 07/25/18 at 21:00 Atorvastatin Calcium (Lipitor) 80 mg QHS PO Last administered on 08/03/18 21: 40; Start 07/25/18 at 21:00 Benzonatate (Tessalon Perle) 100 mg PRN Q8HRS PRN PO COUGH Last administered on 07/30/18 12:06; Start 07/25/18 at 09:00 Duloxetine HCl (Cymbalta) 60 mg DAILY PO Last administered on 08/04/18 08:33; Start 07/25/18 at 09:00 Insulin Human Lispro (HumaLOG) 20 units TIDWMEALS SQ Last administered on 08:43; Start 07/25/18 at 08:30 Insulin Glargine (Lantus) 55 units QHS SQ Last administered on 08/03/18 22:32 ; Start 07/25/18 at 21:00 Magnesium Oxide (Magnesium Oxide) 400 mg DAILY PO Last administered on at 08:34; Start 07/25/18 at 09:00 Non-Formulary Medication (Melatonin ) 3 mg HS PO ; Start 07/25/18 at 21:00; Status UNV Non-Formulary Medication (Miconazole Nitrate ) 130 gm TID TP ; Start 07/25/18 at 09:00; Status UNV Multivitamins (Thera M Plus) 1 tab DAILY PO Last administered on 08/04/18 08: 33; Start 07/25/18 at 09:00 Non-Formulary Medication (Naltrexone Hcl ) 1 tab DAILY PO ; Start 07/25/18 at 09:00; Status UNV Insulin Human Lispro (HumaLOG) 0-9 UNITS TIDWMEALS SQ Last administered on at 17:37; Start 07/25/18 at 08:00 Dextrose (Dextrose 50%-Water Syringe) 12.5 gm PRN Q15MIN PRN IV SEE COMMENTS; Start 07/25/18 at 07:45 Furosemide (Lasix) 40 mg DAILY IVP Last administered on 07/29/18at 09:47; Start 07/25/18 at 09:00; Stop 07/30/18 at 08:09; Status DC Ceftriaxone Sodium 1 gm/ Dextrose 50 ml @ 100 mls/hr Q24H IV ; Start 07/25/18 at 07:45; Status UNV Ceftriaxone Sodium (Rocephin) 1 gm Q24H IVP Last administered on 08/02/18at 08: 59; Start 07/25/18 at 09:00; Stop 08/02/18 at 15:05; Status DC Acetaminophen/ Hydrocodone Bitart (Lortab 5/325) 1 tab PRN Q4HRS PRN PO MODERATE PAIN Last administered on 07/31/18at 09:09; Start 07/25/18 at 09:00 Acetaminophen/ Hydrocodone Bitart (Lortab 10/325) 1 tab PRN Q6HRS PRN PO SEVERE PAIN Last administered on 08/04/18at 08:33; Start 07/25/18 at 09:00 Acetaminophen (Tylenol) 500 mg PRN Q6HRS PRN PO MILD PAIN / TEMP; Start at 09:00 Ondansetron HCl (Zofran) 4 mg PRN Q6HRS PRN IV NAUSEA/VOMITING; Start at 09:00 Ondansetron HCl (Zofran Odt) 4 mg PRN Q6HRS PRN PO NAUSEA/VOMITING; Start at 09:00 Fentanyl Citrate (Fentanyl 2ml Vial) 50 mcg PRN Q2HR PRN IV MODERATE-SEVERE PAIN Last administered on 07/29/18at 10:07; Start 07/25/18 at 12:15 Alprazolam (Xanax) 0.5 mg PRN Q8HRS PRN PO ANXIETY / AGITATION Last administered on 08/03/18at 09:25; Start 07/25/18 at 12:15 Ascorbic Acid (Vitamin C) 500 mg DAILY PO Last administered on 08/04/18at 08:34 ; Start 07/26/18 at 13:00 Lactobacillus Rhamnosus (Culturelle) 1 cap BID PO Last administered on at 08:33; Start 07/26/18 at 21:00 Fentanyl Citrate (Fentanyl 2ml Vial) 100 mcg 1X ONCE IV Last administered on 07/27/18at 11:20; Start 07/27/18 at 10:00; Stop 07/27/18 at 10:01; Status DC Info (Anti-Coagulation Monitoring By Pharmacy) 1 each PRN DAILY PRN MC SEE COMMENTS; Start 07/28/18 at 15:00; Stop 07/28/18 at 15:00; Status DC Magnesium Citrate (Citroma) 296 ml 1X ONCE PO Last administered on 07/29/18at 14:40; Start 07/29/18 at 12:15; Stop 07/29/18 at 12:19; Status DC Lidocaine (Xylocaine) 1 narendra 1X ONCE TP Last administered on 07/29/18at 14:40; Start 07/29/18 at 12:15; Stop 07/29/18 at 12:19; Status DC Magnesium Hydroxide (Milk Of Magnesia) 2,400 mg 1X ONCE PO Last administered on 07/30/18at 12:05; Start 07/30/18 at 11:30; Stop 07/30/18 at 11:35; Status DC Magnesium Hydroxide (Milk Of Magnesia) 2,400 mg PRN DAILY PRN PO CONSTIPATION 2ND CHOICE; Start 07/30/18 at 11:30 Polyethylene Glycol (miraLAX PACKET) 17 gm 1X ONCE PO Last administered on at 12:05; Start 07/30/18 at 11:30; Stop 07/30/18 at 11:36; Status DC Polyethylene Glycol (miraLAX PACKET) 17 gm PRN DAILY PRN PO CONSTIPATION 1ST CHOICE; Start 07/30/18 at 11:30 Docusate Sodium (Colace) 100 mg DAILY PO Last administered on 08/04/18at 08:33; Start 07/30/18 at 12:00 Insulin Glargine (Lantus) 20 units DAILY SQ Last administered on 08/04/18at 09: 20; Start 07/31/18 at 08:15 Sodium Chloride 1,000 ml @ 100 mls/hr Q10H IV Last administered on 08/03/18at 04:38; Start 08/01/18 at 12:00; Stop 08/03/18 at 13:27; Status DC Cephalexin HCl (Keflex) 500 mg QID PO Last administered on 08/03/18at 21:40; Start 08/02/18 at 17:00; Stop 08/05/18 at 16:59 Active Scripts Active Enoxaparin Sodium 60 Mg/0.6 Ml Disp.syrin 60 Mg SQ Q12HR 30 Days Furosemide 20 Mg Tablet 20 Mg PO DAILY 30 Days Benadryl (Diphenhydramine Hcl) 25 Mg Capsule 50 Mg PO PRN QHS PRN 30 Days Duoneb 0.5-3(2.5) Mg/3 Ml (Albuterol/Ipratropium) 3 Ml Ampul.neb 3 Ml NEB RTQID 30 Days Lantus (Insulin Glargine,Hum.rec.anlog) 100 Unit/1 Ml Vial 55 Unit SQ HS 30 Days Reported Vitamin D3 (Cholecalciferol (Vitamin D3)) 1,000 Unit Tablet 1 Tab PO DAILY Nystatin 15 Gm Powder 1 Narendra TP BID Novolog Flexpen (Insulin Aspart) 100 Unit/1 Ml Insuln.pen 20 Unit SQ TIDAC Cephalexin 500 Mg Tablet 1 Tab PO QID Benzonatate 100 Mg Capsule 1 Cap PO Q8HRS PRN Multivitamins (Multivitamin) 1 Each Tablet 1 Tab PO DAILY Fish Oil 1,000 Mg Capsule (Pingree-3 Fatty Acids/Fish Oil) 1 Each Capsule 3 Each PO HS Children's Aspirin (Aspirin) 81 Mg Tab.chew 81 Mg PO DAILY Finasteride 5 Mg Tablet 1 Tab PO DAILY Trazodone Hcl 50 Mg Tablet 1 Tab PO QHS Tamsulosin Hcl 0.4 Mg Cap.er.24h 1 Cap PO DAILY Lyrica (Pregabalin) 50 Mg Capsule 1 Cap PO TID Nystatin 15 Gm Powder 1 Narendra TP BID Naltrexone Hcl 50 Mg Tablet 1 Tab PO DAILY Miconazole Nitrate 130 Gm Aero.powd 130 Gm TP TID Metoprolol Tartrate 25 Mg Tablet 1 Tab PO BID Melatonin 3 Mg Tablet 3 Mg PO HS Magnesium Oxide 400 Mg Tablet 1 Tab PO DAILY Losartan Potassium 50 Mg Tablet 50 Mg PO BID Hydrophilic Ointment 410 Gm Oint...g. 410 Gm TP PRN Cymbalta (Duloxetine Hcl) 60 Mg Capsule.dr 1 Cap PO DAILY Bupropion Xl (Bupropion Hcl) 150 Mg Tab.er.24h 1 Tab PO DAILYWBKFT Atorvastatin Calcium 80 Mg Tablet 80 Mg PO HS Vitals/I & O Vital Sign - Last 24 Hours 08/03/18 08/03/18 08/03/18 08/03/18 11:00 11:42 14:33 15:33 Temp 97.6 97.6 Pulse 64 Resp 25 18 18 B/P (MAP) 120/55 (76) Pulse Ox 100 97 97 97 O2 Delivery Breathing Treatment Nasal Cannula Nasal Cannula Nasal Cannula O2 Flow Rate 2.0 2.0 2.0 08/03/18 08/03/18 08/03/18 08/03/18 15:56 19:00 19:27 20:00 Temp 98.7 98.7 Pulse 85 Resp 18 B/P (MAP) 147/67 (93) Pulse Ox 95 96 O2 Delivery Nasal Cannula Room Air Nasal Cannula Nasal Cannula O2 Flow Rate 2.0 2.0 2.0 08/03/18 08/03/18 08/04/18 08/04/18 21:41 23:00 03:00 07:00 Temp 97.7 97.7 97.6 97.7 97.7 97.6 Pulse 64 119 77 52 Resp 20 18 18 B/P (MAP) 120/55 138/61 (86) 138/54 (82) 159/60 (93) Pulse Ox 96 95 94 O2 Delivery Nasal Cannula Nasal Cannula Nasal Cannula O2 Flow Rate 2.0 2.0 08/04/18 08/04/18 08/04/18 07:55 08:33 09:20 Pulse 52 Resp 20 B/P (MAP) 159/60 Pulse Ox 96 96 O2 Delivery Nasal Cannula Nasal Cannula O2 Flow Rate 2.0 2.0 Intake and Output 08/03/18 08/03/18 08/04/18 15:00 23:00 07:00 Intake Total 540 ml 360 ml Balance 540 ml 360 ml AHMET RAMIREZ MD Aug 04, 2018 10:42
[2018-08-04 11:00] VITALS: BP 135/82
[2018-08-04] MEDS: CEPHALEXIN 250 MG CAPSULE. PO SCH ×4 (12:01→20:33)
[2018-08-04] MEDS: ALPRAZolam 0.5 MG TABLET PO PRN (15:26)
[2018-08-04 19:00] VITALS: BP 140/61
[2018-08-04] MEDS: traZODone 50 MG TABLET. PO SCH (20:32)
[2018-08-04] MEDS: fentaNYL PF VIAL 100 MCG/2 ML VIAL IV PRN ×2 (20:32→21:31)
[2018-08-04] MEDS: diphenhydrAMINE HCL 25 MG CAPSULE PO PRN (20:33)
[2018-08-04] MEDS: ATORVASTATIN CALCIUM 40 MG TABLET. PO SCH (20:33)
[2018-08-04] MEDS: OMEGA-3 FATTY ACIDS/FISH OIL 1,000 MG CAPSULE. PO SCH (20:33)
[2018-08-04 23:00] VITALS: BP 135/76
[2018-08-05] MEDS: HYDROcodone/APAP 10/325 1 TAB TABLET PO PRN ×4 (00:04→21:06)
[2018-08-05 03:17] VITALS: BP 114/68
[2018-08-05] MEDS: IPRATRPIUM/ALBUTEROL 0.5/2.5MG 3 ML NEBU. NEB SCH ×4 (06:45→19:37)
[2018-08-05 07:08] VITALS: BP 131/68
[2018-08-05] MEDS: INSULIN LISPRO 300 UNITS/3 ML INSULN.PEN. SQ SCH ×6 (08:00→17:13)
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
[2018-08-05] MEDS: FINASTERIDE 5 MG TABLET. PO SCH (08:18)
[2018-08-05] MEDS: buPROPion XL 150 MG TAB.ER.24H. PO SCH (08:18)
[2018-08-05] MEDS: PREGABALIN 50 MG CAPSULE PO SCH ×3 (08:18→21:06)
[2018-08-05] MEDS: METOPROLOL TART IMMED RELEASE 25 MG TABLET. PO SCH ×2 (08:18→21:11)
[2018-08-05] MEDS: ASCORBIC ACID 500 MG TABLET PO SCH (08:18)
[2018-08-05] MEDS: LACTOBACILLUS RHAMNOSUS GG 1 CAPSULE. PO SCH ×2 (08:18→21:07)
[2018-08-05] MEDS: DULoxetine HCL 30 MG CAPSULE.DR PO SCH (08:19)
[2018-08-05] MEDS: TAMSULOSIN 0.4 MG CAP.ER.24H. PO SCH (08:19)
[2018-08-05] MEDS: MAGNESIUM OXIDE 400 MG TABLET PO SCH (08:19)
[2018-08-05] MEDS: CEPHALEXIN 250 MG CAPSULE. PO SCH ×2 (08:19→12:24)
[2018-08-05] MEDS: MULTIVITAMIN with MINERAL TABLET. PO SCH (08:19)
[2018-08-05] MEDS: DOCUSATE SODIUM 100 MG CAPSULE. PO SCH (08:19)
[2018-08-05] MEDS: CHOLECALCIFEROL (VITAMIN D3) 1,000 UNIT TABLET PO SCH (08:19)
[2018-08-05] MEDS: INSULIN GLARGINE 300 UNITS/3 ML INSULN.PEN. SQ SCH ×2 (08:29→21:00)
[2018-08-05] MEDS: NYSTATIN TOPICAL POWDER 15GM BOTTLE. TP SCH ×2 (09:00→21:00)
--- NOTE | 2018-08-05 09:31 | PDOC ---
PROGRESS NOTES Subjective Subjective He c/o left lower quadrant abdominal pain and pain medicine he is on not easing his pain. As for nursing staff he tried to cut himself with eating knife. Objective Objective Vital Signs Date Time Temp Pulse Resp B/P (MAP) Pulse Ox O2 Delivery O2 Flow Rate FiO2 08/05/18 08:33 Nasal Cannula 2.0 08/05/18 08:18 70 131/68 08/05/18 07:08 97.4 22 96 97.4 Intake and Output 08/05/18 07:00 Intake Total 1045 ml Balance 1045 ml Intake Oral 1045 ml # Voids 5 Physical Exam Physical Exam He is sitting up in bedside chair with one on one nursing supervision and he continues with weakness of left quadriceps muscle weakness and mobility and self care limitations. Assessment Assessment Problems Medical Problems: (1) Cellulitis of leg Status: Acute (2) Morbid obesity Status: Acute Plan Plan of Care To SNF when arrangements are completed. Comment Review of Relevant I have reviewed the following items verena (where applicable) has been applied. Labs Laboratory Tests Test 08/03/18 11:47 08/03/18 12:10 08/03/18 16:46 08/03/18 20:34 Glucose (Fingerstick) 82 mg/dL (70-99) 125 mg/dL (70-99) 187 mg/dL (70-99) White Blood Count 8.1 x10^3/uL (4.0-11.0) Red Blood Count 2.96 x10^6/uL (4.30-5.70) Hemoglobin 8.8 g/dL (13.0-17.5) Hematocrit 25.7 % (39.0-53.0) Mean Corpuscular Volume 87 fL (79-100) Mean Corpuscular Hemoglobin 30 pg (25-35) Mean Corpuscular Hemoglobin Concent 34 g/dL (31-37) Red Cell Distribution Width 16.1 % (11.5-14.5) Platelet Count 305 x10^3/uL (140-400) Neutrophils (%) (Auto) 70 % (31-73) Lymphocytes (%) (Auto) 17 % (24-48) Monocytes (%) (Auto) 9 % (0-9) Eosinophils (%) (Auto) 4 % (0-3) Basophils (%) (Auto) 1 % (0-3) Neutrophils # (Auto) 5.7 x10^3uL (1.8-7.7) Lymphocytes # (Auto) 1.4 x10^3/uL (1.0-4.8) Monocytes # (Auto) 0.7 x10^3/uL (0.0-1.1) Eosinophils # (Auto) 0.3 x10^3/uL (0.0-0.7) Basophils # (Auto) 0.0 x10^3/uL (0.0-0.2) Sodium Level 137 mmol/L (136-145) Potassium Level 4.0 mmol/L (3.5-5.1) Chloride Level 100 mmol/L (98-107) Carbon Dioxide Level 29 mmol/L (21-32) Anion Gap 8 (6-14) Blood Urea Nitrogen 45 mg/dL (8-26) Creatinine 0.9 mg/dL (0.7-1.3) Estimated GFR (Cockcroft-Gault) 83.2 Glucose Level 85 mg/dL (70-99) Calcium Level 8.8 mg/dL (8.5-10.1) Test 08/04/18 03:55 08/04/18 07:51 08/04/18 18:38 08/04/18 20:36 White Blood Count 8.7 x10^3/uL (4.0-11.0) Red Blood Count 2.94 x10^6/uL (4.30-5.70) Hemoglobin 8.8 g/dL (13.0-17.5) Hematocrit 25.4 % (39.0-53.0) Mean Corpuscular Volume 87 fL (79-100) Mean Corpuscular Hemoglobin 30 pg (25-35) Mean Corpuscular Hemoglobin Concent 35 g/dL (31-37) Red Cell Distribution Width 16.1 % (11.5-14.5) Platelet Count 292 x10^3/uL (140-400) Neutrophils (%) (Auto) 72 % (31-73) Lymphocytes (%) (Auto) 14 % (24-48) Monocytes (%) (Auto) 9 % (0-9) Eosinophils (%) (Auto) 4 % (0-3) Basophils (%) (Auto) 0 % (0-3) Neutrophils # (Auto) 6.3 x10^3uL (1.8-7.7) Lymphocytes # (Auto) 1.2 x10^3/uL (1.0-4.8) Monocytes # (Auto) 0.8 x10^3/uL (0.0-1.1) Eosinophils # (Auto) 0.3 x10^3/uL (0.0-0.7) Basophils # (Auto) 0.0 x10^3/uL (0.0-0.2) Sodium Level 136 mmol/L (136-145) Potassium Level 3.9 mmol/L (3.5-5.1) Chloride Level 100 mmol/L (98-107) Carbon Dioxide Level 31 mmol/L (21-32) Anion Gap 5 (6-14) Blood Urea Nitrogen 37 mg/dL (8-26) Creatinine 0.9 mg/dL (0.7-1.3) Estimated GFR (Cockcroft-Gault) 83.2 Glucose Level 140 mg/dL (70-99) Calcium Level 9.1 mg/dL (8.5-10.1) Glucose (Fingerstick) 101 mg/dL (70-99) 204 mg/dL (70-99) 268 mg/dL (70-99) Test 08/05/18 07:27 Glucose (Fingerstick) 120 mg/dL (70-99) Laboratory Tests Test 08/04/18 18:38 08/04/18 20:36 08/05/18 07:27 Glucose (Fingerstick) 204 mg/dL (70-99) 268 mg/dL (70-99) 120 mg/dL (70-99) Medications Current Medications Oxycodone/ Acetaminophen (Percocet 5/325) 2 tab 1X ONCE PO Last administered on 07/25/18at 00:45; Start 07/25/18 at 00:45; Stop 07/25/18 at 00:46; Status DC Oxycodone/ Acetaminophen (Percocet 5/325) 1 tab STK-MED ONCE .ROUTE ; Start at 00:41; Stop 07/25/18 at 00:42; Status DC Ondansetron HCl (Zofran) 4 mg PRN Q8HRS PRN IV NAUSEA/VOMITING; Start at 01:45; Stop 07/26/18 at 01:44; Status DC Morphine Sulfate (Morphine Sulfate) 4 mg PRN Q2HR PRN IV PAIN Last administered on 07/25/18at 11:27; Start 07/25/18 at 01:45; Stop 07/26/18 at 01 :44; Status DC Acetaminophen (Tylenol) 650 mg PRN Q4HRS PRN PO FEVER Last administered on at 08:38; Start 07/25/18 at 01:45; Stop 07/25/18 at 15:48; Status DC Clindamycin Phosphate 50 ml @ 100 mls/hr 1X ONCE IV Last administered on at 03:29; Start 07/25/18 at 02:30; Stop 07/25/18 at 02:59; Status DC Morphine Sulfate (Morphine Sulfate) 6 mg 1X ONCE IV Last administered on 07/25at 03:29; Start 07/25/18 at 02:30; Stop 07/25/18 at 02:31; Status DC Aspirin (Children'S Aspirin) 81 mg DAILY PO Last administered on 07/29/18at 09: 47; Start 07/25/18 at 09:00; Stop 07/29/18 at 17:13; Status DC Bupropion HCl (Wellbutrin Xl) 150 mg DAILYWBKFT PO Last administered on at 08:18; Start 07/25/18 at 08:00 Vitamin D (Vitamin D3) 1,000 unit DAILY PO Last administered on 08/05/18at 08:19 ; Start 07/25/18 at 09:00 Diphenhydramine HCl (Benadryl) 50 mg PRN QHS PRN PO INSOMNIA Last administered on 08/04/18at 20:33; Start 07/25/18 at 07:45 Enoxaparin Sodium (Lovenox 60mg Syringe) 60 mg Q12HR SQ Last administered on at 09:50; Start 07/25/18 at 09:00; Stop 07/29/18 at 17:13; Status DC Finasteride (Proscar) 5 mg DAILY PO Last administered on 08/05/18at 08:18; Start 07/25/18 at 09:00 Albuterol/ Ipratropium (Duoneb) 3 ml RTQID NEB Last administered on 08/05/18 06:45; Start 07/25/18 at 08:30 Losartan Potassium (Cozaar) 50 mg BID PO Last administered on 07/30/18 21:18 ; Start 07/25/18 at 09:00; Stop 07/31/18 at 14:10; Status DC Metoprolol Tartrate (Lopressor) 25 mg BID PO Last administered on 08/05/18 08: 18; Start 07/25/18 at 09:00 Nystatin (Nystop) 1 narendra BID TP Last administered on 08/04/18 20:33; Start at 09:00 Nystatin (Nystop) 1 narendra BID TP ; Start 07/25/18 at 09:00; Stop 07/25/18 at 09: 00; Status DC Fish Oil (Fish Oil) 1,000 mg HS PO Last administered on 08/04/18 20:33; Start 07/25/18 at 21:00 Pregabalin (Lyrica) 50 mg TID PO Last administered on 08/05/18 08:18; Start 07/25/18 at 09:00 Tamsulosin HCl (Flomax) 0.4 mg DAILY PO Last administered on 08/05/18 08:19; Start 07/25/18 at 09:00 Trazodone HCl (Desyrel) 50 mg QHS PO Last administered on 08/04/18 20:32; Start 07/25/18 at 21:00 Atorvastatin Calcium (Lipitor) 80 mg QHS PO Last administered on 08/04/18 20: 33; Start 07/25/18 at 21:00 Benzonatate (Tessalon Perle) 100 mg PRN Q8HRS PRN PO COUGH Last administered on 07/30/18 12:06; Start 07/25/18 at 09:00 Duloxetine HCl (Cymbalta) 60 mg DAILY PO Last administered on 08/05/18 08:19; Start 07/25/18 at 09:00 Insulin Human Lispro (HumaLOG) 20 units TIDWMEALS SQ Last administered on 08:28; Start 07/25/18 at 08:30 Insulin Glargine (Lantus) 55 units QHS SQ Last administered on 08/04/18at 20:39 ; Start 07/25/18 at 21:00 Magnesium Oxide (Magnesium Oxide) 400 mg DAILY PO Last administered on at 08:19; Start 07/25/18 at 09:00 Non-Formulary Medication (Melatonin ) 3 mg HS PO ; Start 07/25/18 at 21:00; Status UNV Non-Formulary Medication (Miconazole Nitrate ) 130 gm TID TP ; Start 07/25/18 at 09:00; Status UNV Multivitamins (Thera M Plus) 1 tab DAILY PO Last administered on 08/05/18at 08: 19; Start 07/25/18 at 09:00 Non-Formulary Medication (Naltrexone Hcl ) 1 tab DAILY PO ; Start 07/25/18 at 09:00; Status UNV Insulin Human Lispro (HumaLOG) 0-9 UNITS TIDWMEALS SQ Last administered on at 17:37; Start 07/25/18 at 08:00 Dextrose (Dextrose 50%-Water Syringe) 12.5 gm PRN Q15MIN PRN IV SEE COMMENTS; Start 07/25/18 at 07:45 Furosemide (Lasix) 40 mg DAILY IVP Last administered on 07/29/18at 09:47; Start 07/25/18 at 09:00; Stop 07/30/18 at 08:09; Status DC Ceftriaxone Sodium 1 gm/ Dextrose 50 ml @ 100 mls/hr Q24H IV ; Start 07/25/18 at 07:45; Status UNV Ceftriaxone Sodium (Rocephin) 1 gm Q24H IVP Last administered on 08/02/18at 08: 59; Start 07/25/18 at 09:00; Stop 08/02/18 at 15:05; Status DC Acetaminophen/ Hydrocodone Bitart (Lortab 5/325) 1 tab PRN Q4HRS PRN PO MODERATE PAIN Last administered on 07/31/18at 09:09; Start 07/25/18 at 09:00 Acetaminophen/ Hydrocodone Bitart (Lortab 10/325) 1 tab PRN Q6HRS PRN PO SEVERE PAIN Last administered on 08/04/18at 14:48; Start 07/25/18 at 09:00; Stop 08/04/18 at 18:33; Status DC Acetaminophen (Tylenol) 500 mg PRN Q6HRS PRN PO MILD PAIN / TEMP; Start at 09:00 Ondansetron HCl (Zofran) 4 mg PRN Q6HRS PRN IV NAUSEA/VOMITING; Start at 09:00 Ondansetron HCl (Zofran Odt) 4 mg PRN Q6HRS PRN PO NAUSEA/VOMITING; Start at 09:00 Fentanyl Citrate (Fentanyl 2ml Vial) 50 mcg PRN Q2HR PRN IV MODERATE-SEVERE PAIN Last administered on 08/04/18at 21:31; Start 07/25/18 at 12:15 Alprazolam (Xanax) 0.5 mg PRN Q8HRS PRN PO ANXIETY / AGITATION Last administered on 08/04/18at 15:26; Start 07/25/18 at 12:15 Ascorbic Acid (Vitamin C) 500 mg DAILY PO Last administered on 08/05/18at 08:18 ; Start 07/26/18 at 13:00 Lactobacillus Rhamnosus (Culturelle) 1 cap BID PO Last administered on at 08:18; Start 07/26/18 at 21:00 Fentanyl Citrate (Fentanyl 2ml Vial) 100 mcg 1X ONCE IV Last administered on 07/27/18at 11:20; Start 07/27/18 at 10:00; Stop 07/27/18 at 10:01; Status DC Info (Anti-Coagulation Monitoring By Pharmacy) 1 each PRN DAILY PRN MC SEE COMMENTS; Start 07/28/18 at 15:00; Stop 07/28/18 at 15:00; Status DC Magnesium Citrate (Citroma) 296 ml 1X ONCE PO Last administered on 07/29/18at 14:40; Start 07/29/18 at 12:15; Stop 07/29/18 at 12:19; Status DC Lidocaine (Xylocaine) 1 narendra 1X ONCE TP Last administered on 07/29/18at 14:40; Start 07/29/18 at 12:15; Stop 07/29/18 at 12:19; Status DC Magnesium Hydroxide (Milk Of Magnesia) 2,400 mg 1X ONCE PO Last administered on 07/30/18at 12:05; Start 07/30/18 at 11:30; Stop 07/30/18 at 11:35; Status DC Magnesium Hydroxide (Milk Of Magnesia) 2,400 mg PRN DAILY PRN PO CONSTIPATION 2ND CHOICE; Start 07/30/18 at 11:30 Polyethylene Glycol (miraLAX PACKET) 17 gm 1X ONCE PO Last administered on at 12:05; Start 07/30/18 at 11:30; Stop 07/30/18 at 11:36; Status DC Polyethylene Glycol (miraLAX PACKET) 17 gm PRN DAILY PRN PO CONSTIPATION 1ST CHOICE; Start 07/30/18 at 11:30 Docusate Sodium (Colace) 100 mg DAILY PO Last administered on 08/05/18at 08:19; Start 07/30/18 at 12:00 Insulin Glargine (Lantus) 20 units DAILY SQ Last administered on 08/05/18at 08: 29; Start 07/31/18 at 08:15 Sodium Chloride 1,000 ml @ 100 mls/hr Q10H IV Last administered on 08/03/18at 04:38; Start 08/01/18 at 12:00; Stop 08/03/18 at 13:27; Status DC Cephalexin HCl (Keflex) 500 mg QID PO Last administered on 08/05/18at 08:19; Start 08/02/18 at 17:00; Stop 08/05/18 at 16:59 Acetaminophen/ Hydrocodone Bitart (Lortab 10/325) 1 tab PRN Q4HRS PRN PO SEVERE PAIN Last administered on 08/05/18at 08:33; Start 08/04/18 at 18:45 Active Scripts Active Enoxaparin Sodium 60 Mg/0.6 Ml Disp.syrin 60 Mg SQ Q12HR 30 Days Furosemide 20 Mg Tablet 20 Mg PO DAILY 30 Days Benadryl (Diphenhydramine Hcl) 25 Mg Capsule 50 Mg PO PRN QHS PRN 30 Days Duoneb 0.5-3(2.5) Mg/3 Ml (Albuterol/Ipratropium) 3 Ml Ampul.neb 3 Ml NEB RTQID 30 Days Lantus (Insulin Glargine,Hum.rec.anlog) 100 Unit/1 Ml Vial 55 Unit SQ HS 30 Days Reported Vitamin D3 (Cholecalciferol (Vitamin D3)) 1,000 Unit Tablet 1 Tab PO DAILY Nystatin 15 Gm Powder 1 Narendra TP BID Novolog Flexpen (Insulin Aspart) 100 Unit/1 Ml Insuln.pen 20 Unit SQ TIDAC Cephalexin 500 Mg Tablet 1 Tab PO QID Benzonatate 100 Mg Capsule 1 Cap PO Q8HRS PRN Multivitamins (Multivitamin) 1 Each Tablet 1 Tab PO DAILY Fish Oil 1,000 Mg Capsule ([place]-3 Fatty Acids/Fish Oil) 1 Each Capsule 3 Each PO HS Children's Aspirin (Aspirin) 81 Mg Tab.chew 81 Mg PO DAILY Finasteride 5 Mg Tablet 1 Tab PO DAILY Trazodone Hcl 50 Mg Tablet 1 Tab PO QHS Tamsulosin Hcl 0.4 Mg Cap.er.24h 1 Cap PO DAILY Lyrica (Pregabalin) 50 Mg Capsule 1 Cap PO TID Nystatin 15 Gm Powder 1 Narendra TP BID Naltrexone Hcl 50 Mg Tablet 1 Tab PO DAILY Miconazole Nitrate 130 Gm Aero.powd 130 Gm TP TID Metoprolol Tartrate 25 Mg Tablet 1 Tab PO BID Melatonin 3 Mg Tablet 3 Mg PO HS Magnesium Oxide 400 Mg Tablet 1 Tab PO DAILY Losartan Potassium 50 Mg Tablet 50 Mg PO BID Hydrophilic Ointment 410 Gm Oint...g. 410 Gm TP PRN Cymbalta (Duloxetine Hcl) 60 Mg Capsule.dr 1 Cap PO DAILY Bupropion Xl (Bupropion Hcl) 150 Mg Tab.er.24h 1 Tab PO DAILYWBKFT Atorvastatin Calcium 80 Mg Tablet 80 Mg PO HS Vitals/I & O Vital Sign - Last 24 Hours 08/04/18 08/04/18 08/04/18 08/04/18 11:00 14:48 15:34 15:48 Temp 97.6 97.6 Pulse 78 Resp 18 20 B/P (MAP) 135/82 (99) Pulse Ox 96 96 96 O2 Delivery Nasal Cannula Nasal Cannula Nasal Cannula Nasal Cannula O2 Flow Rate 2.0 2.0 2.0 08/04/18 08/04/18 08/04/18 08/04/18 18:37 19:00 19:23 20:00 Pulse 81 Resp 18 19 B/P (MAP) 140/61 (87) Pulse Ox 96 95 98 O2 Delivery Nasal Cannula Nasal Cannula Nasal Cannula Nasal Cannula O2 Flow Rate 2.0 2.0 2.0 2.0 08/04/18 08/04/18 08/04/18 08/04/18 20:32 21:31 22:01 23:00 Temp 98.2 98.2 Pulse 81 73 Resp 18 B/P (MAP) 140/61 135/76 (95) Pulse Ox 98 98 98 O2 Delivery Nasal Cannula Nasal Cannula Nasal Cannula O2 Flow Rate 2.0 2.0 2.0 08/05/18 08/05/18 08/05/18 08/05/18 00:04 03:17 04:15 05:15 Temp 97.7 97.7 Pulse 67 Resp 21 B/P (MAP) 114/68 (83) Pulse Ox 98 95 95 95 O2 Delivery Nasal Cannula Nasal Cannula Nasal Cannula Nasal Cannula O2 Flow Rate 2.0 2.0 2.0 2.0 08/05/18 08/05/18 08/05/18 08/05/18 06:46 07:08 08:05 08:18 Temp 97.4 97.4 Pulse 70 70 Resp 22 B/P (MAP) 131/68 (89) 131/68 Pulse Ox 98 96 O2 Delivery Nasal Cannula Nasal Cannula Nasal Cannula O2 Flow Rate 1.0 2.0 2.0 08/05/18 08:33 O2 Delivery Nasal Cannula O2 Flow Rate 2.0 Intake and Output 08/04/18 08/04/18 08/05/18 15:00 23:00 07:00 Intake Total 220 ml 425 ml 400 ml Balance 220 ml 425 ml 400 ml AHMET RAMIREZ MD Aug 05, 2018 09:31
[2018-08-05 11:17] VITALS: BP 115/60
[2018-08-05] MEDS: oxyCODONE/APAP 10/325 1 TAB TABLET PO PRN (12:24)
[2018-08-05 15:02] VITALS: BP 122/59
[2018-08-05 19:00] VITALS: BP 150/61
[2018-08-05] MEDS: ATORVASTATIN CALCIUM 40 MG TABLET. PO SCH (21:06)
[2018-08-05] MEDS: traZODone 50 MG TABLET. PO SCH (21:07)
[2018-08-05] MEDS: OMEGA-3 FATTY ACIDS/FISH OIL 1,000 MG CAPSULE. PO SCH (21:12)
[2018-08-05 23:00] VITALS: BP 108/66
[2018-08-06] MEDS: HYDROcodone/APAP 10/325 1 TAB TABLET PO PRN ×2 (01:32→06:31)
[2018-08-06 03:00] VITALS: BP 129/44
[2018-08-06 07:00] VITALS: BP 138/55
[2018-08-06] MEDS: IPRATRPIUM/ALBUTEROL 0.5/2.5MG 3 ML NEBU. NEB SCH ×4 (07:27→20:13)
[2018-08-06] MEDS: DULoxetine HCL 30 MG CAPSULE.DR PO SCH (08:42)
[2018-08-06] MEDS: MAGNESIUM OXIDE 400 MG TABLET PO SCH (08:42)
[2018-08-06] MEDS: PREGABALIN 50 MG CAPSULE PO SCH ×3 (08:42→21:03)
[2018-08-06] MEDS: LACTOBACILLUS RHAMNOSUS GG 1 CAPSULE. PO SCH ×2 (08:42→21:02)
[2018-08-06] MEDS: FINASTERIDE 5 MG TABLET. PO SCH (08:42)
[2018-08-06] MEDS: buPROPion XL 150 MG TAB.ER.24H. PO SCH (08:42)
[2018-08-06] MEDS: METOPROLOL TART IMMED RELEASE 25 MG TABLET. PO SCH ×2 (08:42→21:02)
[2018-08-06] MEDS: CHOLECALCIFEROL (VITAMIN D3) 1,000 UNIT TABLET PO SCH (08:42)
[2018-08-06] MEDS: MULTIVITAMIN with MINERAL TABLET. PO SCH (08:42)
[2018-08-06] MEDS: DOCUSATE SODIUM 100 MG CAPSULE. PO SCH (08:42)
[2018-08-06] MEDS: TAMSULOSIN 0.4 MG CAP.ER.24H. PO SCH (08:43)
[2018-08-06] MEDS: ASCORBIC ACID 500 MG TABLET PO SCH (08:43)
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
[2018-08-06] MEDS: INSULIN LISPRO 300 UNITS/3 ML INSULN.PEN. SQ SCH ×6 (08:47→17:35)
[2018-08-06] MEDS: INSULIN GLARGINE 300 UNITS/3 ML INSULN.PEN. SQ SCH ×2 (08:48→21:07)
[2018-08-06] MEDS: NYSTATIN TOPICAL POWDER 15GM BOTTLE. TP SCH ×2 (09:00→21:00)
[2018-08-06] MEDS: oxyCODONE/APAP 10/325 1 TAB TABLET PO PRN ×3 (09:44→22:42)
--- NOTE | 2018-08-06 09:52 | PDOC ---
PROGRESS NOTES Subjective Subjective He admits continued left lower quadrant abdominal area pain and hydrocodone is not helping and as for physical therapy notes increased pain with any activity. Objective Objective Vital Signs Date Time Temp Pulse Resp B/P (MAP) Pulse Ox O2 Delivery O2 Flow Rate FiO2 08/06/18 09:44 Nasal Cannula 08/06/18 08:42 80 138/55 08/06/18 08:00 1.0 08/06/18 07:28 98 08/06/18 07:00 97.8 20 97.8 Intake and Output 08/06/18 07:00 Intake Total 600 ml Output Total 100 ml Balance 500 ml Intake Oral 600 ml Output Urine Total 100 ml # Voids 4 # Bowel Movements 1 Physical Exam Physical Exam He is alert,supine in bed with head end propped up and he continues with weaness of left quadriceps muscle interfering with his mobility. Assessment Assessment Problems Medical Problems: (1) Cellulitis of leg Status: Acute (2) Morbid obesity Status: Acute Plan Plan of Care To try percocet for better pain control and agree with plans for transfer to SNF when medically stable. Comment Review of Relevant I have reviewed the following items verena (where applicable) has been applied. Labs Laboratory Tests Test 08/04/18 18:38 08/04/18 20:36 08/05/18 07:27 08/05/18 10:47 Glucose (Fingerstick) 204 mg/dL (70-99) 268 mg/dL (70-99) 120 mg/dL (70-99) 161 mg/dL (70-99) Test 08/05/18 16:41 08/05/18 20:57 08/06/18 07:29 Glucose (Fingerstick) 130 mg/dL (70-99) 152 mg/dL (70-99) 159 mg/dL (70-99) Laboratory Tests Test 08/05/18 10:47 08/05/18 16:41 08/05/18 20:57 08/06/18 07:29 Glucose (Fingerstick) 161 mg/dL (70-99) 130 mg/dL (70-99) 152 mg/dL (70-99) 159 mg/dL (70-99) Medications Current Medications Oxycodone/ Acetaminophen (Percocet 5/325) 2 tab 1X ONCE PO Last administered on 07/25/18at 00:45; Start 07/25/18 at 00:45; Stop 07/25/18 at 00:46; Status DC Oxycodone/ Acetaminophen (Percocet 5/325) 1 tab STK-MED ONCE .ROUTE ; Start at 00:41; Stop 07/25/18 at 00:42; Status DC Ondansetron HCl (Zofran) 4 mg PRN Q8HRS PRN IV NAUSEA/VOMITING; Start at 01:45; Stop 07/26/18 at 01:44; Status DC Morphine Sulfate (Morphine Sulfate) 4 mg PRN Q2HR PRN IV PAIN Last administered on 07/25/18at 11:27; Start 07/25/18 at 01:45; Stop 07/26/18 at 01 :44; Status DC Acetaminophen (Tylenol) 650 mg PRN Q4HRS PRN PO FEVER Last administered on at 08:38; Start 07/25/18 at 01:45; Stop 07/25/18 at 15:48; Status DC Clindamycin Phosphate 50 ml @ 100 mls/hr 1X ONCE IV Last administered on at 03:29; Start 07/25/18 at 02:30; Stop 07/25/18 at 02:59; Status DC Morphine Sulfate (Morphine Sulfate) 6 mg 1X ONCE IV Last administered on 07/25at 03:29; Start 07/25/18 at 02:30; Stop 07/25/18 at 02:31; Status DC Aspirin (Children'S Aspirin) 81 mg DAILY PO Last administered on 07/29/18at 09: 47; Start 07/25/18 at 09:00; Stop 07/29/18 at 17:13; Status DC Bupropion HCl (Wellbutrin Xl) 150 mg DAILYWBKFT PO Last administered on at 08:42; Start 07/25/18 at 08:00 Vitamin D (Vitamin D3) 1,000 unit DAILY PO Last administered on 08/06/18at 08:42 ; Start 07/25/18 at 09:00 Diphenhydramine HCl (Benadryl) 50 mg PRN QHS PRN PO INSOMNIA Last administered on 08/04/18at 20:33; Start 07/25/18 at 07:45 Enoxaparin Sodium (Lovenox 60mg Syringe) 60 mg Q12HR SQ Last administered on 09:50; Start 07/25/18 at 09:00; Stop 07/29/18 at 17:13; Status DC Finasteride (Proscar) 5 mg DAILY PO Last administered on 08/06/18 08:42; Start 07/25/18 at 09:00 Albuterol/ Ipratropium (Duoneb) 3 ml RTQID NEB Last administered on 08/06/18 07:27; Start 07/25/18 at 08:30 Losartan Potassium (Cozaar) 50 mg BID PO Last administered on 07/30/18 21:18 ; Start 07/25/18 at 09:00; Stop 07/31/18 at 14:10; Status DC Metoprolol Tartrate (Lopressor) 25 mg BID PO Last administered on 08/06/18 08: 42; Start 07/25/18 at 09:00 Nystatin (Nystop) 1 narendra BID TP Last administered on 08/06/18at 09:00; Start at 09:00 Nystatin (Nystop) 1 narendra BID TP ; Start 07/25/18 at 09:00; Stop 07/25/18 at 09: 00; Status DC Fish Oil (Fish Oil) 1,000 mg HS PO Last administered on 08/05/18 21:12; Start 07/25/18 at 21:00 Pregabalin (Lyrica) 50 mg TID PO Last administered on 08/06/18 08:42; Start 07/25/18 at 09:00 Tamsulosin HCl (Flomax) 0.4 mg DAILY PO Last administered on 08/06/18 08:43; Start 07/25/18 at 09:00 Trazodone HCl (Desyrel) 50 mg QHS PO Last administered on 08/05/18 21:07; Start 07/25/18 at 21:00 Atorvastatin Calcium (Lipitor) 80 mg QHS PO Last administered on 08/05/18 21: 06; Start 07/25/18 at 21:00 Benzonatate (Tessalon Perle) 100 mg PRN Q8HRS PRN PO COUGH Last administered on 07/30/18at 12:06; Start 07/25/18 at 09:00 Duloxetine HCl (Cymbalta) 60 mg DAILY PO Last administered on 08/06/18 08:42; Start 07/25/18 at 09:00 Insulin Human Lispro (HumaLOG) 20 units TIDWMEALS SQ Last administered on at 08:47; Start 07/25/18 at 08:30 Insulin Glargine (Lantus) 55 units QHS SQ Last administered on 08/05/18at 21:00 ; Start 07/25/18 at 21:00 Magnesium Oxide (Magnesium Oxide) 400 mg DAILY PO Last administered on 08:42; Start 07/25/18 at 09:00 Non-Formulary Medication (Melatonin ) 3 mg HS PO ; Start 07/25/18 at 21:00; Status UNV Non-Formulary Medication (Miconazole Nitrate ) 130 gm TID TP ; Start 07/25/18 at 09:00; Status UNV Multivitamins (Thera M Plus) 1 tab DAILY PO Last administered on 08/06/18at 08: 42; Start 07/25/18 at 09:00 Non-Formulary Medication (Naltrexone Hcl ) 1 tab DAILY PO ; Start 07/25/18 at 09:00; Status UNV Insulin Human Lispro (HumaLOG) 0-9 UNITS TIDWMEALS SQ Last administered on 08/06at 08:49; Start 07/25/18 at 08:00 Dextrose (Dextrose 50%-Water Syringe) 12.5 gm PRN Q15MIN PRN IV SEE COMMENTS; Start 07/25/18 at 07:45 Furosemide (Lasix) 40 mg DAILY IVP Last administered on 07/29/18at 09:47; Start 07/25/18 at 09:00; Stop 07/30/18 at 08:09; Status DC Ceftriaxone Sodium 1 gm/ Dextrose 50 ml @ 100 mls/hr Q24H IV ; Start 07/25/18 at 07:45; Status UNV Ceftriaxone Sodium (Rocephin) 1 gm Q24H IVP Last administered on 08/02/18at 08: 59; Start 07/25/18 at 09:00; Stop 08/02/18 at 15:05; Status DC Acetaminophen/ Hydrocodone Bitart (Lortab 5/325) 1 tab PRN Q4HRS PRN PO MODERATE PAIN Last administered on 07/31/18at 09:09; Start 07/25/18 at 09:00 Acetaminophen/ Hydrocodone Bitart (Lortab 10/325) 1 tab PRN Q6HRS PRN PO SEVERE PAIN Last administered on 08/04/18at 14:48; Start 07/25/18 at 09:00; Stop 08/04/18 at 18:33; Status DC Acetaminophen (Tylenol) 500 mg PRN Q6HRS PRN PO MILD PAIN / TEMP; Start at 09:00 Ondansetron HCl (Zofran) 4 mg PRN Q6HRS PRN IV NAUSEA/VOMITING; Start at 09:00 Ondansetron HCl (Zofran Odt) 4 mg PRN Q6HRS PRN PO NAUSEA/VOMITING; Start at 09:00 Fentanyl Citrate (Fentanyl 2ml Vial) 50 mcg PRN Q2HR PRN IV MODERATE-SEVERE PAIN Last administered on 08/04/18at 21:31; Start 07/25/18 at 12:15 Alprazolam (Xanax) 0.5 mg PRN Q8HRS PRN PO ANXIETY / AGITATION Last administered on 08/04/18at 15:26; Start 07/25/18 at 12:15 Ascorbic Acid (Vitamin C) 500 mg DAILY PO Last administered on 08/06/18at 08:43 ; Start 07/26/18 at 13:00 Lactobacillus Rhamnosus (Culturelle) 1 cap BID PO Last administered on at 08:42; Start 07/26/18 at 21:00 Fentanyl Citrate (Fentanyl 2ml Vial) 100 mcg 1X ONCE IV Last administered on 07/27/18at 11:20; Start 07/27/18 at 10:00; Stop 07/27/18 at 10:01; Status DC Info (Anti-Coagulation Monitoring By Pharmacy) 1 each PRN DAILY PRN MC SEE COMMENTS; Start 07/28/18 at 15:00; Stop 07/28/18 at 15:00; Status DC Magnesium Citrate (Citroma) 296 ml 1X ONCE PO Last administered on 07/29/18at 14:40; Start 07/29/18 at 12:15; Stop 07/29/18 at 12:19; Status DC Lidocaine (Xylocaine) 1 narendra 1X ONCE TP Last administered on 07/29/18at 14:40; Start 07/29/18 at 12:15; Stop 07/29/18 at 12:19; Status DC Magnesium Hydroxide (Milk Of Magnesia) 2,400 mg 1X ONCE PO Last administered on 07/30/18at 12:05; Start 07/30/18 at 11:30; Stop 07/30/18 at 11:35; Status DC Magnesium Hydroxide (Milk Of Magnesia) 2,400 mg PRN DAILY PRN PO CONSTIPATION 2ND CHOICE; Start 07/30/18 at 11:30 Polyethylene Glycol (miraLAX PACKET) 17 gm 1X ONCE PO Last administered on at 12:05; Start 07/30/18 at 11:30; Stop 07/30/18 at 11:36; Status DC Polyethylene Glycol (miraLAX PACKET) 17 gm PRN DAILY PRN PO CONSTIPATION 1ST CHOICE; Start 07/30/18 at 11:30 Docusate Sodium (Colace) 100 mg DAILY PO Last administered on 08/06/18at 08:42; Start 07/30/18 at 12:00 Insulin Glargine (Lantus) 20 units DAILY SQ Last administered on 08/06/18at 08: 48; Start 07/31/18 at 08:15 Sodium Chloride 1,000 ml @ 100 mls/hr Q10H IV Last administered on 08/03/18at 04:38; Start 08/01/18 at 12:00; Stop 08/03/18 at 13:27; Status DC Cephalexin HCl (Keflex) 500 mg QID PO Last administered on 08/05/18at 12:24; Start 08/02/18 at 17:00; Stop 08/05/18 at 16:59; Status DC Acetaminophen/ Hydrocodone Bitart (Lortab 10/325) 1 tab PRN Q4HRS PRN PO SEVERE PAIN Last administered on 08/06/18at 06:31; Start 08/04/18 at 18:45 Oxycodone/ Acetaminophen (Percocet 10/325) 1 tab PRN Q6HRS PRN PO SEVERE PAIN, 2ND CHOICE Last administered on 08/06/18at 09:44; Start 08/05/18 at 09:45 Active Scripts Active Enoxaparin Sodium 60 Mg/0.6 Ml Disp.syrin 60 Mg SQ Q12HR 30 Days Furosemide 20 Mg Tablet 20 Mg PO DAILY 30 Days Benadryl (Diphenhydramine Hcl) 25 Mg Capsule 50 Mg PO PRN QHS PRN 30 Days Duoneb 0.5-3(2.5) Mg/3 Ml (Albuterol/Ipratropium) 3 Ml Ampul.neb 3 Ml NEB RTQID 30 Days Lantus (Insulin Glargine,Hum.rec.anlog) 100 Unit/1 Ml Vial 55 Unit SQ HS 30 Days Reported Vitamin D3 (Cholecalciferol (Vitamin D3)) 1,000 Unit Tablet 1 Tab PO DAILY Nystatin 15 Gm Powder 1 Narendra TP BID Novolog Flexpen (Insulin Aspart) 100 Unit/1 Ml Insuln.pen 20 Unit SQ TIDAC Cephalexin 500 Mg Tablet 1 Tab PO QID Benzonatate 100 Mg Capsule 1 Cap PO Q8HRS PRN Multivitamins (Multivitamin) 1 Each Tablet 1 Tab PO DAILY Fish Oil 1,000 Mg Capsule ([place]-3 Fatty Acids/Fish Oil) 1 Each Capsule 3 Each PO HS Children's Aspirin (Aspirin) 81 Mg Tab.chew 81 Mg PO DAILY Finasteride 5 Mg Tablet 1 Tab PO DAILY Trazodone Hcl 50 Mg Tablet 1 Tab PO QHS Tamsulosin Hcl 0.4 Mg Cap.er.24h 1 Cap PO DAILY Lyrica (Pregabalin) 50 Mg Capsule 1 Cap PO TID Nystatin 15 Gm Powder 1 Narendra TP BID Naltrexone Hcl 50 Mg Tablet 1 Tab PO DAILY Miconazole Nitrate 130 Gm Aero.powd 130 Gm TP TID Metoprolol Tartrate 25 Mg Tablet 1 Tab PO BID Melatonin 3 Mg Tablet 3 Mg PO HS Magnesium Oxide 400 Mg Tablet 1 Tab PO DAILY Losartan Potassium 50 Mg Tablet 50 Mg PO BID Hydrophilic Ointment 410 Gm Oint...g. 410 Gm TP PRN Cymbalta (Duloxetine Hcl) 60 Mg Capsule.dr 1 Cap PO DAILY Bupropion Xl (Bupropion Hcl) 150 Mg Tab.er.24h 1 Tab PO DAILYWBKFT Atorvastatin Calcium 80 Mg Tablet 80 Mg PO HS Vitals/I & O Vital Sign - Last 24 Hours 08/05/18 08/05/18 08/05/18 08/05/18 11:17 11:47 12:24 13:32 Temp 97.6 97.6 Pulse 73 B/P (MAP) 115/60 (78) Pulse Ox 95 97 O2 Delivery Nasal Cannula Nasal Cannula Nasal Cannula Nasal Cannula O2 Flow Rate 2.0 1.0 2.0 2.0 08/05/18 08/05/18 08/05/18 08/05/18 15:02 15:11 19:00 19:31 Temp 97.5 97.8 97.5 97.8 Pulse 68 76 B/P (MAP) 122/59 (80) 150/61 (90) Pulse Ox 96 97 O2 Delivery Nasal Cannula Nasal Cannula Nasal Cannula Nasal Cannula O2 Flow Rate 2.0 1.0 2.0 1.0 08/05/18 08/05/18 08/05/18 08/05/18 19:38 21:06 21:11 23:00 Temp 98.0 98.0 Pulse 76 69 B/P (MAP) 150/61 108/66 (80) Pulse Ox 98 98 97 O2 Delivery Nasal Cannula Nasal Cannula Nasal Cannula O2 Flow Rate 1.0 1.0 2.0 08/06/18 08/06/18 08/06/18 08/06/18 01:32 02:32 03:00 06:31 Temp 97.7 97.7 Pulse 72 B/P (MAP) 129/44 (72) Pulse Ox 97 96 96 96 O2 Delivery Nasal Cannula Nasal Cannula Nasal Cannula O2 Flow Rate 2.0 2.0 2.0 2.0 08/06/18 08/06/18 08/06/18 08/06/18 07:00 07:28 07:31 08:00 Temp 97.8 97.8 Pulse 80 Resp 20 B/P (MAP) 138/55 (82) Pulse Ox 94 98 O2 Delivery Nasal Cannula Nasal Cannula Room Air Nasal Cannula O2 Flow Rate 2.0 1.0 1.0 08/06/18 08/06/18 08:42 09:44 Pulse 80 B/P (MAP) 138/55 O2 Delivery Nasal Cannula Intake and Output 08/05/18 08/05/18 08/06/18 15:00 23:00 07:00 Intake Total 600 ml Output Total 100 ml Balance 500 ml AHMET RAMIREZ MD Aug 06, 2018 09:52
[2018-08-06 11:00] VITALS: BP 146/64
[2018-08-06 15:00] VITALS: BP 139/60
[2018-08-06 19:00] VITALS: BP 135/56
[2018-08-06] MEDS: ATORVASTATIN CALCIUM 40 MG TABLET. PO SCH (21:02)
[2018-08-06] MEDS: diphenhydrAMINE HCL 25 MG CAPSULE PO PRN (21:03)
[2018-08-06] MEDS: OMEGA-3 FATTY ACIDS/FISH OIL 1,000 MG CAPSULE. PO SCH (21:03)
[2018-08-06] MEDS: traZODone 50 MG TABLET. PO SCH (21:03)
[2018-08-06 23:01] VITALS: BP 107/65
[2018-08-07 03:01] VITALS: BP 141/50
[2018-08-07] MEDS: fentaNYL PF VIAL 100 MCG/2 ML VIAL IV PRN (03:32)
[2018-08-07] MEDS: ALPRAZolam 0.5 MG TABLET PO PRN ×2 (03:38→10:55)
[2018-08-07] MEDS: oxyCODONE/APAP 10/325 1 TAB TABLET PO PRN ×4 (04:40→21:47)
[2018-08-07 07:00] VITALS: BP 155/62
[2018-08-07] MEDS: IPRATRPIUM/ALBUTEROL 0.5/2.5MG 3 ML NEBU. NEB SCH ×4 (07:03→18:04)
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
[2018-08-07] MEDS: INSULIN LISPRO 300 UNITS/3 ML INSULN.PEN. SQ SCH ×6 (08:00→17:33)
[2018-08-07] MEDS: FINASTERIDE 5 MG TABLET. PO SCH (08:13)
[2018-08-07] MEDS: LACTOBACILLUS RHAMNOSUS GG 1 CAPSULE. PO SCH ×2 (08:13→20:44)
[2018-08-07] MEDS: DOCUSATE SODIUM 100 MG CAPSULE. PO SCH (08:13)
[2018-08-07] MEDS: DULoxetine HCL 30 MG CAPSULE.DR PO SCH (08:13)
[2018-08-07] MEDS: CHOLECALCIFEROL (VITAMIN D3) 1,000 UNIT TABLET PO SCH (08:13)
[2018-08-07] MEDS: MULTIVITAMIN with MINERAL TABLET. PO SCH (08:14)
[2018-08-07] MEDS: PREGABALIN 50 MG CAPSULE PO SCH ×3 (08:14→20:45)
[2018-08-07] MEDS: buPROPion XL 150 MG TAB.ER.24H. PO SCH (08:15)
[2018-08-07] MEDS: TAMSULOSIN 0.4 MG CAP.ER.24H. PO SCH (08:15)
[2018-08-07] MEDS: MAGNESIUM OXIDE 400 MG TABLET PO SCH (08:15)
[2018-08-07] MEDS: ASCORBIC ACID 500 MG TABLET PO SCH (08:15)
[2018-08-07] MEDS: METOPROLOL TART IMMED RELEASE 25 MG TABLET. PO SCH ×2 (09:48→20:44)
[2018-08-07 09:50] LABS: BASO % 1 % (0-3); EOS # 0.4 x10^3/uL (0.0-0.7); EOS % 6 % (0-3); HEMATOCRIT 29.1 % (39.0-53.0); HEMOGLOBIN 9.8 g/dL (13.0-17.5); LYMPH # 1.1 x10^3/uL (1.0-4.8); LYMPH % 18 % (24-48); MEAN CORPUSCULAR HEMOGLOBIN 30 pg (25-35); MEAN CORPUSCULAR HGB CONC 34 g/dL (31-37); MEAN CORPUSCULAR VOLUME 89 fL (79-100); MONO # 0.6 x10^3/uL (0.0-1.1); MONO % 9 % (0-9); NEUT # 4.2 x10^3uL (1.8-7.7); NEUT % 67 % (31-73); PLATELET COUNT 198 x10^3/uL (140-400); RED BLOOD COUNT 3.28 x10^6/uL (4.30-5.70); RED CELL DISTRIBUTION WIDTH 17.1 % (11.5-14.5); WHITE BLOOD COUNT 6.3 x10^3/uL (4.0-11.0)
[2018-08-07 09:56] LABS: CALCIUM 9.2 mg/dL (8.5-10.1); GFR 73.7; POTASSIUM 3.8 mmol/L (3.5-5.1)
[2018-08-07 11:00] VITALS: BP 149/66
[2018-08-07] MEDS: INSULIN GLARGINE 300 UNITS/3 ML INSULN.PEN. SQ SCH ×2 (11:13→20:48)
[2018-08-07] MEDS ORDERED: KETOROLAC 30 MG/ML VIAL. IM PRN (13:30)
[2018-08-07] MEDS ORDERED: MORPHINE SULFATE 4 MG/ML VIAL. IV PRN (13:30)
[2018-08-07 15:00] VITALS: BP 151/60
[2018-08-07] MEDS: NYSTATIN TOPICAL POWDER 15GM BOTTLE. TP SCH ×2 (17:25→20:48)
[2018-08-07] MEDS: traMADol 50 MG TABLET PO PRN (17:27)
[2018-08-07 19:00] VITALS: BP 163/51
[2018-08-07] MEDS: OMEGA-3 FATTY ACIDS/FISH OIL 1,000 MG CAPSULE. PO SCH (20:43)
[2018-08-07] MEDS: ATORVASTATIN CALCIUM 40 MG TABLET. PO SCH (20:44)
[2018-08-07] MEDS: diphenhydrAMINE HCL 25 MG CAPSULE PO PRN (20:44)
[2018-08-07] MEDS: traZODone 50 MG TABLET. PO SCH (20:44)
[2018-08-07 23:01] VITALS: BP 149/59
[2018-08-08] MEDS: oxyCODONE/APAP 10/325 1 TAB TABLET PO PRN ×4 (04:44→23:16)
[2018-08-08 04:47] VITALS: BP 169/66
[2018-08-08 05:16] LABS: CALCIUM 9.2 mg/dL (8.5-10.1); GFR 73.7; POTASSIUM 4.1 mmol/L (3.5-5.1)
[2018-08-08 07:00] VITALS: BP 154/67
[2018-08-08] MEDS: IPRATRPIUM/ALBUTEROL 0.5/2.5MG 3 ML NEBU. NEB SCH ×4 (07:02→19:12)
[2018-08-08] MEDS: INSULIN LISPRO 300 UNITS/3 ML INSULN.PEN. SQ SCH ×6 (08:00→17:15)
[2018-08-08] MEDS: buPROPion XL 150 MG TAB.ER.24H. PO SCH (08:23)
[2018-08-08] MEDS: FINASTERIDE 5 MG TABLET. PO SCH (08:24)
[2018-08-08] MEDS: MULTIVITAMIN with MINERAL TABLET. PO SCH (08:24)
[2018-08-08] MEDS: TAMSULOSIN 0.4 MG CAP.ER.24H. PO SCH (08:24)
[2018-08-08] MEDS: LACTOBACILLUS RHAMNOSUS GG 1 CAPSULE. PO SCH ×2 (08:24→20:42)
[2018-08-08] MEDS: MAGNESIUM OXIDE 400 MG TABLET PO SCH (08:24)
[2018-08-08] MEDS: DULoxetine HCL 30 MG CAPSULE.DR PO SCH (08:24)
[2018-08-08] MEDS: ASCORBIC ACID 500 MG TABLET PO SCH (08:25)
[2018-08-08] MEDS: DOCUSATE SODIUM 100 MG CAPSULE. PO SCH (08:25)
[2018-08-08] MEDS: METOPROLOL TART IMMED RELEASE 25 MG TABLET. PO SCH ×2 (08:25→20:43)
[2018-08-08] MEDS: PREGABALIN 50 MG CAPSULE PO SCH ×3 (08:25→20:41)
[2018-08-08] MEDS: CHOLECALCIFEROL (VITAMIN D3) 1,000 UNIT TABLET PO SCH (08:25)
[2018-08-08] MEDS: NYSTATIN TOPICAL POWDER 15GM BOTTLE. TP SCH ×2 (08:27→20:44)
[2018-08-08] MEDS: INSULIN GLARGINE 300 UNITS/3 ML INSULN.PEN. SQ SCH ×2 (08:32→20:50)
--- NOTE | 2018-08-08 08:33 | PDOC ---
PROGRESS NOTES Subjective Subjective He admits some help with percocet with his left hip area pain. Objective Objective Vital Signs Date Time Temp Pulse Resp B/P (MAP) Pulse Ox O2 Delivery O2 Flow Rate FiO2 08/08/18 07:04 89 Room Air 08/08/18 07:00 98.6 77 18 154/67 (96) 98.6 08/08/18 05:44 1.0 Intake and Output 08/08/18 07:00 Intake Total 1200 ml Balance 1200 ml Intake Oral 1200 ml # Voids 5 Physical Exam Physical Exam He is alert,supine in bed and he continues with left quadriceps muscle weakness and mobility and self care limitations. Assessment Assessment Problems Medical Problems: (1) Cellulitis of leg Status: Acute (2) Morbid obesity Status: Acute Plan Plan of Care To SNF when medically stable. Comment Review of Relevant I have reviewed the following items verena (where applicable) has been applied. Labs Laboratory Tests Test 08/06/18 11:32 08/06/18 17:16 08/06/18 20:24 08/07/18 07:26 Glucose (Fingerstick) 155 mg/dL (70-99) 127 mg/dL (70-99) 190 mg/dL (70-99) 141 mg/dL (70-99) Test 08/07/18 09:35 08/07/18 11:31 08/07/18 16:54 08/07/18 20:16 White Blood Count 6.3 x10^3/uL (4.0-11.0) Red Blood Count 3.28 x10^6/uL (4.30-5.70) Hemoglobin 9.8 g/dL (13.0-17.5) Hematocrit 29.1 % (39.0-53.0) Mean Corpuscular Volume 89 fL (79-100) Mean Corpuscular Hemoglobin 30 pg (25-35) Mean Corpuscular Hemoglobin Concent 34 g/dL (31-37) Red Cell Distribution Width 17.1 % (11.5-14.5) Platelet Count 198 x10^3/uL (140-400) Neutrophils (%) (Auto) 67 % (31-73) Lymphocytes (%) (Auto) 18 % (24-48) Monocytes (%) (Auto) 9 % (0-9) Eosinophils (%) (Auto) 6 % (0-3) Basophils (%) (Auto) 1 % (0-3) Neutrophils # (Auto) 4.2 x10^3uL (1.8-7.7) Lymphocytes # (Auto) 1.1 x10^3/uL (1.0-4.8) Monocytes # (Auto) 0.6 x10^3/uL (0.0-1.1) Eosinophils # (Auto) 0.4 x10^3/uL (0.0-0.7) Basophils # (Auto) 0.0 x10^3/uL (0.0-0.2) Sodium Level 136 mmol/L (136-145) Potassium Level 3.8 mmol/L (3.5-5.1) Chloride Level 98 mmol/L (98-107) Carbon Dioxide Level 33 mmol/L (21-32) Anion Gap 5 (6-14) Blood Urea Nitrogen 17 mg/dL (8-26) Creatinine 1.0 mg/dL (0.7-1.3) Estimated GFR (Cockcroft-Gault) 73.7 Glucose Level 166 mg/dL (70-99) Calcium Level 9.2 mg/dL (8.5-10.1) Glucose (Fingerstick) 138 mg/dL (70-99) 121 mg/dL (70-99) 159 mg/dL (70-99) Test 08/08/18 03:50 08/08/18 07:39 Sodium Level 137 mmol/L (136-145) Potassium Level 4.1 mmol/L (3.5-5.1) Chloride Level 99 mmol/L (98-107) Carbon Dioxide Level 33 mmol/L (21-32) Anion Gap 5 (6-14) Blood Urea Nitrogen 17 mg/dL (8-26) Creatinine 1.0 mg/dL (0.7-1.3) Estimated GFR (Cockcroft-Gault) 73.7 Glucose Level 191 mg/dL (70-99) Calcium Level 9.2 mg/dL (8.5-10.1) Glucose (Fingerstick) 163 mg/dL (70-99) Laboratory Tests Test 08/07/18 09:35 08/07/18 11:31 08/07/18 16:54 08/07/18 20:16 White Blood Count 6.3 x10^3/uL (4.0-11.0) Red Blood Count 3.28 x10^6/uL (4.30-5.70) Hemoglobin 9.8 g/dL (13.0-17.5) Hematocrit 29.1 % (39.0-53.0) Mean Corpuscular Volume 89 fL (79-100) Mean Corpuscular Hemoglobin 30 pg (25-35) Mean Corpuscular Hemoglobin Concent 34 g/dL (31-37) Red Cell Distribution Width 17.1 % (11.5-14.5) Platelet Count 198 x10^3/uL (140-400) Neutrophils (%) (Auto) 67 % (31-73) Lymphocytes (%) (Auto) 18 % (24-48) Monocytes (%) (Auto) 9 % (0-9) Eosinophils (%) (Auto) 6 % (0-3) Basophils (%) (Auto) 1 % (0-3) Neutrophils # (Auto) 4.2 x10^3uL (1.8-7.7) Lymphocytes # (Auto) 1.1 x10^3/uL (1.0-4.8) Monocytes # (Auto) 0.6 x10^3/uL (0.0-1.1) Eosinophils # (Auto) 0.4 x10^3/uL (0.0-0.7) Basophils # (Auto) 0.0 x10^3/uL (0.0-0.2) Sodium Level 136 mmol/L (136-145) Potassium Level 3.8 mmol/L (3.5-5.1) Chloride Level 98 mmol/L (98-107) Carbon Dioxide Level 33 mmol/L (21-32) Anion Gap 5 (6-14) Blood Urea Nitrogen 17 mg/dL (8-26) Creatinine 1.0 mg/dL (0.7-1.3) Estimated GFR (Cockcroft-Gault) 73.7 Glucose Level 166 mg/dL (70-99) Calcium Level 9.2 mg/dL (8.5-10.1) Glucose (Fingerstick) 138 mg/dL (70-99) 121 mg/dL (70-99) 159 mg/dL (70-99) Test 08/08/18 03:50 08/08/18 07:39 Sodium Level 137 mmol/L (136-145) Potassium Level 4.1 mmol/L (3.5-5.1) Chloride Level 99 mmol/L (98-107) Carbon Dioxide Level 33 mmol/L (21-32) Anion Gap 5 (6-14) Blood Urea Nitrogen 17 mg/dL (8-26) Creatinine 1.0 mg/dL (0.7-1.3) Estimated GFR (Cockcroft-Gault) 73.7 Glucose Level 191 mg/dL (70-99) Calcium Level 9.2 mg/dL (8.5-10.1) Glucose (Fingerstick) 163 mg/dL (70-99) Medications Current Medications Oxycodone/ Acetaminophen (Percocet 5/325) 2 tab 1X ONCE PO Last administered on 07/25/18at 00:45; Start 07/25/18 at 00:45; Stop 07/25/18 at 00:46; Status DC Oxycodone/ Acetaminophen (Percocet 5/325) 1 tab STK-MED ONCE .ROUTE ; Start at 00:41; Stop 07/25/18 at 00:42; Status DC Ondansetron HCl (Zofran) 4 mg PRN Q8HRS PRN IV NAUSEA/VOMITING; Start at 01:45; Stop 07/26/18 at 01:44; Status DC Morphine Sulfate (Morphine Sulfate) 4 mg PRN Q2HR PRN IV PAIN Last administered on 07/25/18at 11:27; Start 07/25/18 at 01:45; Stop 07/26/18 at 01 :44; Status DC Acetaminophen (Tylenol) 650 mg PRN Q4HRS PRN PO FEVER Last administered on at 08:38; Start 07/25/18 at 01:45; Stop 07/25/18 at 15:48; Status DC Clindamycin Phosphate 50 ml @ 100 mls/hr 1X ONCE IV Last administered on at 03:29; Start 07/25/18 at 02:30; Stop 07/25/18 at 02:59; Status DC Morphine Sulfate (Morphine Sulfate) 6 mg 1X ONCE IV Last administered on 07/25at 03:29; Start 07/25/18 at 02:30; Stop 07/25/18 at 02:31; Status DC Aspirin (Children'S Aspirin) 81 mg DAILY PO Last administered on 07/29/18 09: 47; Start 07/25/18 at 09:00; Stop 07/29/18 at 17:13; Status DC Bupropion HCl (Wellbutrin Xl) 150 mg DAILYWBKFT PO Last administered on 08:15; Start 07/25/18 at 08:00 Vitamin D (Vitamin D3) 1,000 unit DAILY PO Last administered on 08/07/18 08:13 ; Start 07/25/18 at 09:00 Diphenhydramine HCl (Benadryl) 50 mg PRN QHS PRN PO INSOMNIA Last administered on 08/07/18 20:44; Start 07/25/18 at 07:45 Enoxaparin Sodium (Lovenox 60mg Syringe) 60 mg Q12HR SQ Last administered on 09:50; Start 07/25/18 at 09:00; Stop 07/29/18 at 17:13; Status DC Finasteride (Proscar) 5 mg DAILY PO Last administered on 08/07/18 08:13; Start 07/25/18 at 09:00 Albuterol/ Ipratropium (Duoneb) 3 ml RTQID NEB Last administered on 08/08/18at 07:02; Start 07/25/18 at 08:30 Losartan Potassium (Cozaar) 50 mg BID PO Last administered on 07/30/18at 21:18 ; Start 07/25/18 at 09:00; Stop 07/31/18 at 14:10; Status DC Metoprolol Tartrate (Lopressor) 25 mg BID PO Last administered on 08/07/18 20: 44; Start 07/25/18 at 09:00 Nystatin (Nystop) 1 narendra BID TP Last administered on 08/07/18 20:48; Start at 09:00 Nystatin (Nystop) 1 narendra BID TP ; Start 07/25/18 at 09:00; Stop 07/25/18 at 09: 00; Status DC Fish Oil (Fish Oil) 1,000 mg HS PO Last administered on 08/07/18at 20:43; Start 07/25/18 at 21:00 Pregabalin (Lyrica) 50 mg TID PO Last administered on 08/07/18 20:45; Start 07/25/18 at 09:00 Tamsulosin HCl (Flomax) 0.4 mg DAILY PO Last administered on 08/07/18 08:15; Start 07/25/18 at 09:00 Trazodone HCl (Desyrel) 50 mg QHS PO Last administered on 08/07/18 20:44; Start 07/25/18 at 21:00 Atorvastatin Calcium (Lipitor) 80 mg QHS PO Last administered on 08/07/18 20: 44; Start 07/25/18 at 21:00 Benzonatate (Tessalon Perle) 100 mg PRN Q8HRS PRN PO COUGH Last administered on 07/30/18 12:06; Start 07/25/18 at 09:00 Duloxetine HCl (Cymbalta) 60 mg DAILY PO Last administered on 08/07/18 08:13; Start 07/25/18 at 09:00 Insulin Human Lispro (HumaLOG) 20 units TIDWMEALS SQ Last administered on 17:33; Start 07/25/18 at 08:30 Insulin Glargine (Lantus) 55 units QHS SQ Last administered on 08/07/18 20:48 ; Start 07/25/18 at 21:00 Magnesium Oxide (Magnesium Oxide) 400 mg DAILY PO Last administered on 08:15; Start 07/25/18 at 09:00 Non-Formulary Medication (Melatonin ) 3 mg HS PO ; Start 07/25/18 at 21:00; Status UNV Non-Formulary Medication (Miconazole Nitrate ) 130 gm TID TP ; Start 07/25/18 at 09:00; Status UNV Multivitamins (Thera M Plus) 1 tab DAILY PO Last administered on 08/07/18 08: 14; Start 07/25/18 at 09:00 Non-Formulary Medication (Naltrexone Hcl ) 1 tab DAILY PO ; Start 07/25/18 at 09:00; Status UNV Insulin Human Lispro (HumaLOG) 0-9 UNITS TIDWMEALS SQ Last administered on 08/06 12:17; Start 07/25/18 at 08:00 Dextrose (Dextrose 50%-Water Syringe) 12.5 gm PRN Q15MIN PRN IV SEE COMMENTS; Start 07/25/18 at 07:45 Furosemide (Lasix) 40 mg DAILY IVP Last administered on 07/29/18at 09:47; Start 07/25/18 at 09:00; Stop 07/30/18 at 08:09; Status DC Ceftriaxone Sodium 1 gm/ Dextrose 50 ml @ 100 mls/hr Q24H IV ; Start 07/25/18 at 07:45; Status UNV Ceftriaxone Sodium (Rocephin) 1 gm Q24H IVP Last administered on 08/02/18at 08: 59; Start 07/25/18 at 09:00; Stop 08/02/18 at 15:05; Status DC Acetaminophen/ Hydrocodone Bitart (Lortab 5/325) 1 tab PRN Q4HRS PRN PO MODERATE PAIN Last administered on 07/31/18 09:09; Start 07/25/18 at 09:00; Stop 08/06/18 at 09:47; Status DC Acetaminophen/ Hydrocodone Bitart (Lortab 10/325) 1 tab PRN Q6HRS PRN PO SEVERE PAIN Last administered on 08/04/18at 14:48; Start 07/25/18 at 09:00; Stop 08/04/18 at 18:33; Status DC Acetaminophen (Tylenol) 500 mg PRN Q6HRS PRN PO MILD PAIN / TEMP; Start at 09:00 Ondansetron HCl (Zofran) 4 mg PRN Q6HRS PRN IV NAUSEA/VOMITING; Start at 09:00 Ondansetron HCl (Zofran Odt) 4 mg PRN Q6HRS PRN PO NAUSEA/VOMITING; Start at 09:00 Fentanyl Citrate (Fentanyl 2ml Vial) 50 mcg PRN Q2HR PRN IV MODERATE-SEVERE PAIN Last administered on 08/04/18at 21:31; Start 07/25/18 at 12:15 Alprazolam (Xanax) 0.5 mg PRN Q8HRS PRN PO ANXIETY / AGITATION Last administered on 08/07/18at 10:55; Start 07/25/18 at 12:15 Ascorbic Acid (Vitamin C) 500 mg DAILY PO Last administered on 08/07/18at 08:15 ; Start 07/26/18 at 13:00 Lactobacillus Rhamnosus (Culturelle) 1 cap BID PO Last administered on at 20:44; Start 07/26/18 at 21:00 Fentanyl Citrate (Fentanyl 2ml Vial) 100 mcg 1X ONCE IV Last administered on 07/27/18at 11:20; Start 07/27/18 at 10:00; Stop 07/27/18 at 10:01; Status DC Info (Anti-Coagulation Monitoring By Pharmacy) 1 each PRN DAILY PRN MC SEE COMMENTS; Start 07/28/18 at 15:00; Stop 07/28/18 at 15:00; Status DC Magnesium Citrate (Citroma) 296 ml 1X ONCE PO Last administered on 07/29/18at 14:40; Start 07/29/18 at 12:15; Stop 07/29/18 at 12:19; Status DC Lidocaine (Xylocaine) 1 narendra 1X ONCE TP Last administered on 07/29/18at 14:40; Start 07/29/18 at 12:15; Stop 07/29/18 at 12:19; Status DC Magnesium Hydroxide (Milk Of Magnesia) 2,400 mg 1X ONCE PO Last administered on 07/30/18at 12:05; Start 07/30/18 at 11:30; Stop 07/30/18 at 11:35; Status DC Magnesium Hydroxide (Milk Of Magnesia) 2,400 mg PRN DAILY PRN PO CONSTIPATION 2ND CHOICE; Start 07/30/18 at 11:30 Polyethylene Glycol (miraLAX PACKET) 17 gm 1X ONCE PO Last administered on at 12:05; Start 07/30/18 at 11:30; Stop 07/30/18 at 11:36; Status DC Polyethylene Glycol (miraLAX PACKET) 17 gm PRN DAILY PRN PO CONSTIPATION 1ST CHOICE; Start 07/30/18 at 11:30 Docusate Sodium (Colace) 100 mg DAILY PO Last administered on 08/07/18at 08:13; Start 07/30/18 at 12:00 Insulin Glargine (Lantus) 20 units DAILY SQ Last administered on 08/07/18at 11: 13; Start 07/31/18 at 08:15 Sodium Chloride 1,000 ml @ 100 mls/hr Q10H IV Last administered on 08/03/18at 04:38; Start 08/01/18 at 12:00; Stop 08/03/18 at 13:27; Status DC Cephalexin HCl (Keflex) 500 mg QID PO Last administered on 08/05/18at 12:24; Start 08/02/18 at 17:00; Stop 08/05/18 at 16:59; Status DC Acetaminophen/ Hydrocodone Bitart (Lortab 10/325) 1 tab PRN Q4HRS PRN PO SEVERE PAIN Last administered on 08/06/18at 06:31; Start 08/04/18 at 18:45; Stop 08/06/18 at 09:47; Status DC Oxycodone/ Acetaminophen (Percocet 10/325) 1 tab PRN Q6HRS PRN PO SEVERE PAIN, 2ND CHOICE Last administered on 08/08/18at 04:44; Start 08/05/18 at 09:45 Morphine Sulfate (Morphine Sulfate) 4 mg PRN Q4HRS PRN IV PAIN; Start 08/07/18 at 13:30 Tramadol HCl (Ultram) 50 mg PRN Q6HRS PRN PO PAIN Last administered on at 17:27; Start 08/07/18 at 13:30 Ketorolac Tromethamine (Toradol 30mg Vial) 30 mg PRN Q8HRS PRN IM pain; Start 08/07/18 at 13:30; Status UNV Active Scripts Active Enoxaparin Sodium 60 Mg/0.6 Ml Disp.syrin 60 Mg SQ Q12HR 30 Days Furosemide 20 Mg Tablet 20 Mg PO DAILY 30 Days Benadryl (Diphenhydramine Hcl) 25 Mg Capsule 50 Mg PO PRN QHS PRN 30 Days Duoneb 0.5-3(2.5) Mg/3 Ml (Albuterol/Ipratropium) 3 Ml Ampul.neb 3 Ml NEB RTQID 30 Days Lantus (Insulin Glargine,Hum.rec.anlog) 100 Unit/1 Ml Vial 55 Unit SQ HS 30 Days Reported Vitamin D3 (Cholecalciferol (Vitamin D3)) 1,000 Unit Tablet 1 Tab PO DAILY Nystatin 15 Gm Powder 1 Narendra TP BID Novolog Flexpen (Insulin Aspart) 100 Unit/1 Ml Insuln.pen 20 Unit SQ TIDAC Cephalexin 500 Mg Tablet 1 Tab PO QID Benzonatate 100 Mg Capsule 1 Cap PO Q8HRS PRN Multivitamins (Multivitamin) 1 Each Tablet 1 Tab PO DAILY Fish Oil 1,000 Mg Capsule ([place]-3 Fatty Acids/Fish Oil) 1 Each Capsule 3 Each PO HS Children's Aspirin (Aspirin) 81 Mg Tab.chew 81 Mg PO DAILY Finasteride 5 Mg Tablet 1 Tab PO DAILY Trazodone Hcl 50 Mg Tablet 1 Tab PO QHS Tamsulosin Hcl 0.4 Mg Cap.er.24h 1 Cap PO DAILY Lyrica (Pregabalin) 50 Mg Capsule 1 Cap PO TID Nystatin 15 Gm Powder 1 Narendra TP BID Naltrexone Hcl 50 Mg Tablet 1 Tab PO DAILY Miconazole Nitrate 130 Gm Aero.powd 130 Gm TP TID Metoprolol Tartrate 25 Mg Tablet 1 Tab PO BID Melatonin 3 Mg Tablet 3 Mg PO HS Magnesium Oxide 400 Mg Tablet 1 Tab PO DAILY Losartan Potassium 50 Mg Tablet 50 Mg PO BID Hydrophilic Ointment 410 Gm Oint...g. 410 Gm TP PRN Cymbalta (Duloxetine Hcl) 60 Mg Capsule.dr 1 Cap PO DAILY Bupropion Xl (Bupropion Hcl) 150 Mg Tab.er.24h 1 Tab PO DAILYWBKFT Atorvastatin Calcium 80 Mg Tablet 80 Mg PO HS Vitals/I & O Vital Sign - Last 24 Hours 08/07/18 08/07/18 08/07/18 08/07/18 09:47 09:48 11:00 11:19 Temp 97.8 97.8 Pulse 76 87 Resp 20 20 B/P (MAP) 155/62 149/66 (93) Pulse Ox 95 95 O2 Delivery Nasal Cannula Nasal Cannula Nasal Cannula O2 Flow Rate 1.0 1.0 08/07/18 08/07/18 08/07/18 08/07/18 14:53 15:00 15:51 16:51 Temp 98.1 98.1 Pulse 77 Resp 20 20 20 B/P (MAP) 151/60 (90) Pulse Ox 95 95 O2 Delivery Nasal Cannula Nasal Cannula Nasal Cannula O2 Flow Rate 1.0 1.0 08/07/18 08/07/18 08/07/18 08/07/18 17:27 18:06 18:27 19:00 Temp 98.0 98.0 Pulse 65 Resp 20 20 B/P (MAP) 163/51 (88) Pulse Ox 92 92 O2 Delivery Nasal Cannula Nasal Cannula Nasal Cannula Nasal Cannula O2 Flow Rate 1.0 1.0 1.0 08/07/18 08/07/18 08/07/18 08/07/18 19:54 20:44 21:47 23:01 Temp 98.1 98.1 Pulse 65 83 Resp 20 B/P (MAP) 163/51 149/59 (89) Pulse Ox 92 96 O2 Delivery Nasal Cannula Nasal Cannula Nasal Cannula O2 Flow Rate 1.0 1.0 08/08/18 08/08/18 08/08/18 08/08/18 04:44 04:47 05:44 07:00 Temp 98.9 98.6 98.9 98.6 Pulse 72 77 Resp 20 18 B/P (MAP) 169/66 (100) 154/67 (96) Pulse Ox 96 94 94 94 O2 Delivery Nasal Cannula Nasal Cannula Nasal Cannula Nasal Cannula O2 Flow Rate 1.0 1.0 08/08/18 07:04 Pulse Ox 89 O2 Delivery Room Air Intake and Output 08/07/18 08/07/18 08/08/18 15:00 23:00 07:00 Intake Total 1200 ml Balance 1200 ml AHMET RAMIREZ MD Aug 08, 2018 08:33
[2018-08-08 11:00] VITALS: BP 115/64
[2018-08-08] MEDS ORDERED: INSU100I13 SQ ×2 (12:12)
[2018-08-08] MEDS ORDERED: ALPR0.5T6 PO (12:12)
[2018-08-08] MEDS ORDERED: OXYC-411 PO (12:13)
[2018-08-08] MEDS ORDERED: AMOX1TAB61 PO (12:13)
--- NOTE | 2018-08-08 12:18 | PDOC3 ---
Discharge Summary Visit Information Date of Admission: Jul 25, 2018 Date of Discharge: Aug 08, 2018 Admitting Diagnosis Comment: Acute hypoxic/hypercapnic respiratory failure, refusig bIPAP/CPAP Super morbidly obese, BMI 57 - bariatric bed Bilateral leg wounds, superficial Strep bacteremia, hx - dcd on PCN last recent dc Sepsis POA, WBC 17, on re admission Generalized weakness-recently dcd to [facility] on CKD [facility] RETROPERIT HEMATOMA, LARGE - conservative tx 07/29/18 Final Diagnosis Problems Medical Problems: (1) Cellulitis of leg Status: Acute (2) Morbid obesity Status: Acute Brief Hospital Course Allergies Allergies Coded Allergies Type Severity Reaction Last Updated Verified ibuprofen Allergy Severe RespDistress, Swelling 07/13/18 Yes Vital Signs Vital Signs Date Time Temp Pulse Resp B/P (MAP) Pulse Ox O2 Delivery O2 Flow Rate FiO2 08/08/18 11:06 Nasal Cannula 1.0 08/08/18 11:00 98.7 71 18 115/64 (81) 97 98.7 Lab Results Laboratory Tests Test 08/06/18 17:16 08/06/18 20:24 08/07/18 07:26 08/07/18 09:35 Glucose (Fingerstick) 127 mg/dL (70-99) 190 mg/dL (70-99) 141 mg/dL (70-99) White Blood Count 6.3 x10^3/uL (4.0-11.0) Red Blood Count 3.28 x10^6/uL (4.30-5.70) Hemoglobin 9.8 g/dL (13.0-17.5) Hematocrit 29.1 % (39.0-53.0) Mean Corpuscular Volume 89 fL (79-100) Mean Corpuscular Hemoglobin 30 pg (25-35) Mean Corpuscular Hemoglobin Concent 34 g/dL (31-37) Red Cell Distribution Width 17.1 % (11.5-14.5) Platelet Count 198 x10^3/uL (140-400) Neutrophils (%) (Auto) 67 % (31-73) Lymphocytes (%) (Auto) 18 % (24-48) Monocytes (%) (Auto) 9 % (0-9) Eosinophils (%) (Auto) 6 % (0-3) Basophils (%) (Auto) 1 % (0-3) Neutrophils # (Auto) 4.2 x10^3uL (1.8-7.7) Lymphocytes # (Auto) 1.1 x10^3/uL (1.0-4.8) Monocytes # (Auto) 0.6 x10^3/uL (0.0-1.1) Eosinophils # (Auto) 0.4 x10^3/uL (0.0-0.7) Basophils # (Auto) 0.0 x10^3/uL (0.0-0.2) Sodium Level 136 mmol/L (136-145) Potassium Level 3.8 mmol/L (3.5-5.1) Chloride Level 98 mmol/L (98-107) Carbon Dioxide Level 33 mmol/L (21-32) Anion Gap 5 (6-14) Blood Urea Nitrogen 17 mg/dL (8-26) Creatinine 1.0 mg/dL (0.7-1.3) Estimated GFR (Cockcroft-Gault) 73.7 Glucose Level 166 mg/dL (70-99) Calcium Level 9.2 mg/dL (8.5-10.1) Test 08/07/18 11:31 08/07/18 16:54 08/07/18 20:16 08/08/18 03:50 Glucose (Fingerstick) 138 mg/dL (70-99) 121 mg/dL (70-99) 159 mg/dL (70-99) Sodium Level 137 mmol/L (136-145) Potassium Level 4.1 mmol/L (3.5-5.1) Chloride Level 99 mmol/L (98-107) Carbon Dioxide Level 33 mmol/L (21-32) Anion Gap 5 (6-14) Blood Urea Nitrogen 17 mg/dL (8-26) Creatinine 1.0 mg/dL (0.7-1.3) Estimated GFR (Cockcroft-Gault) 73.7 Glucose Level 191 mg/dL (70-99) Calcium Level 9.2 mg/dL (8.5-10.1) Test 08/08/18 07:39 08/08/18 11:42 Glucose (Fingerstick) 163 mg/dL (70-99) 172 mg/dL (70-99) Laboratory Tests Test 08/07/18 16:54 11/4/18 20:16 08/08/18 03:50 08/08/18 07:39 Glucose (Fingerstick) 121 mg/dL (70-99) 159 mg/dL (70-99) 163 mg/dL (70-99) Sodium Level 137 mmol/L (136-145) Potassium Level 4.1 mmol/L (3.5-5.1) Chloride Level 99 mmol/L (98-107) Carbon Dioxide Level 33 mmol/L (21-32) Anion Gap 5 (6-14) Blood Urea Nitrogen 17 mg/dL (8-26) Creatinine 1.0 mg/dL (0.7-1.3) Estimated GFR (Cockcroft-Gault) 73.7 Glucose Level 191 mg/dL (70-99) Calcium Level 9.2 mg/dL (8.5-10.1) Test 08/08/18 11:42 Glucose (Fingerstick) 172 mg/dL (70-99) Brief Hospital Course Mr. Horta is a 73 old readmission who was just discharged maybe 1 or 2 days ago prior to being readmitted to SNU but the legs got worse in terms of cellulitis and swelling. He does have history of CHF and chronic leg edema. He is morbidly obese with a BMI of 57 and needs a bariatric bed. We treated with IV antibiotics but cultures are negative, Lasix. We did cautious Lasix because he has a solitary kidney. Creatinine did jump that I need to consult renal. Creatinine now is down to baseline 1.0. I don't think he needs a little bit of Lasix just the low dose to go home with. We have Rx Lasix 20 once a day. Course remarkable for some hyperglycemia secondary to steroids most likely. He also had needed to be on BiPAP when necessary with poor compliance because of discomfort. Comanage with many different specialties including pulmonary, renal etc. Cardiology. Procedures performed BiPAP, renal sono etc. Off antibiotics and discharge but wont hurt to try Augmentin again for 7 days as he was recently readmitted with cellulitis after just being off antibodies for a few days in SNU This time he wants to go to transitional care unit instead of [facility] or [facility] which she was initially discharged to the last recent admission Multiple home meds. Finally we got the insulin regimen right in all Rx on chart. Discussed with social work, patient, RN Patient seen and examined, DC time 40 minutes Discharge Information Condition at Discharge: Improved, Stable Disposition/Orders: Other (SNU) Scheduled Amoxicillin/Potassium Clav (Augmentin 875-125 Tablet) 1 Each Tablet, 1 TAB PO BID for wounds, #14 Prescribed by: ESTER SESAY on 08/08/18 1213 Aspirin (Children's Aspirin) 81 Mg Tab.chew, 81 MG PO DAILY, (Reported) Entered as Reported by: BALTAZAR LE on 07/14/18923 Last Action: Continued on 07/25/18744 by ESTER SESAY Atorvastatin Calcium (Atorvastatin Calcium) 80 Mg Tablet, 80 MG PO HS for FOR CHOLESTEROL, #30 Ref 0 (Reported) Entered as Reported by: BALTAZAR LE on 07/14/18923 Last Action: Converted on 07/25/18744 by ESTER SESAY Bupropion Hcl (Bupropion Xl) 150 Mg Tab.er.24h, 1 TAB PO DAILYWBKFT, #30 Ref 2 ( Reported) Entered as Reported by: BALTAZAR LE on 07/14/18923 Last Action: Continued on 07/25/18744 by ESTER SEASY Cephalexin (Cephalexin) 500 Mg Tablet, 1 TAB PO QID, #40 (Reported) Entered as Reported by: JOSE ALMAGUER on 07/25/18354 Last Action: HELD on 07/25/18744 by ESTER SESAY Cholecalciferol (Vitamin D3) (Vitamin D3) 1,000 Unit Tablet, 1 TAB PO DAILY, # 30 Ref 5 (Reported) Entered as Reported by: JOSE ALMAGUER on 07/25/18354 Last Action: Continued on 07/25/18744 by ESTER SESAY Duloxetine Hcl (Cymbalta) 60 Mg Capsule.dr, 1 CAP PO DAILY, #90 Ref 3 (Reported) Entered as Reported by: BALTAZAR LE on 07/14/18923 Last Action: Converted on 07/25/18744 by ESTER SESAY Enoxaparin Sodium (Enoxaparin Sodium) 60 Mg/0.6 Ml Disp.syrin, 60 MG SQ Q12HR for 30 Days Prescribed by: ELEAZAR PRIETO MD on 07/21/18 1349 Last Action: Continued on 07/25/18744 by ESTER SESAY Finasteride (Finasteride) 5 Mg Tablet, 1 TAB PO DAILY, #30 Ref 11 (Reported) Entered as Reported by: BALTAZAR LE on 07/14/18923 Last Action: Continued on 07/25/18744 by ESTER SESAY Furosemide (Furosemide) 20 Mg Tablet, 20 MG PO DAILY for 30 Days, #30 Prescribed by: ELEAZAR PRIETO MD on 07/21/181348 Last Action: HELD on 07/25/18744 by ESTER SESAY Insulin Aspart (Novolog Flexpen) 100 Unit/1 Ml Insuln.pen, 20 UNIT SQ TIDAC, ( Reported) Entered as Reported by: JOSE ALMAGUER on 07/25/18354 Last Action: Converted on 07/25/18744 by ESTER SESAY Insulin Glargine,Hum.rec.anlog (Lantus) 100 Unit/1 Ml Vial, 55 UNIT SQ HS for 30 Days Prescribed by: ELEAZAR PRIETO MD on 07/21/181348 Last Action: Converted on 07/25/18744 by ESTER SESAY Insulin Glargine,Hum.rec.anlog (Lantus Solostar) 100 Unit/1 Ml Insuln.pen, 55 UNITS SQ QHS for DM MDD 1 for 14 Days Prescribed by: ESTER SESAY on 08/08/18 1212 Insulin Glargine,Hum.rec.anlog (Lantus Solostar) 100 Unit/1 Ml Insuln.pen, 20 UNITS SQ DAILY for DM MDD 1 for 14 Days Prescribed by: ESTER SESAY on 08/08/18 1212 Ipratropium/Albuterol Sulfate (Duoneb 0.5-3(2.5) Mg/3 Ml) 3 Ml Ampul.neb, 3 ML NEB RTQID for 30 Days, #120 Prescribed by: ELEAZAR PRIETO MD on 07/21/181348 Last Action: Continued on 07/25/18744 by ESTER SESAY Losartan Potassium (Losartan Potassium) 50 Mg Tablet, 50 MG PO BID, (Reported) Entered as Reported by: BALTAZAR LE on 07/14/18923 Last Action: Continued on 07/25/18744 by ESTER SESAY Magnesium Oxide (Magnesium Oxide) 400 Mg Tablet, 1 TAB PO DAILY, #30 Ref 5 ( Reported) Entered as Reported by: BALTAZAR LE on 07/14/18923 Last Action: Converted on 07/25/18744 by ESTER SESAY Melatonin (Melatonin) 3 Mg Tablet, 3 MG PO HS, (Reported) Entered as Reported by: BALTAZAR LE on 07/14/18923 Last Action: Converted on 07/25/18744 by ESTER SESAY Metoprolol Tartrate (Metoprolol Tartrate) 25 Mg Tablet, 1 TAB PO BID, #180 Ref 1 (Reported) Entered as Reported by: BALTAZAR LE on 07/14/18923 Last Action: Continued on 07/25/18744 by ESTER SESAY Miconazole Nitrate (Miconazole Nitrate) 130 Gm Aero.powd, 130 GM TP TID, ( Reported) Entered as Reported by: BALTAZAR LE on 07/14/18923 Last Action: Converted on 07/25/18744 by ESTER SESAY Multivitamin (Multivitamins) 1 Each Tablet, 1 TAB PO DAILY, #90 Ref 3 (Reported) Entered as Reported by: BALTAZAR LE on 07/14/18923 Last Action: Converted on 07/25/18744 by ESTER SESAY Naltrexone Hcl (Naltrexone Hcl) 50 Mg Tablet, 1 TAB PO DAILY, #30 Ref 2 ( Reported) Entered as Reported by: BALTAZAR LE on 07/14/18923 Last Action: Converted on 07/25/18744 by ESTER ALANISO Nystatin (Nystatin) 15 Gm Powder, 1 MANNY TP BID, #1 (Reported) Entered as Reported by: BALTAZAR LE on 07/14/18923 Last Action: Continued on 07/25/18744 by ESTERUlises ALANISO Nystatin (Nystatin) 15 Gm Powder, 1 MANNY TP BID, #1 (Reported) Entered as Reported by: JOSE ALMAGUER on 07/25/18354 Last Action: Continued on 07/25/18744 by ESTER SESAY [place]-3 Fatty Acids/Fish Oil (Fish Oil 1,000 Mg Capsule) 1 Each Capsule, 3 EACH PO HS, (Reported) Entered as Reported by: BALTAZAR LE on 07/14/18923 Last Action: Continued on 07/25/18744 by ESTER SESAY Pregabalin (Lyrica) 50 Mg Capsule, 1 CAP PO TID, #90 (Reported) Entered as Reported by: BALTAZAR LE on 07/14/18923 Last Action: Continued on 07/25/18744 by ESTER SESAY Tamsulosin Hcl (Tamsulosin Hcl) 0.4 Mg Cap.er.24h, 1 CAP PO DAILY, #30 Ref 5 ( Reported) Entered as Reported by: BALTAZAR LE on 07/14/18923 Last Action: Continued on 07/25/18744 by ESTER SESAY Trazodone Hcl (Trazodone Hcl) 50 Mg Tablet, 1 TAB PO QHS, #30 Ref 1 (Reported) Entered as Reported by: BALTAZAR LE on 07/14/18923 Last Action: Continued on 07/25/18744 by ESTER SESAY Scheduled PRN Alprazolam (Alprazolam) 0.5 Mg Tablet, 0.5 MG PO PRN Q8HRS PRN for ANXIETY / AGITATION, #20 Prescribed by: ESTER SESAY on 08/08/18 1212 Benzonatate (Benzonatate) 100 Mg Capsule, 1 CAP PO Q8HRS PRN for COUGH, #30 ( Reported) Entered as Reported by: JOSE ALMAGUER on 07/25/18354 Last Action: Converted on 07/25/18744 by ESTER SESAY Diphenhydramine Hcl (Benadryl) 25 Mg Capsule, 50 MG PO PRN QHS PRN for INSOMNIA for 30 Days, #30 Prescribed by: ELEAZAR PRIETO MD on 07/21/18 1341 Last Action: Continued on 07/25/18744 by ESTER SESAY Hydrophilic Ointment (Hydrophilic Ointment) 410 Gm Oint...g., 410 GM TP for SEE COMMENTS, (Reported) Entered as Reported by: BALTAZAR LE on 07/14/18923 Last Action: Reviewed on 07/25/18354 by JOSE ALMAGUER Oxycodone Hcl/Acetaminophen (Oxycodone-Acetaminophen 10-325) 1 Each Tablet, 1 TAB PO PRN Q6HRS PRN for SEVERE PAIN, 2ND CHOICE, #20 Prescribed by: ESTER SESAY on 08/08/18 1213 ESTER SESAY MD Aug 08, 2018 12:18
[2018-08-08 15:00] VITALS: BP 130/64
[2018-08-08 20:00] VITALS: BP 174/45
[2018-08-08] MEDS: diphenhydrAMINE HCL 25 MG CAPSULE PO PRN (20:41)
[2018-08-08] MEDS: ATORVASTATIN CALCIUM 40 MG TABLET. PO SCH (20:42)
[2018-08-08] MEDS: OMEGA-3 FATTY ACIDS/FISH OIL 1,000 MG CAPSULE. PO SCH (20:42)
[2018-08-08] MEDS: traZODone 50 MG TABLET. PO SCH (20:43)
[2018-08-08] MEDS: ALPRAZolam 0.5 MG TABLET PO PRN (20:43)
[2018-08-08 23:00] VITALS: BP 148/49
[2018-08-09 03:07] VITALS: BP 135/74
[2018-08-09] MEDS: traMADol 50 MG TABLET PO PRN (03:56)
[2018-08-09] MEDS: ALPRAZolam 0.5 MG TABLET PO PRN (05:51)
[2018-08-09] MEDS: oxyCODONE/APAP 10/325 1 TAB TABLET PO PRN ×2 (05:52→12:10)
[2018-08-09 07:00] VITALS: BP 152/57
[2018-08-09] MEDS: IPRATRPIUM/ALBUTEROL 0.5/2.5MG 3 ML NEBU. NEB SCH ×3 (07:48→15:52)
[2018-08-09] MEDS: INSULIN LISPRO 300 UNITS/3 ML INSULN.PEN. SQ SCH ×4 (08:00→12:13)
[2018-08-09] MEDS: buPROPion XL 150 MG TAB.ER.24H. PO SCH (08:10)
[2018-08-09] MEDS: METOPROLOL TART IMMED RELEASE 25 MG TABLET. PO SCH (08:11)
[2018-08-09] MEDS: DULoxetine HCL 30 MG CAPSULE.DR PO SCH (08:11)
[2018-08-09] MEDS: FINASTERIDE 5 MG TABLET. PO SCH (08:11)
[2018-08-09] MEDS: PREGABALIN 50 MG CAPSULE PO SCH ×2 (08:11→14:24)
[2018-08-09] MEDS: MAGNESIUM OXIDE 400 MG TABLET PO SCH (08:11)
[2018-08-09] MEDS: DOCUSATE SODIUM 100 MG CAPSULE. PO SCH (08:11)
[2018-08-09] MEDS: ASCORBIC ACID 500 MG TABLET PO SCH (08:12)
[2018-08-09] MEDS: MULTIVITAMIN with MINERAL TABLET. PO SCH (08:12)
[2018-08-09] MEDS: LACTOBACILLUS RHAMNOSUS GG 1 CAPSULE. PO SCH (08:12)
[2018-08-09] MEDS: TAMSULOSIN 0.4 MG CAP.ER.24H. PO SCH (08:12)
[2018-08-09] MEDS: CHOLECALCIFEROL (VITAMIN D3) 1,000 UNIT TABLET PO SCH (08:12)
[2018-08-09] MEDS: NYSTATIN TOPICAL POWDER 15GM BOTTLE. TP SCH (08:22)
[2018-08-09] MEDS: INSULIN GLARGINE 300 UNITS/3 ML INSULN.PEN. SQ SCH (08:25)
--- NOTE | 2018-08-09 09:06 | PDOC ---
Provider Note Provider Note Pt did not DC to transitional care unit yesterday because still awaiting insurance authorization No overnight calls Creatinine stable at 1.0-solitary kidney Leg edema and cellulitis has resolved No further increase in SOA I have done discharge med rec in SNU paperwork yesterday PLAN: To DC later to transient care unit if insurance approves ESTER SESAY MD Aug 09, 2018 09:06
--- NOTE | 2018-08-09 10:43 | DISCH ---
DISCHARGE DISCHARGE INFORMATION: DISCHARGE DATE: Aug 09, 2018 FINAL DIAGNOSIS Problems Medical Problems: (1) Cellulitis of leg Status: Acute (2) Morbid obesity Status: Acute CONDITION ON DISCHARGE: Stable CODE STATUS: Code Status: Full SNF: SNF STAY <30 DAYS: Yes HOSPICE: HOSPICE: No HOSPICE EVAL & TREAT: No LTAC: ADMIT TO LTAC: No POST DISCHARGE ORDERS: ACTIVITY ORDERS: Resume previous activity, Activity as tolerated WEIGHT BEARING STATUS: As tolerated BATHING ORDERS: Shower-keep dressing dry DIET AFTER DISCHARGE: Cardiac WOUND/INCISION CARE: Change dressing, Reinforce dressing PRN CHECKS AFTER DISCHARGE: CHECKS AFTER DISCHARGE: Check blood press - daily, Check blood sugar, ac/hs FOLLOW-UP: LAB ORDERS FOR FOLLOW-UP: INR, aPTT TREATMENT/EQUIPMENT ORDERS: ADAPTIVE EQUIPMENT NEEDED: None RESPIRATORY EQUIPMENT NEEDED: Oxygen Physical Therapy For: Evalulation/Treatment Occupational Therapy For: Evaluation/Treatment DISCHARGE MEDICATIONS: Home Meds Active Scripts Amoxicillin/Potassium Clav (AUGMENTIN 875-125 TABLET) 1 Each Tablet, 1 TAB PO BID for wounds, #14 TAB Prov:ESTER SESAY MD 08/08/18 Oxycodone Hcl/Acetaminophen (OXYCODONE-ACETAMINOPHEN 10-325) 1 Each Tablet, 1 TAB PO PRN Q6HRS PRN for SEVERE PAIN, 2ND CHOICE, #20 TAB Prov:ESTER SESAY MD 08/08/18 Insulin Glargine,Hum.rec.anlog (LANTUS SOLOSTAR) 100 Unit/1 Ml Insuln.pen, 20 UNITS SQ DAILY for DM MDD 1 for 14 Days, EACH Prov:ESTER SESAY MD 08/08/18 Insulin Glargine,Hum.rec.anlog (LANTUS SOLOSTAR) 100 Unit/1 Ml Insuln.pen, 55 UNITS SQ QHS for DM MDD 1 for 14 Days, EACH Prov:ESTER SESAY MD 08/08/18 Alprazolam (ALPRAZOLAM) 0.5 Mg Tablet, 0.5 MG PO PRN Q8HRS PRN for ANXIETY / AGITATION, #20 TAB Prov:ESTER SESAY MD 08/08/18 Enoxaparin Sodium (ENOXAPARIN SODIUM) 60 Mg/0.6 Ml Disp.syrin, 60 MG SQ Q12HR for 30 Days, DIS.SYR Prov:ELEAZAR PRIETO MD 07/21/18 Furosemide (FUROSEMIDE) 20 Mg Tablet, 20 MG PO DAILY for 30 Days, #30 TAB Prov:ELEAZAR PRIETO MD 07/21/18 Diphenhydramine Hcl (BENADRYL) 25 Mg Capsule, 50 MG PO PRN QHS PRN for INSOMNIA for 30 Days, #30 CAP Prov:ELEAZAR PRIETO MD 07/21/18 Ipratropium/Albuterol Sulfate (DUONEB 0.5-3(2.5) MG/3 ML) 3 Ml Ampul.neb, 3 ML NEB RTQID for 30 Days, #120 EACH Prov:ELEAZAR PRIETO MD 07/21/18 Insulin Glargine,Hum.rec.anlog (LANTUS) 100 Unit/1 Ml Vial, 55 UNIT SQ HS for 30 Days, VIAL Prov:ELEAZAR PRIETO MD 07/21/18 Reported Medications Cholecalciferol (Vitamin D3) (VITAMIN D3) 1,000 Unit Tablet, 1 TAB PO DAILY, # 30 TAB 5 Refills 07/25/18 Nystatin (NYSTATIN) 15 Gm Powder, 1 MANNY TP BID, #1 BOTTLE 07/25/18 Insulin Aspart (NOVOLOG FLEXPEN) 100 Unit/1 Ml Insuln.pen, 20 UNIT SQ TIDAC, SYR 07/25/18 Cephalexin (CEPHALEXIN) 500 Mg Tablet, 1 TAB PO QID, #40 TAB 07/25/18 Benzonatate (BENZONATATE) 100 Mg Capsule, 1 CAP PO Q8HRS PRN for COUGH, #30 CAP 07/25/18 Multivitamin (MULTIVITAMINS) 1 Each Tablet, 1 TAB PO DAILY, #90 TAB 3 Refills 07/14/18 [place]-3 Fatty Acids/Fish Oil (FISH OIL 1,000 MG CAPSULE) 1 Each Capsule, 3 EACH PO HS, CAP 07/14/18 Aspirin (Children's Aspirin) 81 Mg Tab.chew, 81 MG PO DAILY, TAB.CHEW 07/14/18 Finasteride (FINASTERIDE) 5 Mg Tablet, 1 TAB PO DAILY, #30 TAB 11 Refills 07/14/18 Trazodone Hcl (TRAZODONE HCL) 50 Mg Tablet, 1 TAB PO QHS, #30 TAB 1 Refill 07/14/18 Tamsulosin Hcl (TAMSULOSIN HCL) 0.4 Mg Cap.er.24h, 1 CAP PO DAILY, #30 CAP 5 Refills 07/14/18 Pregabalin (LYRICA) 50 Mg Capsule, 1 CAP PO TID, #90 CAP 07/14/18 Nystatin (NYSTATIN) 15 Gm Powder, 1 MANNY TP BID, #1 BOTTLE 07/14/18 Naltrexone Hcl (NALTREXONE HCL) 50 Mg Tablet, 1 TAB PO DAILY, #30 TAB 2 Refills 07/14/18 Miconazole Nitrate (MICONAZOLE NITRATE) 130 Gm Aero.powd, 130 GM TP TID, INH 07/14/18 Metoprolol Tartrate (METOPROLOL TARTRATE) 25 Mg Tablet, 1 TAB PO BID, #180 TAB 1 Refill 07/14/18 Melatonin (MELATONIN) 3 Mg Tablet, 3 MG PO HS, TAB 07/14/18 Magnesium Oxide (MAGNESIUM OXIDE) 400 Mg Tablet, 1 TAB PO DAILY, #30 TAB 5 Refills 07/14/18 Losartan Potassium (LOSARTAN POTASSIUM) 50 Mg Tablet, 50 MG PO BID, TAB 07/14/18 Hydrophilic Ointment (Hydrophilic Ointment) 410 Gm Oint...g., 410 GM TP PRN for SEE COMMENTS, MISC 07/14/18 Duloxetine Hcl (CYMBALTA) 60 Mg Capsule.dr, 1 CAP PO DAILY, #90 CAP 3 Refills 07/14/18 Bupropion Hcl (BUPROPION XL) 150 Mg Tab.er.24h, 1 TAB PO DAILYWBKFT, #30 TAB 2 Refills 07/14/18 Atorvastatin Calcium (ATORVASTATIN CALCIUM) 80 Mg Tablet, 80 MG PO HS for FOR CHOLESTEROL, #30 TAB 0 Refills 07/14/18 ESTER SESAY MD Aug 09, 2018 10:43
[2018-08-09 10:55] VITALS: BP 148/56
--- NOTE | 2018-08-09 13:23 | PDOC ---
PROGRESS NOTES Subjective Subjective He admits continued pain left groin area. Objective Objective Vital Signs Date Time Temp Pulse Resp B/P (MAP) Pulse Ox O2 Delivery O2 Flow Rate FiO2 08/09/18 12:10 Nasal Cannula 1.5 08/09/18 11:32 98 08/09/18 10:55 97.5 82 18 148/56 (86) 97.5 Intake and Output 08/09/18 07:00 Intake Total 2080 ml Output Total 0 ml Balance 2080 ml Intake Oral 2080 ml Output Urine Total 0 ml # Voids 5 # Bowel Movements 2 Physical Exam Physical Exam He is supine in bed and he did participate better with physical therapy but still difficult to stand secondary to continued left quadriceps muscle weakness. Assessment Assessment Problems Medical Problems: (1) Cellulitis of leg Status: Acute (2) Morbid obesity Status: Acute Plan Plan of Care Agree with plans for SNF transfer. Comment Review of Relevant I have reviewed the following items verena (where applicable) has been applied. Labs Laboratory Tests Test 08/07/18 16:54 08/07/18 20:16 08/08/18 03:50 08/08/18 07:39 Glucose (Fingerstick) 121 mg/dL (70-99) 159 mg/dL (70-99) 163 mg/dL (70-99) Sodium Level 137 mmol/L (136-145) Potassium Level 4.1 mmol/L (3.5-5.1) Chloride Level 99 mmol/L (98-107) Carbon Dioxide Level 33 mmol/L (21-32) Anion Gap 5 (6-14) Blood Urea Nitrogen 17 mg/dL (8-26) Creatinine 1.0 mg/dL (0.7-1.3) Estimated GFR (Cockcroft-Gault) 73.7 Glucose Level 191 mg/dL (70-99) Calcium Level 9.2 mg/dL (8.5-10.1) Test 08/08/18 11:42 08/08/18 16:54 08/08/18 20:40 08/09/18 07:27 Glucose (Fingerstick) 172 mg/dL (70-99) 155 mg/dL (70-99) 158 mg/dL (70-99) 132 mg/dL (70-99) Test 08/09/18 11:35 Glucose (Fingerstick) 138 mg/dL (70-99) Laboratory Tests Test 08/08/18 16:54 08/08/18 20:40 08/09/18 07:27 08/09/18 11:35 Glucose (Fingerstick) 155 mg/dL (70-99) 158 mg/dL (70-99) 132 mg/dL (70-99) 138 mg/dL (70-99) Medications Current Medications Oxycodone/ Acetaminophen (Percocet 5/325) 2 tab 1X ONCE PO Last administered on 07/25/18at 00:45; Start 07/25/18 at 00:45; Stop 07/25/18 at 00:46; Status DC Oxycodone/ Acetaminophen (Percocet 5/325) 1 tab STK-MED ONCE .ROUTE ; Start at 00:41; Stop 07/25/18 at 00:42; Status DC Ondansetron HCl (Zofran) 4 mg PRN Q8HRS PRN IV NAUSEA/VOMITING; Start at 01:45; Stop 07/26/18 at 01:44; Status DC Morphine Sulfate (Morphine Sulfate) 4 mg PRN Q2HR PRN IV PAIN Last administered on 07/25/18at 11:27; Start 07/25/18 at 01:45; Stop 07/26/18 at 01 :44; Status DC Acetaminophen (Tylenol) 650 mg PRN Q4HRS PRN PO FEVER Last administered on at 08:38; Start 07/25/18 at 01:45; Stop 07/25/18 at 15:48; Status DC Clindamycin Phosphate 50 ml @ 100 mls/hr 1X ONCE IV Last administered on at 03:29; Start 07/25/18 at 02:30; Stop 07/25/18 at 02:59; Status DC Morphine Sulfate (Morphine Sulfate) 6 mg 1X ONCE IV Last administered on 07/25at 03:29; Start 07/25/18 at 02:30; Stop 07/25/18 at 02:31; Status DC Aspirin (Children'S Aspirin) 81 mg DAILY PO Last administered on 07/29/18at 09: 47; Start 07/25/18 at 09:00; Stop 07/29/18 at 17:13; Status DC Bupropion HCl (Wellbutrin Xl) 150 mg DAILYWBKFT PO Last administered on 08:10; Start 07/25/18 at 08:00 Vitamin D (Vitamin D3) 1,000 unit DAILY PO Last administered on 08/09/18 08:12 ; Start 07/25/18 at 09:00 Diphenhydramine HCl (Benadryl) 50 mg PRN QHS PRN PO INSOMNIA Last administered on 08/08/18 20:41; Start 07/25/18 at 07:45 Enoxaparin Sodium (Lovenox 60mg Syringe) 60 mg Q12HR SQ Last administered on 09:50; Start 07/25/18 at 09:00; Stop 07/29/18 at 17:13; Status DC Finasteride (Proscar) 5 mg DAILY PO Last administered on 08/09/18 08:11; Start 07/25/18 at 09:00 Albuterol/ Ipratropium (Duoneb) 3 ml RTQID NEB Last administered on 08/09/18at 11:31; Start 07/25/18 at 08:30 Losartan Potassium (Cozaar) 50 mg BID PO Last administered on 07/30/18at 21:18 ; Start 07/25/18 at 09:00; Stop 07/31/18 at 14:10; Status DC Metoprolol Tartrate (Lopressor) 25 mg BID PO Last administered on 08/09/18 08: 11; Start 07/25/18 at 09:00 Nystatin (Nystop) 1 narendra BID TP Last administered on 08/09/18at 08:22; Start at 09:00 Nystatin (Nystop) 1 narendra BID TP ; Start 07/25/18 at 09:00; Stop 07/25/18 at 09: 00; Status DC Fish Oil (Fish Oil) 1,000 mg HS PO Last administered on 08/08/18at 20:42; Start 07/25/18 at 21:00 Pregabalin (Lyrica) 50 mg TID PO Last administered on 08/09/18 08:11; Start 07/25/18 at 09:00 Tamsulosin HCl (Flomax) 0.4 mg DAILY PO Last administered on 08/09/18at 08:12; Start 07/25/18 at 09:00 Trazodone HCl (Desyrel) 50 mg QHS PO Last administered on 08/08/18 20:43; Start 07/25/18 at 21:00 Atorvastatin Calcium (Lipitor) 80 mg QHS PO Last administered on 08/08/18at 20: 42; Start 07/25/18 at 21:00 Benzonatate (Tessalon Perle) 100 mg PRN Q8HRS PRN PO COUGH Last administered on 07/30/18at 12:06; Start 07/25/18 at 09:00 Duloxetine HCl (Cymbalta) 60 mg DAILY PO Last administered on 08/09/18 08:11; Start 07/25/18 at 09:00 Insulin Human Lispro (HumaLOG) 20 units TIDWMEALS SQ Last administered on 12:13; Start 07/25/18 at 08:30 Insulin Glargine (Lantus) 55 units QHS SQ Last administered on 08/08/18at 20:50 ; Start 07/25/18 at 21:00 Magnesium Oxide (Magnesium Oxide) 400 mg DAILY PO Last administered on at 08:11; Start 07/25/18 at 09:00 Non-Formulary Medication (Melatonin ) 3 mg HS PO ; Start 07/25/18 at 21:00; Status UNV Non-Formulary Medication (Miconazole Nitrate ) 130 gm TID TP ; Start 07/25/18 at 09:00; Status UNV Multivitamins (Thera M Plus) 1 tab DAILY PO Last administered on 08/09/18at 08: 12; Start 07/25/18 at 09:00 Non-Formulary Medication (Naltrexone Hcl ) 1 tab DAILY PO ; Start 07/25/18 at 09:00; Status UNV Insulin Human Lispro (HumaLOG) 0-9 UNITS TIDWMEALS SQ Last administered on 08/08 12:17; Start 07/25/18 at 08:00 Dextrose (Dextrose 50%-Water Syringe) 12.5 gm PRN Q15MIN PRN IV SEE COMMENTS; Start 07/25/18 at 07:45 Furosemide (Lasix) 40 mg DAILY IVP Last administered on 07/29/18at 09:47; Start 07/25/18 at 09:00; Stop 07/30/18 at 08:09; Status DC Ceftriaxone Sodium 1 gm/ Dextrose 50 ml @ 100 mls/hr Q24H IV ; Start 07/25/18 at 07:45; Status UNV Ceftriaxone Sodium (Rocephin) 1 gm Q24H IVP Last administered on 08/02/18at 08: 59; Start 07/25/18 at 09:00; Stop 08/02/18 at 15:05; Status DC Acetaminophen/ Hydrocodone Bitart (Lortab 5/325) 1 tab PRN Q4HRS PRN PO MODERATE PAIN Last administered on 07/31/18at 09:09; Start 07/25/18 at 09:00; Stop 08/06/18 at 09:47; Status DC Acetaminophen/ Hydrocodone Bitart (Lortab 10/325) 1 tab PRN Q6HRS PRN PO SEVERE PAIN Last administered on 08/04/18at 14:48; Start 07/25/18 at 09:00; Stop 08/04/18 at 18:33; Status DC Acetaminophen (Tylenol) 500 mg PRN Q6HRS PRN PO FEVER/HEADACHE; Start at 09:00 Ondansetron HCl (Zofran) 4 mg PRN Q6HRS PRN IV NAUSEA/VOMITING; Start at 09:00 Ondansetron HCl (Zofran Odt) 4 mg PRN Q6HRS PRN PO NAUSEA/VOMITING; Start at 09:00 Fentanyl Citrate (Fentanyl 2ml Vial) 50 mcg PRN Q2HR PRN IV SEVERE PAIN Last administered on 08/04/18at 21:31; Start 07/25/18 at 12:15 Alprazolam (Xanax) 0.5 mg PRN Q8HRS PRN PO ANXIETY / AGITATION Last administered on 08/09/18at 05:51; Start 07/25/18 at 12:15 Ascorbic Acid (Vitamin C) 500 mg DAILY PO Last administered on 08/09/18at 08:12 ; Start 07/26/18 at 13:00 Lactobacillus Rhamnosus (Culturelle) 1 cap BID PO Last administered on at 08:12; Start 07/26/18 at 21:00 Fentanyl Citrate (Fentanyl 2ml Vial) 100 mcg 1X ONCE IV Last administered on 07/27/18at 11:20; Start 07/27/18 at 10:00; Stop 07/27/18 at 10:01; Status DC Info (Anti-Coagulation Monitoring By Pharmacy) 1 each PRN DAILY PRN MC SEE COMMENTS; Start 07/28/18 at 15:00; Stop 07/28/18 at 15:00; Status DC Magnesium Citrate (Citroma) 296 ml 1X ONCE PO Last administered on 07/29/18at 14:40; Start 07/29/18 at 12:15; Stop 07/29/18 at 12:19; Status DC Lidocaine (Xylocaine) 1 narendra 1X ONCE TP Last administered on 07/29/18at 14:40; Start 07/29/18 at 12:15; Stop 07/29/18 at 12:19; Status DC Magnesium Hydroxide (Milk Of Magnesia) 2,400 mg 1X ONCE PO Last administered on 07/30/18at 12:05; Start 07/30/18 at 11:30; Stop 07/30/18 at 11:35; Status DC Magnesium Hydroxide (Milk Of Magnesia) 2,400 mg PRN DAILY PRN PO CONSTIPATION 2ND CHOICE; Start 07/30/18 at 11:30 Polyethylene Glycol (miraLAX PACKET) 17 gm 1X ONCE PO Last administered on at 12:05; Start 07/30/18 at 11:30; Stop 07/30/18 at 11:36; Status DC Polyethylene Glycol (miraLAX PACKET) 17 gm PRN DAILY PRN PO CONSTIPATION 1ST CHOICE; Start 07/30/18 at 11:30 Docusate Sodium (Colace) 100 mg DAILY PO Last administered on 08/09/18at 08:11; Start 07/30/18 at 12:00 Insulin Glargine (Lantus) 20 units DAILY SQ Last administered on 08/09/18at 08: 25; Start 07/31/18 at 08:15 Sodium Chloride 1,000 ml @ 100 mls/hr Q10H IV Last administered on 08/03/18at 04:38; Start 08/01/18 at 12:00; Stop 08/03/18 at 13:27; Status DC Cephalexin HCl (Keflex) 500 mg QID PO Last administered on 08/05/18at 12:24; Start 08/02/18 at 17:00; Stop 08/05/18 at 16:59; Status DC Acetaminophen/ Hydrocodone Bitart (Lortab 10/325) 1 tab PRN Q4HRS PRN PO SEVERE PAIN Last administered on 08/06/18at 06:31; Start 08/04/18 at 18:45; Stop 08/06/18 at 09:47; Status DC Oxycodone/ Acetaminophen (Percocet 10/325) 1 tab PRN Q6HRS PRN PO SEVERE PAIN, 2ND CHOICE Last administered on 08/09/18at 12:10; Start 08/05/18 at 09:45 Morphine Sulfate (Morphine Sulfate) 4 mg PRN Q4HRS PRN IV MODERATE PAIN; Start 08/07/18 at 13:30 Tramadol HCl (Ultram) 50 mg PRN Q6HRS PRN PO MILD PAIN Last administered on 08/09/18at 03:56; Start 08/07/18 at 13:30 Ketorolac Tromethamine (Toradol 30mg Vial) 30 mg PRN Q8HRS PRN IM pain; Start 08/07/18 at 13:30; Status UNV Active Scripts Active Augmentin 875-125 Tablet (Amoxicillin/Potassium Clav) 1 Each Tablet 1 Tab PO BID Oxycodone-Acetaminophen 10-325 (Oxycodone Hcl/Acetaminophen) 1 Each Tablet 1 Tab PO PRN Q6HRS PRN Lantus Solostar (Insulin Glargine,Hum.rec.anlog) 100 Unit/1 Ml Insuln.pen 20 Units SQ DAILY MDD 1 14 Days Lantus Solostar (Insulin Glargine,Hum.rec.anlog) 100 Unit/1 Ml Insuln.pen 55 Units SQ QHS MDD 1 14 Days Alprazolam 0.5 Mg Tablet 0.5 Mg PO PRN Q8HRS PRN Enoxaparin Sodium 60 Mg/0.6 Ml Disp.syrin 60 Mg SQ Q12HR 30 Days Furosemide 20 Mg Tablet 20 Mg PO DAILY 30 Days Benadryl (Diphenhydramine Hcl) 25 Mg Capsule 50 Mg PO PRN QHS PRN 30 Days Duoneb 0.5-3(2.5) Mg/3 Ml (Albuterol/Ipratropium) 3 Ml Ampul.neb 3 Ml NEB RTQID 30 Days Lantus (Insulin Glargine,Hum.rec.anlog) 100 Unit/1 Ml Vial 55 Unit SQ HS 30 Days Reported Vitamin D3 (Cholecalciferol (Vitamin D3)) 1,000 Unit Tablet 1 Tab PO DAILY Nystatin 15 Gm Powder 1 Narendra TP BID Novolog Flexpen (Insulin Aspart) 100 Unit/1 Ml Insuln.pen 20 Unit SQ TIDAC Cephalexin 500 Mg Tablet 1 Tab PO QID Benzonatate 100 Mg Capsule 1 Cap PO Q8HRS PRN Multivitamins (Multivitamin) 1 Each Tablet 1 Tab PO DAILY Fish Oil 1,000 Mg Capsule ([place]-3 Fatty Acids/Fish Oil) 1 Each Capsule 3 Each PO HS Children's Aspirin (Aspirin) 81 Mg Tab.chew 81 Mg PO DAILY Finasteride 5 Mg Tablet 1 Tab PO DAILY Trazodone Hcl 50 Mg Tablet 1 Tab PO QHS Tamsulosin Hcl 0.4 Mg Cap.er.24h 1 Cap PO DAILY Lyrica (Pregabalin) 50 Mg Capsule 1 Cap PO TID Nystatin 15 Gm Powder 1 Narendra TP BID Naltrexone Hcl 50 Mg Tablet 1 Tab PO DAILY Miconazole Nitrate 130 Gm Aero.powd 130 Gm TP TID Metoprolol Tartrate 25 Mg Tablet 1 Tab PO BID Melatonin 3 Mg Tablet 3 Mg PO HS Magnesium Oxide 400 Mg Tablet 1 Tab PO DAILY Losartan Potassium 50 Mg Tablet 50 Mg PO BID Hydrophilic Ointment 410 Gm Oint...g. 410 Gm TP PRN Cymbalta (Duloxetine Hcl) 60 Mg Capsule.dr 1 Cap PO DAILY Bupropion Xl (Bupropion Hcl) 150 Mg Tab.er.24h 1 Tab PO DAILYWBKFT Atorvastatin Calcium 80 Mg Tablet 80 Mg PO HS Vitals/I & O Vital Sign - Last 24 Hours 08/08/18 08/08/18 08/08/18 08/08/18 15:00 15:00 17:13 20:00 Temp 97.9 97.9 Pulse 68 Resp 18 B/P (MAP) 130/64 (86) Pulse Ox 100 98 O2 Delivery Nasal Cannula Nasal Cannula Nasal Cannula Nasal Cannula O2 Flow Rate 1.0 1.0 1.0 08/08/18 08/08/18 08/08/18 08/08/18 20:00 20:43 23:00 23:16 Temp 98.0 98.1 98.0 98.1 Pulse 77 77 79 Resp 18 20 18 B/P (MAP) 174/45 (88) 174/44 148/49 (82) Pulse Ox 97 97 97 O2 Delivery Nasal Cannula Nasal Cannula Nasal Cannula O2 Flow Rate 1.0 08/09/18 08/09/18 08/09/18 08/09/18 00:16 03:07 03:56 04:56 Temp 97.7 97.7 Pulse 70 Resp 18 20 20 18 B/P (MAP) 135/74 (94) Pulse Ox 97 100 100 100 O2 Delivery Nasal Cannula Nasal Cannula Nasal Cannula O2 Flow Rate 1.0 1.0 08/09/18 08/09/18 08/09/18 08/09/18 05:52 07:00 07:52 08:00 Temp 97.8 97.8 Pulse 77 Resp 18 18 B/P (MAP) 152/57 (88) Pulse Ox 100 99 98 O2 Delivery Nasal Cannula Nasal Cannula Nasal Cannula Nasal Cannula O2 Flow Rate 1.0 6.5 4.0 08/09/18 08/09/18 08/09/18 08/09/18 08:08 08:11 10:55 11:32 Temp 97.5 97.5 Pulse 77 82 Resp 18 B/P (MAP) 152/57 148/56 (86) Pulse Ox 96 98 O2 Delivery Nasal Cannula Nasal Cannula Nasal Cannula O2 Flow Rate 6.0 4.0 08/09/18 12:10 O2 Delivery Nasal Cannula O2 Flow Rate 1.5 Intake and Output 08/08/18 08/08/18 08/09/18 15:00 23:00 07:00 Intake Total 840 ml 1240 ml Output Total 0 ml Balance 840 ml 1240 ml 0 ml AHMET RAMIREZ MD Aug 09, 2018 13:23
[2018-08-09 15:00] VITALS: BP 142/61
== END 2018-08-09 16:58 | DRG 871 ==
LOC: ER 23:28 → 5 NORTH 07-25 01:50
PROVIDERS: ADMIT Internal Medicine; ATTEND Internal Medicine
DX: A40.1 Sepsis due to streptococcus, group B (principal); J96.02 Acute respiratory failure with hypercapnia; J96.01 Acute respiratory failure with hypoxia; K66.1 Hemoperitoneum; J44.1 Chronic obstructive pulmonary disease with (acute) exacerbation; I13.0 Hypertensive heart and chronic kidney disease with heart failure and stage 1 through stage 4 chronic kidney disease, or unspecified chronic kidney disease; L03.115 Cellulitis of right lower limb; L03.116 Cellulitis of left lower limb; M62.82 Rhabdomyolysis; D62 Acute posthemorrhagic anemia; R45.851 Suicidal ideations; N17.9 Acute kidney failure, unspecified; Z68.43 Body mass index [BMI] 50.0-59.9, adult; Q60.0 Renal agenesis, unilateral; I50.9 Heart failure, unspecified; N18.9 Chronic kidney disease, unspecified; E78.00 Pure hypercholesterolemia, unspecified; E10.22 Type 1 diabetes mellitus with diabetic chronic kidney disease; E10.42 Type 1 diabetes mellitus with diabetic polyneuropathy; E10.65 Type 1 diabetes mellitus with hyperglycemia; E66.01 Morbid (severe) obesity due to excess calories; B95.5 Unspecified streptococcus as the cause of diseases classified elsewhere; E83.42 Hypomagnesemia; E78.5 Hyperlipidemia, unspecified; I95.9 Hypotension, unspecified; I87.8 Other specified disorders of veins; N40.1 Benign prostatic hyperplasia with lower urinary tract symptoms; M17.0 Bilateral primary osteoarthritis of knee; R39.11 Hesitancy of micturition; R31.9 Hematuria, unspecified; K59.00 Constipation, unspecified; S61.512A Laceration without foreign body of left wrist, initial encounter; F41.9 Anxiety disorder, unspecified; N32.89 Other specified disorders of bladder; N50.89 Other specified disorders of the male genital organs; T38.0X5A Adverse effect of glucocorticoids and synthetic analogues, initial encounter; Z83.3 Family history of diabetes mellitus; Z82.49 Family history of ischemic heart disease and other diseases of the circulatory system; Z88.6 Allergy status to analgesic agent; Z79.4 Long term (current) use of insulin; Z22.322 Carrier or suspected carrier of Methicillin resistant Staphylococcus aureus; Z91.19 Patient's noncompliance with other medical treatment and regimen
CPT/HCPCS: 36415; 72131; 72192; 73560; 73562; 73590; 80048; 80053; 80069; 82550; 82962; 85007; 85014; 85018; 85025; 85610; 85651; 87641; 94640; 94760; J0696; J1650; J1815; J1940; J2270; J3010; J3490; J7030; J7620; Q0163; 97110; 97140; 97530; 97535; 99285-25